=== PATIENT | female | born 1955 | race Caucasian/White ===

== ENCOUNTER 2019-06-08 15:25 | Emergency (ER) | payer BC, OTHER ==
[~2019-06-08] VITALS: Ht 182.9 cm; Wt 131.5 kg
--- NOTE | 2019-06-08 16:04 | Diagnostic Imaging Report ---
PATIENT HISTORY: Shortness of breath. TECHNIQUE: Single frontal view of the chest. COMPARISON: None. FINDINGS: The lung volumes are normal. No focal consolidation is seen. No large pleural effusion or pneumothorax is seen. The cardiomediastinal silhouette is normal in size and contour. No acute osseous abnormality is seen. IMPRESSION: No acute pulmonary abnormality seen. Dictated by: Dictated on workstation # [id number]
--- NOTE | 2019-06-08 16:17 | ED Cardiac General ---
History of Present Illness General Chief Complaint: Chest Pain Stated Complaint: NEEDS CHEST WORKUP Source: patient Exam Limitations: no limitations History of Present Illness Date Seen by Provider: Jun 08, 2019 Time Seen by Provider: 15:40 Initial Comments The patient is a pleasant 63-year-old female who presents for evaluation of left-sided chest pain. She states that she had a heart attack with a stent placed approximate 5 years ago. She says she's been experiencing this pain on and off for the last 2-3 weeks but that since yesterday the pain is been relatively constant. The pain she is expressing is in the upper left chest/shoulder region and radiating to the left neck. She took a nitroglycerin and some aspirin last night which did help with the pain. She also has a history of hypertension, hyperlipidemia, and diabetes. She went to see her PCP today and apparently her oxygen level was noted to be decreased so she was told to go to the emergency department. She is alert and oriented 4, calm, and appears to be in no distress at this time. Severity: moderate Location: shoulder (left) Activities at Onset: none Prior CP/Workup: cardiac cath, heart attack NTG SL MAILING SECTION CLERK: Yes (last night) ASA po MAILING SECTION CLERK: Yes (last night) Associated Systoms: Chest Pain Allergies and Home Medications Allergies Coded Allergies: No Known Drug Allergies (Unverified , 06/08/19) Patient Home Medication List Home Medication List Reviewed: Yes Review of Systems Review of Systems Constitutional: no symptoms reported EENTM: No Symptoms Reported Respiratory: No Symptoms Reported Cardiovascular: Chest Pain Gastrointestinal: No Symptoms Reported Genitourinary: No Symptoms Reported Musculoskeletal: no symptoms reported Skin: no symptoms reported Psychiatric/Neurological: No Symptoms Reported Endocrine: No Symptoms Reported Hematologic/Lymphatic: No Symptoms Reported All Other Systems Reviewed Negative Unless Noted: Yes Past Wbxdgcg-Tijjho-Trdgny Hx Past Med/Social Hx: Reviewed Nursing Past Med/Soc Hx Patient Social History Recent Foreign Travel: No Contact w/Someone Who Travel: No Physical Exam Vital Signs Vital Signs - First Documented 06/08/19 15:40 FiO2 93 Capillary Refill : Height, Weight, BMI Height: '" Weight: lbs. oz. kg; BMI Method: General Appearance: No Apparent Distress, WD/WN HEENT: PERRL/EOMI, TMs Normal, Normal ENT Inspection, Pharynx Normal Neck: Full Range of Motion, Normal Inspection, Non Tender, Supple Respiratory: Chest Non Tender, Lungs Clear, Normal Breath Sounds, No Accessory Muscle Use, No Respiratory Distress Cardiovascular: Regular Rate, Rhythm, No Edema, No Murmur Gastrointestinal: Normal Bowel Sounds, No Organomegaly, Non Tender, Soft Extremity: Normal Capillary Refill, Normal Inspection, Non Tender, No Calf Tenderness Neurologic/Psychiatric: Alert, Oriented x3, No Motor/Sensory Deficits, Normal Mood/Affect Skin: Normal Color, Warm/Dry Progress/Results/Core Measures Results/Orders Lab Results Laboratory Tests Test 06/08/19 15:50 Range/Units White Blood Count 8.0 4.3-11.0 10^3/uL Red Blood Count 4.60 4.35-5.85 10^6/uL Hemoglobin 13.6 11.5-16.0 G/DL Hematocrit 43 35-52 % Mean Corpuscular Volume 94 80-99 FL Mean Corpuscular Hemoglobin 30 25-34 PG Mean Corpuscular Hemoglobin Concent 31 L 32-36 G/DL Red Cell Distribution Width 13.2 10.0-14.5 % Platelet Count 239 130-400 10^3/uL Mean Platelet Volume 10.4 7.4-10.4 FL Neutrophils (%) (Auto) 66 42-75 % Lymphocytes (%) (Auto) 20 12-44 % Monocytes (%) (Auto) 10 0-12 % Eosinophils (%) (Auto) 3 0-10 % Basophils (%) (Auto) 1 0-10 % Neutrophils # (Auto) 5.3 1.8-7.8 X 10^3 Lymphocytes # (Auto) 1.7 1.0-4.0 X 10^3 Monocytes # (Auto) 0.8 0.0-1.0 X 10^3 Eosinophils # (Auto) 0.2 0.0-0.3 10^3/uL Basophils # (Auto) 0.1 0.0-0.1 10^3/uL Prothrombin Time 14.2 12.2-14.7 SEC INR Comment 1.1 0.8-1.4 Activated Partial Thromboplast Time 27 24-35 SEC D-Dimer 0.37 0.00-0.49 UG/ML Sodium Level 140 135-145 MMOL/L Potassium Level 4.4 3.6-5.0 MMOL/L Chloride Level 99 98-107 MMOL/L Carbon Dioxide Level 31 21-32 MMOL/L Anion Gap 10 5-14 MMOL/L Blood Urea Nitrogen 16 7-18 MG/DL Creatinine 0.77 0.60-1.30 MG/DL Estimat Glomerular Filtration Rate > 60 BUN/Creatinine Ratio 21 Glucose Level 202 H 70-105 MG/DL Calcium Level 9.1 8.5-10.1 MG/DL Corrected Calcium 9.2 8.5-10.1 MG/DL Total Bilirubin < 0.2 0.1-1.0 MG/DL Aspartate Amino Transf (AST/SGOT) 27 5-34 U/L Alanine Aminotransferase (ALT/SGPT) 27 0-55 U/L Alkaline Phosphatase 84 40-136 U/L Troponin I < 0.30 <0.30 NG/ML Pro-B-Type Natriuretic Peptide 102.3 H <75.0 PG/ML Total Protein 6.4 6.4-8.2 GM/DL Albumin 3.9 3.2-4.5 GM/DL My Orders Orders - MARCEL CALDERA DO Cbc With Automated Diff (06/08/19 15:47) Chest 1 View Ap/Pa Only (06/08/19 15:47) Ekg Tracing (06/08/19 15:47) Comprehensive Metabolic Panel (06/08/19 15:47) Protime With Inr (06/08/19 15:47) Partial Thromboplastin Time (06/08/19 15:47) O2 (06/08/19 15:47) Monitor-Rhythm Ecg Trace Only (06/08/19 15:47) Ed Iv/Invasive Line Start (06/08/19 15:47) Troponin I Fs (06/08/19 15:47) Probnp Fs (06/08/19 15:47) Aspirin Chewable Tablet (Baby Aspirin Ch (06/08/19 16:30) Nitroglycerin 0.4 Mg Btl 25's (Nitrostat (06/08/19 16:30) Fibrin Degradation Products (06/08/19 17:01) Medications Given in ED Current Medications Medications Dose Ordered Sig/Deep Route Start Time Stop Time Status Last Admin Dose Admin Aspirin 324 mg ONCE ONCE PO 06/08/19 16:30 06/08/19 16:31 DC 06/08/19 16:35 324 MG Nitroglycerin 0.4 mg NEEDED PRN SL 06/08/19 16:30 06/08/19 17:54 0.4 MG Vital Signs/I&O 06/08/19 06/08/19 06/08/19 15:35 15:35 15:40 Temp 36.8 Pulse 62 Resp 20 B/P (MAP) 150/67 (94) Pulse Ox 93 93 O2 Delivery Room Air Nasal Cannula Nasal Cannula O2 Flow Rate 2.00 2.0 2.00 FiO2 93 Progress Progress Note : Progress Note @1700 - patient updated on lab and imaging results and is still having some chest discomfort. She is agreeable to admission. I discussed the case with Dr. Pedraza who accepts the admission however he would like the patient to first received a d-dimer and if positive to have a CTA of her chest. The patient prefe rs to be transferred by private vehicle which is agreeable. @1800 - D-dimer is negative and the patient prefers to go by private vehicle. She is stable for transfer at this time. Comment EKG@1534 - normal sinus rhythm, rate of 63, normal axis, no acute ischemic findings noted, no STEMI, reviewed and interpreted by myself Departure Communication (Admissions) Time/Spoke to Admitting Phy: 17:[address] Pedraza who accepts admission but would like a d-dimer to be performed prior to admission. Impression Primary Impression: Chest pain Disposition: ADMITTED INPATIENT Condition: Stable Admissions Decision to Admit Reason: Admit from ER (General) Decision to Admit/Date: Jun 08, 2019 Time/Decision to Admit Time: 17:00 MARCEL CALDERA DO Jun 08, 2019 16:17
[2019-06-08] MEDS ORDERED: ASPIRIN 81 MG CHEW (CHILDREN'S ASA) PO ONE (16:30)
[2019-06-08 16:33] LABS: HEMATOCRIT 43 % (35-52); HEMOGLOBIN 13.6 G/DL (11.5-16.0); INR 1.1 (0.8-1.4); MEAN CORPUSCULAR HEMOGLOBIN 30 PG (25-34); MEAN CORPUSCULAR VOLUME 94 FL (80-99); PROTHROMBIN TIME PATIENT 14.2 SEC (12.2-14.7)
[2019-06-08 16:34] LABS: BASOPHILS # (AUTO) 0.1 10^3/uL (0.0-0.1); BASOPHILS % (AUTO) 1 % (0-10); EOSINOPHILS # (AUTO) 0.2 10^3/uL (0.0-0.3); EOSINOPHILS % (AUTO) 3 % (0-10); LYMPHOCYTES # (AUTO) 1.7 X 10^3 (1.0-4.0); LYMPHOCYTES % (AUTO) 20 % (12-44); MEAN CORPUSCULAR HGB CONC 31 G/DL (32-36); MEAN PLATELET VOLUME 10.4 FL (7.4-10.4); MONOCYTES # (AUTO) 0.8 X 10^3 (0.0-1.0); MONOCYTES % (AUTO) 10 % (0-12); NEUTROPHILS # (AUTO) 5.3 X 10^3 (1.8-7.8); NEUTROPHILS % (AUTO) 66 % (42-75); PLATELET COUNT 239 10^3/uL (130-400); RED CELL DISTRIBUTION WIDTH 13.2 % (10.0-14.5)
[2019-06-08] MEDS: NITROGLYCERIN 0.4 MG SL TABS BTL 25'S SL PRN ×2 (16:35→17:54)
[2019-06-08 16:36] LABS: ALANINE AMINOTRANSFERASE 27 U/L (0-55); ALBUMIN 3.9 GM/DL (3.2-4.5); ALKALINE PHOSPHATASE 84 U/L (40-136); BILIRUBIN,TOTAL < 0.2 MG/DL (0.1-1.0); BUN/CREATININE RATIO 21; CALCIUM 9.1 MG/DL (8.5-10.1); CARBON DIOXIDE 31 MMOL/L (21-32); CHLORIDE 99 MMOL/L (98-107); CREATININE SERUM 0.77 MG/DL (0.60-1.30); GFR ESTIMATED > 60; GLUCOSE 202 MG/DL (70-105); POTASSIUM 4.4 MMOL/L (3.6-5.0); SODIUM 140 MMOL/L (135-145); TOTAL PROTEIN 6.4 GM/DL (6.4-8.2)
--- NOTE | 2019-06-08 18:26 | NUR ---
REPORT RECEIVED FROM LAZARUS HERNANDEZ FROM [facility]. PT COMING VIA PRIVATE VEHICLE.
[2019-06-08 19:41] VITALS: BP 171/85
--- NOTE | 2019-06-08 19:42 | NUR ---
185- CONTACTED BY THE MEDICAL FLOOR CHARGE NURSE. INFORMED ME THAT THE PATIENT CALLED AND STATED SHE WAS NOT COMING TO BE ADMITTED. 1899- CONTACTED [facility] [place] [facility] IN THE ED. INQUIRED IF THE IV WAS STILL IN PLACE ON THE PATIENT. PRIMARY CARE NURSE CONFIRMED IV WAS STILL IN PLACE BEFORE THE PATIENT LEFT. 1905- CONTACTED [facility] [place] [facility] FOR A WELL-FARE CHECK ON PATIENT DUE TO IV STILL IN PLACE AND NOT COMING TO BE ADMITTED. 1922- OFFICER ASTER SANTOS #[address] WITH [facility] [place] [facility] CONTACTED ME TO CONFIRM ADDRESS AND PROVIDE PHONE NUMBER FOR PATIENT. 1936- OFFICER ASTER CONTACTED ME WITH THE PATIENT AT SIDE IN THE [facility]. SPOKE TO PATIENT DIRECTLY WITH OFFICER ASTER ON SPEAKER PHONE ABOUT HOW WE HAVE TO HAVE THE IV REMOVED SINCE SHE IS NOT COMING TO BE ADMITTED. PATIENT AGREED TO TAKE IV ON IN FRONT OF THE BARBER AND COVER WITH GAUZE. 1939- NAI RODARTE CONTACTED ME TO CONFIRM THAT THE IV WAS TAKEN OUT WITH HIM WITNESS AND HE PROVIDED GAUZE AND TAPE FOR THE PATIENT TO COVER SITE.
== END 2019-06-08 18:30 | disposition other institution (70) ==
LOC: ER FS 15:27 → UNDOADMIN 18:25 → 4TH 18:25
DX: R07.89 Other chest pain (principal); I25.2 Old myocardial infarction; Z95.5 Presence of coronary angioplasty implant and graft
CPT/HCPCS: 36415; 71045; 80053; 83880; 84484; 85025; 85379; 85610; 85730; 93005; 93041

== ENCOUNTER → 2019-11-08 | Outpatient (CLI) | payer BC ==
[~2019-11-08] MED LIST: ALPR0.5T7 PO; AMIO200T4 PO; AMLO10TA7 PO; APIX5TAB PO; ASPI-983 PO; ATEN50TA PO; ATOR20TA49 PO; BUPR150T14 PO; DIGO250T15 PO; DILT180C85 PO; ESCI20TA45 PO; FLUT12AE4 IH; IBUP-2473 PO; ISM60TCR PO; LISI-552 PO; LOVA20TA2 PO; METF-397 PO; METO50TA15 PO; NAPR220T66 PO; POTA2TAB5 PO; PRED10TA22 PO; RT-ALBUINH PO; TRAM50TA3 PO
== END ==
LOC: LABNPT 06:42
PROVIDERS: ATTEND Internal Medicine Interventional Cardiology
DX: Z01.818 Encounter for other preprocedural examination (principal); Z20.828 Contact with and (suspected) exposure to other viral communicable diseases
CPT/HCPCS: 87635

== ENCOUNTER 2019-11-12 06:59 | Inpatient (IN) | payer BC ==
[~2019-11-12] VITALS: Ht 183 cm; Wt 132.0 kg
[2019-11-12] VITALS (19 sets, daily range): BP systolic 89–152; BP diastolic 52–80
[2019-11-12] MEDS ORDERED: NS IV 1000 ML 1,000 ML IV SCH ×2 (07:03→13:26)
[2019-11-12] MEDS ORDERED: LIDOCAINE 1% INJ 20 ML 20 ML VIAL ONE (07:06)
[2019-11-12] MEDS ORDERED: NS IV 1000 ML 1,000 ML ONE ×2 (07:06→09:12)
[2019-11-12] MEDS ORDERED: HEParin (CATH LAB) 3,000 ML IV ONE (07:06)
--- OUTSIDE RECORDS SUMMARY | 2019-11-12 07:09 | XMS REPORT | Continuity of Care Document ---
Author Organization Unknown Address Unknown Phone Unavailable Allergies Active Description Code Type Severity Reaction Onset Reported/Identified Relationship to Patient Clinical Status Yes No Known Drug Allergies [id number] Drug Allergy Unknown N/A 06/08/2019 Medications There is no data. Problems Date Dx Coded Attending Type Code Diagnosis Diagnosed By 06/08/2019 VERENICE ROD DO Ot I25. 2 OLD MYOCARDIAL INFARCTION 06/08/2019 VERENICE ROD DO B Ot R07. 89 OTHER CHEST PAIN 06/08/2019 VERENICE ROD DO B Ot R07. 9 CHEST PAIN, UNSPECIFIED 06/08/2019 VERENICE ROD DO B Ot Z95. 5 PRESENCE OF CORONARY ANGIOPLASTY IMPLANT 06/12/2019 VERENICE ROD DO B Ot I25. 2 OLD MYOCARDIAL INFARCTION 06/12/2019 MARCEL DOVERENICE B Ot R07. 89 OTHER CHEST PAIN 06/12/2019 VERENICE ROD DO B Ot R07. 9 CHEST PAIN, UNSPECIFIED 06/12/2019 VERENICE ROD DO B Ot Z95. 5 PRESENCE OF CORONARY ANGIOPLASTY IMPLANT 09/09/2019 KRISTINA POWELL MD Ot E11. 9 TYPE 2 DIABETES MELLITUS WITHOUT COMPLIC 09/09/2019 KRISTINA POWELL MD Ot E66. 2 MORBID (SEVERE) OBESITY WITH ALVEOLAR HY 09/09/2019 KRISTINA POWELL MD Ot E78. 00 PURE HYPERCHOLESTEROLEMIA, UNSPECIFIED 09/09/2019 KRISTINA POWELL MD Ot F17.210 NICOTINE DEPENDENCE, CIGARETTES, UNCOMPL 09/09/2019 KRISTINA POWELL MD Ot F32. 9 MAJOR DEPRESSIVE DISORDER, SINGLE EPISOD 09/09/2019 KRISTINA POWELL MD Ot F41. 9 ANXIETY DISORDER, UNSPECIFIED 09/09/2019 KRISTINA POWELL MD Ot I11. 0 HYPERTENSIVE HEART DISEASE WITH HEART FA 09/09/2019 KRISTINA POWELL MD Ot I25. 10 ATHSCL HEART DISEASE OF [place] CORONARY 09/09/2019 KRISTINA POWELL MD Ot I48. 91 UNSPECIFIED ATRIAL FIBRILLATION 09/09/2019 KRISTINA POWELL MD Ot I50. 31 ACUTE DIASTOLIC (CONGESTIVE) HEART FAILU 09/09/2019 KRISTINA POWELL MD Ot J43. 9 EMPHYSEMA, UNSPECIFIED 09/09/2019 KRISTINA POWELL MD Ot J96. 21 ACUTE AND CHRONIC RESPIRATORY FAILURE [place] 09/09/2019 KRISTINA POWELL MD Ot R07. 89 OTHER CHEST PAIN 09/09/2019 KRISTINA POWELL MD Ot Z20.828 CONTACT W AND EXPOSURE TO OTH VIRAL COMM 09/09/2019 KRISTINA POWELL MD Ot Z68. 41 BODY MASS INDEX (BMI) 40.0-44.9, ADULT 09/09/2019 KRISTINA POWELL MD Ot Z95. 5 PRESENCE OF CORONARY ANGIOPLASTY IMPLANT 09/11/2019 KRISTINA POWELL MD Ot E11. 9 TYPE 2 DIABETES MELLITUS WITHOUT COMPLIC 09/11/2019 KRISTINA POWELL MD Ot E66. 2 MORBID (SEVERE) OBESITY WITH ALVEOLAR HY 09/11/2019 KRISTINA POWELL MD Ot E78. 00 PURE HYPERCHOLESTEROLEMIA, UNSPECIFIED 09/11/2019 KRISTINA POWELL MD Ot F17.210 NICOTINE DEPENDENCE, CIGARETTES, UNCOMPL 09/11/2019 KRISTINA POWELL MD Ot I11. 0 HYPERTENSIVE HEART DISEASE WITH HEART FA 09/11/2019 KRISTINA POWELL MD Ot I48. 91 UNSPECIFIED ATRIAL FIBRILLATION 09/11/2019 KRISTINA POWELL MD Ot I50. 9 HEART FAILURE, UNSPECIFIED 09/11/2019 KRISTINA POWELL MD Ot J43. 9 EMPHYSEMA, UNSPECIFIED 09/11/2019 KRISTINA POWELL MD Ot J96. 01 ACUTE RESPIRATORY FAILURE WITH HYPOXIA 09/11/2019 KRISTINA POWELL MD Ot R07. 89 OTHER CHEST PAIN 09/11/2019 KRISTINA POWELL MD Ot Z68. 41 BODY MASS INDEX (BMI) 40.0-44.9, ADULT 09/11/2019 KRISTINA POWELL MD Ot Z95. 5 PRESENCE OF CORONARY ANGIOPLASTY IMPLANT 09/12/2019 KRISTINA POWELL MD Ot E11. 9 TYPE 2 DIABETES MELLITUS WITHOUT COMPLIC 09/12/2019 KRISTINA POWELL MD Ot E66. 2 MORBID (SEVERE) OBESITY WITH ALVEOLAR HY 09/12/2019 KRISTINA POWELL MD Ot E78. 00 PURE HYPERCHOLESTEROLEMIA, UNSPECIFIED 09/12/2019 KRISTINA POWELL MD Ot F17.210 NICOTINE DEPENDENCE, CIGARETTES, UNCOMPL 09/12/2019 KRISTINA POWELL MD Ot F32. 9 MAJOR DEPRESSIVE DISORDER, SINGLE EPISOD 09/12/2019 KRISTINA POWELL MD Ot F41. 9 ANXIETY DISORDER, UNSPECIFIED 09/12/2019 KRISTINA POWELL MD Ot I11. 0 HYPERTENSIVE HEART DISEASE WITH HEART FA 09/12/2019 KRISTINA POWELL MD Ot I48. 91 UNSPECIFIED ATRIAL FIBRILLATION 09/12/2019 KRISTINA POWELL MD Ot I50. 9 HEART FAILURE, UNSPECIFIED 09/12/2019 KRISTINA POWELL MD Ot J43. 9 EMPHYSEMA, UNSPECIFIED 09/12/2019 KRISTINA POWELL MD Ot J96. 01 ACUTE RESPIRATORY FAILURE WITH HYPOXIA 09/12/2019 KRISTINA POWELL MD Ot R07. 89 OTHER CHEST PAIN 09/12/2019 KRISTINA POWELL MD Ot Z68. 41 BODY MASS INDEX (BMI) 40.0-44.9, ADULT 09/12/2019 KRISTINA POWELL MD Ot Z95. 5 PRESENCE OF CORONARY ANGIOPLASTY IMPLANT 09/12/2019 KRISTINA POWELL MD Ot E11. 9 TYPE 2 DIABETES MELLITUS WITHOUT COMPLIC 09/12/2019 KRISTINA POWELL MD Ot E66. 2 MORBID (SEVERE) OBESITY WITH ALVEOLAR HY 09/12/2019 KRISTINA POWELL MD Ot E78. 00 PURE HYPERCHOLESTEROLEMIA, UNSPECIFIED 09/12/2019 KRISTINA POWELL MD Ot F17.210 NICOTINE DEPENDENCE, CIGARETTES, UNCOMPL 09/12/2019 KRISTINA POWELL MD Ot F32. 9 MAJOR DEPRESSIVE DISORDER, SINGLE EPISOD 09/12/2019 KRISTINA POWELL MD Ot F41. 9 ANXIETY DISORDER, UNSPECIFIED 09/12/2019 KRISTINA POWELL MD Ot I11. 0 HYPERTENSIVE HEART DISEASE WITH HEART FA 09/12/2019 KRISTINA POWELL MD Ot I48. 91 UNSPECIFIED ATRIAL FIBRILLATION 09/12/2019 KRISTINA POWELL MD Ot I50. 9 HEART FAILURE, UNSPECIFIED 09/12/2019 KRISTINA POWELL MD Ot J43. 9 EMPHYSEMA, UNSPECIFIED 09/12/2019 KRISTINA POWELL MD Ot J96. 01 ACUTE RESPIRATORY FAILURE WITH HYPOXIA 09/12/2019 KRISTINA POWELL MD Ot R07. 89 OTHER CHEST PAIN 09/12/2019 KRISTINA POWELL MD Ot Z68. 41 BODY MASS INDEX (BMI) 40.0-44.9, ADULT 09/12/2019 KRISTINA POWELL MD Ot Z95. 5 PRESENCE OF CORONARY ANGIOPLASTY IMPLANT 09/13/2019 KRISTINA POWELL MD Ot E11. 9 TYPE 2 DIABETES MELLITUS WITHOUT COMPLIC 09/13/2019 KRISTINA POWELL MD Ot E66. 2 MORBID (SEVERE) OBESITY WITH ALVEOLAR HY 09/13/2019 KRISTINA POWELL MD Ot E78. 00 PURE HYPERCHOLESTEROLEMIA, UNSPECIFIED 09/13/2019 KRISTINA POWELL MD Ot F17.210 NICOTINE DEPENDENCE, CIGARETTES, UNCOMPL 09/13/2019 KRISTINA POWELL MD Ot F32. 9 MAJOR DEPRESSIVE DISORDER, SINGLE EPISOD 09/13/2019 KRISTINA POWELL MD Ot F41. 9 ANXIETY DISORDER, UNSPECIFIED 09/13/2019 KRISTINA POWELL MD Ot I11. 0 HYPERTENSIVE HEART DISEASE WITH HEART FA 09/13/2019 KRISTINA POWELL MD Ot I48. 91 UNSPECIFIED ATRIAL FIBRILLATION 09/13/2019 KRISTINA POWELL MD Ot I50. 9 HEART FAILURE, UNSPECIFIED 09/13/2019 KRISTINA POWELL MD Ot J43. 9 EMPHYSEMA, UNSPECIFIED 09/13/2019 KRISTINA POWELL MD Ot J96. 01 ACUTE RESPIRATORY FAILURE WITH HYPOXIA 09/13/2019 KRISTINA POWELL MD Ot R07. 89 OTHER CHEST PAIN 09/13/2019 KRISTINA POWELL MD Ot Z68. 41 BODY MASS INDEX (BMI) 40.0-44.9, ADULT 09/13/2019 KRISTINA POWELL MD Ot Z95. 5 PRESENCE OF CORONARY ANGIOPLASTY IMPLANT 09/13/2019 KRISTINA POWELL MD Ot E11. 9 TYPE 2 DIABETES MELLITUS WITHOUT COMPLIC 09/13/2019 KRISTINA POWELL MD Ot E66. 2 MORBID (SEVERE) OBESITY WITH ALVEOLAR HY 09/13/2019 KRISTINA POWELL MD Ot E78. 00 PURE HYPERCHOLESTEROLEMIA, UNSPECIFIED 09/13/2019 KRISTINA POWELL MD Ot F17.210 NICOTINE DEPENDENCE, CIGARETTES, UNCOMPL 09/13/2019 KRISTINA POWELL MD Ot F32. 9 MAJOR DEPRESSIVE DISORDER, SINGLE EPISOD 09/13/2019 KRISTINA POWELL MD Ot F41. 9 ANXIETY DISORDER, UNSPECIFIED 09/13/2019 KRISTINA POWELL MD Ot I11. 0 HYPERTENSIVE HEART DISEASE WITH HEART FA 09/13/2019 KRISTINA POWELL MD Ot I48. 91 UNSPECIFIED ATRIAL FIBRILLATION 09/13/2019 KRISTINA POWELL MD Ot I50. 9 HEART FAILURE, UNSPECIFIED 09/13/2019 KRISTINA POWELL MD Ot J43. 9 EMPHYSEMA, UNSPECIFIED 09/13/2019 KRISTINA POWELL MD Ot J96. 01 ACUTE RESPIRATORY FAILURE WITH HYPOXIA 09/13/2019 KRISTINA POWELL MD Ot R07. 89 OTHER CHEST PAIN 09/13/2019 KRISTINA POWELL MD Ot Z68. 41 BODY MASS INDEX (BMI) 40.0-44.9, ADULT 09/13/2019 KRISTINA POWELL MD Ot Z95. 5 PRESENCE OF CORONARY ANGIOPLASTY IMPLANT 09/14/2019 KRISTINA POWELL MD Ot E11. 9 TYPE 2 DIABETES MELLITUS WITHOUT COMPLIC 09/14/2019 KRISTINA POWELL MD Ot E66. 2 MORBID (SEVERE) OBESITY WITH ALVEOLAR HY 09/14/2019 KRISTINA POWELL MD Ot E78. 00 PURE HYPERCHOLESTEROLEMIA, UNSPECIFIED 09/14/2019 KRISTINA POWELL MD Ot F17.210 NICOTINE DEPENDENCE, CIGARETTES, UNCOMPL 09/14/2019 KRISTINA POWELL MD Ot F32. 9 MAJOR DEPRESSIVE DISORDER, SINGLE EPISOD 09/14/2019 KRISTINA POWELL MD Ot F41. 9 ANXIETY DISORDER, UNSPECIFIED 09/14/2019 KRISTINA POWELL MD Ot I11. 0 HYPERTENSIVE HEART DISEASE WITH HEART FA 09/14/2019 KRISTINA POWELL MD Ot I48. 91 UNSPECIFIED ATRIAL FIBRILLATION 09/14/2019 KRISTINA POWELL MD Ot I50. 9 HEART FAILURE, UNSPECIFIED 09/14/2019 KRISTINA POWELL MD Ot J43. 9 EMPHYSEMA, UNSPECIFIED 09/14/2019 KRISTINA POWELL MD Ot J96. 01 ACUTE RESPIRATORY FAILURE WITH HYPOXIA 09/14/2019 KRISTINA POWELL MD Ot R07. 89 OTHER CHEST PAIN 09/14/2019 KRISTINA POWELL MD Ot Z68. 41 BODY MASS INDEX (BMI) 40.0-44.9, ADULT 09/14/2019 KRISTINA POWELL MD Ot Z95. 5 PRESENCE OF CORONARY ANGIOPLASTY IMPLANT 09/14/2019 KRISTINA POWELL MD Ot E11. 9 TYPE 2 DIABETES MELLITUS WITHOUT COMPLIC 09/14/2019 KRISTINA POWELL MD Ot E66. 2 MORBID (SEVERE) OBESITY WITH ALVEOLAR HY 09/14/2019 KRISTINA POWELL MD Ot E78. 00 PURE HYPERCHOLESTEROLEMIA, UNSPECIFIED 09/14/2019 KRISTINA POWELL MD Ot F17.210 NICOTINE DEPENDENCE, CIGARETTES, UNCOMPL 09/14/2019 KRISTINA POWELL MD Ot F32. 9 MAJOR DEPRESSIVE DISORDER, SINGLE EPISOD 09/14/2019 KRISTINA POWELL MD Ot F41. 9 ANXIETY DISORDER, UNSPECIFIED 09/14/2019 KRISTINA POWELL MD Ot I11. 0 HYPERTENSIVE HEART DISEASE WITH HEART FA 09/14/2019 KRISTINA POWELL MD Ot I48. 91 UNSPECIFIED ATRIAL FIBRILLATION 09/14/2019 KRISTINA POWELL MD Ot I50. 9 HEART FAILURE, UNSPECIFIED 09/14/2019 KRISTINA POWELL MD Ot J43. 9 EMPHYSEMA, UNSPECIFIED 09/14/2019 KRISTINA POWELL MD Ot J96. 01 ACUTE RESPIRATORY FAILURE WITH HYPOXIA 09/14/2019 KRISTINA POWELL MD Ot R07. 89 OTHER CHEST PAIN 09/14/2019 KRISTINA POWELL MD Ot Z68. 41 BODY MASS INDEX (BMI) 40.0-44.9, ADULT 09/14/2019 KRISTINA POWELL MD Ot Z95. 5 PRESENCE OF CORONARY ANGIOPLASTY IMPLANT 09/15/2019 KRISTINA POWELL MD Ot E11. 9 TYPE 2 DIABETES MELLITUS WITHOUT COMPLIC 09/15/2019 KRISTINA POWELL MD Ot E66. 2 MORBID (SEVERE) OBESITY WITH ALVEOLAR HY 09/15/2019 KRISTINA POWELL MD Ot E78. 00 PURE HYPERCHOLESTEROLEMIA, UNSPECIFIED 09/15/2019 KRISTINA POWELL MD Ot F17.210 NICOTINE DEPENDENCE, CIGARETTES, UNCOMPL 09/15/2019 KRISTINA POWELL MD Ot F32. 9 MAJOR DEPRESSIVE DISORDER, SINGLE EPISOD 09/15/2019 KRISTINA POWELL MD Ot F41. 9 ANXIETY DISORDER, UNSPECIFIED 09/15/2019 KRISTINA POWELL MD Ot I11. 0 HYPERTENSIVE HEART DISEASE WITH HEART FA 09/15/2019 KRISTINA POWELL MD Ot I48. 91 UNSPECIFIED ATRIAL FIBRILLATION 09/15/2019 KRISTINA POWELL MD Ot I50. 31 ACUTE DIASTOLIC (CONGESTIVE) HEART FAILU 09/15/2019 KRISTINA POWELL MD Ot J43. 9 EMPHYSEMA, UNSPECIFIED 09/15/2019 KRISTINA POWELL MD Ot J96. 01 ACUTE RESPIRATORY FAILURE WITH HYPOXIA 09/15/2019 KRISTINA POWELL MD Ot R07. 89 OTHER CHEST PAIN 09/15/2019 KRISTINA POWELL MD Ot Z68. 41 BODY MASS INDEX (BMI) 40.0-44.9, ADULT 09/15/2019 KRISTINA POWELL MD Ot Z95. 5 PRESENCE OF CORONARY ANGIOPLASTY IMPLANT 09/16/2019 KRISTINA POWELL MD Ot E11. 9 TYPE 2 DIABETES MELLITUS WITHOUT COMPLIC 09/16/2019 KRISTINA POWELL MD Ot E66. 2 MORBID (SEVERE) OBESITY WITH ALVEOLAR HY 09/16/2019 KRISTINA POWELL MD Ot E78. 00 PURE HYPERCHOLESTEROLEMIA, UNSPECIFIED 09/16/2019 KRISTINA POWELL MD Ot F17.210 NICOTINE DEPENDENCE, CIGARETTES, UNCOMPL 09/16/2019 KRISTINA POWELL MD Ot F32. 9 MAJOR DEPRESSIVE DISORDER, SINGLE EPISOD 09/16/2019 KRISTINA POWELL MD Ot F41. 9 ANXIETY DISORDER, UNSPECIFIED 09/16/2019 KRISTINA POWELL MD Ot I11. 0 HYPERTENSIVE HEART DISEASE WITH HEART FA 09/16/2019 KRISTINA POWELL MD Ot I48. 91 UNSPECIFIED ATRIAL FIBRILLATION 09/16/2019 KRISTINA POWELL MD Ot I50. 31 ACUTE DIASTOLIC (CONGESTIVE) HEART FAILU 09/16/2019 KRISTINA POWELL MD, Ot J43. 9 EMPHYSEMA, UNSPECIFIED 09/16/2019 KRISTINA POWELL MD Ot J96. 01 ACUTE RESPIRATORY FAILURE WITH HYPOXIA 09/16/2019 KRISTINA POWELL MD Ot R07. 89 OTHER CHEST PAIN 09/16/2019 KRISTINA POWELL MD Ot Z68. 41 BODY MASS INDEX (BMI) 40.0-44.9, ADULT 09/16/2019 KRISTINA POWELL MD Ot Z95. 5 PRESENCE OF CORONARY ANGIOPLASTY IMPLANT 09/17/2019 KRISTINA POWELL MD Ot E11. 9 TYPE 2 DIABETES MELLITUS WITHOUT COMPLIC 09/17/2019 KRISTINA POWELL MD Ot E66. 2 MORBID (SEVERE) OBESITY WITH ALVEOLAR HY 09/17/2019 KRISTINA POWELL MD Ot E78. 00 PURE HYPERCHOLESTEROLEMIA, UNSPECIFIED 09/17/2019 KRISTINA POWELL MD Ot F17.210 NICOTINE DEPENDENCE, CIGARETTES, UNCOMPL 09/17/2019 KRISTINA POWELL MD Ot F32. 9 MAJOR DEPRESSIVE DISORDER, SINGLE EPISOD 09/17/2019 KRISTINA POWELL MD, Ot F41. 9 ANXIETY DISORDER, UNSPECIFIED 09/17/2019 KRISTINA POWELL MD Ot I11. 0 HYPERTENSIVE HEART DISEASE WITH HEART FA 09/17/2019 KRISTINA POWELL MD Ot I48. 91 UNSPECIFIED ATRIAL FIBRILLATION 09/17/2019 KRISTINA POWELL MD Ot I50. 31 ACUTE DIASTOLIC (CONGESTIVE) HEART FAILU 09/17/2019 KRISTINA POWELL MD Ot J43. 9 EMPHYSEMA, UNSPECIFIED 09/17/2019 KRISTINA POWELL MD Ot J96. 01 ACUTE RESPIRATORY FAILURE WITH HYPOXIA 09/17/2019 KRISTINA POWELL MD Ot R07. 89 OTHER CHEST PAIN 09/17/2019 KRISTINA POWELL MD Ot Z68. 41 BODY MASS INDEX (BMI) 40.0-44.9, ADULT 09/17/2019 KRISTINA POWELL MD Ot Z95. 5 PRESENCE OF CORONARY ANGIOPLASTY IMPLANT 09/18/2019 KRISTINA POWELL MD Ot E11. 9 TYPE 2 DIABETES MELLITUS WITHOUT COMPLIC 09/18/2019 KRISTINA POWELL MD Ot E66. 2 MORBID (SEVERE) OBESITY WITH ALVEOLAR HY 09/18/2019 KRISTINA POWELL MD Ot E78. 00 PURE HYPERCHOLESTEROLEMIA, UNSPECIFIED 09/18/2019 KRISTINA POWELL MD Ot F17.210 NICOTINE DEPENDENCE, CIGARETTES, UNCOMPL 09/18/2019 KRISTINA POWELL MD Ot F32. 9 MAJOR DEPRESSIVE DISORDER, SINGLE EPISOD 09/18/2019 KRISTINA POWELL MD Ot F41. 9 ANXIETY DISORDER, UNSPECIFIED 09/18/2019 KRISTINA POWELL MD Ot I11. 0 HYPERTENSIVE HEART DISEASE WITH HEART FA 09/18/2019 KRISTINA POWELL MD Ot I48. 91 UNSPECIFIED ATRIAL FIBRILLATION 09/18/2019 KRISTINA POWELL MD Ot I50. 31 ACUTE DIASTOLIC (CONGESTIVE) HEART FAILU 09/18/2019 KRISTINA POWELL MD Ot J43. 9 EMPHYSEMA, UNSPECIFIED 09/18/2019 KRISTINA POWELL MD Ot J96. 01 ACUTE RESPIRATORY FAILURE WITH HYPOXIA 09/18/2019 KRISTINA POWELL MD Ot R07. 89 OTHER CHEST PAIN 09/18/2019 KRISTINA POWELL MD Ot Z68. 41 BODY MASS INDEX (BMI) 40.0-44.9, ADULT 09/18/2019 KRISTINA POWELL MD Ot Z95. 5 PRESENCE OF CORONARY ANGIOPLASTY IMPLANT 09/18/2019 KRISTINA POWELL MD Ot E11. 9 TYPE 2 DIABETES MELLITUS WITHOUT COMPLIC 09/18/2019 KRISTINA POWELL MD Ot E66. 2 MORBID (SEVERE) OBESITY WITH ALVEOLAR HY 09/18/2019 KRISTINA POWELL MD Ot E78. 00 PURE HYPERCHOLESTEROLEMIA, UNSPECIFIED 09/18/2019 KRISTINA POWELL MD Ot F17.210 NICOTINE DEPENDENCE, CIGARETTES, UNCOMPL 09/18/2019 KRISTINA POWELL MD Ot F32. 9 MAJOR DEPRESSIVE DISORDER, SINGLE EPISOD 09/18/2019 KRISTINA POWELL MD Ot F41. 9 ANXIETY DISORDER, UNSPECIFIED 09/18/2019 KRISTINA POWELL MD Ot I11. 0 HYPERTENSIVE HEART DISEASE WITH HEART FA 09/18/2019 KRISTINA POWELL MD Ot I25. 10 ATHSCL HEART DISEASE OF [place] CORONARY 09/18/2019 KRISTINA POEWLL MD Ot I48. 91 UNSPECIFIED ATRIAL FIBRILLATION 09/18/2019 KRISTINA POWELL MD Ot I50. 31 ACUTE DIASTOLIC (CONGESTIVE) HEART FAILU 09/18/2019 KRISTINA POWELL MD Ot J43. 9 EMPHYSEMA, UNSPECIFIED 09/18/2019 KRISTINA POWELL MD Ot J96. 21 ACUTE AND CHRONIC RESPIRATORY FAILURE [place] 09/18/2019 KRISTINA POWELL MD Ot R07. 89 OTHER CHEST PAIN 09/18/2019 KRISTINA POWELL MD Ot Z20.828 CONTACT W AND EXPOSURE TO OTH VIRAL COMM 09/18/2019 KRISTINA POWELL MD Ot Z68. 41 BODY MASS INDEX (BMI) 40.0-44.9, ADULT 09/18/2019 KRISTINA POWELL MD Ot Z95. 5 PRESENCE OF CORONARY ANGIOPLASTY IMPLANT 09/19/2019 KRISTINA POWELL MD Ot E11. 9 TYPE 2 DIABETES MELLITUS WITHOUT COMPLIC 09/19/2019 KRISTINA POWELL MD Ot E66. 2 MORBID (SEVERE) OBESITY WITH ALVEOLAR HY 09/19/2019 KRISTINA POWELL MD Ot E78. 00 PURE HYPERCHOLESTEROLEMIA, UNSPECIFIED 09/19/2019 KRISTINA POWELL MD Ot F17.210 NICOTINE DEPENDENCE, CIGARETTES, UNCOMPL 09/19/2019 KRISTINA POWELL MD Ot F32. 9 MAJOR DEPRESSIVE DISORDER, SINGLE EPISOD 09/19/2019 KRISTINA POWELL MD Ot F41. 9 ANXIETY DISORDER, UNSPECIFIED 09/19/2019 KRISTINA POWELL MD Ot I11. 0 HYPERTENSIVE HEART DISEASE WITH HEART FA 09/19/2019 KRISTINA POWELL MD Ot I25. 10 ATHSCL HEART DISEASE OF [place] CORONARY 09/19/2019 KRISTINA POWELL MD Ot I48. 91 UNSPECIFIED ATRIAL FIBRILLATION 09/19/2019 KRISTINA POWELL MD Ot I50. 31 ACUTE DIASTOLIC (CONGESTIVE) HEART FAILU 09/19/2019 KRISTINA POWELL MD Ot J43. 9 EMPHYSEMA, UNSPECIFIED 09/19/2019 KRISTINA POWELL MD Ot J96. 21 ACUTE AND CHRONIC RESPIRATORY FAILURE [place] 09/19/2019 KRISTINA POWELL MD Ot R07. 89 OTHER CHEST PAIN 09/19/2019 KRISTINA POWELL MD, Ot Z20.828 CONTACT W AND EXPOSURE TO OTH VIRAL COMM 09/19/2019 KRISTINA POWELL MD, Ot Z68. 41 BODY MASS INDEX (BMI) 40.0-44.9, ADULT 09/19/2019 KRISTINA POWELL MD, Ot Z95. 5 PRESENCE OF CORONARY ANGIOPLASTY IMPLANT Procedures Code Description Performed By Per formed On [id number] RE STORATION OF CARDIAC RHYTHM, SINGLE 09/11/2019 [id number] ME ASURE OF CARDIAC SAMPL PRESSURE, L H 09/17/2019 [id number] FL UOROSCOPY OF MULT COR ART USING L OSM 09/17/2019 [id number] FL UOROSCOPY OF LEFT HEART USING LOW OSMO 09/17/2019 Results Test Result Range LIPID PANEL - 07/27/18 12:45 CHOLESTEROL, TOTAL 133 mg/dL <200 HDL CHOLESTEROL 46 mg/dL >50 TRIGLYCERIDES 130 mg/dL <150 LDL-CHOLESTEROL 66 mg/dL (calc) NRG CHOL/HDLC RATIO 2.9 (calc) <5.0 NON HDL CHOLESTEROL 87 mg/dL (calc) <130 CMP - 07/27/18 12:45 GLUCOSE 97 mg/dL 65-99 UREA NITROGEN (BUN) 12 mg/dL 7-25 CREATININE 0.65 mg/dL 0.50-0.99 eGFR NON-AFR. [place] 96 mL/min/1.73m2 > OR = 60 eGFR 111 mL/min/1.73m2 > OR = 60 BUN/CREATININE RATIO NOT APPLICABLE (calc) 6-22 SODIUM 143 mmol/L 135-146 POTASSIUM 4.5 mmol/L 3.5-5.3 CHLORIDE 103 mmol/L 98-110 CARBON DIOXIDE 30 mmol/L 20-32 CALCIUM 10.0 mg/dL 8.6-10.4 PROTEIN, TOTAL 7.2 g/dL 6.1-8.1 ALBUMIN 4.8 g/dL 3.6-5.1 GLOBULIN 2.4 g/dL (calc) 1.9-3.7 ALBUMIN/GLOBULIN RATIO 2.0 (calc) 1.0-2. 5 BILIRUBIN, TOTAL 0.3 mg/dL 0.2-1.2 ALKALINE PHOSPHATASE 76 U/L 33-130 AST 16 U/L 10-35 ALT 16 U/L 6-29 TSH - 07/27/18 12:45 TSH 1.94 mIU/L 0.40-4.50 A1C - 07/27/18 12:45 HEMOGLOBIN A1c 6.5 % of total Hgb <5.7 CMP - 02/09/19 16:34 GLUCOSE 124 mg/dL 65-99 UREA NITROGEN (BUN) 18 mg/dL 7-25 CREATININE 0.71 mg/dL 0.50-0.99 eGFR NON-AFR. [place] 91 mL/min/1.73m2 > OR = 60 eGFR 106 mL/min/1.73m2 > OR = 60 BUN/CREATININE RATIO NOT APPLICABLE (calc) 6-22 SODIUM 139 mmol/L 135-146 POTASSIUM 4.6 mmol/L 3.5-5.3 CHLORIDE 101 mmol/L 98-110 CARBON DIOXIDE 31 mmol/L 20-32 CALCIUM 9.5 mg/dL 8.6-10.4 PROTEIN, TOTAL 6.5 g/dL 6.1-8.1 ALBUMIN 4.3 g/dL 3.6-5.1 GLOBULIN 2.2 g/dL (calc) 1.9-3.7 ALBUMIN/GLOBULIN RATIO 2.0 (calc) 1.0-2. 5 BILIRUBIN, TOTAL 0.2 mg/dL 0.2-1.2 ALKALINE PHOSPHATASE 77 U/L 33-130 AST 19 U/L 10-35 ALT 16 U/L 6- A1C - 02/09/19 16:34 HEMOGLOBIN A1c 6.5 % of total Hgb <5.7 LIPID PANEL - 05/10/19 08:54 CHOLESTEROL, TOTAL 147 mg/dL <200 HDL CHOLESTEROL 47 mg/dL >50 TRIGLYCERIDES 95 mg/dL <150 LDL-CHOLESTEROL 81 mg/dL (calc) NRG CHOL/HDLC RATIO 3.1 (calc) <5.0 NON HDL CHOLESTEROL 100 mg/dL (calc) <13 0 MICROALBUMIN/CREATININE RATIO, URINE - 0 05/10/19 08:54 CREATININE, RANDOM URINE 136 mg/dL 20-27 5 MICROALBUMIN 1.2 mg/dL See Note: MICROALBUMIN/CREATININE RATIO, RANDOM URINE 9 mcg/ mg creat <30 CMP - 05/10/19 08:54 GLUCOSE 121 mg/dL 65-99 UREA NITROGEN (BUN) 11 mg/dL 7-25 CREATININE 0.72 mg/dL 0.50-0.99 eGFR NON-AFR. LATVIAN 90 mL/min/1.73m2 > OR = 60 eGFR 104 mL/min/1.73m2 > OR = 60 BUN/CREATININE RATIO NOT APPLICABLE (calc) 6-22 SODIUM 140 mmol/L 135-146 POTASSIUM 4.7 mmol/L 3.5-5.3 CHLORIDE 100 mmol/L 98-110 CARBON DIOXIDE 33 mmol/L 20-32 CALCIUM 9.4 mg/dL 8.6-10.4 PROTEIN, TOTAL 6.4 g/dL 6.1-8.1 ALBUMIN 4.2 g/dL 3.6-5.1 GLOBULIN 2.2 g/dL (calc) 1.9-3.7 ALBUMIN/GLOBULIN RATIO 1.9 (calc) 1.0-2. 5 BILIRUBIN, TOTAL 0.4 mg/dL 0.2-1.2 ALKALINE PHOSPHATASE 72 U/L 33-130 AST 13 U/L 10-35 ALT 14 U/L 6-29 A1C - 05/10/19 08:54 HEMOGLOBIN A1c 6.6 % of total Hgb <5.7 PT panel in platelet poor plasma by coag ulation assay - 06/08/19 15:50 Prothrombin time (PT) in platelet poor plasma by coagu lation assay 14.2 s 12.2-14.7 INR in platelet poor plasma or blood by coagulation as say 1.1 0.8-1.4 Activated partial thromboplastin time (a PTT) in platelet poor plasma bycoagulation assay - 06/08/19 15:50 Activated partial thromboplastin time (a PTT) in platelet poor plasma bycoagulation assay 27 s 24-35 Complete blood count (CBC) with automate d white blood cell (WBC) differential - 06/08/19 15:50 Blood leukocytes automated count (number/volume) 8.0 10*3/uL 4.3-11.0 Blood erythrocytes automated count (number/volume) 4.60 10*6/uL 4.35-5.85 Venous blood hemoglobin measurement (mass/volume) 13.6 g/dL 11.5-16.0 Blood hematocrit (volume fraction) 43 % 35-52 Automated erythrocyte mean corpuscular volume 94 [ foz_us] 80-99 Automated erythrocyte mean corpuscular h emoglobin (mass per erythrocyte) 30 pg 25-34 Automated erythrocyte mean corpuscular h emoglobin concentration measurement (mass/volume) 31 g/dL 32-36 Automated erythrocyte distribution width ratio 13. 2 % 10.0- 14.5 Automated blood platelet count (count/volume) 239 10*3/uL 130-400 Automated blood platelet mean volume measurement 10.4 [foz_us] 7.4-10.4 Automated blood neutrophils/100 leukocytes 66 % 42-75 Automated blood lymphocytes/100 leukocytes 20 % 12-44 Blood monocytes/100 leukocytes 10 % 0-12 Automated blood eosinophils/100 leukocytes 3 % 0-10 Automated blood basophils/100 leukocytes 1 % 0-10 Blood neutrophils automated count (number/volume) 5.3 10*3 1.8-7.8 Blood lymphocytes automated count (number/volume) 1.7 10*3 1.0-4.0 Blood monocytes automated count (number/volume) 0. 8 10*3 0.0-1.0 Automated eosinophil count 0.2 10*3/uL 0 .0-0.3 Automated blood basophil count (count/volume) 0.1 10*3/uL 0.0-0.1 Comprehensive metabolic panel - 06/08/19 15:50 Serum or plasma sodium measurement (moles/volume) 140 mmol/L 135-145 Serum or plasma potassium measurement (moles/volume) 4.4 mmol/L 3.6-5.0 Serum or plasma chloride measurement (moles/volume) 99 mmol/L 98-107 Carbon dioxide 31 mmol/L 21-32 Serum or plasma anion gap determination (moles/volume) 10 mmol/L 5-14 Serum or plasma urea nitrogen measurement (mass/volume ) 16 mg/dL 7-18 Serum or plasma creatinine measurement (mass/volume) 0.77 mg/dL 0.60-1.30 Serum or plasma urea nitrogen/creatinine mass ratio 21 NRG Serum or plasma creatinine measurement w ith calculation of estimated glomerular filtration rate > NRG Serum or plasma glucose measurement (mass/volume) 202 mg/dL 70-105 Serum or plasma calcium measurement (mass/volume) 9.1 mg/dL 8.5-10.1 Serum or plasma total bilirubin measurement (mass/volu me) < mg/dL 0.1-1.0 Serum or plasma alkaline phosphatase hina surement (enzymatic activity/volume) 84 U/L 40-136 Serum or plasma aspartate aminotransfera se measurement (enzymatic activity/volume) 27 U/L 5-34 Serum or plasma alanine aminotransferase measurement (enzymatic activity/volume) 27 U/L 0-55 Serum or plasma protein measurement (mass/volume) 6.4 g/dL 6.4-8.2 Serum or plasma albumin measurement (mass/volume) 3.9 g/dL 3.2-4.5 CALCIUM CORRECTED 9.2 mg/dL 8.5-10.1 TROPONIN I FS - 06/08/19 15:50 TROPONIN I FS < 0.30 <0.30 PROBNP FS - 06/08/19 15:50 PROBNP FS 102.3 pg/mL <75.0 Fibrin D-dimer FEU measurement in platel et poor plasma (mass/volume) - 06/08/19 15:50 Fibrin D-dimer FEU measurement in platelet poor plasma (mass/volume) 0.37 ug/mL 0.00-0.49 Complete blood count (CBC) with automate d white blood cell (WBC) differential - 09/09/19 15:12 Blood leukocytes automated count (number/volume) 9.6 10*3/uL 4.3-11.0 Blood erythrocytes automated count (number/volume) 4.79 10*6/uL 4.35-5.85 Venous blood hemoglobin measurement (mass/volume) 13.8 g/dL 11.5-16.0 Blood hematocrit (volume fraction) 45 % 35-52 Automated erythrocyte mean corpuscular volume 93 [ foz_us] 80-99 Automated erythrocyte mean corpuscular h emoglobin (mass per erythrocyte) 29 pg 25-34 Automated erythrocyte mean corpuscular h emoglobin concentration measurement (mass/volume) 31 g/dL 32-36 Automated erythrocyte distribution width ratio 16. 2 % 10.0- 14.5 Automated blood platelet count (count/volume) 282 10*3/uL 130-400 Automated blood platelet mean volume measurement 10.6 [foz_us] 7.4-10.4 Automated blood neutrophils/100 leukocytes 72 % 42-75 Automated blood lymphocytes/100 leukocytes 17 % 12-44 Blood monocytes/100 leukocytes 10 % 0-12 Automated blood eosinophils/100 leukocytes 1 % 0-10 Automated blood basophils/100 leukocytes 0 % 0-10 Blood neutrophils automated count (number/volume) 6.9 10*3 1.8-7.8 Blood lymphocytes automated count (number/volume) 1.6 10*3 1.0-4.0 Blood monocytes automated count (number/volume) 1. 0 10*3 0.0-1.0 Automated eosinophil count 0.1 10*3/uL 0 .0-0.3 Automated blood basophil count (count/volume) 0.0 10*3/uL 0.0-0.1 Comprehensive metabolic panel - 09/09/19 15:12 Serum or plasma sodium measurement (moles/volume) 143 mmol/L 135-145 Serum or plasma potassium measurement (moles/volume) 3.5 mmol/L 3.6-5.0 Serum or plasma chloride measurement (moles/volume) 101 mmol/L 98-107 Carbon dioxide 29 mmol/L 21-32 Serum or plasma anion gap determination (moles/volume) 13 mmol/L 5-14 Serum or plasma urea nitrogen measurement (mass/volume ) 9 mg/dL 7-18 Serum or plasma creatinine measurement (mass/volume) 0.76 mg/dL 0.60-1.30 Serum or plasma urea nitrogen/creatinine mass ratio 12 NRG Serum or plasma creatinine measurement w ith calculation of estimated glomerular filtration rate > NRG Serum or plasma glucose measurement (mass/volume) 192 mg/dL 70-105 Serum or plasma calcium measurement (mass/volume) 8.8 mg/dL 8.5-10.1 Serum or plasma total bilirubin measurement (mass/volu me) 0.7 mg/dL 0.1-1.0 Serum or plasma alkaline phosphatase hina surement (enzymatic activity/volume) 79 U/L 40-136 Serum or plasma aspartate aminotransfera se measurement (enzymatic activity/volume) 16 U/L 5-34 Serum or plasma alanine aminotransferase measurement (enzymatic activity/volume) 17 U/L 0-55 Serum or plasma protein measurement (mass/volume) 6.5 g/dL 6.4-8.2 Serum or plasma albumin measurement (mass/volume) 4.0 g/dL 3.2-4.5 CALCIUM CORRECTED 8.8 mg/dL 8.5-10.1 PT panel in platelet poor plasma by coag ulation assay - 09/09/19 15:12 Prothrombin time (PT) in platelet poor plasma by coagu lation assay 15.5 s 12.2-14.7 INR in platelet poor plasma or blood by coagulation as say 1.2 0.8-1.4 Activated partial thromboplastin time (a PTT) in platelet poor plasma bycoagulation assay - 09/09/19 15:12 Activated partial thromboplastin time (a PTT) in platelet poor plasma bycoagulation assay 27 s 24-35 Magnesium - 09/09/19 15:12 Magnesium 1.7 mg/dL 1.6-2.4 Blood lactic acid measurement (moles/vol ume) - 09/09/19 15:12 Blood lactic acid measurement (moles/volume) 1.57 mmol/L 0.50-2.00 Serum ragweed IgE antibody assay - 09/08 15:12 Serum ragweed IgE antibody assay 183 U/L 125-220 Myoglobin, serum - 09/09/19 15:12 Myoglobin, serum 53.2 ng/mL 10.0-92.0 PROCALCITONIN (PCT) - 09/09/19 15:12 PROCALCITONIN (PCT) 0.01 ng/mL <0.10 Serum or plasma amylase measurement (enz ymatic activity/volume) - 09/09/19 15:12 Serum or plasma amylase measurement (enzymatic activit y/volume) 28 U/L 25-125 Lipase - 09/09/19 15:12 Lipase 29 U/L 8-78 Serum or plasma troponin i.cardiac measu rement (mass/volume) - 09/09/19 15:12 Serum or plasma troponin i.cardiac measurement (mass/v olume) < ng/mL <0.028 Serum or plasma lithium measurement (mol es/volume) - 09/09/19 15:12 BNP PT 377.4 pg/mL <100.0 Influenza virus A and B antigen detectio n - 09/09/19 15:12 FLU RESULT NEGATIVE FOR INFLUENZA A AND B ANTIGENS BY IA NRG Serum or plasma C reactive protein measu rement (mass/volume) - 09/09/19 15:12 Serum or plasma C reactive protein measurement (mass/v olume) 0.82 mg/dL 0.00-0.50 Bacterial blood culture - 09/09/19 15:12 Bacterial blood culture NG NRG Bacterial blood culture - 09/09/19 15:50 Bacterial blood culture NG NRG Sputum Gram stain - 09/09/19 15:50 Sputum Gram stain Mixed Bacterial Sary NRG Bacterial sputum culture - 09/09/19 15:5 0 QUANTITY OF GROWTH . NRG Bacterial sputum culture USUAL RESP NRG Coronavirus SARS-CoV-2 SO 2018 - 0 15:55 Coronavirus Ab [Units/volume] in Serum Negative Negative Methicillin resistant Staphylococcus aur eus (MRSA) screening culture - 09/09/19 17:24 Methicillin resistant Staphylococcus aureus (MRSA) scr eening culture NEG NRG Serum or plasma troponin i.cardiac measu rement (mass/volume) - 09/09/19 18:02 Serum or plasma troponin i.cardiac measurement (mass/v olume) < ng/mL <0.028 Capillary blood glucose measurement by g lucometer (mass/volume) - 09/09/19 21:13 Capillary blood glucose measurement by glucometer (mas s/volume) 154 mg/dL 70-110 Complete urinalysis with reflex to cultu re - 09/09/19 22:35 Urine color determination DARK YELLOW N RG Urine clarity determination CLEAR NR G Urine pH measurement by test strip 6.0 5-9 Specific gravity of urine by test strip >= 1.016-1.022 Urine protein assay by test strip, semi-quantitative 2+ NEGATIVE Urine glucose detection by automated test strip NE GATIVE NEGATIVE Erythrocytes detection in urine sediment by light micr oscopy NEGATIVE NEGATIVE Urine ketones detection by automated test strip TR JENNY NEGATIVE Urine nitrite detection by test strip NEGATIVE NEGATIVE Urine total bilirubin detection by test strip 1+ NEGATIVE Urine urobilinogen measurement by automated test strip (mass/volume) 1.0 mg/dL < = 1.0 Urine leukocyte esterase detection by dipstick NEG ATIVE NEGATIVE Automated urine sediment erythrocyte cou nt by microscopy (number/high power field) NONE NRG Automated urine sediment leukocyte count by microscopy (number/high power field) [HPF] NRG Bacteria detection in urine sediment by light microsco py TRACE NRG Squamous epithelial cells detection in u rine sediment by light microscopy 0-2 NRG Crystals detection in urine sediment by light microsco py NONE NRG Casts detection in urine sediment by light microscopy PRESENT NRG Mucus detection in urine sediment by light microscopy SMALL NRG Complete urinalysis with reflex to culture NO NRG Hyaline casts detection in urine sediment by light kunal roscopy 10-25 NRG Complete blood count (CBC) with automate d white blood cell (WBC) differential - 09/10/19 03:15 Blood leukocytes automated count (number/volume) 9.7 10*3/uL 4.3-11.0 Blood erythrocytes automated count (number/volume) 4.57 10*6/uL 4.35-5.85 Venous blood hemoglobin measurement (mass/volume) 13.1 g/dL 11.5-16.0 Blood hematocrit (volume fraction) 43 % 35-52 Automated erythrocyte mean corpuscular volume 95 [ foz_us] 80-99 Automated erythrocyte mean corpuscular h emoglobin (mass per erythrocyte) 29 pg 25-34 Automated erythrocyte mean corpuscular h emoglobin concentration measurement (mass/volume) 30 g/dL 32-36 Automated erythrocyte distribution width ratio 16. 3 % 10.0- 14.5 Automated blood platelet count (count/volume) 258 10*3/uL 130-400 Automated blood platelet mean volume measurement 10.2 [foz_us] 7.4-10.4 Automated blood neutrophils/100 leukocytes 73 % 42-75 Automated blood lymphocytes/100 leukocytes 15 % 12-44 Blood monocytes/100 leukocytes 11 % 0-12 Automated blood eosinophils/100 leukocytes 1 % 0-10 Automated blood basophils/100 leukocytes 0 % 0-10 Blood neutrophils automated count (number/volume) 7.1 10*3 1.8-7.8 Blood lymphocytes automated count (number/volume) 1.4 10*3 1.0-4.0 Blood monocytes automated count (number/volume) 1. 1 10*3 0.0-1.0 Automated eosinophil count 0.1 10*3/uL 0 .0-0.3 Automated blood basophil count (count/volume) 0.0 10*3/uL 0.0-0.1 Comprehensive metabolic panel - 09/10/19 03:15 Serum or plasma sodium measurement (moles/volume) 140 mmol/L 135-145 Serum or plasma potassium measurement (moles/volume) 3.9 mmol/L 3.6-5.0 Serum or plasma chloride measurement (moles/volume) 102 mmol/L 98-107 Carbon dioxide 27 mmol/L 21-32 Serum or plasma anion gap determination (moles/volume) 11 mmol/L 5-14 Serum or plasma urea nitrogen measurement (mass/volume ) 12 mg/dL 7-18 Serum or plasma creatinine measurement (mass/volume) 0.74 mg/dL 0.60-1.30 Serum or plasma urea nitrogen/creatinine mass ratio 16 NRG Serum or plasma creatinine measurement w ith calculation of estimated glomerular filtration rate > NRG Serum or plasma glucose measurement (mass/volume) 142 mg/dL 70-105 Serum or plasma calcium measurement (mass/volume) 8.3 mg/dL 8.5-10.1 Serum or plasma total bilirubin measurement (mass/volu me) 0.7 mg/dL 0.1-1.0 Serum or plasma alkaline phosphatase hina surement (enzymatic activity/volume) 67 U/L 40-136 Serum or plasma aspartate aminotransfera se measurement (enzymatic activity/volume) 20 U/L 5-34 Serum or plasma alanine aminotransferase measurement (enzymatic activity/volume) 18 U/L 0-55 Serum or plasma protein measurement (mass/volume) 6.3 g/dL 6.4-8.2 Serum or plasma albumin measurement (mass/volume) 3.9 g/dL 3.2-4.5 CALCIUM CORRECTED 8.4 mg/dL 8.5-10.1 Serum or plasma phosphate measurement (m ass/volume) - 09/10/19 03:15 Serum or plasma phosphate measurement (mass/volume) 4.1 mg/dL 2.3-4.7 Magnesium - 09/10/19 03:15 Magnesium 1.7 mg/dL 1.6-2.4 Lipid 1996 panel - 09/10/19 03:15 Serum or plasma triglyceride measurement (mass/volume) 55 mg/dL <150 Serum or plasma cholesterol measurement (mass/volume) 93 mg/dL < 200 Serum or plasma cholesterol in HDL measurement (mass/v olume) 34 mg/dL 40-60 Cholesterol in LDL [mass/volume] in serum or plasma by direct assay 51 mg/dL 1-129 Serum or plasma cholesterol in VLDL measurement (mass/ volume) 11 mg/dL 5-40 THYROID STIMULATING HORMONE - 09/10/19 0 3:15 THYROID STIMULATING HORMONE 0.98 u[iU]/mL 0.35-4.94 Arterial blood gas measurement - 0 05:25 Blood pCO2 55 mm[Hg] 35-45 Blood pO2 140 mm[Hg] 79-93 Arterial blood bicarbonate measurement (moles/volume) 31 mmol/L 23-27 Arterial blood base excess by calculation 5.7 mmol /L -2.5-2.5 Arterial blood oxygen saturation measurement 99 % 94-100 * Inhaled oxygen flow rate 28% NRG Arterial blood pH measurement with patient temperature correction 7.37 7.37-7.43 Arterial blood carbon dioxide, total measurement (mole s/volume) 32.8 mmol/L 21.0-31.0 Body site LT RADIAL NRG Assessment of wrist artery patency prior to arterial p uncture YES-POS NRG Setting of ventilation mode YES NR G Measurement of body temperature 36.1 NRG Capillary blood glucose measurement by g lucometer (mass/volume) - 09/10/19 10:59 Capillary blood glucose measurement by glucometer (mas s/volume) 286 mg/dL 70-110 Capillary blood glucose measurement by g lucometer (mass/volume) - 09/10/19 17:26 Capillary blood glucose measurement by glucometer (mas s/volume) 400 mg/dL 70-110 Capillary blood glucose measurement by g lucometer (mass/volume) - 09/10/19 20:47 Capillary blood glucose measurement by glucometer (mas s/volume) 331 mg/dL 70-110 Complete blood count (CBC) with automate d white blood cell (WBC) differential - 09/11/19 03:05 Blood leukocytes automated count (number/volume) 12.0 10*3/uL 4.3-11.0 Blood erythrocytes automated count (number/volume) 4.45 10*6/uL 4.35-5.85 Venous blood hemoglobin measurement (mass/volume) 12.8 g/dL 11.5-16.0 Blood hematocrit (volume fraction) 42 % 35-52 Automated erythrocyte mean corpuscular volume 95 [ foz_us] 80-99 Automated erythrocyte mean corpuscular h emoglobin (mass per erythrocyte) 29 pg 25-34 Automated erythrocyte mean corpuscular h emoglobin concentration measurement (mass/volume) 30 g/dL 32-36 Automated erythrocyte distribution width ratio 15. 6 % 10.0- 14.5 Automated blood platelet count (count/volume) 259 10*3/uL 130-400 Automated blood platelet mean volume measurement 10.5 [foz_us] 7.4-10.4 Automated blood neutrophils/100 leukocytes 93 % 42-75 Automated blood lymphocytes/100 leukocytes 2 % 12-44 Blood monocytes/100 leukocytes 5 % 0-12 Automated blood eosinophils/100 leukocytes 0 % 0-10 Automated blood basophils/100 leukocytes 0 % 0-10 Blood neutrophils automated count (number/volume) 11.2 10*3 1.8-7.8 Blood lymphocytes automated count (number/volume) 0.3 10*3 1.0-4.0 Blood monocytes automated count (number/volume) 0. 6 10*3 0.0-1.0 Automated eosinophil count 0.0 10*3/uL 0 .0-0.3 Automated blood basophil count (count/volume) 0.0 10*3/uL 0.0-0.1 Whole blood basic metabolic panel - 09/25 03:05 Serum or plasma sodium measurement (moles/volume) 138 mmol/L 135-145 Serum or plasma potassium measurement (moles/volume) 4.1 mmol/L 3.6-5.0 Serum or plasma chloride measurement (moles/volume) 100 mmol/L 98-107 Carbon dioxide 28 mmol/L 21-32 Serum or plasma anion gap determination (moles/volume) 10 mmol/L 5-14 Serum or plasma urea nitrogen measurement (mass/volume ) 9 mg/dL 7-18 Serum or plasma creatinine measurement (mass/volume) 0.72 mg/dL 0.60-1.30 Serum or plasma urea nitrogen/creatinine mass ratio 13 NRG Serum or plasma creatinine measurement w ith calculation of estimated glomerular filtration rate > NRG Serum or plasma glucose measurement (mass/volume) 269 mg/dL 70-105 Serum or plasma calcium measurement (mass/volume) 8.5 mg/dL 8.5-10.1 Serum or plasma phosphate measurement (m ass/volume) - 09/11/19 03:05 Serum or plasma phosphate measurement (mass/volume) 2.4 mg/dL 2.3-4.7 Magnesium - 09/11/19 03:05 Magnesium 1.9 mg/dL 1.6-2.4 Manual absolute plasma cell count - 09/25 03:05 Blood monocytes/100 leukocytes 4 % NRG Manual blood segmented neutrophils/100 leukocytes 87 % NRG Blood band neutrophils/100 leukocytes 6 % NRG Manual blood lymphocytes/100 leukocytes 3 % NRG Blood hypochromia detection by light microscopy SL IGHT NRG Serum or plasma lithium measurement (mol es/volume) - 09/11/19 03:05 BNP PT 181.7 pg/mL <100.0 Serum or plasma troponin i.cardiac measu rement (mass/volume) - 09/11/19 03:05 Serum or plasma troponin i.cardiac measurement (mass/v olume) < ng/mL <0.028 Capillary blood glucose measurement by g lucometer (mass/volume) - 09/11/19 05:07 Capillary blood glucose measurement by glucometer (mas s/volume) 283 mg/dL 70-110 Capillary blood glucose measurement by g lucometer (mass/volume) - 09/11/19 10:57 Capillary blood glucose measurement by glucometer (mas s/volume) 189 mg/dL 70-110 Capillary blood glucose measurement by g lucometer (mass/volume) - 09/11/19 16:22 Capillary blood glucose measurement by glucometer (mas s/volume) 369 mg/dL 70-110 Capillary blood glucose measurement by g lucometer (mass/volume) - 09/11/19 20:25 Capillary blood glucose measurement by glucometer (mas s/volume) 357 mg/dL 70-110 Complete blood count (CBC) with automate d white blood cell (WBC) differential - 09/12/19 03:00 Blood leukocytes automated count (number/volume) 19.7 10*3/uL 4.3-11.0 Blood erythrocytes automated count (number/volume) 4.35 10*6/uL 4.35-5.85 Venous blood hemoglobin measurement (mass/volume) 12.6 g/dL 11.5-16.0 Blood hematocrit (volume fraction) 42 % 35-52 Automated erythrocyte mean corpuscular volume 95 [ foz_us] 80-99 Automated erythrocyte mean corpuscular h emoglobin (mass per erythrocyte) 29 pg 25-34 Automated erythrocyte mean corpuscular h emoglobin concentration measurement (mass/volume) 30 g/dL 32-36 Automated erythrocyte distribution width ratio 16. 1 % 10.0- 14.5 Automated blood platelet count (count/volume) 273 10*3/uL 130-400 Automated blood platelet mean volume measurement 10.7 [foz_us] 7.4-10.4 Automated blood neutrophils/100 leukocytes 95 % 42-75 Automated blood lymphocytes/100 leukocytes 1 % 12-44 Blood monocytes/100 leukocytes 4 % 0-12 Automated blood eosinophils/100 leukocytes 0 % 0-10 Automated blood basophils/100 leukocytes 0 % 0-10 Blood neutrophils automated count (number/volume) 18.6 10*3 1.8-7.8 Blood lymphocytes automated count (number/volume) 0.2 10*3 1.0-4.0 Blood monocytes automated count (number/volume) 0. 8 10*3 0.0-1.0 Automated eosinophil count 0.0 10*3/uL 0 .0-0.3 Automated blood basophil count (count/volume) 0.0 10*3/uL 0.0-0.1 Whole blood basic metabolic panel - 10/26 03:00 Serum or plasma sodium measurement (moles/volume) 139 mmol/L 135-145 Serum or plasma potassium measurement (moles/volume) 5.1 mmol/L 3.6-5.0 Serum or plasma chloride measurement (moles/volume) 100 mmol/L 98-107 Carbon dioxide 28 mmol/L 21-32 Serum or plasma anion gap determination (moles/volume) 11 mmol/L 5-14 Serum or plasma urea nitrogen measurement (mass/volume ) 15 mg/dL 7-18 Serum or plasma creatinine measurement (mass/volume) 0.77 mg/dL 0.60-1.30 Serum or plasma urea nitrogen/creatinine mass ratio 19 NRG Serum or plasma creatinine measurement w ith calculation of estimated glomerular filtration rate > NRG Serum or plasma glucose measurement (mass/volume) 237 mg/dL 70-105 Serum or plasma calcium measurement (mass/volume) 8.4 mg/dL 8.5-10.1 Serum or plasma phosphate measurement (m ass/volume) - 09/12/19 03:00 Serum or plasma phosphate measurement (mass/volume) 2.7 mg/dL 2.3-4.7 Magnesium - 09/12/19 03:00 Magnesium 2.1 mg/dL 1.6-2.4 Manual absolute plasma cell count - 10/26 03:00 Blood monocytes/100 leukocytes 3 % NRG Manual blood segmented neutrophils/100 leukocytes 90 % NRG Blood band neutrophils/100 leukocytes 4 % NRG Manual blood lymphocytes/100 leukocytes 3 % NRG Blood anisocytosis detection by light microscopy S LIGHT NRG Capillary blood glucose measurement by g lucometer (mass/volume) - 09/12/19 05:47 Capillary blood glucose measurement by glucometer (mas s/volume) 209 mg/dL 70-110 Capillary blood glucose measurement by g lucometer (mass/volume) - 09/12/19 10:54 Capillary blood glucose measurement by glucometer (mas s/volume) 265 mg/dL 70-110 Capillary blood glucose measurement by g lucometer (mass/volume) - 09/12/19 15:51 Capillary blood glucose measurement by glucometer (mas s/volume) 337 mg/dL 70-110 Capillary blood glucose measurement by g lucometer (mass/volume) - 09/12/19 20:12 Capillary blood glucose measurement by glucometer (mas s/volume) 297 mg/dL 70-110 Complete blood count (CBC) with automate d white blood cell (WBC) differential - 09/13/19 05:20 Blood leukocytes automated count (number/volume) 19.1 10*3/uL 4.3-11.0 Blood erythrocytes automated count (number/volume) 4.46 10*6/uL 4.35-5.85 Venous blood hemoglobin measurement (mass/volume) 12.8 g/dL 11.5-16.0 Blood hematocrit (volume fraction) 43 % 35-52 Automated erythrocyte mean corpuscular volume 95 [ foz_us] 80-99 Automated erythrocyte mean corpuscular h emoglobin (mass per erythrocyte) 29 pg 25-34 Automated erythrocyte mean corpuscular h emoglobin concentration measurement (mass/volume) 30 g/dL 32-36 Automated erythrocyte distribution width ratio 15. 9 % 10.0- 14.5 Automated blood platelet count (count/volume) 266 10*3/uL 130-400 Automated blood platelet mean volume measurement 10.5 [foz_us] 7.4-10.4 Automated blood neutrophils/100 leukocytes 90 % 42-75 Automated blood lymphocytes/100 leukocytes 3 % 12-44 Blood monocytes/100 leukocytes 7 % 0-12 Automated blood eosinophils/100 leukocytes 0 % 0-10 Automated blood basophils/100 leukocytes 0 % 0-10 Blood neutrophils automated count (number/volume) 17.2 10*3 1.8-7.8 Blood lymphocytes automated count (number/volume) 0.5 10*3 1.0-4.0 Blood monocytes automated count (number/volume) 1. 4 10*3 0.0-1.0 Automated eosinophil count 0.0 10*3/uL 0 .0-0.3 Automated blood basophil count (count/volume) 0.0 10*3/uL 0.0-0.1 Whole blood basic metabolic panel - 11/25 05:22 Serum or plasma sodium measurement (moles/volume) 139 mmol/L 135-145 Serum or plasma potassium measurement (moles/volume) 4.8 mmol/L 3.6-5.0 Serum or plasma chloride measurement (moles/volume) 98 mmol/L 98-107 Carbon dioxide 31 mmol/L 21-32 Serum or plasma anion gap determination (moles/volume) 10 mmol/L 5-14 Serum or plasma urea nitrogen measurement (mass/volume ) 15 mg/dL 7-18 Serum or plasma creatinine measurement (mass/volume) 0.71 mg/dL 0.60-1.30 Serum or plasma urea nitrogen/creatinine mass ratio 21 NRG Serum or plasma creatinine measurement w ith calculation of estimated glomerular filtration rate > NRG Serum or plasma glucose measurement (mass/volume) 177 mg/dL 70-105 Serum or plasma calcium measurement (mass/volume) 8.6 mg/dL 8.5-10.1 Serum or plasma lithium measurement (mol es/volume) - 09/13/19 05:22 BNP PT 258.5 pg/mL <100.0 PROCALCITONIN (PCT) - 09/13/19 05:22 PROCALCITONIN (PCT) 0.01 ng/mL <0.10 Capillary blood glucose measurement by g lucometer (mass/volume) - 09/13/19 11:31 Capillary blood glucose measurement by glucometer (mas s/volume) 149 mg/dL 70-110 Capillary blood glucose measurement by g lucometer (mass/volume) - 09/13/19 15:40 Capillary blood glucose measurement by glucometer (mas s/volume) 292 mg/dL 70-110 Capillary blood glucose measurement by g lucometer (mass/volume) - 09/13/19 20:03 Capillary blood glucose measurement by glucometer (mas s/volume) 307 mg/dL 70-110 Complete blood count (CBC) with automate d white blood cell (WBC) differential - 09/14/19 03:19 Blood leukocytes automated count (number/volume) 14.9 10*3/uL 4.3-11.0 Blood erythrocytes automated count (number/volume) 4.46 10*6/uL 4.35-5.85 Venous blood hemoglobin measurement (mass/volume) 12.8 g/dL 11.5-16.0 Blood hematocrit (volume fraction) 42 % 35-52 Automated erythrocyte mean corpuscular volume 95 [ foz_us] 80-99 Automated erythrocyte mean corpuscular h emoglobin (mass per erythrocyte) 29 pg 25-34 Automated erythrocyte mean corpuscular h emoglobin concentration measurement (mass/volume) 30 g/dL 32-36 Automated erythrocyte distribution width ratio 16. 1 % 10.0- 14.5 Automated blood platelet count (count/volume) 266 10*3/uL 130-400 Automated blood platelet mean volume measurement 10.3 [foz_us] 7.4-10.4 Automated blood neutrophils/100 leukocytes 82 % 42-75 Automated blood lymphocytes/100 leukocytes 7 % 12-44 Blood monocytes/100 leukocytes 11 % 0-12 Automated blood eosinophils/100 leukocytes 0 % 0-10 Automated blood basophils/100 leukocytes 0 % 0-10 Blood neutrophils automated count (number/volume) 12.2 10*3 1.8-7.8 Blood lymphocytes automated count (number/volume) 1.0 10*3 1.0-4.0 Blood monocytes automated count (number/volume) 1. 6 10*3 0.0-1.0 Automated eosinophil count 0.0 10*3/uL 0 .0-0.3 Automated blood basophil count (count/volume) 0.0 10*3/uL 0.0-0.1 Whole blood basic metabolic panel - 12/26 03:19 Serum or plasma sodium measurement (moles/volume) 140 mmol/L 135-145 Serum or plasma potassium measurement (moles/volume) 4.3 mmol/L 3.6-5.0 Serum or plasma chloride measurement (moles/volume) 99 mmol/L 98-107 Carbon dioxide 33 mmol/L 21-32 Serum or plasma anion gap determination (moles/volume) 8 mmol/L 5-14 Serum or plasma urea nitrogen measurement (mass/volume ) 16 mg/dL 7-18 Serum or plasma creatinine measurement (mass/volume) 0.74 mg/dL 0.60-1.30 Serum or plasma urea nitrogen/creatinine mass ratio 22 NRG Serum or plasma creatinine measurement w ith calculation of estimated glomerular filtration rate > NRG Serum or plasma glucose measurement (mass/volume) 192 mg/dL 70-105 Serum or plasma calcium measurement (mass/volume) 8.4 mg/dL 8.5-10.1 Serum or plasma phosphate measurement (m ass/volume) - 09/14/19 03:19 Serum or plasma phosphate measurement (mass/volume) 3.1 mg/dL 2.3-4.7 Magnesium - 09/14/19 03:19 Magnesium 2.3 mg/dL 1.6-2.4 Capillary blood glucose measurement by g lucometer (mass/volume) - 09/14/19 11:23 Capillary blood glucose measurement by glucometer (mas s/volume) 265 mg/dL 70-110 Capillary blood glucose measurement by g lucometer (mass/volume) - 09/14/19 21:39 Capillary blood glucose measurement by glucometer (mas s/volume) 367 mg/dL 70-110 Complete blood count (CBC) with automate d white blood cell (WBC) differential - 09/15/19 03:42 Blood leukocytes automated count (number/volume) 12.6 10*3/uL 4.3-11.0 Blood erythrocytes automated count (number/volume) 4.71 10*6/uL 4.35-5.85 Venous blood hemoglobin measurement (mass/volume) 13.3 g/dL 11.5-16.0 Blood hematocrit (volume fraction) 45 % 35-52 Automated erythrocyte mean corpuscular volume 95 [ foz_us] 80-99 Automated erythrocyte mean corpuscular h emoglobin (mass per erythrocyte) 28 pg 25-34 Automated erythrocyte mean corpuscular h emoglobin concentration measurement (mass/volume) 30 g/dL 32-36 Automated erythrocyte distribution width ratio 15. 9 % 10.0- 14.5 Automated blood platelet count (count/volume) 273 10*3/uL 130-400 Automated blood platelet mean volume measurement 10.2 [foz_us] 7.4-10.4 Automated blood neutrophils/100 leukocytes 77 % 42-75 Automated blood lymphocytes/100 leukocytes 10 % 12-44 Blood monocytes/100 leukocytes 13 % 0-12 Automated blood eosinophils/100 leukocytes 1 % 0-10 Automated blood basophils/100 leukocytes 0 % 0-10 Blood neutrophils automated count (number/volume) 9.7 10*3 1.8-7.8 Blood lymphocytes automated count (number/volume) 1.2 10*3 1.0-4.0 Blood monocytes automated count (number/volume) 1. 7 10*3 0.0-1.0 Automated eosinophil count 0.1 10*3/uL 0 .0-0.3 Automated blood basophil count (count/volume) 0.0 10*3/uL 0.0-0.1 Whole blood basic metabolic panel - 01/26 03:42 Serum or plasma sodium measurement (moles/volume) 143 mmol/L 135-145 Serum or plasma potassium measurement (moles/volume) 4.4 mmol/L 3.6-5.0 Serum or plasma chloride measurement (moles/volume) 102 mmol/L 98-107 Carbon dioxide 29 mmol/L 21-32 Serum or plasma anion gap determination (moles/volume) 12 mmol/L 5-14 Serum or plasma urea nitrogen measurement (mass/volume ) 13 mg/dL 7-18 Serum or plasma creatinine measurement (mass/volume) 0.69 mg/dL 0.60-1.30 Serum or plasma urea nitrogen/creatinine mass ratio 19 NRG Serum or plasma creatinine measurement w ith calculation of estimated glomerular filtration rate > NRG Serum or plasma glucose measurement (mass/volume) 126 mg/dL 70-105 Serum or plasma calcium measurement (mass/volume) 8.5 mg/dL 8.5-10.1 Serum or plasma phosphate measurement (m ass/volume) - 09/15/19 03:42 Serum or plasma phosphate measurement (mass/volume) 3.2 mg/dL 2.3-4.7 Magnesium - 09/15/19 03:42 Magnesium 2.3 mg/dL 1.6-2.4 Capillary blood glucose measurement by g lucometer (mass/volume) - 09/15/19 11:18 Capillary blood glucose measurement by glucometer (mas s/volume) 255 mg/dL 70-110 Capillary blood glucose measurement by g lucometer (mass/volume) - 09/15/19 16:01 Capillary blood glucose measurement by glucometer (mas s/volume) 227 mg/dL 70-110 Capillary blood glucose measurement by g lucometer (mass/volume) - 09/15/19 20:20 Capillary blood glucose measurement by glucometer (mas s/volume) 246 mg/dL 70-110 Complete blood count (CBC) with automate d white blood cell (WBC) differential - 09/16/19 02:46 Blood leukocytes automated count (number/volume) 11.8 10*3/uL 4.3-11.0 Blood erythrocytes automated count (number/volume) 4.72 10*6/uL 4.35-5.85 Venous blood hemoglobin measurement (mass/volume) 13.5 g/dL 11.5-16.0 Blood hematocrit (volume fraction) 45 % 35-52 Automated erythrocyte mean corpuscular volume 96 [ foz_us] 80-99 Automated erythrocyte mean corpuscular h emoglobin (mass per erythrocyte) 29 pg 25-34 Automated erythrocyte mean corpuscular h emoglobin concentration measurement (mass/volume) 30 g/dL 32-36 Automated erythrocyte distribution width ratio 15. 7 % 10.0- 14.5 Automated blood platelet count (count/volume) 256 10*3/uL 130-400 Automated blood platelet mean volume measurement 10.7 [foz_us] 7.4-10.4 Automated blood neutrophils/100 leukocytes 73 % 42-75 Automated blood lymphocytes/100 leukocytes 15 % 12-44 Blood monocytes/100 leukocytes 11 % 0-12 Automated blood eosinophils/100 leukocytes 2 % 0-10 Automated blood basophils/100 leukocytes 0 % 0-10 Blood neutrophils automated count (number/volume) 8.6 10*3 1.8-7.8 Blood lymphocytes automated count (number/volume) 1.8 10*3 1.0-4.0 Blood monocytes automated count (number/volume) 1. 3 10*3 0.0-1.0 Automated eosinophil count 0.2 10*3/uL 0 .0-0.3 Automated blood basophil count (count/volume) 0.0 10*3/uL 0.0-0.1 Whole blood basic metabolic panel - 09/06 02:46 Serum or plasma sodium measurement (moles/volume) 140 mmol/L 135-145 Serum or plasma potassium measurement (moles/volume) 4.7 mmol/L 3.6-5.0 Serum or plasma chloride measurement (moles/volume) 100 mmol/L 98-107 Carbon dioxide 29 mmol/L 21-32 Serum or plasma anion gap determination (moles/volume) 11 mmol/L 5-14 Serum or plasma urea nitrogen measurement (mass/volume ) 11 mg/dL 7-18 Serum or plasma creatinine measurement (mass/volume) 0.70 mg/dL 0.60-1.30 Serum or plasma urea nitrogen/creatinine mass ratio 16 NRG Serum or plasma creatinine measurement w ith calculation of estimated glomerular filtration rate > NRG Serum or plasma glucose measurement (mass/volume) 229 mg/dL 70-105 Serum or plasma calcium measurement (mass/volume) 8.4 mg/dL 8.5-10.1 Serum or plasma phosphate measurement (m ass/volume) - 09/16/19 02:46 Serum or plasma phosphate measurement (mass/volume) 3.4 mg/dL 2.3-4.7 Magnesium - 09/16/19 02:46 Magnesium 2.1 mg/dL 1.6-2.4 [id number] - 09/16/19 02:46 [id number] 0.45 ng/mL 0.80-2.00 Capillary blood glucose measurement by g lucometer (mass/volume) - 09/16/19 06:10 Capillary blood glucose measurement by glucometer (mas s/volume) 152 mg/dL 70-110 Capillary blood glucose measurement by g lucometer (mass/volume) - 09/16/19 11:12 Capillary blood glucose measurement by glucometer (mas s/volume) 275 mg/dL 70-110 Capillary blood glucose measurement by g lucometer (mass/volume) - 09/16/19 15:26 Capillary blood glucose measurement by glucometer (mas s/volume) 233 mg/dL 70-110 Capillary blood glucose measurement by g lucometer (mass/volume) - 09/16/19 20:15 Capillary blood glucose measurement by glucometer (mas s/volume) 275 mg/dL 70-110 Complete blood count (CBC) with automate d white blood cell (WBC) differential - 09/17/19 03:13 Blood leukocytes automated count (number/volume) 13.2 10*3/uL 4.3-11.0 Blood erythrocytes automated count (number/volume) 4.74 10*6/uL 4.35-5.85 Venous blood hemoglobin measurement (mass/volume) 13.5 g/dL 11.5-16.0 Blood hematocrit (volume fraction) 45 % 35-52 Automated erythrocyte mean corpuscular volume 95 [ foz_us] 80-99 Automated erythrocyte mean corpuscular h emoglobin (mass per erythrocyte) 29 pg 25-34 Automated erythrocyte mean corpuscular h emoglobin concentration measurement (mass/volume) 30 g/dL 32-36 Automated erythrocyte distribution width ratio 15. 0 % 10.0- 14.5 Automated blood platelet count (count/volume) 267 10*3/uL 130-400 Automated blood platelet mean volume measurement 10.9 [foz_us] 7.4-10.4 Automated blood neutrophils/100 leukocytes 75 % 42-75 Automated blood lymphocytes/100 leukocytes 13 % 12-44 Blood monocytes/100 leukocytes 11 % 0-12 Automated blood eosinophils/100 leukocytes 1 % 0-10 Automated blood basophils/100 leukocytes 0 % 0-10 Blood neutrophils automated count (number/volume) 9.9 10*3 1.8-7.8 Blood lymphocytes automated count (number/volume) 1.7 10*3 1.0-4.0 Blood monocytes automated count (number/volume) 1. 4 10*3 0.0-1.0 Automated eosinophil count 0.2 10*3/uL 0 .0-0.3 Automated blood basophil count (count/volume) 0.0 10*3/uL 0.0-0.1 Whole blood basic metabolic panel - 09/06 05/28 03:13 Serum or plasma sodium measurement (moles/volume) 139 mmol/L 135-145 Serum or plasma potassium measurement (moles/volume) 4.5 mmol/L 3.6-5.0 Serum or plasma chloride measurement (moles/volume) 98 mmol/L 98-107 Carbon dioxide 33 mmol/L 21-32 Serum or plasma anion gap determination (moles/volume) 8 mmol/L 5-14 Serum or plasma urea nitrogen measurement (mass/volume ) 12 mg/dL 7-18 Serum or plasma creatinine measurement (mass/volume) 0.69 mg/dL 0.60-1.30 Serum or plasma urea nitrogen/creatinine mass ratio 17 NRG Serum or plasma creatinine measurement w ith calculation of estimated glomerular filtration rate > NRG Serum or plasma glucose measurement (mass/volume) 141 mg/dL 70-105 Serum or plasma calcium measurement (mass/volume) 8.6 mg/dL 8.5-10.1 Serum or plasma phosphate measurement (m ass/volume) - 09/17/19 03:13 Serum or plasma phosphate measurement (mass/volume) 3.8 mg/dL 2.3-4.7 Magnesium - 09/17/19 03:13 Magnesium 2.1 mg/dL 1.6-2.4 Capillary blood glucose measurement by g lucometer (mass/volume) - 09/17/19 11:05 Capillary blood glucose measurement by glucometer (mas s/volume) 271 mg/dL 70-110 Capillary blood glucose measurement by g lucometer (mass/volume) - 09/17/19 15:27 Capillary blood glucose measurement by glucometer (mas s/volume) 192 mg/dL 70-110 Capillary blood glucose measurement by g lucometer (mass/volume) - 09/17/19 21:00 Capillary blood glucose measurement by glucometer (mas s/volume) 229 mg/dL 70-110 Complete blood count (CBC) with automate d white blood cell (WBC) differential - 09/18/19 02:43 Blood leukocytes automated count (number/volume) 13.8 10*3/uL 4.3-11.0 Blood erythrocytes automated count (number/volume) 5.02 10*6/uL 4.35-5.85 Venous blood hemoglobin measurement (mass/volume) 14.4 g/dL 11.5-16.0 Blood hematocrit (volume fraction) 47 % 35-52 Automated erythrocyte mean corpuscular volume 93 [ foz_us] 80-99 Automated erythrocyte mean corpuscular h emoglobin (mass per erythrocyte) 29 pg 25-34 Automated erythrocyte mean corpuscular h emoglobin concentration measurement (mass/volume) 31 g/dL 32-36 Automated erythrocyte distribution width ratio 15. 2 % 10.0- 14.5 Automated blood platelet count (count/volume) 277 10*3/uL 130-400 Automated blood platelet mean volume measurement 10.4 [foz_us] 7.4-10.4 Automated blood neutrophils/100 leukocytes 76 % 42-75 Automated blood lymphocytes/100 leukocytes 11 % 12-44 Blood monocytes/100 leukocytes 12 % 0-12 Automated blood eosinophils/100 leukocytes 1 % 0-10 Automated blood basophils/100 leukocytes 0 % 0-10 Blood neutrophils automated count (number/volume) 10.4 10*3 1.8-7.8 Blood lymphocytes automated count (number/volume) 1.5 10*3 1.0-4.0 Blood monocytes automated count (number/volume) 1. 6 10*3 0.0-1.0 Automated eosinophil count 0.1 10*3/uL 0 .0-0.3 Automated blood basophil count (count/volume) 0.0 10*3/uL 0.0-0.1 Whole blood basic metabolic panel - 09/06 06/28 02:49 Serum or plasma sodium measurement (moles/volume) 140 mmol/L 135-145 Serum or plasma potassium measurement (moles/volume) 4.4 mmol/L 3.6-5.0 Serum or plasma chloride measurement (moles/volume) 98 mmol/L 98-107 Carbon dioxide 30 mmol/L 21-32 Serum or plasma anion gap determination (moles/volume) 12 mmol/L 5-14 Serum or plasma urea nitrogen measurement (mass/volume ) 15 mg/dL 7-18 Serum or plasma creatinine measurement (mass/volume) 0.81 mg/dL 0.60-1.30 Serum or plasma urea nitrogen/creatinine mass ratio 19 NRG Serum or plasma creatinine measurement w ith calculation of estimated glomerular filtration rate > NRG Serum or plasma glucose measurement (mass/volume) 174 mg/dL 70-105 Serum or plasma calcium measurement (mass/volume) 9.2 mg/dL 8.5-10.1 Serum or plasma phosphate measurement (m ass/volume) - 09/18/19 02:49 Serum or plasma phosphate measurement (mass/volume) 4.4 mg/dL 2.3-4.7 Magnesium - 09/18/19 02:49 Magnesium 2.0 mg/dL 1.6-2.4 Capillary blood glucose measurement by g lucometer (mass/volume) - 09/18/19 11:13 Capillary blood glucose measurement by glucometer (mas s/volume) 208 mg/dL 70-110 Coronavirus SARS-CoV-2 SO 2018 - 0 11:00 Coronavirus Ab [Units/volume] in Serum Negative Negative Encounters ACCT No. Visit Date/Time Discharge Status Pt. Type Provider Facility Loc./Unit Complaint [id number] 09/24/2019 10:30:00 09/24/2019 23:59: 59 CLS Outpatient SELF, MER [facility] [id number] 05/10/2019 08:45:00 Document Registration [id number] 02/09/2019 15:15:00 Document Registration [id number] 07/27/2018 12:45:00 Document Registration [id number] 11/08/2019 06:42:00 23:59:59 CLS Outpatient Alfonso LEYVA MD [facility] LABNPT [id number] 09/09/2019 16:00:00 15:27:00 DIS Outpatient SHERRY DEWITT, KRISTINA Hamilton [facility] ICU A FIB RVR, DM, PUI COVI D 19, CHEST PAIN [id number] 06/08/2019 15:27:00 15:27:00 CAN Emergency VERENICE ROD DO [facility] ER FS CHEST PAIN [id number] 11/12/2019 08:00:00 P EN Preadmit Alfonso LEYVA MD [facility] CATH PERSISTENT AF
[2019-11-12] MEDS ORDERED: HEParin 1000 UNIT/ML (10ML VIAL) FOR BOLUS ONE ×3 (07:10→11:13)
[2019-11-12] MEDS ORDERED: HEParin DRIP 25000 UNIT/500ML 500 ML IV ONE (07:10)
[2019-11-12] MEDS ORDERED: ISOPROTERENOL 0.2 MG/D5W 50 ML IV ONE (07:15)
[2019-11-12 07:31] LABS: HEMOGLOBIN 12.9 G/DL (11.5-16.0); MEAN PLATELET VOLUME 10.8 FL (7.4-10.4)
[2019-11-12] MEDS ORDERED: proPOfol 200 MG/20 ML (DIPRIVAN) VIAL IV ONE (07:41)
[2019-11-12 07:42] LABS: INR 1.6 (0.8-1.4); PROTHROMBIN TIME PATIENT 19.4 SEC (12.2-14.7)
[2019-11-12] MEDS ORDERED: fentaNYL INJECTION 100 MCG/2 ML AMP ONE ×2 (07:42→11:14)
[2019-11-12] MEDS ORDERED: ONDANSETRON 4 MG/2 ML (SDV) Z0FRAN ONE (07:42)
[2019-11-12] MEDS ORDERED: MIDAZOLAM 2 MG/2 ML (VERSED) VIAL ONE ×2 (07:42→13:50)
[2019-11-12] MEDS ORDERED: LIDOCAINE PF 1% 2 ML AMP ONE (07:43)
[2019-11-12] MEDS ORDERED: RT-ALBUTEROL SULF 2.5 MG/3 ML PRE-MIX VIAL ONE (07:49)
[2019-11-12 07:53] LABS: ALANINE AMINOTRANSFERASE 16 U/L (0-55); ALBUMIN 4.2 GM/DL (3.2-4.5); ALKALINE PHOSPHATASE 79 U/L (40-136); BILIRUBIN,TOTAL 0.5 MG/DL (0.1-1.0); BUN/CREATININE RATIO 10; CARBON DIOXIDE 29 MMOL/L (21-32); CHLORIDE 98 MMOL/L (98-107); CREATININE SERUM 0.83 MG/DL (0.60-1.30); GFR ESTIMATED > 60; GLUCOSE 150 MG/DL (70-105); SODIUM 138 MMOL/L (135-145); TOTAL PROTEIN 8.3 GM/DL (6.4-8.2)
[2019-11-12 07:57] LABS: POTASSIUM 6.4 MMOL/L (3.6-5.0)
[2019-11-12] MEDS ORDERED: RT-ALBUTEROL SULF 2.5 MG/3 ML PRE-MIX VIAL INH ONE (08:00)
[2019-11-12] MEDS ORDERED: ROCURONIUM 10 MG/ML 5 ML SYRINGE IV ONE ×2 (08:30→08:58)
--- NOTE | 2019-11-12 09:46 | History & Physicial-Cardiolgy ---
HPI-Cardiology Cardiology Consultation: Date of Consultation 11/12/19 Date of Admission Attending Physician Alfonso Rabago MD Admitting Physician Cody Thomas MD Consulting Physician Alfonso RABAGO MD HPI: Time Seen by a Provider: 08:20 Chief Complaint: Persistent atrial fibrillation This is a 63-year-old lady with history of chronic respiratory failure with mild diastolic congestive heart failure persistent atrial fibrillation, COPD. She had previous transesophageal echocardiogram assisted cardioversion however the patient went back into atrial fibrillation. She is on antiarrhythmic therapy with amiodarone, Eliquis and Cardizem. Review of Systems-Cardiology Review of Systems Constitutional: As described under HPI; No As described under HPI, No no symptoms reported, No chills, No fever, No lightheadedness Eyes: No As described under HPI, No no symptoms reported, No blindness, No blurred vision, No contact lenses, No drainage, No decreased acuity, No foreign body sensation, No pain, No vision change Ears/Nose/Throat: No As described under HPI, No no symptoms reported, No chronic hearing loss, No ear discharge, No ear pain, No nasal drainage, No ulcerations Respiratory: No no symptoms reported; As described under HPI; No As described under HPI, No cough, No orthopnea; shortness of breath; No SOB with excertion Cardiovascular: No no symptoms reported; As described under HPI; No As described under HPI, No chest pain, No edema, No irregular heart rate, No li ghtheadedness, No palpitations Gastrointestinal: No no symptoms reported, No As described under HPI, No ab domen distended, No abdominal pain, No blood streaked bowels, No constipation, No diarrhea, No nausea, No vomiting, No stool coloration changes Genitourinary: No As described under HPI, No burning, No dysuria, No discharge, No frequency, No flank pain, No hematuria, No urgency : Yes : No Skin: No rash, No skin related problems, No ulcerations Psychiatric/Neurological: No anxiety, No depression, No seizure, No focal weakness, No syncope Hematologic: No bleeding abnormalities [id number] Hx Patient Social History Alcohol Use: Denies Use Recreational Drug Use: No Smoking Status: Current Everyday Smoker Type Used: Cigarettes 2nd Hand Smoke Exposure: No Recent Foreign Travel: No Immunizations Up To Date Tetanus Booster (TDap): More than 5yrs Date of Pneumonia Vaccine: Feb 07, 2017 Date of Influenza Vaccine: Jan 31, 2019 Past Medical History PMH As described under Assessment. Allergies and Home Medications Allergies Coded Allergies: No Known Drug Allergies (Unverified , 06/08/19) Home Medications Albuterol Sulfate 1 Puff Puff, 2 PUFF PO Q6H PRN for SHORTNESS OF BREATH, (Reported) Alprazolam 0.5 Mg Tablet, 0.5 MG PO TID PRN for ANXIETY, (Reported) Amiodarone HCl 200 Mg Tablet, 200 MG PO BID Prescribed by: CARMEN PURDY on 09/18/19 114 Apixaban 5 Mg Tablet, 5 MG PO BID Prescribed by: CARMEN PURDY on 09/18/19 114 Aspirin 81 Mg Tablet.dr, 81 MG PO DAILY, (Reported) Atorvastatin Calcium 20 Mg Tablet, 20 MG PO DAILY Prescribed by: RIVKA GRAFF on 09/18/19 1320 Bupropion HCl 150 Mg Tablet.er, 150 MG PO BID, (Reported) Digoxin 250 Mcg Tablet, 0.25 MG PO DAILY Prescribed by: CARMEN PURDY on 09/18/19 114 Diltiazem HCl 180 Mg Cap.er.24h, 360 MG PO DAILY Prescribed by: CARMEN PURDY on 09/18/19 114 Escitalopram Oxalate 20 Mg Tablet, 20 MG PO DAILY, (Reported) Fluticasone/Salmeterol 12 Gm Hfa.aer.ad, 1 PUFF IH BID Prescribed by: CARMEN PURDY on 09/18/19 114 Isosorbide Mononitrate 60 Mg Tab, 60 MG PO DAILY, (Reported) Metformin HCl 500 Mg Tablet, 500 MG PO BID, (Reported) Metoprolol Tartrate 50 Mg Tablet, 75 MG PO BID Prescribed by: CARMEN PURDY on 09/18/19 114 Tramadol HCl 50 Mg Tablet, 50 MG PO Q6H PRN for PAIN-MODERATE (5-7), (Reported) Patient Home Medication List Home Medication List Reviewed: Yes Physical Exam-Cardiology Physical Exam Vital Signs/I&O 11/12/19 11/12/19 07:25 07:53 Temp 36.4 Pulse 50 Resp 18 B/P (MAP) 152/80 (104) Pulse Ox 93 94 O2 Delivery Nasal Cannula Nasal Cannula O2 Flow Rate 2.00 2.00 Capillary Refill : Constitutional: appears stated age; No apparent distress; well-developed, well- nourished HEENT: PERRL; No discharge; hearing is well preserved, oral hygience is good; No ulceration, No xanthelasmas are seen Neck: No carotid bruit; carotid pulses are 2 + bilaterally Respiratory: chest is bilaterally symmetric, lungs clear to auscultation Cardiovascular: regular rate-rhythm, bradycardia, S1 and S2 Gastrointestinal: soft, audible bowel sounds; No spleenomegaly Rectal: deferred Extremities: normal range of motion, non-tender, normal inspection; No clubbing, No cyanosis; no lower extremity edema bilateral; No significant edema Neurologic/Psychiatric: no motor/sensory deficits, alert, normal mood/affect, oriented x 3, power is 5/5 both on sides Skin: normal color, warm/dry; No rash, No ulcerations Data Review Labs Laboratory Tests 11/12/19 07:25: White Blood Count 11.0, Red Blood Count 4.49, Hemoglobin 12.9, Hematocrit 42, Mean Corpuscular Volume 94, Mean Corpuscular Hemoglobin 29, Mean Corpuscular Hemoglobin Concent 31L, Red Cell Distribution Width 15.0H, Platelet Count 280, Mean Platelet Volume 10.8H, Prothrombin Time 19.4H, INR Comment 1.6H, Activated Partial Thromboplast Time 35 11/12/19 07:29: Sodium Level 138, Potassium Level 6.4H, Chloride Level 98, Carbon Dioxide Level 29, Anion Gap 11, Blood Urea Nitrogen 8, Creatinine 0.83, Estimat Glomerular Filtration Rate > 60, BUN/Creatinine Ratio 10, Glucose Level 150H, Calcium Level 9.0, Corrected Calcium 8.8, Total Bilirubin 0.5, Aspartate Amino Transf (AST/SGOT) 48H, Alanine Aminotransferase (ALT/SGPT) 16, Alkaline Phosphatase 79, Total Protein 8.3H, Albumin 4.2 ECG Impression ECG Initial ECG Rhythm: Normal Sinus A/P-Cardiology Assessment/Admission Diagnosis Persistent atrial fibrillation Admission Status: Observation Plan Persistent atrial fibrillation refractory to medical therapy. Patient failed transesophageal echocardiogram assisted cardioversion on 09/14/2019. I saw her in the office at 09/26/2019 and she was still in atrial fibrillation. Today she is in sinus rhythm however we are unsure when she converted into sinus rhythm, therefore we will stick with the original plan of doing a transesophageal echocardiogram before the atrial fibrillation ablation. Informed consent was taken at length during the office visit where all risks and complication were discussed at length. We also discussed the success rate which could be affected by morbid obesity and COPD. Patient has been on uninterrupted Eliquis. Alfonso RABAGO MD Nov 12, 2019 09:46
[2019-11-12] MEDS ORDERED: LACTATED RINGERS 1,000 ML IV ONE ×3 (10:42→18:45)
[2019-11-12] MEDS ORDERED: NEOSTIGMINE 3 MG/3 ML VIAL ONE (13:05)
[2019-11-12] MEDS ORDERED: GLYCOPYRROLATE 0.2 MG/ML (ROBINUL) 2 ML VIAL ONE (13:05)
[2019-11-12] MEDS ORDERED: DEXAMETHASONE 10 MG/ML (DECADRON) 1 ML VIAL ONE (13:19)
[2019-11-12] MEDS ORDERED: PROTAMINE 50 MG/5 ML VIAL ONE (13:19)
--- NOTE | 2019-11-12 13:26 | Electrophysiology Procedure ---
EP Procedure Persistent atrial fibrillation ablation operative report. DATE OF SERVICE:11/12/19 CARDIAC BUSINESS COORDINATOR: Jordan Rabago MD, [facility]. INDICATION: Persistent atrial fibrillation refractory to medical therapy. PREOPERATIVE DIAGNOSIS: Persistent atrial fibrillation refractory to medical therapy. POSTOPERATIVE DIAGNOSES: Persistent atrial fibrillation ablation. HISTORY: This is a 63-year-old lady with persistent atrial fibrillation with symptoms and refractory to amiodarone and cardioversion 3. Class I indication for atrial fibrillation ablation. The patient is planned for comprehensive EP study and ablation. PROCEDURE PERFORMED: 1. Comprehensive EP study with induction. 2. Fluoroscopy. 3. Left atrial pacing and recording. 4. Drug infusion. 5. Left ventricular pacing and recording. 6. Comprehensive 3D mapping with the carto system. 7. Transesophageal echocardiogram. 8. Intracardiac echocardiogram. 9. Pulmonary vein isolation. 10. Additional atrial fibrillation ablation. COMPLICATION: None. ESTIMATED BLOOD LOSS: 10 mL. CONTRAST USED: None. FLUOROSCOPY TIME: 6.2 minutes. FLUOROSCOPY DOSE: 266 mgy. SPECIMENS: None. ANESTHESIA: Done by our anesthesia colleagues. ANTICOAGULATION: Uninterrupted Eliquis therapy. PROCEDURE IN DETAIL: After informed consent was taken, the patient was brought to the EP lab. Anesthesia was provided by our anesthesia colleagues. The patient was draped and prepped in the usual sterile fashion. The patient presented to the EP lab in sinus rhythm. Since the patient was recently in atrial fibrillation on 09/26/2019; We decided to perform transesophageal echocardiogram. YOUNG did not show Any left atrial or left atrial appendage thrombus. Access was gained in the right femoral vein with a 8 Australian and a 6 Australian sheath. Left access in the left femoral vein with a 12 Australian and 6 Australian sheath respe ctively. His Catheter and ICE catheter were advanced from the left access sites. CS multipolar catheter was advanced placed in the CS from the right access site. A guidewire was advanced into the SVC. Long sheath was advanced on top of the guidewire into the SVC. The wire was taken out. We then went in with the transseptal needle. Under fluoroscopic and intracardiac echocardiogram guidance, the sheath and transseptal needle were pulled into the fossa ovalis. Transseptal access Was performed under ice and fluoroscopic guidance. This was confirmed with left atrial pressure measurements. The transseptal needle was taken out and we decided to proceed with the procedure. IV heparin was given and ACT was kept over 350 seconds. We then advanced a guidewire which was placed in the left superior pulmonary vein and the sheath and introducer were taken out. The guidewire was taken out and a [employer] [place] Pentaray catheter was advanced for left atrial mapping. We also used the intracardiac echocardiogram to create an ultrasound shell of the left atrium and identified all vital landmarks including the left atrial appendage, left pulmonary veins, right pulmonary veins, mitral valve, fossa ovalis, aortic cusps. With this multipolar mapping catheter left atrial voltage and electro anatomical map was created. The multipolar mapping catheter was then taken out and and irrigated ablation catheter was advanced into the left atrium. Pulmonary vein isolation was performed. Bidirectional block in both left and right sided pulmonary veins was confirmed. This was done with high output pacing in each pulmonary vein. Fractionated Signals were noted just anterior to the right superior and right inferior pulmonary veins And also in the anterior wall. Therefore ablation was done of these fractionated signals. High-dose Isuprel was started at 16mg/minute. Rapid atrial pacing did not i nduce atrial fibrillation. After 30 minutes of ablation we rechecked the veins and reconfirmed bidirectional block. Comprehensive EP study was done. Left atrial pacing did not demonstrate any evidence of left-sided bypass tract. Left ventricular pacing and recording was also done, which did not demonstrate any VA conduction at pacing at cycle length 800 ms. A 3D electroanatomic mapping was donewith the carto system. Throughout the procedure, intracardiac echocardiogram did not demonstrate any pericardial effusion.At the end of the procedure 20 mg of protamine and 10 mg of Decadron was given IV. Figure of 8 sutures were done. The patienttolerated the procedurewell and did not have any complication. The patientleft the lab in sinus rhythm. Total ablation time was 38 minutes and 45 seconds. MEASUREMENTS/EP STUDY: AA interval 1525 ms, AH interval 78 ms, HV interval 69 ms, neck and KY interval 194 ms, QRS duration 73 ms, QT interval 513 ms, R-R interval 1586 ms, AV Wenckebach when pacing at 500 ms, AV adis ERP was 600/450 ms, No retrograde conduction at 800 ms cycle length when pacing in the LV. Left atrial pacing and recording did not demonstrate left lateral bypass tract. PLAN: The patient will be observed overnight and will be discharged home tomorrow with precise followup instructions. Jordan Rabago MD, [facility] Cardiac Electrophysiology Alfonso RABAGO MD Nov 12, 2019 13:26
[2019-11-12] MEDS ORDERED: PATIENT MAY USE OWN MEDS, ALL PO SCH (13:30)
[2019-11-12 14:15] LABS: BILIRUBIN,URINE NEGATIVE (NEGATIVE); CLARITY,URINE CLEAR; COLOR,URINE YELLOW; GLUCOSE, URINE (UA) NEGATIVE (NEGATIVE); KETONES,URINE NEGATIVE (NEGATIVE); LEUKOCYTE ESTERASE ,URINE NEGATIVE (NEGATIVE); NITRITE,URINE NEGATIVE (NEGATIVE); PH,URINE 6.5 (5-9); PROTEIN,URINE 2+ (NEGATIVE)
[2019-11-12] MEDS ORDERED: fentaNYL INJECTION 1,250 MCG in NORMAL SALINE 250 ML INJ SCH (14:15)
[2019-11-12] MEDS ORDERED: PROPOFOL DRIP (ICU) 100 ML IV ONE (14:19)
[2019-11-12 14:24] LABS: BACTERIA,URINE TRACE /HPF
[2019-11-12] MEDS: PROPOFOL DRIP (ICU) 100 ML IV SCH ×3 (14:30→22:02)
[2019-11-12] MEDS: LACTATED RINGERS 1,000 ML IV SCH ×3 (14:31→20:33)
--- NOTE | 2019-11-12 14:45 | Physical Therapy Progress Note ---
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 Patient currently sedated. Will recheck in nabor. RAINA ALEX PT Nov 12, 2019 14:45
--- NOTE | 2019-11-12 14:51 | Diagnostic Imaging Report ---
INDICATION: OG tube placement. Time of exam 2:36 PM Correlation is made with prior chest from 09/18/2019. ET tube is fairly high in position near the thoracic inlet. OG tube is coiled in the stomach. Lungs appear to be clear. There is no effusion or pneumothorax. IMPRESSION: ET tube and OG tube placement, as described. Dictated by: Dictated on workstation # [id number]
--- NOTE | 2019-11-12 14:54 | Occ Therapy Progress Note ---
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 OT will check in CAT Mao OT Nov 12, 2019 14:54
[2019-11-12 15:35] LABS: BASOPHILS % (AUTO) 0 % (0-10); EOSINOPHILS % (AUTO) 0 % (0-10); HEMATOCRIT 35 % (35-52); HEMOGLOBIN 10.3 G/DL (11.5-16.0); LYMPHOCYTES # (AUTO) 0.6 X 10^3 (1.0-4.0); LYMPHOCYTES % (AUTO) 5 % (12-44); MEAN CORPUSCULAR HEMOGLOBIN 28 PG (25-34); MEAN CORPUSCULAR HGB CONC 29 G/DL (32-36); MEAN CORPUSCULAR VOLUME 97 FL (80-99); MEAN PLATELET VOLUME 10.6 FL (7.4-10.4); MONOCYTES # (AUTO) 0.4 X 10^3 (0.0-1.0); MONOCYTES % (AUTO) 4 % (0-12); NEUTROPHILS # (AUTO) 9.2 X 10^3 (1.8-7.8); NEUTROPHILS % (AUTO) 90 % (42-75); PLATELET COUNT 253 10^3/uL (130-400); WHITE BLOOD COUNT 10.3 10^3/uL (4.3-11.0)
[2019-11-12 15:36] LABS: ABG BASE EXCESS 4.9 MMOL/L (-2.5-2.5); ABG OXYGEN SATURATION 59 % (94-100); ABG PO2 40 MMHG (79-93)
[2019-11-12 15:42] LABS: ALLENS TEST YES-POS; INSPIRED O2 70%; PATIENT TEMP 36.2; VENTILATOR YES
[2019-11-12 15:45] LABS: ABG PCO2 82 MMHG (35-45); ABG PH 7.22 (7.37-7.43)
[2019-11-12 15:47] LABS: ALBUMIN 3.3 GM/DL (3.2-4.5)
[2019-11-12 15:48] LABS: INR 1.6 (0.8-1.4); PROTHROMBIN TIME PATIENT 19.8 SEC (12.2-14.7)
[2019-11-12 15:48] LABS: CALCIUM 8.1 MG/DL (8.5-10.1)
[2019-11-12 15:49] LABS: TOTAL PROTEIN 5.2 GM/DL (6.4-8.2)
[2019-11-12 15:51] LABS: BILIRUBIN,TOTAL 0.7 MG/DL (0.1-1.0)
--- NOTE | 2019-11-12 15:52 | NUR ---
DR WALKER NOTIFIED OF ABG RESULTS ORDERS RECEIVED TO INCREASE TIDAL VOLUME TO 450 AND REPEAT ABG IN 1 HOUR.
[2019-11-12 15:53] LABS: CREATININE SERUM 1.04 MG/DL (0.60-1.30); PHOSPHORUS 5.6 MG/DL (2.3-4.7)
[2019-11-12 15:56] LABS: MAGNESIUM 1.8 MG/DL (1.6-2.4)
[2019-11-12 15:59] LABS: BAND NEUTROPHILS 3 %; EOSINOPHILS % (MANUAL) 1 %; LYMPHOCYTES % (MANUAL) 6 %; MONOCYTES % (MANUAL) 5 %; NEUTROPHILS % (MANUAL) 85 %
--- NOTE | 2019-11-12 16:29 | NUR ---
THIS RN RECEIVED CRITICAL LAB RESULT OF PTT >200. THIS RN NOTIFIED DR. LEYVA. DR. LEYVA RESPONSE "LOW THRESHOLD FOR FEMSTOP." NO NEW ORDERS AT THIS TIME. WILL CONTINUE TO MONITOR.
[2019-11-12 17:32] LABS: ABG BASE EXCESS 4.7 MMOL/L (-2.5-2.5); ABG OXYGEN SATURATION 100 % (94-100); ABG PCO2 58 MMHG (35-45); ABG PO2 164 MMHG (79-93); ABG TCO2 32.1 MMOL/L (21.0-31.0)
[2019-11-12 17:35] LABS: ALLENS TEST YES-POS; INSPIRED O2 70%; VENTILATOR YES
[2019-11-12 17:36] LABS: PATIENT TEMP 36.8
[2019-11-12 17:37] LABS: ABG PH 7.33 (7.37-7.43)
--- NOTE | 2019-11-12 17:44 | NUR ---
THIS RN RECEIVED CRITICAL LAB RESULT OF PH 7.33. THIS RN NOTIFIED DR. WALKER. RECEIVED ORDER TO TITRATE FIO2 DOWN TO 50% AND CONTINUE TO TITRATE FOR SATS 90-92%
--- NOTE | 2019-11-12 19:36 | NUR ---
THIS RN NOTIFIED DR. WALKER OF DECREASED URINE OUTPUT. DR. WALKER GAVE ORDER FOR 1L LR BOLUS OVER 2 HRS.
[2019-11-12] MEDS: APIXABAN 5 MG (ELIQUIS) TABLET PO SCH (20:33)
[2019-11-12] MEDS ORDERED: fentaNYL INJECTION 1,250 MCG in NS (IVPB) 250 ML IV SCH (21:15)
[2019-11-13] VITALS (26 sets, daily range): BP systolic 90–149; BP diastolic 51–85
[2019-11-13] MEDS: inSUlin ASPART (NovoLOG) 1 UNIT/0.01 ML (CHARGE PER UNIT) SC SCH ×5 (00:14→20:59)
[2019-11-13] MEDS ORDERED: inSUlin ASPART (NovoLOG) 1 UNIT/0.01 ML (CHARGE PER UNIT) ONE (00:15)
[2019-11-13] MEDS: PROPOFOL DRIP (ICU) 100 ML IV SCH ×2 (01:19→05:40)
[2019-11-13 03:14] LABS: BASOPHILS % (AUTO) 0 % (0-10); EOSINOPHILS % (AUTO) 0 % (0-10); HEMATOCRIT 30 % (35-52); HEMOGLOBIN 9.1 G/DL (11.5-16.0); LYMPHOCYTES # (AUTO) 0.9 X 10^3 (1.0-4.0); LYMPHOCYTES % (AUTO) 7 % (12-44); MEAN CORPUSCULAR HEMOGLOBIN 29 PG (25-34); MEAN CORPUSCULAR HGB CONC 31 G/DL (32-36); MEAN CORPUSCULAR VOLUME 94 FL (80-99); MEAN PLATELET VOLUME 10.5 FL (7.4-10.4); MONOCYTES # (AUTO) 0.9 X 10^3 (0.0-1.0); MONOCYTES % (AUTO) 7 % (0-12); NEUTROPHILS # (AUTO) 11.9 X 10^3 (1.8-7.8); NEUTROPHILS % (AUTO) 87 % (42-75); PLATELET COUNT 235 10^3/uL (130-400); RED CELL DISTRIBUTION WIDTH 14.7 % (10.0-14.5); WHITE BLOOD COUNT 13.7 10^3/uL (4.3-11.0)
[2019-11-13 03:31] LABS: POTASSIUM 4.3 MMOL/L (3.6-5.0)
[2019-11-13 03:37] LABS: CREATININE SERUM 1.05 MG/DL (0.60-1.30)
[2019-11-13 04:19] LABS: ABG BASE EXCESS 5.6 MMOL/L (-2.5-2.5); ABG OXYGEN SATURATION 95 % (94-100); ABG PCO2 43 MMHG (35-45); ABG PH 7.45 (7.37-7.43); ABG PO2 72 MMHG (79-93)
[2019-11-13 04:20] LABS: ALLENS TEST POSITIVE; INSPIRED O2 30; PATIENT TEMP 36.6; VENTILATOR YES
[2019-11-13 04:35] LABS: PHOSPHORUS 3.5 MG/DL (2.3-4.7)
[2019-11-13 04:37] LABS: MAGNESIUM 1.6 MG/DL (1.6-2.4)
[2019-11-13] MEDS: KCL 20 MEQ TAB (K-DUR) PO SCH (04:41)
[2019-11-13] MEDS: MAGNESIUM 1 GM/100 ML IVPB 100 ML IV SCH ×3 (05:01→05:57)
[2019-11-13] MEDS: POTASSIUM CL 10MEQ/50ML IVPB 50 ML IV SCH (05:01)
[2019-11-13] MEDS: LACTATED RINGERS 1,000 ML IV SCH (05:45)
--- NOTE | 2019-11-13 06:14 | Pulmonary Consultation ---
History of Present Illness History of Present Illness Date Seen by Provider: Nov 12, 2019 (Late note for 11/11 ) Time Seen by Provider: 15:00 Date of Admission Allergies and Home Medications Allergies Coded Allergies: No Known Drug Allergies (Unverified , 06/08/19) Home Medications Albuterol Sulfate 1 Puff Puff, 2 PUFF PO Q6H PRN for SHORTNESS OF BREATH, (Reported) Alprazolam 0.5 Mg Tablet, 0.5 MG PO TID PRN for ANXIETY, (Reported) Amiodarone HCl 200 Mg Tablet, 200 MG PO BID Prescribed by: CARMEN PURDY on 09/18/19 114 Apixaban 5 Mg Tablet, 5 MG PO BID Prescribed by: CARMEN PURDY on 09/18/19 1142 Aspirin 81 Mg Tablet.dr, 81 MG PO DAILY, (Reported) Atorvastatin Calcium 20 Mg Tablet, 20 MG PO DAILY Prescribed by: RIVKA GRAFF on 09/18/19 1320 Bupropion HCl 150 Mg Tablet.er, 150 MG PO BID, (Reported) Digoxin 250 Mcg Tablet, 0.25 MG PO DAILY Prescribed by: CARMEN PURDY on 09/18/19 114 Diltiazem HCl 180 Mg Cap.er.24h, 360 MG PO DAILY Prescribed by: CARMEN PURDY on 09/18/19 114 Escitalopram Oxalate 20 Mg Tablet, 20 MG PO DAILY, (Reported) Fluticasone/Salmeterol 12 Gm Hfa.aer.ad, 1 PUFF IH BID Prescribed by: CARMEN PURDY on 09/18/19 114 Isosorbide Mononitrate 60 Mg Tab, 60 MG PO DAILY, (Reported) Metformin HCl 500 Mg Tablet, 500 MG PO BID, (Reported) Metoprolol Tartrate 50 Mg Tablet, 75 MG PO BID Prescribed by: CARMEN PURDY on 09/18/19 1142 Tramadol HCl 50 Mg Tablet, 50 MG PO Q6H PRN for PAIN-MODERATE (5-7), (Reported) Past Fvzwoul-Cnvglm-Jaicls Hx Patient Social History Alcohol Use: Denies Use Recreational Drug Use: No Smoking Status: Current Everyday Smoker Type Used: Cigarettes 2nd Hand Smoke Exposure: No Recent Foreign Travel: No Contact w/Someone Who Travel: No Recent Hopitalizations: No Immunizations Up To Date Tetanus Booster (TDap): More than 5yrs Date of Pneumonia Vaccine: Feb 07, 2017 Date of Influenza Vaccine: Jan 31, 2019 Seasonal Allergies Seasonal Allergies: No Past Medical History Surgeries: Yes Coronary Stent, Gallbladder, Hysterectomy Respiratory: Yes COPD Currently Using CPAP: No Currently Using BIPAP: No Cardiac: Yes Atrial Fibrillation, Coronary Artery Disease, High Cholesterol, Hypertension Neurological: No Genitourinary: No Gastrointestinal: No Gall Bladder Disease Musculoskeletal: No Endocrine: Yes Diabetes, Non-Insulin dep HEENT: No Cancer: No Psychosocial: Yes Anxiety, Depression Integumentary: No Family Medical History No Pertinent Family Hx Review of Systems Time Seen by Provider: 06:19 Sepsis Event Evaluation Height, Weight, BMI Height: '" Weight: lbs. oz. kg; 37.92 BMI Method: Exam Exam Vital Signs Date Time Temp Pulse Resp B/P (MAP) Pulse Ox O2 Delivery O2 Flow Rate FiO2 11/13/19 05:40 61 102/57 11/13/19 05:00 62 12 104/56 (72) 94 Mechanical Ventilator 30.00 11/13/19 04:00 36.6 30.00 11/13/19 04:00 61 108/59 (75) 93 Mechanical Ventilator 30.00 11/13/19 04:00 100 Mechanical Ventilator 30 11/13/19 03:00 60 112/61 (78) 92 Mechanical Ventilator 40.00 11/13/19 02:07 58 24 96 40 11/13/19 02:00 59 119/68 (85) 96 Mechanical Ventilator 40.00 11/13/19 01:19 57 116/61 11/13/19 01:00 60 11/13/19 01:00 58 111/65 (80) 97 Mechanical Ventilator 40.00 11/13/19 00:22 36.7 11/13/19 00:00 58 116/65 (82) 97 Mechanical Ventilator 40.00 11/13/19 00:00 100 Mechanical Ventilator 40 11/12/19 23:00 58 124/74 (91) 97 Mechanical Ventilator 40.00 11/12/19 22:02 56 135/72 11/12/19 22:00 56 135/72 (93) 100 Mechanical Ventilator 40.00 11/12/19 21:56 Mechanical Ventilator 40.00 11/12/19 21:52 56 24 100 50 11/12/19 21:00 53 145/79 (101) 100 Mechanical Ventilator 50.00 11/12/19 20:00 36.8 11/12/19 20:00 100 Mechanical Ventilator 50 11/12/19 20:00 48 19 142/73 (96) 100 Mechanical Ventilator 50.00 11/12/19 19:00 43 11/12/19 19:00 41 23 127/67 (87) 99 Mechanical Ventilator 50.00 11/12/19 18:33 40 24 94 50 11/12/19 18:11 39 116/60 11/12/19 18:00 39 17 116/60 (78) 94 Mechanical Ventilator 50.00 11/12/19 17:57 Mechanical Ventilator 50.00 11/12/19 17:00 37 24 108/63 (78) 100 Mechanical Ventilator 70.00 11/12/19 16:00 94 Mechanical Ventilator 70 11/12/19 16:00 37 32 105/54 (71) 100 Mechanical Ventilator 70.00 11/12/19 15:00 36 29 89/72 (78) 99 Mechanical Ventilator 70.00 11/12/19 15:00 Mechanical Ventilator 11/12/19 15:00 36.5 24 89/72 (78) 97 Mechanical Ventilator 11/12/19 14:50 24 97/54 (68) 97 Mechanical Ventilator 11/12/19 14:45 Mechanical Ventilator 11/12/19 14:40 24 97/54 (68) 99 Mechanical Ventilator 11/12/19 14:30 Mechanical Ventilator 11/12/19 14:30 38 111/57 11/12/19 14:30 24 95/52 (66) 97 Mechanical Ventilator 11/12/19 14:20 24 111/57 (75) 98 Mechanical Ventilator 11/12/19 14:15 Mechanical Ventilator 11/12/19 14:15 41 24 96 70 11/12/19 14:10 24 116/61 (79) 95 Mechanical Ventilator 11/12/19 14:07 44 11/12/19 14:00 44 8 125/56 (79) 96 Mechanical Ventilator 70.00 11/12/19 14:00 Mechanical Ventilator 11/12/19 14:00 36.3 12 125/56 (79) 96 Mechanical Ventilator 11/12/19 07:53 94 Nasal Cannula 2.00 11/12/19 07:25 36.4 50 18 152/80 (104) 93 Nasal Cannula 2.00 I & O 11/13/19 07:00 Intake Total 2100 ml Output Total 425 ml Balance 1675 ml Height & Weight Height: '" Weight: lbs. oz. kg; 37.92 BMI Method: Capillary Refill: Less Than 3 Seconds Results Lab Laboratory Tests 11/12/19 07:25 11/12/19 07:29 11/12/19 15:24 11/13/19 03:05 Assessment/Plan Assessment/Plan Acute on chronic respiratory failure during EP study -Continue vent therapy and reevaluate in the AM Persistent atrial fibrillation s/p EP study DM II Tobacco use -Education morbid obesity probable LARISSA vs OHS -Out pt testing GINA WALKER DO Nov 13, 2019 06:14
--- NOTE | 2019-11-13 06:20 | Pulmonary Progress Note ---
Subjective Time Seen by a Provider: 06:19 Sepsis Event Evaluation Height, Weight, BMI Height: '" Weight: lbs. oz. kg; 37.92 BMI Method: Exam Exam Vital Signs Date Time Temp Pulse Resp B/P (MAP) Pulse Ox O2 Delivery O2 Flow Rate FiO2 11/13/19 05:40 61 102/57 11/13/19 05:00 62 12 104/56 (72) 94 Mechanical Ventilator 30.00 11/13/19 04:00 36.6 30.00 11/13/19 04:00 61 108/59 (75) 93 Mechanical Ventilator 30.00 11/13/19 04:00 100 Mechanical Ventilator 30 11/13/19 03:00 60 112/61 (78) 92 Mechanical Ventilator 40.00 11/13/19 02:07 58 24 96 40 11/13/19 02:00 59 119/68 (85) 96 Mechanical Ventilator 40.00 11/13/19 01:19 57 116/61 11/13/19 01:00 60 11/13/19 01:00 58 111/65 (80) 97 Mechanical Ventilator 40.00 11/13/19 00:22 36.7 11/13/19 00:00 58 116/65 (82) 97 Mechanical Ventilator 40.00 11/13/19 00:00 100 Mechanical Ventilator 40 11/12/19 23:00 58 124/74 (91) 97 Mechanical Ventilator 40.00 11/12/19 22:02 56 135/72 11/12/19 22:00 56 135/72 (93) 100 Mechanical Ventilator 40.00 11/12/19 21:56 Mechanical Ventilator 40.00 11/12/19 21:52 56 24 100 50 11/12/19 21:00 53 145/79 (101) 100 Mechanical Ventilator 50.00 11/12/19 20:00 36.8 11/12/19 20:00 100 Mechanical Ventilator 50 11/12/19 20:00 48 19 142/73 (96) 100 Mechanical Ventilator 50.00 11/12/19 19:00 43 11/12/19 19:00 41 23 127/67 (87) 99 Mechanical Ventilator 50.00 11/12/19 18:33 40 24 94 50 11/12/19 18:11 39 116/60 11/12/19 18:00 39 17 116/60 (78) 94 Mechanical Ventilator 50.00 11/12/19 17:57 Mechanical Ventilator 50.00 11/12/19 17:00 37 24 108/63 (78) 100 Mechanical Ventilator 70.00 11/12/19 16:00 94 Mechanical Ventilator 70 11/12/19 16:00 37 32 105/54 (71) 100 Mechanical Ventilator 70.00 11/12/19 15:00 36 29 89/72 (78) 99 Mechanical Ventilator 70.00 11/12/19 15:00 Mechanical Ventilator 11/12/19 15:00 36.5 24 89/72 (78) 97 Mechanical Ventilator 11/12/19 14:50 24 97/54 (68) 97 Mechanical Ventilator 11/12/19 14:45 Mechanical Ventilator 11/12/19 14:40 24 97/54 (68) 99 Mechanical Ventilator 11/12/19 14:30 Mechanical Ventilator 11/12/19 14:30 38 111/57 11/12/19 14:30 24 95/52 (66) 97 Mechanical Ventilator 11/12/19 14:20 24 111/57 (75) 98 Mechanical Ventilator 11/12/19 14:15 Mechanical Ventilator 11/12/19 14:15 41 24 96 70 11/12/19 14:10 24 116/61 (79) 95 Mechanical Ventilator 11/12/19 14:07 44 11/12/19 14:00 44 8 125/56 (79) 96 Mechanical Ventilator 70.00 11/12/19 14:00 Mechanical Ventilator 11/12/19 14:00 36.3 12 125/56 (79) 96 Mechanical Ventilator 11/12/19 07:53 94 Nasal Cannula 2.00 11/12/19 07:25 36.4 50 18 152/80 (104) 93 Nasal Cannula 2.00 I & O 11/13/19 07:00 Intake Total 2100 ml Output Total 425 ml Balance 1675 ml Height & Weight Height: '" Weight: lbs. oz. kg; 37.92 BMI Method: Capillary Refill: Less Than 3 Seconds Results Lab Laboratory Tests 11/12/19 07:25 11/12/19 07:29 11/12/19 15:24 11/13/19 03:05 Assessment/Plan Assessment/Plan Acute on chronic respiratory failure during EP study -Continue vent therapy and reevaluate in the AM -Will plan on extubating this AM -D/C sedation and extubate once pt is awake and alert. Persistent atrial fibrillation s/p EP study DM II Tobacco use -Education morbid obesity probable LARISSA vs OHS -Out pt testing GINA WALKER DO Nov 13, 2019 06:20
--- NOTE | 2019-11-13 07:00 | NUR ---
fentanyl drip dc'd and 200 mls wasted with nena castillo
--- NOTE | 2019-11-13 07:18 | Anesthesia-General Post-Op ---
General Patient Condition Mental Status/LOC: Same as Preop Cardiovascular: Satisfactory Nausea/Vomiting: Absent Respiratory: Unsatisfactory Pain: Controlled Complications: Absent Post Op Complications Complications None Follow Up Care/Instructions Patient Instructions None needed. Anesthesia/Patient Condition Patient Condition Pt remains sedated on vent. D/C home per [facility] Criteria: ALEXANDRA Austin CRNA Nov 13, 2019 07:18
--- NOTE | 2019-11-13 07:33 | NUR ---
PT EXTUBATED AT 0715 TO 6L NC. TITRATED NC DOWN TO 2L. PT TOLERATING. WILL CONTINUE TO MONITOR.
--- NOTE | 2019-11-13 09:45 | NUR ---
Received dietary consult regarding pt's vent status. Note pt was extubated at 0715 11/12, per chart review. Will continue to follow and reassess as pt needs, intake, and status change. Roberta Solomon MS, RD, LD
[2019-11-13] MEDS: PANTOPRAZOLE 40 MG (PROTONIX) VIAL IV SCH (10:11)
[2019-11-13] MEDS: APIXABAN 5 MG (ELIQUIS) TABLET PO SCH ×2 (10:11→19:59)
--- NOTE | 2019-11-13 10:20 | Physical Therapy Evaluation ---
PT Evaluation-General Medical Diagnosis Admission Date November 12, 2019 Medical Diagnosis: respiratory failure with hypoxia Onset Date: Nov 12, 2019 Therapy Diagnosis Therapy Diagnosis: generalized weakness/debility Precautions Precautions/Isolations: Aspiration, Fall Prevention, Standard Precautions Weight Bear Status Right Lower Extremity: Right Weight Bearing/Tolerated Left Lower Extremity: Left Weight Bearing/Tolerated Referral Physician: Laura Reason for Referral: Evaluation/Treatment Medical History Pertinent Medical History: Atrial Fib, COPD, Heart Failure Current History s/p ablation due to A-fib Reviewed History: Yes Social History Home: Single Level Current Living Status: Children Entry Into Home: Level Entry Prior Prior Level of Function SCALE: Activities may be completed with or without assistive devices. 9-Jcvyzqyldm-njkayns completes the activity by him/herself with no assistance from a helper. 5-Set-up or Clean-up Assistance-helper sets up or cleans up; patient completes activity. [place] assists only prior to or following the activity. 4-Supervision or Touching Assistance-helper provides verbal cues and/or touching/steadying and/or contact guard assistance as patient completes activity. Assistance may be provided throughout the activity or intermittently. 3-Partial/Moderate Assistance-helper does LESS THAN HALF the effort. [place] lifts, holds or supports trunk or limbs, but provides less than half the effort. 2-Substantial/Maximal Assistance-helper does MORE THAN HALF the effort. [place] lifts or holds trunk or limbs and provides more than half the effort. 1-Bxtbqgixq-bafvzu does ALL the effort. Patient does none of the effort to complete the activity. Or, the assistance of 2 or more helpers is required for the patient to complete the activity. If activity was not attempted, code reason: 7-Patient Refused. 9-Not Applicable-not attempted and the patient did not perform the activity before the current illness, exacerbation or injury. 10-Not Attempted due to Environmental Limitations-(lack of equipment, weather restraints, etc.). 88-Not Attempted due to Medical Conditions or Safety Concerns. Bed Mobility: 6 Transfers (B,C,W/C): 6 Gait: 6 Indoor Mobility (Ambulation): Independent Stairs: Not Applicalbe Prior Devices Use: Walker PT Evaluation-Current Subjective Patient agrees to PT. Pain Numeric Pain Scale: 0-No Pain Location: No Pain Reported Objective Patient Orientation: Normal For Age Attachments: Oxygen, Cruz Catheter, IV ROM/Strength ROM Lower Extremities bilateral LE WFL Strength Lower Extremities 4/5 grossly bilateral LE Integumentary/Posture Integumentary refer to nursing notes Bowel Incontinence: No Bladder Incontinence: Cruz Cath Posture trunk flexed posture Neuromuscular (Tone, Coordination, Reflexes) grossly intact Sensory Vision: Functional Hearing: Functional Sensation Right Lower Extremit: Intact Sensation Left Lower Extremity: Intact Transfers Roll Left to Right (QC): 4 Lying to Sitting/Side of Bed(Q: 4 Sit to Stand (QC): 4 Chair/Vmy-cx-Faoux Xfer(QC): 4 Gait Does the Patient Walk?: Yes Mode of Locomotion: Walk Anticipated Mode of Locomotion: Walk Walk 10 feet (QC): 4 Gait Assistive Device: FWW Comments/Gait Description steady, slow functional gait sequence Wheelchair Training Does the Pt Use a Wheelchair?: No Balance Sitting Static: Normal Sitting Dynamic: Normal Standing Static: Normal Standing Dynamic: Normal Assessment/Needs 63 y.o. female, will benefit from skilled PT to address functional strength and mobility to improve current LOF to safely return to home at maximum LOF. 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 Goals Correction Goals PT Correction Goals Time Frame: Nov 24, 2019 Roll Left & Right (QC): 6 Sit to Lying (QC): 6 Lying-Sitting on Side/Bed(QC): 6 Sit to Stand (QC): 6 Chair/Jch-pa-Qyplc Xfer(QC): 6 Toilet Transfer (QC): 6 Does the Patient Walk: Yes Walk 10 feet (QC): 6 Walk 50ft with 2 Turns (QC): 6 Walk 150 ft (QC): 6 PT Plan Problem List Problem List: Activity Tolerance, Functional Strength, Bed Mobility Treatment/Plan Treatment Plan: Continue Plan of Care Treatment Plan: Bed Mobility, Education, Functional Activity Ruiz, Functional Strength, Gait, Safety, Therapeutic Exercise, Transfers Treatment Duration: Nov 24, 2019 Frequency: 6 times per week Estimated Hrs Per Day: .25 hour per day Patient and/or Family Agrees t: Yes Time/GCodes Time In: 845 Time Out: 902 Total Billed Treatment Time: 17 Total Billed Treatment 1 visit EVModC 17 min RAINA ALEX PT Nov 13, 2019 10:19
[2019-11-13] MEDS ORDERED: FUROSEMIDE 40 MG/4 ML INJ (LASIX) IVP NR (10:45)
--- NOTE | 2019-11-13 10:45 | Cardiology Progress Note ---
Cardiology SOAP Progress Note Subjective: extubated this morning Objective: I&O/Vital Signs 11/12/19 11/13/19 11/13/19 11/13/19 23:00 00:00 00:00 00:22 Temp 36.7 Pulse 58 58 B/P (MAP) 124/74 (91) 116/65 (82) Pulse Ox 97 100 97 O2 Delivery Mechanical Ventilator Mechanical Ventilator Mechanical Ventilator O2 Flow Rate 40.00 40.00 FiO2 40 11/13/19 11/13/19 11/13/19 11/13/19 01:00 01:00 01:19 02:00 Pulse 58 60 57 59 B/P (MAP) 111/65 (80) 116/61 119/68 (85) Pulse Ox 97 96 O2 Delivery Mechanical Ventilator Mechanical Ventilator O2 Flow Rate 40.00 40.00 11/13/19 11/13/19 11/13/19 11/13/19 02:07 03:00 04:00 04:00 Pulse 58 60 61 Resp 24 B/P (MAP) 112/61 (78) 108/59 (75) Pulse Ox 96 92 100 93 O2 Delivery Mechanical Ventilator Mechanical Ventilator Mechanical Ventilator O2 Flow Rate 40.00 30.00 FiO2 40 30 11/13/19 11/13/19 11/13/19 11/13/19 04:00 05:00 05:40 06:00 Temp 36.6 Pulse 62 61 61 Resp 12 B/P (MAP) 104/56 (72) 102/57 101/54 (70) Pulse Ox 94 98 O2 Delivery Mechanical Ventilator Mechanical Ventilator O2 Flow Rate 30.00 30.00 30.00 11/13/19 11/13/19 11/13/19 11/13/19 06:28 07:00 07:15 07:16 Pulse 61 71 Resp 24 11 B/P (MAP) 116/61 (79) Pulse Ox 98 87 O2 Delivery Mechanical Ventilator Nasal Cannula Nasal Cannula O2 Flow Rate 30.00 6.00 4.00 FiO2 40 11/13/19 11/13/19 11/13/19 11/13/19 07:20 07:21 08:00 08:00 Temp 37.0 Pulse 76 Resp 20 B/P (MAP) 143/65 (91) Pulse Ox 95 O2 Delivery Nasal Cannula Nasal Cannula Nasal Cannula O2 Flow Rate 4.00 2.00 2.00 11/13/19 00:00 Intake Total 2100 ml Output Total 250 ml Balance 1850 ml Constitutional: appears stated age; No apparent distress; well-developed, well- nourished Respiratory: chest is bilaterally symmetric, lungs clear to auscultation Cardiovascular: regular rate-rhythm, bradycardia, S1 and S2 Gastrointestional: soft, audible bowel sounds; No spleenomegaly Extremities: normal range of motion, non-tender, normal inspection; No clubbing, No cyanosis; no lower extremity edema bilateral; No significant edema Neurologic/Psychiatric: no motor/sensory deficits, alert, normal mood/affect, oriented x 3, power is 5/5 both on sides Skin: normal color, warm/dry; No rash, No ulcerations Results/Procedures: Labs Laboratory Tests 11/12/19 13:24: Prothrombin Time 19.8H, INR Comment 1.6H, Activated Partial Thromboplast Time > 200*H 11/12/19 15:15: Blood Gas Puncture Site RR, Blood Gas Patient Temperature 36.2, Arterial Blood pH 7.22*L, Arterial Blood Partial Pressure CO2 82*H, Arterial Blood Partial Pressure O2 40L, Arterial Blood HCO3 32H, Arterial Blood Total CO2 35.0H, Arterial Blood Oxygen Saturation 59L, Arterial Blood Base Excess 4.9H, Jaswant Test YES-POS, Blood Gas Ventilator Setting YES, Blood Gas Inspired Oxygen 70% 11/12/19 15:24: White Blood Count 10.3, Red Blood Count 3.65L, Hemoglobin 10.3#L, Hematocrit 35, Mean Corpuscular Volume 97, Mean Corpuscular Hemoglobin 28, Mean Corpuscular Hemoglobin Concent 29L, Red Cell Distribution Width 15.0H, Platelet Count 253, Mean Platelet Volume 10.6H, Neutrophils (%) (Auto) 90H, Lymphocytes (%) (Auto) 5L, Monocytes (%) (Auto) 4, Eosinophils (%) (Auto) 0, Basophils (%) (Auto) 0, Neutrophils # (Auto) 9.2H, Lymphocytes # (Auto) 0.6L, Monocytes # (Auto) 0.4, Eosinophils # (Auto) 0.0, Basophils # (Auto) 0.0, Neutrophils % (Manual) 85, Lymphocytes % (Manual) 6, Monocytes % (Manual) 5, Eosinophils % (Manual) 1, Band Neutrophils 3, Sodium Level 142, Potassium Level 5.0, Chloride Level 103, Carbon Dioxide Level 31, Anion Gap 8, Blood Urea Nitrogen 9, Creatinine 1.04, Estimat Glomerular Filtration Rate 54, BUN/Creatinine Ratio 9, Glucose Level 187H, Calcium Level 8.1L, Corrected Calcium 8.7, Phosphorus Level 5.6H, Magnesium Level 1.8, Total Bilirubin 0.7, Aspartate Amino Transf (AST/SGOT) 87H, Alanine Aminotransferase (ALT/SGPT) 39, Alkaline Phosphatase 79, Total Protein 5.2L, Albumin 3.3, Triglycerides Level 54 11/12/19 17:18: Blood Gas Puncture Site RR, Blood Gas Patient Temperature 36.8, Arterial Blood pH 7.33*L, Arterial Blood Partial Pressure CO2 58H, Arterial Blood Partial Pressure O2 164H, Arterial Blood HCO3 30H, Arterial Blood Total CO2 32.1H, Arterial Blood Oxygen Saturation 100, Arterial Blood Base Excess 4.7H, Jaswant Test YES-POS, Blood Gas Ventilator Setting YES, Blood Gas Inspired Oxygen 70% 11/12/19 18:04: Glucometer 184H 11/12/19 19:45: Activated Partial Thromboplast Time 32 11/13/19 00:10: Glucometer 222H 11/13/19 03:05: White Blood Count 13.7H, Red Blood Count 3.16L, Hemoglobin 9.1L, Hematocrit 30L, Mean Corpuscular Volume 94, Mean Corpuscular Hemoglobin 29, Mean Corpuscular Hemoglobin Concent 31L, Red Cell Distribution Width 14.7H, Platelet Count 235, Mean Platelet Volume 10.5H, Neutrophils (%) (Auto) 87H, Lymphocytes (%) (Auto) 7L, Monocytes (%) (Auto) 7, Eosinophils (%) (Auto) 0, Basophils (%) (Auto) 0, Neutrophils # (Auto) 11.9H, Lymphocytes # (Auto) 0.9L, Monocytes # (Auto) 0.9, Eosinophils # (Auto) 0.0, Basophils # (Auto) 0.0, Sodium Level 138, Potassium Level 4.3, Chloride Level 102, Carbon Dioxide Level 24, Anion Gap 12, Blood Urea Nitrogen 13, Creatinine 1.05, Estimat Glomerular Filtration Rate 53, BUN/Creatinine Ratio 12, Glucose Level 182H, Calcium Level 8.0L 11/13/19 04:10: Blood Gas Puncture Site LEFT RADIAL, Blood Gas Patient Temperature 36.6, Arterial Blood pH 7.45H, Arterial Blood Partial Pressure CO2 43, Arterial Blood Partial Pressure O2 72L, Arterial Blood HCO3 30H, Arterial Blood Total CO2 31.0, Arterial Blood Oxygen Saturation 95, Arterial Blood Base Excess 5.6H, Jaswant Test POSITIVE, Blood Gas Ventilator Setting YES, Blood Gas Inspired Oxygen 30 11/13/19 04:15: Phosphorus Level 3.5, Magnesium Level 1.6 Microbiology 11/12/19 Gram Stain, Resulted Pending 11/12/19 Sputum Culture - Preliminary, Resulted See Comments A/P: Assessment/Dx: Persistent atrial fibrillation, severe copd, Stable CAD, Active smoking, Chronic diastolic congestive heart failure, Likely obstructive sleep apnea, Diabetes, Plan: Persistent atrial fibrillation, symptomatic with shortness of breath. She had transesophageal echocardiogram assisted cardioversion done on 09/11/2019 however she went back into atrial fibrillation with RVR on 09/13/2019. Cardioversion 3 was done again on 09/14/2019 however the patient stayed in atrial fibrillation. She was put on amiodarone, Cardizem and continued Eliquis. After detailed discussion with decided to go ahead with atrial fibrillation ablation. I saw her in the office on 09/26/2019 and she was still in atrial fibrillation. However on 11/12/2019 on the day of her ablation, EKG showed sinus rhythm. Transesophageal echocardiogram did not show any left atrial or left atrial appendage thrombus. Pulmonary vein isolation was done. Fractionated signals were ablated anterior to the right superior and right inferior pulmonary veins. Atrial fibrillation could not be induced with rapid atrial pacing at cycle length 250 ms and Isuprel 16 mg/min. severe copd, patient had to be On the ventilator overnight. Extubated this morning by Dr. Sanchez. Stable CAD, coronary angiography 09/17/2019 showed mild CAD with patent stent in the distal RCA. Active smoking, smoking cessation was strongly recommended. Chronic diastolic congestive heart failure, IV fluids were given during atrial fibrillation ablation. I will give a dose of Lasix. Likely obstructive sleep apnea, Diabetes, Thank you for your consultation. Please call me if you have any questions. Jordan Rabago MD, FACP, FACC, FSCAI, FHRS, CCDS Interventional Cardiology Cardiac Electrophysiology Vascular Medicine and Endovascular Interventions Alfonso RABAGO MD Nov 13, 2019 10:45
[2019-11-13] MEDS: RT-ALBUTEROL/IPRATROPIUM 3 ML (DUONEB) VIAL INH SCH ×4 (11:06→21:21)
[2019-11-13] MEDS: RT-BUDESONIDE NEBS 0.5 MG/2ML (PULMICORT) AMP INH SCH ×2 (11:09→18:32)
--- NOTE | 2019-11-13 12:22 | Occupational Therapy Eval ---
OT Evaluation-General/PLF Medical Diagnosis Admission Date Medical Diagnosis: respiratory failure with hypoxia Onset Date: Nov 12, 2019 Therapy Diagnosis Therapy Diagnosis: Decreased ADL status. Precautions Precautions/Isolations: Aspiration, Fall Prevention, Standard Precautions Referral Physician: Laura Referral Reason: Activity Tolerance, Self Care, Evaluation/Treatment, Strengthening/ROM Medical History Pertinent Medical History: Atrial Fib, COPD, Heart Failure Additional Medical History see nursing. Current History Pt requires ablation due to a fib. acute on chronic respiratory failure during EP study, ventilation support one night. Extubated this am. Social History Home: Single Level Current Living Status: Children Entry Into Home: Level Entry ADL-Prior Level of Function SCALE: Activities may be completed with or without assistive devices. 3-Mihmzomass-fhvgabb completes the activity by him/herself with no assistance from a helper. 5-Set-up or Clean-up Assistance-helper sets up or cleans up; patient completes activity. [place] assists only prior to or following the activity. 4-Supervision or Touching Assistance-helper provides verbal cues and/or touching/steadying and/or contact guard assistance as patient completes activity. Assistance may be provided throughout the activity or intermittently. 3-Partial/Moderate Assistance-helper does LESS THAN HALF the effort. [place] lifts, holds or supports trunk or limbs, but provides less than half the effort. 2-Substantial/Maximal Assistance-helper does MORE THAN HALF the effort. [place] lifts or holds trunk or limbs and provides more than half the effort. 9-Zmqkpuxcy-nktjyg does ALL the effort. Patient does none of the effort to complete the activity. Or, the assistance of 2 or more helpers is required for the patient to complete the activity. If activity was not attempted, code reason: 7-Patient Refused. 9-Not Applicable-not attempted and the patient did not perform the activity before the current illness, exacerbation or injury. 10-Not Attempted due to Environmental Limitations-(lack of equipment, weather restraints, etc.). 88-Not Attempted due to Medical Conditions or Safety Concerns. ADL PLOF Comments Mod I with 2WW and SBA for tub/ shower transfers. Children assist with IADLs. Self Care: Needed Some Help Functional Cognition: Independent DME/Equipment: Bath Chair, Grab Bars, Tub/Shower Occupation: retired Drive Self: Yes OT Current Status Subjective Pt seen in recliner. Pt denies pain, though states "tired/ dizzy." Pt states she has been dizzy since extubation. Pt Mental Status/Objective Patient Orientation: Person, Place Attachments: Cruz Catheter Current Hand Dominance: Right Upper Extremity ROM WFL BUE Upper Extremity Coordination Decreased BUE; slightly delayed/ weak Upper Extremity Sensation WFL BUE Pt states tingling of BLE (feet) Upper Extremity Strength Decreased (3/5) bialterally ADL-Treatment Eating (QC): 6 (able to bring drink to mouth) On/Off Footwear (QC): 3 (mod A per clinical judgment, doffed with max A this date.) Other Treatments Pt states increased weakness this date. Pt educated on situation. Pt states she is un-oriented; states correct year/ situation, though confused at times, stating "You brought in my c-pap?" Pt oriented to time as 12, pt states, "Midnight?" Pt oriented to correct time. Pt denies out of chair activities, completes MMT/ ROM and hx. Pt states only requires assist with IADLs and tub/ shower transfer from children. Pt to continue working on increasing strength/ activity level for increased fx IND for d/c home. Pt educated on use of theraband- completes 5 reps of shoulder external rotations with 2/5 very limited AROM. Pt educated to complete AROM multiple times a day and resistance to tolerance. Pt agrees. Pt educated on fact and agrees, all needs met, call light on lap. Education OT Patient Education: Correct positioning, Exercise program, Home exercise program, Purpose of tx/functional activities Teaching Recipient: Patient Teaching Methods: Demonstration, Discussion Response to Teaching: Verbalize Understanding, Return Demonstration OT Fpc Goals Environmental Engineering Assistant Goals Time Frame: Nov 20, 2019 Eating (QC): 6 Oral Hygiene (QC): 6 Toileting Hygiene (QC): 4 Shower/Bathe Self (QC): 4 Upper Body Dressing (QC): 6 Lower Body Dressing (QC): 4 On/Off Footwear (QC): 6 Additional Goals: 1-Demonstrate ADL Tasks, 2-Verbalize Understanding, 3- ImproveStrength/Ruzi 1=Demonstrate adherence to instructed precautions during ADL tasks. 2=Patient will verbalize/demonstrate understanding of assistive devices/modifications for ADL. 3=Patient will improve strength/tolerance for activity to enable patient to perform ADL's. OT Education/Plan Problem List/Assessment Assessment: Decreased Activ Tolerance, Decreased UE Strength, Edema, Impaired Coordination, Impaired Funct Balance, Impaired I ADL's, Impaired Self-Care Skills Discharge Recommendations Plan/Recommendations: Continue POC Therapy Discharge Recommendati: Home & Family, Post Acute OT Treatment Plan/Plan of Care Treatment,Training & Education: Yes Patient would benefit from OT for education, treatment and training to promote independence in ADL's, mobility, safety and/or upper extremity function for ADL's. Plan of Care: ADL Retraining, Caregiver Training, Functional Mobility, UE Funct Exercise/Act Treatment Duration: Nov 20, 2019 Frequency: 5 times per week Estimated Hrs Per Day: .25 hour per day Agreement: Yes Rehab Potential: Fair Time/GCodes Start Time: 11:51 Stop Time: 12:06 Total Time Billed (hr/min): 15 Billed Treatment Time 1, EVM (15) GINGER WATKINS OTR Nov 13, 2019 12:22
--- NOTE | 2019-11-13 14:02 | Diagnostic Imaging Report ---
INDICATION: Shortness of air. Time of exam 1:39 PM Correlation is made with prior chest one day earlier. NG tube has been removed. ET tube has been removed. Lungs appear to be clear. No infiltrates are seen. There is no effusion or pneumothorax. IMPRESSION: No acute cardiopulmonary process is detected. Dictated by: Dictated on workstation # [id number]
--- OUTSIDE RECORDS SUMMARY | 2019-11-13 22:10 | XMS REPORT | Continuity of Care Document ---
Author Organization Unknown Address Unknown Phone Unavailable Allergies Active Description Code Type Severity Reaction Onset Reported/Identified Relationship to Patient Clinical Status Yes No Known Drug Allergies [id number] Drug Allergy Unknown N/A 06/08/2019 Medications There [...] Ot I25. 10 ATHSCL HEART DISEASE OF [place] CORONARY 09/09/2019 KRISTINA POWELL MD Ot I48. [...] Ot I25. 10 ATHSCL HEART DISEASE OF [place] CORONARY 09/18/2019 KRISTINA POWELL MD Ot I48. 91 UNSPECIFIED ATRIAL FIBRILLATION 09/18/2019 KRISTINA POWELL MD Ot I50. 31 ACUTE DIASTOLIC (CONGESTIVE) HEART FAILU 09/18/2019 KRISTINA POWELL MD Ot J43. 9 EMPHYSEMA, UNSPECIFIED 09/18/2019 KRISTINA POWELL MD Ot J96. 21 ACUTE AND CHRONIC RESPIRATORY FAILURE [place] 09/18/2019 KRISITNA POWELL MD Ot R07. 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 [...] Code Description Performed By Per formed On [id number] RE STORATION OF CARDIAC RHYTHM, SINGLE 09/11/2019 [id number] ME ASURE OF CARDIAC SAMPL PRESSURE, L H 09/17/2019 [id number] FL UOROSCOPY OF MULT COR ART USING L OSM 09/17/2019 [id number] FL UOROSCOPY OF LEFT HEART USING LOW [...] 7-25 CREATININE 0.65 mg/dL 0.50-0.99 eGFR NON-AFR. OMANI 96 mL/min/1.73m2 > OR = 60 eGFR [...] 7-25 CREATININE 0.71 mg/dL 0.50-0.99 eGFR NON-AFR. OMANI 91 mL/min/1.73m2 > OR = 60 eGFR [...] 7-25 CREATININE 0.72 mg/dL 0.50-0.99 eGFR NON-AFR. OMANI 90 mL/min/1.73m2 > OR = 60 eGFR [...] - 09/16/19 02:46 Magnesium 2.1 mg/dL 1.6-2.4 [id number] - 09/16/19 02:46 [id number] 0.45 ng/mL 0.80-2.00 Capillary blood glucose measurement [...] Coronavirus Ab [Units/volume] in Serum Negative Negative Automated blood complete blood count (he mogram) panel - 11/12/19 07:25 Blood leukocytes automated count (number/volume) 11.0 10*3/uL 4.3-11.0 Blood erythrocytes automated count (number/volume) 4.49 10*6/uL 4.35-5.85 Venous blood hemoglobin measurement (mass/volume) 12.9 g/dL 11.5-16.0 Blood hematocrit (volume fraction) 42 % 35-52 Automated erythrocyte mean corpuscular volume 94 [ foz_us] 80-99 Automated erythrocyte mean corpuscular h emoglobin (mass per erythrocyte) 29 pg 25-34 Automated erythrocyte mean corpuscular h emoglobin concentration measurement (mass/volume) 31 g/dL 32-36 Automated erythrocyte distribution width ratio 15. 0 % 10.0- 14.5 Automated blood platelet count (count/volume) 280 10*3/uL 130-400 Automated blood platelet mean volume measurement 10.8 [foz_us] 7.4-10.4 PT panel in platelet poor plasma by coag ulation assay - 11/12/19 07:25 Prothrombin time (PT) in platelet poor plasma by coagu lation assay 19.4 s 12.2-14.7 INR in platelet poor plasma or blood by coagulation as say 1.6 0.8-1.4 Activated partial thromboplastin time (a PTT) in platelet poor plasma bycoagulation assay - 11/12/19 07:25 Activated partial thromboplastin time (a PTT) in platelet poor plasma bycoagulation assay 35 s 24-35 Methicillin resistant Staphylococcus aur eus (MRSA) screening culture - 11/12/19 07:25 Methicillin resistant Staphylococcus aureus (MRSA) scr eening culture NEG NRG Comprehensive metabolic panel - 11/12/19 07:29 Serum or plasma sodium measurement (moles/volume) 138 mmol/L 135-145 Serum or plasma potassium measurement (moles/volume) 6.4 mmol/L 3.6-5.0 Serum or plasma chloride measurement (moles/volume) 98 mmol/L 98-107 Carbon dioxide 29 mmol/L 21-32 Serum or plasma anion gap determination (moles/volume) 11 mmol/L 5-14 Serum or plasma urea nitrogen measurement (mass/volume ) 8 mg/dL 7-18 Serum or plasma creatinine measurement (mass/volume) 0.83 mg/dL 0.60-1.30 Serum or plasma urea nitrogen/creatinine mass ratio 10 NRG Serum or plasma creatinine measurement w ith calculation of estimated glomerular filtration rate > NRG Serum or plasma glucose measurement (mass/volume) 150 mg/dL 70-105 Serum or plasma calcium measurement (mass/volume) 9.0 mg/dL 8.5-10.1 Serum or plasma total bilirubin measurement (mass/volu me) 0.5 mg/dL 0.1-1.0 Serum or plasma alkaline phosphatase hina surement (enzymatic activity/volume) 79 U/L 40-136 Serum or plasma aspartate aminotransfera se measurement (enzymatic activity/volume) 48 U/L 5-34 Serum or plasma alanine aminotransferase measurement (enzymatic activity/volume) 16 U/L 0-55 Serum or plasma protein measurement (mass/volume) 8.3 g/dL 6.4-8.2 Serum or plasma albumin measurement (mass/volume) 4.2 g/dL 3.2-4.5 CALCIUM CORRECTED 8.8 mg/dL 8.5-10.1 Complete urinalysis with reflex to cultu re - 11/12/19 09:34 Urine color determination YELLOW NRG Urine clarity determination CLEAR NR G Urine pH measurement by test strip 6.5 5-9 Specific gravity of urine by test strip 1.020 1.016-1.022 Urine protein assay by test strip, semi-quantitative 2+ NEGATIVE Urine glucose detection by automated test strip NE GATIVE NEGATIVE Erythrocytes detection in urine sediment by light micr oscopy NEGATIVE NEGATIVE Urine ketones detection by automated test strip NE GATIVE NEGATIVE Urine nitrite detection by test strip NEGATIVE NEGATIVE Urine total bilirubin detection by test strip NEGA TIVE NEGATIVE Urine urobilinogen measurement by automated test strip (mass/volume) 2.0 mg/dL < = 1.0 Urine leukocyte esterase detection by dipstick NEG ATIVE NEGATIVE Automated urine sediment erythrocyte cou nt by microscopy (number/high power field) NONE NRG Automated urine sediment leukocyte count by microscopy (number/high power field) NONE NRG Bacteria detection in urine sediment by light microsco py TRACE NRG Squamous epithelial cells detection in u rine sediment by light microscopy 5-10 NRG Crystals detection in urine sediment by light microsco py NONE NRG Casts detection in urine sediment by light microscopy NONE NRG Mucus detection in urine sediment by light microscopy MODERATE NRG Complete urinalysis with reflex to culture NO NRG PT panel in platelet poor plasma by coag ulation assay - 11/12/19 13:24 Prothrombin time (PT) in platelet poor plasma by coagu lation assay 19.8 s 12.2-14.7 INR in platelet poor plasma or blood by coagulation as say 1.6 0.8-1.4 Activated partial thromboplastin time (a PTT) in platelet poor plasma bycoagulation assay - 11/12/19 13:24 Activated partial thromboplastin time (a PTT) in platelet poor plasma bycoagulation assay > s 24-35 Arterial blood gas measurement - 0 15:15 Blood pCO2 82 mm[Hg] 35-45 Blood pO2 40 mm[Hg] 79-93 Arterial blood bicarbonate measurement (moles/volume) 32 mmol/L 23-27 Arterial blood base excess by calculation 4.9 mmol /L -2.5-2.5 Arterial blood oxygen saturation measurement 59 % 94-100 * Inhaled oxygen flow rate 70% NRG Arterial blood pH measurement with patient temperature correction 7.22 7.37-7.43 Arterial blood carbon dioxide, total measurement (mole s/volume) 35.0 mmol/L 21.0-31.0 Body site RR NRG Assessment of wrist artery patency prior to arterial p uncture YES-POS NRG Setting of ventilation mode YES NR G Measurement of body temperature 36.2 NRG Complete blood count (CBC) with automate d white blood cell (WBC) differential - 11/12/19 15:24 Blood leukocytes automated count (number/volume) 10.3 10*3/uL 4.3-11.0 Blood erythrocytes automated count (number/volume) 3.65 10*6/uL 4.35-5.85 Venous blood hemoglobin measurement (mass/volume) 10.3 g/dL 11.5-16.0 Blood hematocrit (volume fraction) 35 % 35-52 Automated erythrocyte mean corpuscular volume 97 [ foz_us] 80-99 Automated erythrocyte mean corpuscular h emoglobin (mass per erythrocyte) 28 pg 25-34 Automated erythrocyte mean corpuscular h emoglobin concentration measurement (mass/volume) 29 g/dL 32-36 Automated erythrocyte distribution width ratio 15. 0 % 10.0- 14.5 Automated blood platelet count (count/volume) 253 10*3/uL 130-400 Automated blood platelet mean volume measurement 10.6 [foz_us] 7.4-10.4 Automated blood neutrophils/100 leukocytes 90 % 42-75 Automated blood lymphocytes/100 leukocytes 5 % 12-44 Blood monocytes/100 leukocytes 4 % 0-12 Automated blood eosinophils/100 leukocytes 0 % 0-10 Automated blood basophils/100 leukocytes 0 % 0-10 Blood neutrophils automated count (number/volume) 9.2 10*3 1.8-7.8 Blood lymphocytes automated count (number/volume) 0.6 10*3 1.0-4.0 Blood monocytes automated count (number/volume) 0. 4 10*3 0.0-1.0 Automated eosinophil count 0.0 10*3/uL 0 .0-0.3 Automated blood basophil count (count/volume) 0.0 10*3/uL 0.0-0.1 Comprehensive metabolic panel - 11/12/19 15:24 Serum or plasma sodium measurement (moles/volume) 142 mmol/L 135-145 Serum or plasma potassium measurement (moles/volume) 5.0 mmol/L 3.6-5.0 Serum or plasma chloride measurement (moles/volume) 103 mmol/L 98-107 Carbon dioxide 31 mmol/L 21-32 Serum or plasma anion gap determination (moles/volume) 8 mmol/L 5-14 Serum or plasma urea nitrogen measurement (mass/volume ) 9 mg/dL 7-18 Serum or plasma creatinine measurement (mass/volume) 1.04 mg/dL 0.60-1.30 Serum or plasma urea nitrogen/creatinine mass ratio 9 NRG Serum or plasma creatinine measurement w ith calculation of estimated glomerular filtration rate 54 NRG Serum or plasma glucose measurement (mass/volume) 187 mg/dL 70-105 Serum or plasma calcium measurement (mass/volume) 8.1 mg/dL 8.5-10.1 Serum or plasma total bilirubin measurement (mass/volu me) 0.7 mg/dL 0.1-1.0 Serum or plasma alkaline phosphatase hina surement (enzymatic activity/volume) 79 U/L 40-136 Serum or plasma aspartate aminotransfera se measurement (enzymatic activity/volume) 87 U/L 5-34 Serum or plasma alanine aminotransferase measurement (enzymatic activity/volume) 39 U/L 0-55 Serum or plasma protein measurement (mass/volume) 5.2 g/dL 6.4-8.2 Serum or plasma albumin measurement (mass/volume) 3.3 g/dL 3.2-4.5 CALCIUM CORRECTED 8.7 mg/dL 8.5-10.1 Serum or plasma phosphate measurement (m ass/volume) - 11/12/19 15:24 Serum or plasma phosphate measurement (mass/volume) 5.6 mg/dL 2.3-4.7 Magnesium - 11/12/19 15:24 Magnesium 1.8 mg/dL 1.6-2.4 Serum or plasma triglyceride measurement (mass/volume) - 11/12/19 15:24 Serum or plasma triglyceride measurement (mass/volume) 54 mg/dL <150 Manual absolute plasma cell count - 10/26 15:24 Blood monocytes/100 leukocytes 5 % NRG Manual blood segmented neutrophils/100 leukocytes 85 % NRG Blood band neutrophils/100 leukocytes 3 % NRG Manual blood lymphocytes/100 leukocytes 6 % NRG Manual eosinophils/100 leukocytes in nose 1 % NRG Arterial blood gas measurement - 0 17:18 Blood pCO2 58 mm[Hg] 35-45 Blood pO2 164 mm[Hg] 79-93 Arterial blood bicarbonate measurement (moles/volume) 30 mmol/L 23-27 Arterial blood base excess by calculation 4.7 mmol /L -2.5-2.5 Arterial blood oxygen saturation measurement 100 % 94-100 * Inhaled oxygen flow rate 70% NRG Arterial blood pH measurement with patient temperature correction 7.33 7.37-7.43 Arterial blood carbon dioxide, total measurement (mole s/volume) 32.1 mmol/L 21.0-31.0 Body site RR NRG Assessment of wrist artery patency prior to arterial p uncture YES-POS NRG Setting of ventilation mode YES NR G Measurement of body temperature 36.8 NRG Capillary blood glucose measurement by g lucometer (mass/volume) - 11/12/19 18:04 Capillary blood glucose measurement by glucometer (mas s/volume) 184 mg/dL 70-110 Sputum Gram stain - 11/12/19 19:00 Sputum Gram stain Mixed Bacterial Sary NRG Bacterial sputum culture - 11/12/19 19:0 0 QUANTITY OF GROWTH Moderate Growth NRG Bacterial sputum culture [id number] NRG SUSCEPTIBILITY BETA LACTAMASE NEGATIVE NRG MRSA SCREEN SEE COMMENT NRG Activated partial thromboplastin time (a PTT) in platelet poor plasma bycoagulation assay - 11/12/19 19:45 Activated partial thromboplastin time (a PTT) in platelet poor plasma bycoagulation assay 32 s 24-35 Capillary blood glucose measurement by g lucometer (mass/volume) - 11/13/19 00:10 Capillary blood glucose measurement by glucometer (mas s/volume) 222 mg/dL 70-110 Complete blood count (CBC) with automate d white blood cell (WBC) differential - 11/13/19 03:05 Blood leukocytes automated count (number/volume) 13.7 10*3/uL 4.3-11.0 Blood erythrocytes automated count (number/volume) 3.16 10*6/uL 4.35-5.85 Venous blood hemoglobin measurement (mass/volume) 9.1 g/dL 11.5-16.0 Blood hematocrit (volume fraction) 30 % 35-52 Automated erythrocyte mean corpuscular volume 94 [ foz_us] 80-99 Automated erythrocyte mean corpuscular h emoglobin (mass per erythrocyte) 29 pg 25-34 Automated erythrocyte mean corpuscular h emoglobin concentration measurement (mass/volume) 31 g/dL 32-36 Automated erythrocyte distribution width ratio 14. 7 % 10.0- 14.5 Automated blood platelet count (count/volume) 235 10*3/uL 130-400 Automated blood platelet mean volume measurement 10.5 [foz_us] 7.4-10.4 Automated blood neutrophils/100 leukocytes 87 % 42-75 Automated blood lymphocytes/100 leukocytes 7 % 12-44 Blood monocytes/100 leukocytes 7 % 0-12 Automated blood eosinophils/100 leukocytes 0 % 0-10 Automated blood basophils/100 leukocytes 0 % 0-10 Blood neutrophils automated count (number/volume) 11.9 10*3 1.8-7.8 Blood lymphocytes automated count (number/volume) 0.9 10*3 1.0-4.0 Blood monocytes automated count (number/volume) 0. 9 10*3 0.0-1.0 Automated eosinophil count 0.0 10*3/uL 0 .0-0.3 Automated blood basophil count (count/volume) 0.0 10*3/uL 0.0-0.1 Whole blood basic metabolic panel - 11/25 03:05 Serum or plasma sodium measurement (moles/volume) 138 mmol/L 135-145 Serum or plasma potassium measurement (moles/volume) 4.3 mmol/L 3.6-5.0 Serum or plasma chloride measurement (moles/volume) 102 mmol/L 98-107 Carbon dioxide 24 mmol/L 21-32 Serum or plasma anion gap determination (moles/volume) 12 mmol/L 5-14 Serum or plasma urea nitrogen measurement (mass/volume ) 13 mg/dL 7-18 Serum or plasma creatinine measurement (mass/volume) 1.05 mg/dL 0.60-1.30 Serum or plasma urea nitrogen/creatinine mass ratio 12 NRG Serum or plasma creatinine measurement w ith calculation of estimated glomerular filtration rate 53 NRG Serum or plasma glucose measurement (mass/volume) 182 mg/dL 70-105 Serum or plasma calcium measurement (mass/volume) 8.0 mg/dL 8.5-10.1 Arterial blood gas measurement - 0 04:10 Blood pCO2 43 mm[Hg] 35-45 Blood pO2 72 mm[Hg] 79-93 Arterial blood bicarbonate measurement (moles/volume) 30 mmol/L 23-27 Arterial blood base excess by calculation 5.6 mmol /L -2.5-2.5 Arterial blood oxygen saturation measurement 95 % 94-100 * Inhaled oxygen flow rate 30 NRG Arterial blood pH measurement with patient temperature correction 7.45 7.37-7.43 Arterial blood carbon dioxide, total measurement (mole s/volume) 31.0 mmol/L 21.0-31.0 Body site LEFT RADIAL NRG Assessment of wrist artery patency prior to arterial p uncture POSITIVE NRG Setting of ventilation mode YES NR G Measurement of body temperature 36.6 NRG Serum or plasma phosphate measurement (m ass/volume) - 11/13/19 04:15 Serum or plasma phosphate measurement (mass/volume) 3.5 mg/dL 2.3-4.7 Magnesium - 11/13/19 04:15 Magnesium 1.6 mg/dL 1.6-2.4 Capillary blood glucose measurement by g lucometer (mass/volume) - 11/13/19 11:40 Capillary blood glucose measurement by glucometer (mas s/volume) 153 mg/dL 70-110 Capillary blood glucose measurement by g lucometer (mass/volume) - 11/13/19 16:07 Capillary blood glucose measurement by glucometer (mas s/volume) 187 mg/dL 70-110 Capillary blood glucose measurement by g lucometer (mass/volume) - 11/13/19 20:13 Capillary blood glucose measurement by glucometer (mas s/volume) 226 mg/dL 70-110 Encounters ACCT No. Visit Date/Time Discharge Status Pt. Type Provider Facility Loc./Unit Complaint [id number] 09/24/2019 10:30:00 09/24/2019 23:59: 59 CLS [id number] 05/10/2019 08:45:00 Document Registration [id number] 02/09/2019 15:15:00 Document Registration [id number] 07/27/2018 12:45:00 Document Registration [id number] 11/08/2019 06:42:00 23:59:59 CLS Outpatient Alfonso LEYVA MD [facility] LABNPT [id number] 09/09/2019 16:00:00 15:27:00 DIS Inpatient SHERRY DEWITT, KRISTINA Hamilton [facility] ICU A FIB RVR, DM, PUI COVI D 19, CHEST PAIN [id number] 06/08/2019 15:27:00 15:27:00 CAN Emergency VERENICE ROD DO [facility] ER FS CHEST PAIN [id number] 11/12/2019 06:59:[address] Outpatient AUTUMN DEWITT, Alfonso MARIA [facility] ICU PERSISTENT AF
[2019-11-14] VITALS (21 sets, daily range): BP systolic 99–189; BP diastolic 46–105
[2019-11-14 03:47] LABS: BASOPHILS % (AUTO) 0 % (0-10); EOSINOPHILS % (AUTO) 0 % (0-10); HEMATOCRIT 22 % (35-52); LYMPHOCYTES % (AUTO) 14 % (12-44); MEAN CORPUSCULAR HGB CONC 31 G/DL (32-36); MEAN CORPUSCULAR VOLUME 93 FL (80-99); MEAN PLATELET VOLUME 11.1 FL (7.4-10.4); MONOCYTES # (AUTO) 1.7 X 10^3 (0.0-1.0); MONOCYTES % (AUTO) 12 % (0-12); NEUTROPHILS # (AUTO) 10.2 X 10^3 (1.8-7.8); NEUTROPHILS % (AUTO) 73 % (42-75); PLATELET COUNT 198 10^3/uL (130-400); RED CELL DISTRIBUTION WIDTH 14.8 % (10.0-14.5); WHITE BLOOD COUNT 13.9 10^3/uL (4.3-11.0)
[2019-11-14 03:50] LABS: HEMOGLOBIN 6.8 G/DL (11.5-16.0); MEAN CORPUSCULAR HEMOGLOBIN 28 PG (25-34)
[2019-11-14 03:57] LABS: ALBUMIN 3.1 GM/DL (3.2-4.5)
[2019-11-14 03:58] LABS: CALCIUM 8.1 MG/DL (8.5-10.1)
[2019-11-14 04:02] LABS: BILIRUBIN,TOTAL 0.3 MG/DL (0.1-1.0)
[2019-11-14 04:03] LABS: CREATININE SERUM 1.2 MG/DL (0.60-1.30); PHOSPHORUS 4.4 MG/DL (2.3-4.7)
[2019-11-14] MEDS: KCL 20 MEQ TAB (K-DUR) PO SCH (04:09)
[2019-11-14] MEDS: inSUlin ASPART (NovoLOG) 1 UNIT/0.01 ML (CHARGE PER UNIT) SC SCH ×3 (04:09→17:44)
[2019-11-14] MEDS: POTASSIUM CL 10MEQ/50ML IVPB 50 ML IV SCH (04:09)
[2019-11-14] MEDS: MAGNESIUM 1 GM/100 ML IVPB 100 ML IV SCH (04:09)
--- NOTE | 2019-11-14 06:00 | Pulmonary Progress Note ---
Subjective Time Seen by a Provider: 05:55 Subjective/Events-last exam Pt was extubated yesterday. Sepsis Event Evaluation Height, Weight, BMI Height: '" Weight: lbs. oz. kg; 37.92 BMI Method: Exam Exam Vital Signs Date Time Temp Pulse Resp B/P (MAP) Pulse Ox O2 Delivery O2 Flow Rate FiO2 11/14/19 04:00 100 Nasal Cannula 2.00 11/14/19 04:00 84 20 160/72 (101) Nasal Cannula 2.00 11/14/19 03:00 86 11 119/51 (73) Nasal Cannula 2.00 11/14/19 02:00 82 19 141/61 (87) Nasal Cannula 2.00 11/14/19 01:00 82 11/14/19 01:00 84 21 144/64 (90) Nasal Cannula 2.00 11/14/19 00:44 37.0 11/14/19 00:00 85 14 144/66 (92) Nasal Cannula 2.00 11/14/19 00:00 100 Nasal Cannula 2.00 11/13/19 23:00 87 22 140/66 (90) 100 Nasal Cannula 2.00 11/13/19 22:00 90 17 140/63 (88) 98 Nasal Cannula 2.00 11/13/19 21:21 98 Nasal Cannula 2.00 11/13/19 21:00 86 10 149/69 (95) 99 Nasal Cannula 2.00 11/13/19 20:34 37.3 11/13/19 20:00 87 18 133/66 (88) 100 Nasal Cannula 2.00 11/13/19 20:00 100 Nasal Cannula 2.00 11/13/19 19:00 86 11/13/19 19:00 86 11 140/60 (86) 96 Nasal Cannula 2.00 11/13/19 18:32 98 Nasal Cannula 2.00 11/13/19 18:00 87 10 143/56 (85) 98 Nasal Cannula 2.00 11/13/19 17:00 62 11 102/55 (71) 89 Nasal Cannula 2.00 11/13/19 16:00 36.3 11/13/19 16:00 61 108/59 (75) 93 Nasal Cannula 2.00 11/13/19 15:00 60 109/62 (78) 92 Nasal Cannula 2.00 11/13/19 14:49 99 Nasal Cannula 2.00 11/13/19 14:00 82 9 97/85 (89) 97 Nasal Cannula 2.00 11/13/19 13:10 87 11/13/19 13:00 82 12 90/70 (77) 100 Nasal Cannula 2.00 11/13/19 12:00 82 12 125/56 (79) 100 Nasal Cannula 2.00 11/13/19 12:00 100 Nasal Cannula 2.00 11/13/19 12:00 36.7 11/13/19 11:13 100 Nasal Cannula 2.00 11/13/19 11:06 99 Nasal Cannula 2.00 11/13/19 11:00 72 19 121/52 (75) 100 Nasal Cannula 2.00 11/13/19 10:00 73 19 121/51 (74) 100 Nasal Cannula 2.00 11/13/19 09:00 82 19 127/60 (82) 98 Nasal Cannula 2.00 11/13/19 08:00 100 Nasal Cannula 2.00 11/13/19 08:00 76 20 143/65 (91) 95 Nasal Cannula 2.00 11/13/19 08:00 37.0 11/13/19 07:21 Nasal Cannula 2.00 11/13/19 07:20 Nasal Cannula 4.00 11/13/19 07:16 Nasal Cannula 4.00 11/13/19 07:15 Nasal Cannula 6.00 11/13/19 07:00 71 11 116/61 (79) 87 Mechanical Ventilator 30.00 11/13/19 07:00 73 11/13/19 06:28 61 24 98 40 11/13/19 06:00 61 101/54 (70) 98 Mechanical Ventilator 30.00 I & O 11/14/19 07:00 Intake Total 925 ml Output Total 1875 ml Balance -950 ml Height & Weight Height: '" Weight: lbs. oz. kg; 37.92 BMI Method: General Appearance: No Apparent Distress, WD/WN HEENT: PERRL/EOMI, Pharynx Normal Neck: Full Range of Motion, Non Tender, Supple Respiratory: Chest Non Tender, Crackles, Decreased Breath Sounds Cardiovascular: Regular Rate, Rhythm Capillary Refill: Less Than 3 Seconds Gastrointestinal: normal bowel sounds, non tender, soft Extremity: Normal Capillary Refill Neurologic/Psychiatric: Alert, Oriented x3 Skin: Normal Color, Warm/Dry Lymphatic: No Adenopathy Results Lab Laboratory Tests 11/12/19 07:25 11/12/19 07:29 11/12/19 15:24 11/13/19 03:05 11/14/19 03:14 Assessment/Plan Assessment/Plan Acute on chronic respiratory failure during EP study -PT extubated yesterday Anemia -Transfuse 1 unit PRBC PNA with H Influenza -Will start Omnicef PO Persistent atrial fibrillation s/p EP study DM II Tobacco use -Education morbid obesity probable LARISSA vs [facility] -Out pt testing GINA WALKER DO Nov 14, 2019 06:00
[2019-11-14] MEDS: LACTATED RINGERS 1,000 ML IV SCH ×2 (06:19→17:45)
[2019-11-14 06:33] LABS: HEMOGLOBIN 6.3 G/DL (11.5-16.0)
[2019-11-14] MEDS: RT-ALBUTEROL/IPRATROPIUM 3 ML (DUONEB) VIAL INH SCH ×3 (06:44→14:42)
[2019-11-14] MEDS ORDERED: NS IV 500 ML 500 ML IV SCH (06:45)
[2019-11-14] MEDS: RT-BUDESONIDE NEBS 0.5 MG/2ML (PULMICORT) AMP INH SCH (06:45)
[2019-11-14] MEDS ORDERED: CEFDINIR 300 MG (OMNICEF) CAP PO SCH (09:00)
[2019-11-14] MEDS ORDERED: NS IV 500 ML 500 ML ONE (09:20)
[2019-11-14] MEDS: PANTOPRAZOLE 40 MG (PROTONIX) VIAL IV SCH (09:47)
[2019-11-14] MEDS: APIXABAN 5 MG (ELIQUIS) TABLET PO SCH (09:48)
--- NOTE | 2019-11-14 10:30 | Occupational Ther Daily Note ---
OT Current Status-Daily Note Subjective Pt seen in bed upon entry. Alert/ oriented. Nursing clears OT/ PT tx, encourages walking as pt possibly d/c on this date. Pt states pain in RLE, states increased pain when moving. Pt denies dizziness in supine. Mental Status/Objective Patient Orientation: Normal For Age Attachments: Cruz Catheter, IV, Oxygen, Telemetry ADL-Treatment Therapy Code Descriptions/Definitions Functional [place] Measure: 0=Not Assessed/NA 4=Minimal Assistance 1=Total Assistance 5=Supervision or Setup 2=Maximal Assistance 6=Modified [place] 3=Moderate Assistance 7=Complete IndependenceSCALE: Activities may be completed with or without assistive devices. 6-Jdrhcfsawq-hqsnkcb completes the activity by him/herself with no assistance from a helper. 5-Set-up or Clean-up Assistance-helper sets up or cleans up; patient completes activity. [place] assists only prior to or following the activity. 4-Supervision or Touching Assistance-helper provides verbal cues and/or touching/steadying and/or contact guard assistance as patient completes act ivity. Assistance may be provided throughout the activity or intermittently. 3-Partial/Moderate Assistance-helper does LESS THAN HALF the effort. [place] lifts, holds or supports trunk or limbs, but provides less than half the effort. 2-Substantial/Maximal Assistance-helper does MORE THAN HALF the effort. [place] lifts or holds trunk or limbs and provides more than half the effort. 4-Bvfkyjbht-hwezck does ALL the effort. Patient does none of the effort to complete the activity. Or, the assistance of 2 or more helpers is required for the patient to complete the activity. If activity was not attempted, code reason: 7-Patient Refused. 9-Not Applicable-not attempted and the patient did not perform the activity before the current illness, exacerbation or injury. 10-Not Attempted due to Environmental Limitations-(lack of equipment, weather restraints, etc.). 88-Not Attempted due to Medical Conditions or Safety Concerns. Other Treatment Pt seen in bed. Pt agrees to therapy. Pt reaches EOB with SBA. Unhooked from lines. Pt agrees to fx ambulation this date. Pt stands with CGA from raised bed, use of walker with slow/ steady gait. Assist for multiple lines in stance/ ambulation. Pt walks to door and back without LOB, minimal c/o pain in R leg. Pt returns to bed, requires assist (min A) with RLE back to bed. Pt states she believes she can d/c safely home if d/c on this date. Pt states son will be home with her for 3 days. All needs met, call light in reach Education OT Patient Education: Correct positioning, Progress toward Goal/Update tx plan, Purpose of tx/functional activities, Safety issues, Transfer techniques Teaching Recipient: Patient Teaching Methods: Demonstration, Discussion Response to Teaching: Verbalize Understanding, Return Demonstration OT Restaurant Cashier Goals Restaurant Cashier Goals Time Frame: Nov 20, 2019 Eating (QC): 6 Oral Hygiene (QC): 6 Toileting Hygiene (QC): 4 Shower/Bathe Self (QC): 4 Upper Body Dressing (QC): 6 Lower Body Dressing (QC): 4 On/Off Footwear (QC): 6 Additional Goals: 1-Demonstrate ADL Tasks, 2-Verbalize Understanding, 3-Impr oveStrength/Ruiz 1=Demonstrate adherence to instructed precautions during ADL tasks. 2=Patient will verbalize/demonstrate understanding of assistive devices/modifications for ADL. 3=Patient will improve strength/tolerance for activity to enable patient to perform ADL's. OT Education/Plan Problem List/Assessment Assessment: Decreased Activ Tolerance, Impaired Bed Mobility, Impaired I ADL's, Impaired Self-Care Skills Discharge Recommendations Plan/Recommendations: Continue POC Therapy Discharge Recommendati: Home & Family Treatment Plan/Plan of Care Treatment,Training & Education: Yes Patient would benefit from OT for education, treatment and training to promote independence in ADL's, mobility, safety and/or upper extremity function for ADL's. Plan of Care: ADL Retraining, Caregiver Training, Functional Mobility, UE Funct Exercise/Act Treatment Duration: Nov 20, 2019 Frequency: 5 times per week Estimated Hrs Per Day: .25 hour per day Agreement: Yes Rehab Potential: Fair Time/GCodes Start Time: 09:58 Stop Time: 10:12 Total Time Billed (hr/min): 14 Billed Treatment Time 1, JIMMY (14) GINGER WATKINS OTR Nov 14, 2019 10:30
--- NOTE | 2019-11-14 10:32 | Physical Therapy Daily Note ---
PT Daily Note-Current Subjective Patient in bed pre tx, agrees to PT, has 9/10 pain in right leg, ultrasound will assess patient after PT. Appearance Patient in bed post tx, has nurse call, phone, tray, all needs met, ready for US to come into room. Mental Status Patient Orientation: Person, Place, Situation Attachments: Oxygen, Cruz Catheter, IV Transfers SCALE: Activities may be completed with or without assistive devices. 1-Wtkygcrmmm-smncbic completes the activity by him/herself with no assistance from a helper. 5-Set-up or Clean-up Assistance-helper sets up or cleans up; patient completes activity. [place] assists only prior to or following the activity. 4-Supervision or Touching Assistance-helper provides verbal cues and/or touch ing/steadying and/or contact guard assistance as patient completes activity. Assistance may be provided throughout the activity or intermittently. 3-Partial/Moderate Assistance-helper does LESS THAN HALF the effort. [place] lifts, holds or supports trunk or limbs, but provides less than half the effort. 2-Substantial/Maximal Assistance-helper does MORE THAN HALF the effort. [place] lifts or holds trunk or limbs and provides more than half the effort. 8-Qcogijiic-kiacev does ALL the effort. Patient does none of the effort to complete the activity. Or, the assistance of 2 or more helpers is required for the patient to complete the activity. If activity was not attempted, code reason: 7-Patient Refused. 9-Not Applicable-not attempted and the patient did not perform the activity before the current illness, exacerbation or injury. 10-Not Attempted due to Environmental Limitations-(lack of equipment, weather restraints, etc.). 88-Not Attempted due to Medical Conditions or Safety Concerns. Roll Left & Right (QC): 6 Sit to Lying (QC): 3 Lying to Sitting/Side of Bed(Q: 3 Sit to Stand (QC): 4 Chair/Vmf-kn-Tanul Xfer(QC): 4 Bed mobility independent, supine <-> sit min assist, sit <-> stand SBA, transfers SBA. Patient has some difficulty with sit to stand but can do it without assist. Needs cues for hand placement and positioning. Weight Bearing Right Lower Extremity: Right Weight Bearing/Tolerated Left Lower Extremity: Left Weight Bearing/Tolerated Gait Training Distance: 20' Walk 10 feet (QC): 4 Gait Persons Needed: 1 Gait Assistive Device: FWW CGA, slow but steady ambulation, pain in right LE. Patient leans fairly heavily on the walker. No unsteadiness or LOB. Asked patient if she would be able to get around at home if she left and she believed so. Patient would definitely need a rolling walker and probably a bedside commode. She would also need home therapy for continued strengthening and ambulation. Treatments bed mobility and transfers, ambulation Assessment Current Status: Fair Progress slowly improving ambulation and general mobility, needs slight assist getting into and out of bed PT Feed Mill Operator Goals Feed Mill Operator Goals PT Feed Mill Operator Goals Time Frame: Nov 24, 2019 Roll Left & Right (QC): 6 Sit to Lying (QC): 6 Lying-Sitting on Side/Bed(QC): 6 Sit to Stand (QC): 6 Chair/Ohz-sm-Yrwep Xfer(QC): 6 Toilet Transfer (QC): 6 Does the Patient Walk: Yes Walk 10 feet (QC): 6 Walk 50ft with 2 Turns (QC): 6 Walk 150 ft (QC): 6 PT Plan Problem List Problem List: Activity Tolerance, Functional Strength, Safety, Balance, Gait, Transfer, Bed Mobility, ROM Treatment/Plan Treatment Plan: Continue Plan of Care Treatment Plan: Bed Mobility, Education, Functional Activity Ruiz, Functional Strength, Gait, Safety, Therapeutic Exercise, Transfers Treatment Duration: Nov 24, 2019 Frequency: 6 times per week Estimated Hrs Per Day: .25 hour per day Patient and/or Family Agrees t: Yes Safety Risks/Education Patient Education: Gait Training, Transfer Techniques, Correct Positioning, Safety Issues Teaching Recipient: Patient Teaching Methods: Demonstration, Discussion Response to Teaching: Reinforcement Needed Time/GCodes Time In: 0956 Time Out: 1012 Total Billed Treatment Time: 16 Total Billed Treatment 1 visit FA 16' KELLY CAR PT Nov 14, 2019 10:32
--- NOTE | 2019-11-14 11:09 | Diagnostic Imaging Report ---
INDICATION: Right groin pain, status post heart catheterization 2 days ago. Grayscale, color flow duplex Doppler evaluation of the right groin was performed. Common femoral vein appears to be patent. Common femoral artery appears to be patent although somewhat difficult to visualize due to patient body habitus. There is a small vascular structure immediately adjacent to the common femoral vein that shows arterialized flow, may be an arterial branch. No definite arterialized flow is identified within the common femoral vein to suggest AV fistula. No definite pseudoaneurysm or right groin hematoma is detected. IMPRESSION: Compromised study due to patient body habitus. No definite pseudoaneurysm, hematoma or AV fistula is detected. Dictated by: Dictated on workstation # [id number]
--- NOTE | 2019-11-14 11:24 | Cardiology Progress Note ---
Cardiology SOAP Progress Note Subjective: Mild weakness and right groin soreness Objective: I&O/Vital Signs 11/14/19 11/14/19 11/14/19 11/14/19 00:00 00:00 00:44 01:00 Temp 37.0 Pulse 85 84 Resp 14 21 B/P (MAP) 144/66 (92) 144/64 (90) Pulse Ox 100 O2 Delivery Nasal Cannula Nasal Cannula Nasal Cannula O2 Flow Rate 2.00 2.00 2.00 11/14/19 11/14/19 11/14/19 11/14/19 01:00 02:00 03:00 04:00 Pulse 82 82 86 84 Resp 19 11 20 B/P (MAP) 141/61 (87) 119/51 (73) 160/72 (101) O2 Delivery Nasal Cannula Nasal Cannula Nasal Cannula O2 Flow Rate 2.00 2.00 2.00 11/14/19 11/14/19 11/14/19 11/14/19 04:00 05:00 06:00 06:44 Pulse 81 80 83 Resp 12 18 B/P (MAP) 124/46 (72) 128/56 (80) Pulse Ox 100 O2 Delivery Nasal Cannula Nasal Cannula Nasal Cannula O2 Flow Rate 2.00 2.00 2.00 11/14/19 11/14/19 11/14/19 11/14/19 06:45 06:49 07:28 09:35 Temp 36.2 36.7 Pulse 80 Resp 16 B/P (MAP) 148/55 Pulse Ox 98 95 93 O2 Delivery Nasal Cannula Room Air O2 Flow Rate 2.00 11/14/19 11/14/19 09:50 10:46 Temp 36.8 Pulse 80 Resp 18 B/P (MAP) 142/58 Pulse Ox 99 O2 Delivery Nasal Cannula O2 Flow Rate 2.00 11/14/19 00:00 Intake Total 925 ml Output Total 1125 ml Balance -200 ml Side: right Swelling: mild amount of swelling Bruising: mild bruising Constitutional: appears stated age; No apparent distress; well-developed, well- nourished Respiratory: chest is bilaterally symmetric, lungs clear to auscultation Cardiovascular: regular rate-rhythm, bradycardia, S1 and S2 Gastrointestional: soft, audible bowel sounds; No spleenomegaly Extremities: normal range of motion, non-tender, normal inspection; No clubbing, No cyanosis; no lower extremity edema bilateral; No significant edema Neurologic/Psychiatric: no motor/sensory deficits, alert, normal mood/affect, oriented x 3, power is 5/5 both on sides Skin: normal color, warm/dry; No rash, No ulcerations Results/Procedures: Labs Laboratory Tests 11/13/19 11:40: Glucometer 153H 11/13/19 16:07: Glucometer 187H 11/13/19 20:13: Glucometer 226H 11/14/19 03:14: White Blood Count 13.9H, Red Blood Count 2.39L, Hemoglobin 6.8#*L, Hematocrit 22L, Mean Corpuscular Volume 93, Mean Corpuscular Hemoglobin 28, Mean Corpuscular Hemoglobin Concent 31L, Red Cell Distribution Width 14.8H, Platelet Count 198, Mean Platelet Volume 11.1H, Neutrophils (%) (Auto) 73, Lymphocytes (%) (Auto) 14, Monocytes (%) (Auto) 12, Eosinophils (%) (Auto) 0, Basophils (%) (Auto) 0, Neutrophils # (Auto) 10.2H, Lymphocytes # (Auto) 2.0, Monocytes # (Auto) 1.7H, Eosinophils # (Auto) 0.0, Basophils # (Auto) 0.0, Sodium Level 137, Potassium Level 4.0, Chloride Level 100, Carbon Dioxide Level 26, Anion Gap 11, Blood Urea Nitrogen 16, Creatinine 1.20, Estimat Glomerular Filtration Rate 45, BUN/Creatinine Ratio 13, Glucose Level 161H, Calcium Level 8.1L, Corrected Calcium 8.8, Phosphorus Level 4.4, Magnesium Level 2.0, Total Bilirubin 0.3, Aspartate Amino Transf (AST/SGOT) 29, Alanine Aminotransferase (ALT/SGPT) 28, Alkaline Phosphatase 66, Total Protein 5.0L, Albumin 3.1L, Triglycerides Level 133 11/14/19 06:20: Hemoglobin 6.3*L, Hematocrit 21L 11/14/19 10:44: Glucometer 183H Microbiology 11/12/19 Gram Stain - Final, Resulted 11/12/19 Sputum Culture - Preliminary, Resulted Usual upper respiratory [place] Haemophilus influenza A/P: Assessment/Dx: Persistent atrial fibrillation, Anemia, Pneumonia, severe copd, Stable CAD, Active smoking, Chronic diastolic congestive heart failure, Likely obstructive sleep apnea, Diabetes, Plan: Persistent atrial fibrillation, symptomatic with shortness of breath. She had transesophageal echocardiogram assisted cardioversion done on 09/11/2019 however she went back into atrial fibrillation with RVR on 09/13/2019. Cardioversion 3 was done again on 09/14/2019 however the patient stayed in atrial fibrillation. She was put on amiodarone, Cardizem and continued Eliquis. After detailed discussion with decided to go ahead with atrial fibrillation ablation. I saw her in the office on 09/26/2019 and she was still in atrial fibrillation. However on 11/12/2019 on the day of her ablation, EKG showed sinus rhythm. Transesophageal echocardiogram did not show any left atrial or left atrial appendage thrombus. Pulmonary vein isolation was done. Fractionated signals were ablated anterior to the right superior and right inferior pulmonary veins. Atrial fibrillation could not be induced with rapid atrial pacing at cycle length 250 ms and Isuprel 16 mg/min. PT/OT today. Anemia - likely multifactorial, from dilutional and right groin hematoma. right groin ultrasound. Ok to give 1 unit of PRBCs. severe copd, with pneumonia with H Influenza - on PO antibiotics per Dr Sanchez. Stable CAD, coronary angiography 09/17/2019 showed mild CAD with patent stent in the distal RCA. Active smoking, smoking cessation was strongly recommended. Chronic diastolic congestive heart failure, IV fluids were given during atrial fibrillation ablation. I will give a dose of Lasix. Likely obstructive sleep apnea, Diabetes, Thank you for your consultation. Please call me if you have any questions. Jordan Rabago MD, FACP, FACC, FSCAI, FHRS, CCDS Interventional Cardiology Cardiac Electrophysiology Vascular Medicine and Endovascular Interventions Alfonso RABAGO MD Nov 14, 2019 11:24
--- NOTE | 2019-11-14 14:15 | NUR ---
RD ASSESSMENT PMHx: CHF; COPD; CAD; hypercholesterolemia; HTN; DM; afib; PT INTERACTION: Pt was awake and pleasant during nutrition assessment. Pt states current appetite is pretty good. Note avg PO intake of 100% x2meal, per chart review. Pt states trying to follow a low-CHO diet at home, and has no issues with chewing/swallowing food. Pt states no recent issues with nausea, vomiting, constipation, or diarrhea, and that her last BM was 7/5. Note pt not currently on bowel regimen per chart review. Pt states that her weight fluctuates with fluid shifts. Note recent 6# wt loss x1mon, per chart review. Pt states current DM management is "pretty good, though it has been a little higher than normal because I was on steroid treatment." Note unable to determine recent HbA1c, per chart review. ABNORMAL NUTRITION-RELATED LAB VALUES LOW: Ca 8.1; Pro 5.0; alb 3.1 HIGH: Est. kcal needs: 1975 kcal | 15 kcal/kg Est. Pro needs: 106 g Pro | 0.8 g Pro/kg PES STATEMENT: Given current appetite and PO intake, no nutrition diagnosis at this time (NO-1.1) INTERVENTION: Continue with current diet order of CHO 60g/m 0snack diet. Discussed current diet management of DM. Pt states currently using portion control to manage CHO levels. 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 Pt verbalized understanding. Will continue to follow and reassess as pt needs, intake, and status change. MONITOR/EVALUATE: PO Intake; Plan of Care; Hydration Status; Weight Status; Lab Values Roberta Solomon, MS, RD, LD
--- NOTE | 2019-11-14 19:25 | NUR ---
DISCHARGED TO HOME PER PRIVATE VEHICLE
--- NOTE | 2019-11-15 17:25 | Physician Query-Final Dx ---
JOSE M BUITRAGO 11/15/19 1725: Final Diagnosis Give Final Diagnosis Please give Final Diagnosis Alfonso LEYVA MD 11/16/19 1006: Final Diagnosis Give Final Diagnosis Persistent atrial fibrillation, status post atrial fibrillation ablation. Acute on chronic respiratory failure, Severe COPD, Morbid obesity, Anemia. JOSE M BUITRAGO Nov 15, 2019 17:25 Alfonso LEYVA MD Nov 16, 2019 10:06
== END 2019-11-14 19:25 | disposition home or self-care (01) | DRG 273 ==
LOC: CATH 06:59 → ICU 14:46 → CATH 15:10
PROVIDERS: ADMIT Internal Medicine Interventional Cardiology; ATTEND Internal Medicine Interventional Cardiology
PROC: 02583ZZ Destruction of Conduction Mechanism, Percutaneous Approach (ICD-10-PCS; principal; 2019-11-12)
PROC: 5A1935Z Respiratory Ventilation, Less than 24 Consecutive Hours (ICD-10-PCS; 2019-11-12)
DX: I48.19 Other persistent atrial fibrillation (principal); J14 Pneumonia due to Hemophilus influenzae; J96.20 Acute and chronic respiratory failure, unspecified whether with hypoxia or hypercapnia; I50.32 Chronic diastolic (congestive) heart failure; E66.2 Morbid (severe) obesity with alveolar hypoventilation; J44.0 Chronic obstructive pulmonary disease with (acute) lower respiratory infection; I25.10 Atherosclerotic heart disease of native coronary artery without angina pectoris; I11.0 Hypertensive heart disease with heart failure; D64.9 Anemia, unspecified; E78.00 Pure hypercholesterolemia, unspecified; F41.9 Anxiety disorder, unspecified; F32.9 Major depressive disorder, single episode, unspecified; F17.210 Nicotine dependence, cigarettes, uncomplicated; E11.9 Type 2 diabetes mellitus without complications; Z99.81 Dependence on supplemental oxygen; Z79.84 Long term (current) use of oral hypoglycemic drugs; Z95.5 Presence of coronary angioplasty implant and graft; Z79.01 Long term (current) use of anticoagulants; Z68.39 Body mass index [BMI] 39.0-39.9, adult
CPT/HCPCS: 36415; 36600; 71045; 80048; 80053; 81000; 82805; 82962; 83735; 84100; 84478; 85007; 85014; 85018; 85025; 85027; 85610; 85730; 86850; 86900; 86901; 86920; 87070; 87077; 87081; 87185; 87205; 93005; 93312; 93320; 93325; 93613; 93622; 93623; 93656; 93657; 93662; 93926; 94002; 94003; 94640; 94799

== ENCOUNTER 2019-11-16 14:29 | Observation (INO) | payer BC ==
[~2019-11-16] VITALS: Ht 183 cm; Wt 138.0 kg
[2019-11-16] VITALS (7 sets, daily range): BP systolic 107–128; BP diastolic 60–67
[~2019-11-16 14:29] MED LIST changes: +ASPI-1238 PO; -ASPI-983 PO; -ATOR20TA66 PO; -DIGO250T3 PO; -DILT180C54 PO; -RIVA20TA PO
[2019-11-16] MEDS ORDERED: NS IV 500 ML 500 ML IV SCH ×2 (15:30→16:15)
[2019-11-16] MEDS ORDERED: METO50TA15 PO (15:35)
[2019-11-16] MEDS ORDERED: AMIO200T4 PO (15:35)
[2019-11-16] MEDS ORDERED: DILT180C54 PO (15:35)
[2019-11-16] MEDS ORDERED: DIGO250T3 PO (15:35)
[2019-11-16] MEDS ORDERED: ATOR20TA66 PO (15:35)
[2019-11-16] MEDS ORDERED: RIVA20TA PO (15:35)
[2019-11-16] MEDS ORDERED: HOLD METFORMIN - RECEIVED CONTRAST 20 ML VIAL IV SCH (15:45)
[2019-11-16] MEDS ORDERED: NS 100 ML (IVPB) BAG IV ONE (15:45)
[2019-11-16] MEDS ORDERED: IOHEXOL 350 MG/ML 100 ML (OMNIPAQUE 350) VIAL IV ONE (15:45)
--- NOTE | 2019-11-16 15:48 | NUR ---
SPOKE WITH THE PT AND WENT THRU THE EXT MED HISTORY TO COMPLETE THE MED REC BUPROPION [id number]: LAST FILLED 06-26-2019 #60- DIRECTIONS SHOW 1 TAB BID HOWEVER THE PT TAKES 1 TAB DAILY. SHE FILLED 06-26-2019 #60, 05-29-2019 #60 AND 04-28-2020 #60 AND ALWAYS TAKING JUST 1 TAB DAILY. SINCE ALL THE CUMULATIVE FILLS ARE # 180 TABS I DID NOT NOTE THE PAST DUE FILL ON THE MED REC ISOSORBIDE ER 60MG LAST FILLED 07-31-2019 # 90/90DS- I DID DOCUMENT THE PAST DUE FILL ON THE MED REC PT WAS TAKING ELIQUIS 5MG (FILLED SEPTEMBER 2019) HOWEVER DUE TO THE COST SHE WAS SWITCHED TO XARELTO 20MG THRU [facility] OTC MEDS: ASPIRIN 81
--- NOTE | 2019-11-16 17:16 | Diagnostic Imaging Report ---
PROCEDURE: CT abdomen and pelvis with and without contrast. TECHNIQUE: Precontrast acquisitions were acquired through the abdomen and pelvis. Multiple contiguous axial images were obtained through the abdomen and pelvis after the administration of intravenous contrast. Auto Exposure Controls were utilized during the CT exam to meet ALARA standards for radiation dose reduction. INDICATION: Recent EP study. Now with anemia. Possible retroperitoneal hemorrhage. COMPARISON: None. FINDINGS: Included portions of the lung bases show mild bibasilar atelectasis. Note is made of hypodense appearance to the intraluminal contents on the noncontrast exam suggestive of anemia. There is also calcified aortic and coronary atherosclerosis. CT ABDOMEN: There is colonic diverticulosis, but no CT evidence of acute diverticulitis. Normal appendix is identified. Small bowel loops are nondistended. Nonobstructive left renal calculus is identified within the inferior pole. No solid renal masses are seen. There is no hydroureteronephrosis or other evidence of obstruction. The adrenal glands, spleen, pancreas, and liver have a normal CT appearance. There is no loculated fluid collection, free fluid, or free air within the abdomen. No abnormal mesenteric or retroperitoneal adenopathy is seen. There is no evidence of retroperitoneal hemorrhage. Moderate diffuse calcified aortic and arterial atherosclerosis is present. Osseous structures show no acute abnormalities. CT PELVIS: Urinary bladder is unopacified. No calculi are seen within the urinary bladder. There is no loculated fluid collection, free fluid, or free air within the pelvis. No abnormal lymph nodes are seen. Osseous structures show no acute abnormalities. IMPRESSION: 1. No intra or retroperitoneal hemorrhage. 2. Nonobstructive left renal calculus. 3. Colonic diverticulosis, but no CT evidence of acute diverticulitis. 4. Hypodense appearance to the intraluminal vascular contents suggestive of anemia. Dictated by: Dictated on workstation # [id number]
--- OUTSIDE RECORDS SUMMARY | 2019-11-16 18:47 | XMS REPORT | Continuity of Care Document ---
Author Organization Unknown Address Unknown Phone Unavailable Allergies Active Description Code Type Severity Reaction Onset Reported/Identified Relationship to Patient Clinical Status Yes No Known Drug Allergies [id number] Drug Allergy Unknown N/A 06/08/2019 Medications There [...] Ot I25. 10 ATHSCL HEART DISEASE OF [place] CORONARY 09/09/2019 KRISTINA POWELL MD Ot I48. [...] 01 ACUTE RESPIRATORY FAILURE WITH HYPOXIA 09/13/2019 KIRSTINA POWELL MD Ot R07. 89 OTHER CHEST [...] MORBID (SEVERE) OBESITY WITH ALVEOLAR HY 09/14/2019 KIRSTINA POWELL MD Ot E78. 00 PURE HYPERCHOLESTEROLEMIA, [...] MORBID (SEVERE) OBESITY WITH ALVEOLAR HY 09/16/2019 KRSITINA POWELL MD Ot E78. 00 PURE HYPERCHOLESTEROLEMIA, [...] Ot I25. 10 ATHSCL HEART DISEASE OF [place] CORONARY 09/18/2019 KRISTINA POWELL MD Ot I48. [...] Ot I25. 10 ATHSCL HEART DISEASE OF [place] CORONARY 09/19/2019 KRISTINA POWELL MD Ot I48. 91 UNSPECIFIED ATRIAL FIBRILLATION 09/19/2019 KRISTINA POWELL MD Ot I50. 31 ACUTE DIASTOLIC (CONGESTIVE) HEART FAILU 09/19/2019 KRISTINA POWELL MD Ot J43. 9 EMPHYSEMA, UNSPECIFIED 09/19/2019 KRISTINA POWELL MD Ot J96. 21 ACUTE AND CHRONIC RESPIRATORY FAILURE [place] 09/19/2019 KRISTINA POWELL MD Ot R07. 89 OTHER CHEST PAIN 09/19/2019 KRISTINA POWELL MD Ot Z20.828 CONTACT W AND EXPOSURE TO OTH VIRAL COMM 09/19/2019 KRISTINA POWELL MD Ot Z68. 41 BODY MASS INDEX (BMI) 40.0-44.9, ADULT 09/19/2019 KRISTINA POWELL MD Ot Z95. 5 PRESENCE OF CORONARY ANGIOPLASTY IMPLANT 2019 Alfonso LEYVA MD Ot Z01.818 ENCOUNTER FOR OTHER PREPROCEDURAL EXAMIN 2019 Alfonso LEYVA MD Ot Z20.828 CONTACT W AND EXPOSURE TO OTH VIRAL COMM 2019 Alfonso LEYVA MD Ot Z01.818 ENCOUNTER FOR OTHER PREPROCEDURAL EXAMIN 2019 Alfonso LEYVA MD Ot Z20.828 CONTACT W AND EXPOSURE TO OTH VIRAL COMM 11/14/2019 Alfonso LEYVA MD Ot D64 .9 ANEMIA, UNSPECIFIED 11/14/2019 Alfonso LEYVA MD Ot E11 .9 TYPE 2 DIABETES MELLITUS WITHOUT COMPLIC 11/14/2019 Alfonso LEYVA MD Ot E66 .2 MORBID (SEVERE) OBESITY WITH ALVEOLAR HY 11/14/2019 Alfonso LEYVA MD Ot E78.00 PURE HYPERCHOLESTEROLEMIA, UNSPECIFIED 11/14/2019 Alfonso LEYVA MD Ot F17.210 NICOTINE DEPENDENCE, CIGARETTES, UNCOMPL 11/14/2019 Alfonso LEYVA MD Ot F32 .9 MAJOR DEPRESSIVE DISORDER, SINGLE EPISOD 11/14/2019 Alfonso LEYVA MD Ot F41 .9 ANXIETY DISORDER, UNSPECIFIED 11/14/2019 Alfonso LEYVA MD Ot I11 .0 HYPERTENSIVE HEART DISEASE WITH HEART FA 11/14/2019 KHALID MD, M CROW Ot I25.10 ATHSCL HEART DISEASE OF [place] CORONARY 11/14/2019 AUTUMN DEWITT, Alfonso MARIA Ot I48.19 OTHER PERSISTENT ATRIAL FIBRILLATION 11/14/2019 Alfonso LEYVA MD, Ot I50.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 11/14/2019 Alfonso LEYVA MD, Ot J14 PNEUMONIA DUE TO HEMOPHILUS INFLUENZAE 11/14/2019 Alfonso LEYVA MD, Ot J44 .0 CHR OBSTRUCTIVE PULMON DISEASE WITH (ACU 11/14/2019 AUTUMN DEWITT, Alfonso MARIA Ot J44 .9 CHRONIC OBSTRUCTIVE PULMONARY DISEASE, U 11/14/2019 AUTUMN DEWITT, Alfonso MARIA Ot J95.822 ACUTE AND CHRONIC POSTPROCEDURAL RESPIRA 11/14/2019 Alfonso LEYVA MD, Ot J96.20 ACUTE AND CHR RESP FAILURE, UNSP W HYPOX 11/14/2019 Alfonso LEYVA MD, Ot Z68.39 BODY MASS INDEX (BMI) 39.0-39.9, ADULT 11/14/2019 Alfonso LEYVA MD, Ot Z79.01 CUSTOMER ORDER CLERK (CURRENT) USE OF ANTICOAGULANT 11/14/2019 Alfonso LEYVA MD, Ot Z79.84 CUSTOMER ORDER CLERK (CURRENT) USE OF ORAL HYPOGLYC 11/14/2019 Alfonso LEYVA MD, Ot Z95 .5 PRESENCE OF CORONARY ANGIOPLASTY IMPLANT 11/14/2019 Alfonso LEYVA MD, Ot Z99.81 DEPENDENCE ON SUPPLEMENTAL OXYGEN Procedures Code Description Performed By Per formed On [id number] RE STORATION OF CARDIAC RHYTHM, SINGLE 09/11/2019 [id number] RI ASURE OF CARDIAC SAMPL PRESSURE, L H 09/17/2019 [id number] FL UOROSCOPY OF MULT COR ART USING L OSM 09/17/2019 [id number] FL UOROSCOPY OF LEFT HEART USING LOW OSMO 09/17/2019 [id number] DE STRUCTION OF CONDUCTION MECHANISM, PER 11/12/2019 [id number] RE SPIRATORY VENTILATION, LESS THAN 24 CO 11/12/2019 Results Test Result Range LIPID PANEL - 07/27/18 12:45 CHOLESTEROL, TOTAL 133 mg/dL <200 HDL CHOLESTEROL 46 mg/dL >50 TRIGLYCERIDES 130 mg/dL <150 LDL-CHOLESTEROL 66 mg/dL (calc) NRG CHOL/HDLC RATIO 2.9 (calc) <5.0 NON HDL CHOLESTEROL 87 mg/dL (calc) <130 [facility] - 07/27/18 12:45 GLUCOSE 97 mg/dL 65-99 UREA NITROGEN (BUN) 12 mg/dL 7-25 CREATININE 0.65 mg/dL 0.50-0.99 eGFR NON-AFR. FILIPINO 96 mL/min/1.73m2 > OR = 60 eGFR [...] A1c 6.5 % of total Hgb <5.7 [facility] - 02/09/19 16:34 GLUCOSE 124 mg/dL 65-99 UREA NITROGEN (BUN) 18 mg/dL 7-25 CREATININE 0.71 mg/dL 0.50-0.99 eGFR NON-AFR. FILIPINO 91 mL/min/1.73m2 > OR = 60 eGFR [...] AST 19 U/L 10-35 ALT 16 U/L - A1C - 02/09/19 16:34 HEMOGLOBIN A1c 6.5 [...] 7-25 CREATININE 0.72 mg/dL 0.50-0.99 eGFR NON-AFR. FILIPINO 90 mL/min/1.73m2 > OR = 60 eGFR [...] AST 13 U/L 10-35 ALT 14 U/L - A1C - 05/10/19 08:54 HEMOGLOBIN A1c 6.6 [...] culture USUAL RESP NRG Coronavirus SARS-CoV-2 SO 2019 - 0 15:55 Coronavirus Ab [Units/volume] in [...] 0.0-0.1 Whole blood basic metabolic panel - 0 11/25 05:22 Serum or plasma sodium measurement [...] 0.0-0.1 Whole blood basic metabolic panel - 05/0 01/26 03:42 Serum or plasma sodium measurement [...] - 09/16/19 02:46 Magnesium 2.1 mg/dL 1.6-2.4 [id number] - 09/16/19 02:46 [id number] 0.45 ng/mL 0.80-2.00 Capillary blood glucose measurement [...] s/volume) 208 mg/dL 70-110 Coronavirus SARS-CoV-2 SO 2019 - 0 11:00 Coronavirus Ab [Units/volume] in [...] GROWTH Moderate Growth NRG Bacterial sputum culture [id number] NRG SUSCEPTIBILITY BETA LACTAMASE NEGATIVE NRG MRSA [...] by glucometer (mas s/volume) 226 mg/dL 70-110 Complete blood count (CBC) with automate d white blood cell (WBC) differential - 11/14/19 03:14 Blood leukocytes automated count (number/volume) 13.9 10*3/uL 4.3-11.0 Blood erythrocytes automated count (number/volume) 2.39 10*6/uL 4.35-5.85 Venous blood hemoglobin measurement (mass/volume) 6.8 g/dL 11.5-16.0 Blood hematocrit (volume fraction) 22 % 35-52 Automated erythrocyte mean corpuscular volume 93 [ foz_us] 80-99 Automated erythrocyte mean corpuscular h emoglobin (mass per erythrocyte) 28 pg 25-34 Automated erythrocyte mean corpuscular h emoglobin concentration measurement (mass/volume) 31 g/dL 32-36 Automated erythrocyte distribution width ratio 14. 8 % 10.0- 14.5 Automated blood platelet count (count/volume) 198 10*3/uL 130-400 Automated blood platelet mean volume measurement 11.1 [foz_us] 7.4-10.4 Automated blood neutrophils/100 leukocytes 73 % 42-75 Automated blood lymphocytes/100 leukocytes 14 % 12-44 Blood monocytes/100 leukocytes 12 % 0-12 Automated blood eosinophils/100 leukocytes 0 % 0-10 Automated blood basophils/100 leukocytes 0 % 0-10 Blood neutrophils automated count (number/volume) 10.2 10*3 1.8-7.8 Blood lymphocytes automated count (number/volume) 2.0 10*3 1.0-4.0 Blood monocytes automated count (number/volume) 1. 7 10*3 0.0-1.0 Automated eosinophil count 0.0 10*3/uL 0 .0-0.3 Automated blood basophil count (count/volume) 0.0 10*3/uL 0.0-0.1 Comprehensive metabolic panel - 11/14/19 03:14 Serum or plasma sodium measurement (moles/volume) 137 mmol/L 135-145 Serum or plasma potassium measurement (moles/volume) 4.0 mmol/L 3.6-5.0 Serum or plasma chloride measurement (moles/volume) 100 mmol/L 98-107 Carbon dioxide 26 mmol/L 21-32 Serum or plasma anion gap determination (moles/volume) 11 mmol/L 5-14 Serum or plasma urea nitrogen measurement (mass/volume ) 16 mg/dL 7-18 Serum or plasma creatinine measurement (mass/volume) 1.20 mg/dL 0.60-1.30 Serum or plasma urea nitrogen/creatinine mass ratio 13 NRG Serum or plasma creatinine measurement w ith calculation of estimated glomerular filtration rate 45 NRG Serum or plasma glucose measurement (mass/volume) 161 mg/dL 70-105 Serum or plasma calcium measurement (mass/volume) 8.1 mg/dL 8.5-10.1 Serum or plasma total bilirubin measurement (mass/volu me) 0.3 mg/dL 0.1-1.0 Serum or plasma alkaline phosphatase hina surement (enzymatic activity/volume) 66 U/L 40-136 Serum or plasma aspartate aminotransfera se measurement (enzymatic activity/volume) 29 U/L 5-34 Serum or plasma alanine aminotransferase measurement (enzymatic activity/volume) 28 U/L 0-55 Serum or plasma protein measurement (mass/volume) 5.0 g/dL 6.4-8.2 Serum or plasma albumin measurement (mass/volume) 3.1 g/dL 3.2-4.5 CALCIUM CORRECTED 8.8 mg/dL 8.5-10.1 Serum or plasma phosphate measurement (m ass/volume) - 11/14/19 03:14 Serum or plasma phosphate measurement (mass/volume) 4.4 mg/dL 2.3-4.7 Magnesium - 11/14/19 03:14 Magnesium 2.0 mg/dL 1.6-2.4 Serum or plasma triglyceride measurement (mass/volume) - 11/14/19 03:14 Serum or plasma triglyceride measurement (mass/volume) 133 mg/dL <150 Whole blood hemoglobin and hematocrit [facility] - 11/14/19 06:20 Venous blood hemoglobin measurement (mass/volume) 6.3 g/dL 11.5-16.0 Blood hematocrit (volume fraction) 21 % 35-52 RED CELLS LEUKO REDUCED AS1 - 11/14/19 0 7:04 RED CELLS LEUKO REDUCED AS1 T RANSFUSED 11/14/19 0832 NRG Blood type T Indirect antibody screen [facility] - 11/14/19 07:04 WRISTBAND NUMBER [id number] NRG ABO+Rh group OP NRG Blood group antibody screen NEGATIVE NR G Capillary blood glucose measurement by g lucometer (mass/volume) - 11/14/19 10:44 Capillary blood glucose measurement by glucometer (mas s/volume) 183 mg/dL 70-110 Venous blood hemoglobin measurement (mas s/volume) - 11/14/19 13:35 Venous blood hemoglobin measurement (mass/volume) 6.9 g/dL 11.5-16.0 Capillary blood glucose measurement by g lucometer (mass/volume) - 11/14/19 17:22 Capillary blood glucose measurement by glucometer (mas s/volume) 144 mg/dL 70-110 Complete blood count (CBC) with automate d white blood cell (WBC) differential - 11/16/19 12:06 Blood leukocytes automated count (number/volume) 12.0 10*3/uL 4.3-11.0 Blood erythrocytes automated count (number/volume) 2.22 10*6/uL 4.35-5.85 Venous blood hemoglobin measurement (mass/volume) 6.4 g/dL 11.5-16.0 Blood hematocrit (volume fraction) 21 % 35-52 Automated erythrocyte mean corpuscular volume 96 [ foz_us] 80-99 Automated erythrocyte mean corpuscular h emoglobin (mass per erythrocyte) 29 pg 25-34 Automated erythrocyte mean corpuscular h emoglobin concentration measurement (mass/volume) 30 g/dL 32-36 Automated erythrocyte distribution width ratio 15. 1 % 10.0- 14.5 Automated blood platelet count (count/volume) 234 10*3/uL 130-400 Automated blood platelet mean volume measurement 10.0 [foz_us] 7.4-10.4 Automated blood neutrophils/100 leukocytes 68 % 42-75 Automated blood lymphocytes/100 leukocytes 17 % 12-44 Blood monocytes/100 leukocytes 12 % 0-12 Automated blood eosinophils/100 leukocytes 2 % 0-10 Automated blood basophils/100 leukocytes 0 % 0-10 Blood neutrophils automated count (number/volume) 8.2 10*3 1.8-7.8 Blood lymphocytes automated count (number/volume) 2.0 10*3 1.0-4.0 Blood monocytes automated count (number/volume) 1. 4 10*3 0.0-1.0 Automated eosinophil count 0.2 10*3/uL 0 .0-0.3 Automated blood basophil count (count/volume) 0.0 10*3/uL 0.0-0.1 Complete blood count (CBC) with automate d white blood cell (WBC) differential - 11/16/19 14:32 Blood leukocytes automated count (number/volume) 11.9 10*3/uL 4.3-11.0 Blood erythrocytes automated count (number/volume) 2.27 10*6/uL 4.35-5.85 Venous blood hemoglobin measurement (mass/volume) 6.5 g/dL 11.5-16.0 Blood hematocrit (volume fraction) 22 % 35-52 Automated erythrocyte mean corpuscular volume 95 [ foz_us] 80-99 Automated erythrocyte mean corpuscular h emoglobin (mass per erythrocyte) 29 pg 25-34 Automated erythrocyte mean corpuscular h emoglobin concentration measurement (mass/volume) 30 g/dL 32-36 Automated erythrocyte distribution width ratio 14. 9 % 10.0- 14.5 Automated blood platelet count (count/volume) 238 10*3/uL 130-400 Automated blood platelet mean volume measurement 11.0 [foz_us] 7.4-10.4 Automated blood neutrophils/100 leukocytes 73 % 42-75 Automated blood lymphocytes/100 leukocytes 14 % 12-44 Blood monocytes/100 leukocytes 11 % 0-12 Automated blood eosinophils/100 leukocytes 1 % 0-10 Automated blood basophils/100 leukocytes 0 % 0-10 Blood neutrophils automated count (number/volume) 8.7 10*3 1.8-7.8 Blood lymphocytes automated count (number/volume) 1.7 10*3 1.0-4.0 Blood monocytes automated count (number/volume) 1. 3 10*3 0.0-1.0 Automated eosinophil count 0.1 10*3/uL 0 .0-0.3 Automated blood basophil count (count/volume) 0.0 10*3/uL 0.0-0.1 RED CELLS LEUKO REDUCED AS1 - 11/16/19 1 4:32 RED CELLS LEUKO REDUCED AS1 T RANSFUSED 11/16/19 1700 NRG Blood type T Indirect antibody screen [facility] - 11/16/19 14:32 WRISTBAND NUMBER [id number] NRG ABO+Rh group OP NRG Blood group antibody screen NEGATIVE NR G Encounters ACCT No. Visit Date/Time Discharge Status Pt. Type Provider Facility Loc./Unit Complaint [id number] 09/24/2019 10:30:00 09/24/2019 23:59: 59 CLS Outpatient [facility], [facility] Evangelista [facility] [id number] 05/10/2019 08:45:00 Document Registration [id number] 02/09/2019 15:15:00 Document Registration [id number] 07/27/2018 12:45:00 Document Registration [id number] 11/12/2019 15:10:00 19:25:00 DIS Inpatient Alfonso LEYVA MD [facility] ICU PERSISTANT ATRIAL FIBRI LLATION [id number] 11/08/2019 06:42:00 23:59:59 CLS Outpatient Alfonso LEYVA MD [facility] LABNPT [id number] 09/09/2019 16:00:00 15:27:00 DIS Inpatient KRISTINA POWELL MD [facility] ICU A FIB RVR, DM, PUI COVI D 19, CHEST PAIN [id number] 06/08/2019 15:27:00 15:27:00 CAN Emergency VERENICE ROD DO [facility] ER FS CHEST PAIN [id number] 11/16/2019 14:52:[address] Inpatient Alfonso LEYVA MD [facility] 4TH POSSIBLE BLEED FROM EP [id number] 11/16/2019 13:52:[address] Outpatient Alfonso LEYVA MD [facility] LAB ANEMIA [id number] 11/16/2019 11:57:[address] Outpatient Alfonso LEYVA MD [facility] LAB FS CBC
--- NOTE | 2019-11-16 20:05 | NUR ---
DR LEYVA CALLED TO ASK ABOUT PT CT RESULTS. RESULTS READ TO DR LEYVA. THIS NURSE NOTIFIED OF PT PULSE IN THE 40S. AND ASKED ABOUT RESTARTING PT HOME MEDS, ORDERED TO RESTART AMIODARONE. DR LEYVA ASKED THIS NURSE TO NOTIFY HIM OF PT HGB AFTER THE SECOND UNIT IS TRANSFUSED.
[2019-11-16] MEDS: AMIODARONE 200 MG (CORDARONE) TAB PO SCH (21:35)
[2019-11-17 00:08] VITALS: BP 126/72
--- NOTE | 2019-11-17 02:35 | NUR ---
message left regarding pt post transfusion hgb for dr. lima per his request
[2019-11-17 04:00] VITALS: BP 130/65
[2019-11-17 08:00] VITALS: BP 158/69
[2019-11-17] MEDS: AMIODARONE 200 MG (CORDARONE) TAB PO SCH (08:37)
--- NOTE | 2019-11-17 10:48 | Consultation - Hospitalist ---
HPI History of Present Illness: HPI/Chief Complaint CC: Severe anemia following EP procedure Tuesday per DR Rabago s/p 1 unit of blood Tuesday and 2 units yesterday HPI: This is a chronically ill 64[address]WM [address] Thomas who presents to [facility] with anemia of 6.5 following severe and symptomatic anemia following EP procedure Tuesday per Dr Rabago. Patient has a hematoma of the right flank representing the source of the acute blood loss. Dr Peña was consulted. Patient denies increased pain of the right leg and it is easier to move her leg today than yesterday. Labs checked and hgb stable and no active expansion of the hematomas assessed. Source: patient, RN/MD, old records Exam Limitations: no limitations Date Seen 11/17/19 Attending Physician Alfonso Rabago MD PCP Cody Thomas MD Referring Physician Date of Admission Nov 16, 2019 at 14:52 Home Medications & Allergies Home Medications Reviewed patient Home Medication Reconciliation performed by pharmacy medication reconciliations small engine technician and/or nursing. Patients Allergies have been reviewed. Allergies Allergies Coded Allergies No Known Drug Allergies (Unverified06/08/19) Past Wbdzvqy-Yzxkel-Bnvatz Hx Past Med/Social Hx: Reviewed Nursing Past Med/Soc Hx, Reviewed and Corrections made Patient Social History Marrital Status: Employed/Student: unemployed Alcohol Use: Denies Use Recreational Drug Use: No Smoking Status: Never a Smoker Type Used: Cigarettes 2nd Hand Smoke Exposure: No Physical Abuse Screen: No Sexual Abuse: No Recent Foreign Travel: No Contact w/other who traveled: No Recent Hopitalizations: Yes Recent Infectious Disease Expo: No Immunizations Up To Date Tetanus Booster (TDap): More than 5yrs Pediatric: No Date of Pneumonia Vaccine: Nov 15, 2017 Date of Influenza Vaccine: Jan 31, 2019 Seasonal Allergies Seasonal Allergies: Yes Past Medical History Surgeries: Coronary Stent, Gallbladder, Hysterectomy Respiratory: Sleep Apnea Currently Using CPAP: No Currently Using BIPAP: No Cardiac: Atrial Fibrillation, Coronary Artery Disease, High Cholesterol, Hypertension Sexually Transmitted Disease: No HIV/AIDS: No Gastrointestinal: Gall Bladder Disease Musculoskeletal: Chronic Back Pain Endocrine: Diabetes, Non-Insulin dep Are Your Blood Sugars Over 250: No Psychosocial: Anxiety, Depression History of Blood Disorders: No Adverse Reaction to Blood [place]: No Family History No Pertinent Family Hx Review of Systems Constitutional: see HPI Musculoskeletal: joint pain Physical Exam Physical Exam Vital Signs Vital Signs - First Documented 11/16/19 15:02 Temp 37.1 Pulse 38 Resp 18 B/P (MAP) 107/66 (80) Pulse Ox 95 O2 Delivery Nasal Cannula O2 Flow Rate 2.00 Capillary Refill : Less Than 3 SecondsLess Than 3 Seconds Height, Weight, BMI Height: '" Weight: lbs. oz. kg; 37.92 BMI Method: General Appearance: No Apparent Distress, WD/WN, Chronically ill, Obese Respiratory: Chest Non Tender, Lungs Clear, Normal Breath Sounds, No Accessory Muscle Use, No Respiratory Distress Cardiovascular: Regular Rate, Rhythm, No Edema, No Gallop, No JVD, No Murmur, Normal Peripheral Pulses Neurologic/Psychiatric: Alert, Oriented x3, No Motor/Sensory Deficits, Normal Mood/Affect Results Results/Procedures Labs Laboratory Tests 11/17/19 02:06 11/17/19 11:18 Patient resulted labs reviewed. Assessment/Plan Assessment and Plan Assess & Plan/Chief Complaint Assessment: Acute blood loss anemia with symptoms s/p blood transfusions AF s/p EP Tuesday Recent blood thinning Tuesday Obesity HTN Plan: Labs reviewed Dr Peña [facility] home Diagnosis/Problems Diagnosis/Problems (1) Anemia (2) Persistent atrial fibrillation (3) COPD (chronic obstructive pulmonary disease) Status: Acute (4) Obesity (BMI 30-39.9) Status: Acute (5) Type 2 diabetes mellitus Status: Acute (6) Tobacco abuse Status: Acute Clinical Quality Measures DVT/VTE Risk/Contraindication: Risk Factor Score Per Nursin RFS Level Per Nursing on Admit: 3=High PRAKASH RIOS DO Nov 17, 2019 10:48
[2019-11-17 11:25] LABS: BASOPHILS % (AUTO) 0 % (0-10); EOSINOPHILS # (AUTO) 0.1 10^3/uL (0.0-0.3); EOSINOPHILS % (AUTO) 1 % (0-10); HEMATOCRIT 25 % (35-52); HEMOGLOBIN 7.8 G/DL (11.5-16.0); LYMPHOCYTES # (AUTO) 1.5 X 10^3 (1.0-4.0); LYMPHOCYTES % (AUTO) 15 % (12-44); MEAN CORPUSCULAR HEMOGLOBIN 29 PG (25-34); MEAN CORPUSCULAR HGB CONC 31 G/DL (32-36); MEAN CORPUSCULAR VOLUME 94 FL (80-99); MEAN PLATELET VOLUME 10.6 FL (7.4-10.4); MONOCYTES # (AUTO) 1.1 X 10^3 (0.0-1.0); MONOCYTES % (AUTO) 11 % (0-12); NEUTROPHILS # (AUTO) 6.9 X 10^3 (1.8-7.8); NEUTROPHILS % (AUTO) 73 % (42-75); PLATELET COUNT 237 10^3/uL (130-400); WHITE BLOOD COUNT 9.5 10^3/uL (4.3-11.0)
[2019-11-17 11:35] LABS: ALBUMIN 3.4 GM/DL (3.2-4.5); CHLORIDE 101 MMOL/L (98-107); POTASSIUM 4.6 MMOL/L (3.6-5.0); SODIUM 140 MMOL/L (135-145)
[2019-11-17 11:36] LABS: CALCIUM 8.5 MG/DL (8.5-10.1)
[2019-11-17 11:38] LABS: GLUCOSE 155 MG/DL (70-105); TOTAL PROTEIN 5.7 GM/DL (6.4-8.2)
[2019-11-17 11:39] LABS: CARBON DIOXIDE 30 MMOL/L (21-32)
[2019-11-17 11:40] LABS: BILIRUBIN,TOTAL 0.8 MG/DL (0.1-1.0)
[2019-11-17 11:41] LABS: ALKALINE PHOSPHATASE 73 U/L (40-136); CREATININE SERUM 0.76 MG/DL (0.60-1.30); GFR ESTIMATED > 60
[2019-11-17 11:42] LABS: BUN/CREATININE RATIO 17
[2019-11-17 11:44] LABS: ALANINE AMINOTRANSFERASE 19 U/L (0-55)
[2019-11-17 12:00] VITALS: BP 150/71
[2019-11-17] MEDS ORDERED: IRON SUCROSE 200 MG/10 ML (VENOFER) VIAL IV SCH (12:00)
--- NOTE | 2019-11-17 14:52 | History & Physicial-Cardiolgy ---
HPI-Cardiology Cardiology Consultation: Date of Consultation 11/17/19 Date of Admission Attending Physician Alfonso Rabago MD Admitting Physician Cody Thomas MD Consulting Physician Alfonso RABAGO MD HPI: Time Seen by a Provider: 13:00 Chief Complaint: Anemia, weakness This is a 64-year-old lady with history of persistent atrial fibrillation refractory to medical therapy. She underwent persistent atrial fibrillation ablation on 11/12/2019. She has history of COPD, therefore required to be on a ventilator overnight. She was extubated the next day on 11/13/2019. Right groin bleeding was noted overnight. Hemoglobin went from 12-6.5, therefore one unit of transfusion was given. Ultrasound of the right groin did not show any vascular complication and no large hematoma. Therefore she was discharged on 11/14/2019. Repeat hemoglobin was done on 11/16/2019 which was still 6.5. The patient was complaining of weakness therefore was direct admitted for 2 units of packed RBCs. Review of Systems-Cardiology Review of Systems Constitutional: As described under HPI; No As described under HPI, No no symptoms reported, No chills, No fever, No lightheadedness; tiredness Eyes: No As described under HPI, No no symptoms reported, No blindness, No blurred vision, No contact lenses, No drainage, No decreased acuity, No foreign body sensation, No pain, No vision change Ears/Nose/Throat: No As described under HPI, No no symptoms reported, No chronic hearing loss, No ear discharge, No ear pain, No nasal drainage, No ulcer ations Respiratory: No no symptoms reported; As described under HPI; No As described under HPI, No cough, No orthopnea, No shortness of breath, No SOB with excertion Cardiovascular: No no symptoms reported; As described under HPI; No As described under HPI, No chest pain, No edema, No irregular heart rate, No lightheadedness, No palpitations Gastrointestinal: No no symptoms reported, No As described under HPI, No abdomen distended, No abdominal pain, No blood streaked bowels, No constipation, No diarrhea, No nausea, No vomiting, No stool coloration changes Genitourinary: No As described under HPI, No burning, No dysuria, No discharge, No frequency, No flank pain, No hematuria, No urgency : Yes : No Skin: No rash, No skin related problems, No ulcerations Psychiatric/Neurological: No anxiety, No depression, No seizure, No focal weakness, No syncope Hematologic: No bleeding abnormalities XBH-Qfzubj-Cyvleo Hx Patient Social History Alcohol Use: Denies Use Recreational Drug Use: No Type Used: Cigarettes 2nd Hand Smoke Exposure: No Recent Foreign Travel: No Recent Infectious Disease Expo: No Physical Abuse Screen: No Sexual Abuse: No Immunizations Up To Date Tetanus Booster (TDap): More than 5yrs Date of Pneumonia Vaccine: Nov 15, 2017 Date of Influenza Vaccine: Jan 31, 2019 Past Medical History PMH As described under Assessment. Allergies and Home Medications Allergies Coded Allergies: No Known Drug Allergies (Unverified , 06/08/19) Home Medications Albuterol Sulfate 1 Puff Puff, 2 PUFF PO Q6H PRN for SHORTNESS OF BREATH, (Reported) Alprazolam 0.5 Mg Tablet, 0.5 MG PO TID PRN for ANXIETY, (Reported) Amiodarone HCl 200 Mg Tablet, 200 MG PO BID, (Reported) Aspirin 81 Mg Tablet.dr, 81 MG PO DAILY, (Reported) Atorvastatin Calcium 20 Mg Tablet, 20 MG PO HS, (Reported) Bupropion HCl 150 Mg Tablet.er, 150 MG PO DAILY, (Reported) Escitalopram Oxalate 20 Mg Tablet, 20 MG PO DAILY, (Reported) Fluticasone/Salmeterol 12 Gm Hfa.aer.ad, 1 PUFF IH BID Prescribed by: CARMEN PURDY on 09/18/19 1142 Isosorbide Mononitrate 60 Mg Tab, 60 MG PO DAILY, (Reported) LAST FILLED 07-31-2019 #90 Metformin HCl 500 Mg Tablet, 500 MG PO BID, (Reported) Rivaroxaban 20 Mg Tablet, 20 MG PO DAILY, (Reported) Tramadol HCl 50 Mg Tablet, 50 MG PO Q6H PRN for PAIN-MODERATE (5-7), (Reported) Patient Home Medication List Home Medication List Reviewed: Yes Physical Exam-Cardiology Physical Exam Vital Signs/I&O 11/17/19 11/17/19 11/17/19 11/17/19 04:00 08:00 08:00 12:00 Temp 36.3 36.5 36.7 Pulse 57 57 66 Resp 19 18 18 B/P (MAP) 130/65 (86) 158/69 (98) 150/71 (97) Pulse Ox 98 98 100 93 O2 Delivery Nasal Cannula Nasal Cannula Nasal Cannula Nasal Cannula O2 Flow Rate 3.00 3.00 3.00 11/17/19 00:00 Intake Total 680 ml Balance 680 ml Capillary Refill : Less Than 3 SecondsLess Than 3 Seconds Constitutional: appears stated age, AAO x 3; No apparent distress; well- developed, well-nourished HEENT: PERRL; No discharge; hearing is well preserved, oral hygience is good; No ulceration, No xanthelasmas are seen Neck: No carotid bruit; carotid pulses are 2 + bilaterally Respiratory: chest is bilaterally symmetric, lungs clear to auscultation Cardiovascular: regular rate-rhythm, S1 and S2; No diastolic murmur, No systolic murmur Gastrointestinal: soft, distended, audible bowel sounds; No spleenomegaly Rectal: deferred Extremities: other (mild bruising noted in the right groin area.); No clubbing, No cyanosis, No significant edema Neurologic/Psychiatric: no motor/sensory deficits, alert, normal mood/affect, oriented x 3, power is 5/5 both on sides Skin: normal color, warm/dry; No rash, No ulcerations Data Review Labs Laboratory Tests 11/17/19 02:06: Hemoglobin 7.6L 11/17/19 11:18: Hemoglobin 7.8L, White Blood Count 9.5, Red Blood Count 2.68L, Hematocrit 25L, Mean Corpuscular Volume 94, Mean Corpuscular Hemoglobin 29, Mean Corpuscular Hemoglobin Concent 31L, Red Cell Distribution Width 15.1H, Platelet Count 237, Mean Platelet Volume 10.6H, Neutrophils (%) (Auto) 73, Lymphocytes (%) (Auto) 15, Monocytes (%) (Auto) 11, Eosinophils (%) (Auto) 1, Basophils (%) (Auto) 0, Neutrophils # (Auto) 6.9, Lymphocytes # (Auto) 1.5, Monocytes # (Auto) 1.1H, Eosinophils # (Auto) 0.1, Basophils # (Auto) 0.0, Sodium Level 140, Potassium Level 4.6, Chloride Level 101, Carbon Dioxide Level 30, Anion Gap 9, Blood Urea Nitrogen 13, Creatinine 0.76, Estimat Glomerular Filtration Rate > 60, BUN/Creatinine Ratio 17, Glucose Level 155H, Calcium Level 8.5, Corrected Calcium 9.0, Total Bilirubin 0.8, Aspartate Amino Transf (AST/SGOT) 18, Alanine Aminotransferase (ALT/SGPT) 19, Alkaline Phosphatase 73, Total Protein 5.7L, Albumin 3.4 A/P-Cardiology Assessment/Admission Diagnosis Persistent atrial fibrillation, status post ablation on 11/12/2019. Sinus bradycardia, Significant COPD, Anemia Admission Status: Observation Plan Persistent atrial fibrillation, status post ablation on 11/12/2019. In sinus rhythm. Continue amiodarone. Bradycardia, discontinue beta taqueria, calcium channel taqueria and digoxin. Significant COPD, no acute issues. Anemia, CT abdomen/pelvis was done last evening which did not show any evidence of retroperitoneal bleeding. Anemia is likely due to hemodilution as well as bleeding around the right groin and access area. 2 units of blood given overnight. Repeat hemoglobin 7.8. Patient is feeling much better with no weakness. We will discharge later today. I appreciate Dr. Hargrove's consultation for anemia. Appreciate recommendations which included IV iron infusion. Patient can be discharged, I will follow coming Tuesday in the office. Clinical Quality Measures DVT/VTE Risk/Contraindication: Risk Factor Score Per Nursin RFS Level Per Nursing on Admit: 3=High Alfonso RABAGO MD Nov 17, 2019 14:52
--- NOTE | 2019-11-17 15:28 | Cardiology Discharge Summary ---
Diagnosis/Chief Complaint Date of Admission Nov 16, 2019 at 14:52 Date of Discharge 11/17/2019 Admission Diagnosis Persistent atrial fibrillation, Anemia, Weakness Final/Discharge Diagnosis Persistent atrial fibrillation, Anemia Chief Complaint/HPI Chief Complaint/HPI This is a 64-year-old lady with history of persistent atrial fibrillation refractory to medical therapy. She underwent persistent atrial fibrillation ablation on 11/12/2019. She has history of COPD, therefore required to be on a ventilator overnight. She was extubated the next day on 11/13/2019. Right groin bleeding was noted overnight. Hemoglobin went from 12-6.5, therefore one unit of transfusion was given. Ultrasound of the right groin did not show any vascular complication and no large hematoma. Therefore she was discharged on 11/14/2019. Repeat hemoglobin was done on 11/16/2019 which was still 6.5. The patient was complaining of weakness therefore was direct admitted for 2 units of packed RBCs. Weakness could also be due to sinus bradycardia. Discharge Summary Procedures None. Discharge Physical Examination Normal cardiovascular examination. Hospital Course Was the Problem List Reviewed?: Yes Required to back RBCs. CT abdomen negative for retroperitoneal bleeding. IV iron infusion given. Hemoglobin on discharge was 7.8. Pending Labs Laboratory Tests 11/17/19 11:18: White Blood Count 9.5, Red Blood Count 2.68, Hemoglobin 7.8, Hematocrit 25, Mean Corpuscular Volume 94, Mean Corpuscular Hemoglobin 29, Mean Corpuscular Hemoglobin Concent 31, Red Cell Distribution Width 15.1, Platelet Count 237, Mean Platelet Volume 10.6, Neutrophils (%) (Auto) 73, Lymphocytes (%) (Auto) 15, Monocytes (%) (Auto) 11, Eosinophils (%) (Auto) 1, Basophils (%) (Auto) 0, Neutrophils # (Auto) 6.9, Lymphocytes # (Auto) 1.5, Monocytes # (Auto) 1.1, Eosinophils # (Auto) 0.1, Basophils # (Auto) 0.0, Sodium Level 140, Potassium Level 4.6, Chloride Level 101, Carbon Dioxide Level 30, Anion Gap 9, Blood Urea Nitrogen 13, Creatinine 0.76, Estimat Glomerular Filtration Rate > 60, BUN/Creatinine Ratio 17, Glucose Level 155, Calcium Level 8.5, Corrected Calcium 9.0, Iron Level [Pending], Total Bilirubin 0.8, Aspartate Amino Transf (AST/SGOT) 18, Alanine Aminotransferase (ALT/SGPT) 19, Alkaline Phosphatase 73, Total Protein 5.7, Albumin 3.4 Discussion & Recommendations Discussion Discussed with the patient. Follow up appt.: Dr. Rabago in 2-3 days. Dicharge Diet: Cardiac Diet Activity as Tolerated: Yes Home Medications Reviewed patient Home Medication Reconciliation performed by pharmacy medication reconciliations industrial engineering technician and/or nursing. Patients Allergies have been reviewed. Discharge Home Medications: Reviewed and agree with Discharge Medication list on patient's Discharge Instruction sheet Condition at discharge Stable. Instructions to patient/family Discussed with the patient. DC Cardizem, metoprolol, digoxin. Clinical Quality Measures DVT/VTE Risk/Contraindication: Risk Factor Score Per Nursin RFS Level Per Nursing on Admit: 3=High Alfonso RABAGO MD Nov 17, 2019 15:28
--- NOTE | 2019-11-17 15:53 | NUR ---
DR. ROBBINS AND ATTENDING DR. RIOS OK WITH PT'S DISCHARGE PER DR. LEYVA. NO ORDERS FROM EITHER. PER DR. AUTUMN DE LA PAZ FOR PT TO TAKE BLOOD THINNER AT HOME PRESCRIBED.
[2019-11-17 15:58] VITALS: BP 150/71
--- NOTE | 2019-11-17 16:10 | Consultation - Surgery ---
History of Present Illness History of Present Illness Patient Consulted On(tong/time) 11/17/19 16:05 Date Seen by Provider: Nov 17, 2019 Time Seen by Provider: 16:05 History of Present Illness Consult requested by Dr. Hargrove for hematoma/anemia right lower extremity Patient is a 64 year old female who [facility] underwent EP. Feeling weak and underwent prbc transfusion and was found to be anemic. Patient states her right leg significantly swollen and bruised. She states it has gone down today. She states it was difficult to move her right lower extremity but now able to move it. Not feeling as weak as she was. Minimal discomfort without radiation of pain in right lower extremity. Denies n/v fever sweats chills shortness of breath or chest pain. Ct abd/pelvis did not show any bleed yesterday. Allergies and Home Medications Allergies Coded Allergies: No Known Drug Allergies (Unverified , 06/08/19) Home Medications Albuterol Sulfate 1 Puff Puff, 2 PUFF PO Q6H PRN for SHORTNESS OF BREATH, (Reported) Alprazolam 0.5 Mg Tablet, 0.5 MG PO TID PRN for ANXIETY, (Reported) Amiodarone HCl 200 Mg Tablet, 200 MG PO BID, (Reported) Aspirin 81 Mg Tablet.dr, 81 MG PO DAILY, (Reported) Atorvastatin Calcium 20 Mg Tablet, 20 MG PO HS, (Reported) Bupropion HCl 150 Mg Tablet.er, 150 MG PO DAILY, (Reported) Escitalopram Oxalate 20 Mg Tablet, 20 MG PO DAILY, (Reported) Fluticasone/Salmeterol 12 Gm Hfa.aer.ad, 1 PUFF IH BID Prescribed by: CARMEN PURDY on 09/18/19 1142 Isosorbide Mononitrate 60 Mg Tab, 60 MG PO DAILY, (Reported) LAST FILLED 07-31-2019 #90 Metformin HCl 500 Mg Tablet, 500 MG PO BID, (Reported) Rivaroxaban 20 Mg Tablet, 20 MG PO DAILY, (Reported) Tramadol HCl 50 Mg Tablet, 50 MG PO Q6H PRN for PAIN-MODERATE (5-7), (Reported) Patient Home Medication List Home Medication List Reviewed: Yes Past Qidhdwv-Psttik-Chvwwa Hx Patient Social History Alcohol Use: Denies Use Recreational Drug Use: No Type Used: Cigarettes 2nd Hand Smoke Exposure: No Recent Foreign Travel: No Contact w/Someone Who Travel: No Recent Infectious Disease Expo: No Recent Hopitalizations: Yes Physical Abuse Screen: No Sexual Abuse: No Immunizations Up To Date Tetanus Booster (TDap): More than 5yrs PED Vaccines UTD: No Date of Pneumonia Vaccine: Nov 15, 2017 Date of Influenza Vaccine: Jan 31, 2019 Seasonal Allergies Seasonal Allergies: Yes Surgeries History of Surgeries: Yes Surgeries: Coronary Stent, Gallbladder, Hysterectomy Respiratory History of Respiratory Disorde: Yes Respiratory Disorders: COPD, Emphysema Cardiovascular History of Cardiac Disorders: Yes Cardiac Disorders: Atrial Fibrillation, Coronary Artery Disease, High Cholesterol, Hypertension Neurological History of Neurological Disord: No Reproductive System Sexually Transmitted Disease: No HIV/AIDS: No Genitourinary History of Genitourinary Disor: No Gastrointestinal History of Gastrointestinal Di: No Gastrointestinal Disorders: Gall Bladder Disease Musculoskeletal History of Musculoskeletal Dis: No Musculoskeletal Disorders: Chronic Back Pain Endocrine History of Endocrine Disorders: Yes Endocrine Disorders: Diabetes, Non-Insulin dep HEENT History of HEENT Disorders: No Cancer History of Cancer: No Psychosocial History of Psychiatric Problem: Yes Behavioral Health Disorders: Anxiety, Depression Integumentary History of Skin or Integumenta: No Blood Transfusions History of Blood Disorders: No Adverse Reaction to a Blood Tr: No Reviewed Nursing Assessment Reviewed/Agree w Nursing PMH: Yes Family Medical History Significant Family History: No Pertinent Family Hx Review of Systems-General Constitutional: No chills, No fever; weakness EENTM: No hearing loss, No throat pain Respiratory: No dyspnea on exertion, No short of breath Cardiovascular: No chest pain; edema Gastrointestinal: No abdominal pain, No nausea, No vomiting Genitourinary: No dysuria, No hematuria Musculoskeletal: No back pain; joint swelling, other (right leg pain) Skin: change in color; No lesions Psychiatric/Neurological: Denies Anxiety, Denies Depressed, Denies Emotional Problems All Other Systems Reviewed Negative Unless Noted: Yes (Negative excepted noted.) Physical Exam-General Problems Physical Exam Vital Signs Vital Signs - First Documented 11/16/19 15:02 Temp 37.1 Pulse 38 Resp 18 B/P (MAP) 107/66 (80) Pulse Ox 95 O2 Delivery Nasal Cannula O2 Flow Rate 2.00 Capillary Refill : Less Than 3 SecondsLess Than 3 Seconds General Appearance: no apparent distress, obese HEENT: PERRL/EOMI, normal ENT inspection Neck: non-tender, supple, normal inspection Respiratory: chest non-tender, no respiratory distress, no accessory muscle use Cardiovascular: regular rate, rhythm Gastrointestinal: non tender, soft, other (large pannus) Rectal: deferred Back: normal inspection, no CVA tenderness Extremities: swelling (right groin down to the toes. good pulses distal, significant brusing around majority of right thigh) Neurologic/Psychiatric: golf course keeper II-XII nml as tested, no motor/sensory deficits, alert, normal mood/affect, oriented x 3 Skin: warm/dry, ecchymosis (as noted above) Lymphatic: no adenopathy Data Review Labs Laboratory Tests 11/17/19 02:06: Hemoglobin 7.6L 11/17/19 11:18: Hemoglobin 7.8L, White Blood Count 9.5, Red Blood Count 2.68L, Hematocrit 25L, Mean Corpuscular Volume 94, Mean Corpuscular Hemoglobin 29, Mean Corpuscular Hemoglobin Concent 31L, Red Cell Distribution Width 15.1H, Platelet Count 237, Mean Platelet Volume 10.6H, Neutrophils (%) (Auto) 73, Lymphocytes (%) (Auto) 15, Monocytes (%) (Auto) 11, Eosinophils (%) (Auto) 1, Basophils (%) (Auto) 0, Neutrophils # (Auto) 6.9, Lymphocytes # (Auto) 1.5, Monocytes # (Auto) 1.1H, Eosinophils # (Auto) 0.1, Basophils # (Auto) 0.0, Sodium Level 140, Potassium Level 4.6, Chloride Level 101, Carbon Dioxide Level 30, Anion Gap 9, Blood Urea Nitrogen 13, Creatinine 0.76, Estimat Glomerular Filtration Rate > 60, BUN/Creatinine Ratio 17, Glucose Level 155H, Calcium Level 8.5, Corrected Calcium 9.0, Iron Level 51, Total Bilirubin 0.8, Aspartate Amino Transf (AST/SGOT) 18, Alanine Aminotransferase (ALT/SGPT) 19, Alkaline Phosphatase 73, Total Protein 5.7L, Albumin 3.4 Assessment/Plan Assessment/Plan Assessment/Plan right groin hematoma anemia 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 She states the swelling is going down and getting better movement of the right lower extremity. No sugical intervention needed at this time, should resolve on its own. Patient understands if on anticoagulation possiblity of rebleeding and if any change should be re-evaluated at that time. Clinical Quality Measures DVT/VTE Risk/Contraindication: Risk Factor Score Per Nursin RFS Level Per Nursing on Admit: 3=High KUMAR ROBBINS DO Nov 17, 2019 16:10
== END 2019-11-17 15:55 | disposition home or self-care (01) ==
LOC: 4TH 14:52 → UNDOADMOB 14:52 → 4TH 14:58 → UNDODISOB 11-17 16:54
PROVIDERS: ADMIT Internal Medicine Interventional Cardiology; ATTEND Internal Medicine Interventional Cardiology
DX: I48.19 Other persistent atrial fibrillation (principal); D62 Acute posthemorrhagic anemia; J43.9 Emphysema, unspecified; I10 Essential (primary) hypertension; I25.10 Atherosclerotic heart disease of native coronary artery without angina pectoris; E78.00 Pure hypercholesterolemia, unspecified; G89.29 Other chronic pain; M54.5 Low back pain; F41.9 Anxiety disorder, unspecified; F32.9 Major depressive disorder, single episode, unspecified; G47.30 Sleep apnea, unspecified; R00.1 Bradycardia, unspecified; F17.210 Nicotine dependence, cigarettes, uncomplicated; E66.9 Obesity, unspecified; Z68.41 Body mass index [BMI] 40.0-44.9, adult; Z79.82 Long term (current) use of aspirin; Z79.01 Long term (current) use of anticoagulants; Z79.899 Other long term (current) drug therapy; Z79.84 Long term (current) use of oral hypoglycemic drugs; Z79.51 Long term (current) use of inhaled steroids; Z90.710 Acquired absence of both cervix and uterus; Z95.5 Presence of coronary angioplasty implant and graft
CPT/HCPCS: 36430; 74178; 80053; 83540; 85018; 85025; 86850; 86900; 86901; 86920; G0378; G0379; P9016; 36415; 99211

== ENCOUNTER → 2019-11-16 | Outpatient (CLI) | payer BC ==
[~2019-11-16] MED LIST changes: +ATOR20TA66 PO; +DIGO250T3 PO; +DILT180C54 PO; +RIVA20TA PO
[2019-11-16 12:37] LABS: HEMATOCRIT 21 % (35-52); HEMOGLOBIN 6.4 G/DL (11.5-16.0); LYMPHOCYTES % (AUTO) 17 % (12-44); MEAN CORPUSCULAR HEMOGLOBIN 29 PG (25-34); MEAN CORPUSCULAR HGB CONC 30 G/DL (32-36); MEAN CORPUSCULAR VOLUME 96 FL (80-99); NEUTROPHILS % (AUTO) 68 % (42-75); PLATELET COUNT 234 10^3/uL (130-400); RED CELL DISTRIBUTION WIDTH 15.1 % (10.0-14.5)
[2019-11-16 12:38] LABS: BASOPHILS % (AUTO) 0 % (0-10); EOSINOPHILS # (AUTO) 0.2 10^3/uL (0.0-0.3); EOSINOPHILS % (AUTO) 2 % (0-10); MONOCYTES # (AUTO) 1.4 X 10^3 (0.0-1.0); MONOCYTES % (AUTO) 12 % (0-12); NEUTROPHILS # (AUTO) 8.2 X 10^3 (1.8-7.8)
== END ==
LOC: LAB FS 11:57
PROVIDERS: ATTEND Internal Medicine Interventional Cardiology
DX: D64.9 Anemia, unspecified (principal)
CPT/HCPCS: 36415; 85025

== ENCOUNTER → 2019-11-16 | Outpatient (CLI) | payer BC ==
[2019-11-16 14:43] LABS: BASOPHILS % (AUTO) 0 % (0-10); EOSINOPHILS # (AUTO) 0.1 10^3/uL (0.0-0.3); EOSINOPHILS % (AUTO) 1 % (0-10); HEMATOCRIT 22 % (35-52); LYMPHOCYTES # (AUTO) 1.7 X 10^3 (1.0-4.0); LYMPHOCYTES % (AUTO) 14 % (12-44); MEAN CORPUSCULAR HEMOGLOBIN 29 PG (25-34); MEAN CORPUSCULAR HGB CONC 30 G/DL (32-36); MEAN CORPUSCULAR VOLUME 95 FL (80-99); MONOCYTES # (AUTO) 1.3 X 10^3 (0.0-1.0); MONOCYTES % (AUTO) 11 % (0-12); NEUTROPHILS # (AUTO) 8.7 X 10^3 (1.8-7.8); NEUTROPHILS % (AUTO) 73 % (42-75); PLATELET COUNT 238 10^3/uL (130-400); RED CELL DISTRIBUTION WIDTH 14.9 % (10.0-14.5); WHITE BLOOD COUNT 11.9 10^3/uL (4.3-11.0)
[2019-11-16 15:41] LABS: HEMOGLOBIN 6.5 G/DL (11.5-16.0)
== END ==
LOC: LAB 13:52
PROVIDERS: ATTEND Internal Medicine Interventional Cardiology
DX: D64.9 Anemia, unspecified (principal)
CPT/HCPCS: 36415; 85025

== ENCOUNTER → 2020-02-01 | Outpatient (CLI) | payer BC ==
[~2020-02-01] MED LIST changes: +ATOR20TA66 PO; +DIGO250T3 PO; +DILT180C54 PO; +HOLD METFORMIN - RECEIVED CONTRAST 20 ML VIAL IV SCH; +IOHEXOL 350 MG/ML 100 ML (OMNIPAQUE 350) VIAL IV ONE; +NS 100 ML (IVPB) BAG IV ONE; +RIVA20TA PO; +RT-ALBUTEROL SULF 2.5 MG/3 ML PRE-MIX VIAL INH ONE
[2020-02-01 11:39] LABS: BUN/CREATININE RATIO 21; CREATININE SERUM 0.71 MG/DL (0.60-1.30); GFR ESTIMATED > 60
--- NOTE | 2020-02-01 13:51 | Diagnostic Imaging Report ---
EXAMINATION: CT Chest with intravenous contrast. TECHNIQUE: Multiple contiguous axial images were obtained through the chest after the uneventful administration of intravenous contrast. All CT scans use one or more of the following dose optimizing techniques: automated exposure control, MA and/or KvP adjustment based on a patient size and exam type, or iterative reconstruction. HISTORY: Shortness of breath. COMPARISON: None available. FINDINGS: There are fairly widespread groundglass opacities throughout the lungs. Lungs are moderately emphysematous. No consolidation. No pleural effusion. No pneumothorax. No suspicious nodules. There is no axillary or supraclavicular lymphadenopathy. There is no mediastinal lymphadenopathy. Heart size is normal. There are moderate coronary artery calcifications. No pericardial effusion. Aorta is normal in caliber. Limited views of the upper abdomen show the gallbladder to be absent. There are no suspicious osseous lesions. IMPRESSION: 1. Fairly widespread groundglass throughout both lungs which in the acute setting are most concerning for infection such as COVID-19. In the chronic setting, this could represent an NSIP or desquamative interstitial pneumonia. Dictated by: Dictated on workstation # [id number]
== END ==
LOC: RT 10:30
PROVIDERS: ATTEND Nurse Practitioner Family
DX: J44.9 Chronic obstructive pulmonary disease, unspecified (principal); G47.10 Hypersomnia, unspecified; J96.10 Chronic respiratory failure, unspecified whether with hypoxia or hypercapnia; I48.19 Other persistent atrial fibrillation; F17.210 Nicotine dependence, cigarettes, uncomplicated
CPT/HCPCS: 36415; 71260; 82565; 84520; 94060; 94726; 94729

== ENCOUNTER → 2020-02-04 | Outpatient (CLI) | payer BC ==
[~2020-02-04] MED LIST changes: -HOLD METFORMIN - RECEIVED CONTRAST 20 ML VIAL IV SCH; -IOHEXOL 350 MG/ML 100 ML (OMNIPAQUE 350) VIAL IV ONE; -NS 100 ML (IVPB) BAG IV ONE; -RT-ALBUTEROL SULF 2.5 MG/3 ML PRE-MIX VIAL INH ONE
== END ==
LOC: LABNPT 05:55
PROVIDERS: ATTEND Nurse Practitioner Family
DX: R05 Cough (principal); R68.83 Chills (without fever); Z20.828 Contact with and (suspected) exposure to other viral communicable diseases
CPT/HCPCS: 87635

== ENCOUNTER → 2020-02-11 | Outpatient (CLI) | payer BC ==
[2020-02-11 11:21] LABS: ABG OXYGEN SATURATION 92 % (94-100); ABG PCO2 63 MMHG (35-45); ABG PO2 64 MMHG (79-93)
[2020-02-11 11:25] LABS: ABG PH 7.32 (7.37-7.43); ALLENS TEST YES-POS; INSPIRED O2 1 L
[2020-02-11 11:26] LABS: VENTILATOR NO
== END ==
LOC: LAB 09:36
PROVIDERS: ATTEND Nurse Practitioner Family
DX: J44.9 Chronic obstructive pulmonary disease, unspecified (principal)
CPT/HCPCS: 36600; 82805

== ENCOUNTER 2020-03-10 05:26 | Outpatient (RCR) | payer BC ==
[~2020-03-10] VITALS: Ht 185 cm; Wt 121.0 kg
== END 2020-03-10 10:17 | disposition home or self-care (01) ==
LOC: PREOP 05:26
PROVIDERS: ATTEND Internal Medicine Critical Care Medicine
DX: Z01.818 Encounter for other preprocedural examination (principal)

== ENCOUNTER → 2020-03-10 | Outpatient (CLI) | payer BC ==
[~2020-03-10] MED LIST changes: -AMIO200T4 PO; +AMIO200T6 PO; +AMLO-251 PO; -AMLO10TA7 PO; +ARIP10TA17 PO; +FLUT1BLS3 IH; +HYDR12.56 PO
== END ==
LOC: LAB FS 15:09
PROVIDERS: ATTEND Nurse Practitioner Family
DX: Z01.812 Encounter for preprocedural laboratory examination (principal); Z20.828 Contact with and (suspected) exposure to other viral communicable diseases
CPT/HCPCS: 87635

== ENCOUNTER 2020-03-13 06:58 | Day surgery (SDC) | payer BC ==
[~2020-03-13] VITALS: Ht 185 cm; Wt 125.0 kg
[2020-03-13] MEDS ORDERED: LIDOCAINE PF 1% 2 ML AMP IJ ONE (06:59)
[2020-03-13] MEDS ORDERED: LIDOCAINE PF 2% 5 ML (XYLOCAINE) VIAL INJ ONE (06:59)
[2020-03-13] MEDS ORDERED: LIDOCAINE JELLY 2% 6 ML SYRINGE MM ONE (06:59)
[2020-03-13] MEDS ORDERED: LACTATED RINGERS 1,000 ML IV STA (07:10)
[2020-03-13] MEDS ORDERED: LACTATED RINGERS 1,000 ML IV ONE (07:26)
[2020-03-13 07:28] VITALS: BP 173/110
[2020-03-13] MEDS ORDERED: MIDAZOLAM 2 MG/2 ML (VERSED) VIAL ONE (07:28)
[2020-03-13] MEDS ORDERED: proPOfol 200 MG/20 ML (DIPRIVAN) VIAL IV ONE (07:28)
[2020-03-13] MEDS ORDERED: LABETALOL HCL 20 MG/4 ML VIAL ONE (07:28)
[2020-03-13] MEDS ORDERED: ROCURONIUM 10 MG/ML 5 ML SYRINGE IV ONE (07:41)
--- NOTE | 2020-03-13 08:17 | Progress Note-Pre Operative ---
Pre-Operative Progress Note H&P Reviewed The H&P was reviewed, patient examined and no changes noted. Time Seen by Provider: 08:00 Date H&P Reviewed: Mar 13, 2020 Time H&P Reviewed: 07:30 Pre-Operative Diagnosis: pulmonary infiltrates, chronic cough. GINA WALKER DO Mar 13, 2020 08:17
--- NOTE | 2020-03-13 08:19 | Pulmonary Procedures ---
Pulmonary Procedures Date of Procedure Date of Service: Mar 13, 2020 Bronch Bronchoscopy with bilateral bronchial washes and, brushes of chelsey . Preop DX ILD Postop DX: same Complications: Stopped procedure early secondary to hypoxia. After informed consent obtained and formal time out pt was sedated per nico titus. Bronchoscope was advanced through the nare and vocal cords. 1% lidocaine was used to anesthetize vocal cords, epiglottis, chelsey, and left/right main stem bronchus. An anatomical tour was undertaken down to the segmental bronchi bilaterally. No endobronchial lesions noted. Bronchoscopy with bilateral bronchial washes and, brushes of chelsey . were obtained. Stat CXR is pending. GINA WALKER DO Mar 13, 2020 08:19
[2020-03-13 08:20] VITALS: BP 175/116
[2020-03-13 08:50] VITALS: BP 172/105
--- NOTE | 2020-03-13 08:58 | Diagnostic Imaging Report ---
INDICATION: Status post bronchoscopy. TIME OF EXAM: 8:48 AM Correlation is made with prior chest from 11/13/2019. FINDINGS: The heart size is stable. There are mild generalized interstitial changes noted in both lungs. No parenchymal consolidation is identified. There is no effusion. No pneumothorax is detected status post bronchoscopy. IMPRESSION: No evidence of pneumothorax status post bronchoscopy. Dictated by: Dictated on workstation # [id number]
[2020-03-13 09:13] VITALS: BP 172/105
--- NOTE | 2020-03-13 14:43 | Anesthesia-General Post-Op ---
MAC Patient Condition Mental Status/LOC: Same as Preop Cardiovascular: Satisfactory Nausea/Vomiting: Absent Respiratory: Satisfactory Pain: Controlled Complications: Absent Post Op Complications Complications None Follow Up Care/Instructions Patient Instructions None needed. Anesthesiology Discharge Order Discharge Order Patient was seen this morning after the procedure and she was doing well, no complaints, stable vital signs, no apparent adverse anesthesia problems. DIYA ESTRADA DO Mar 13, 2020 14:42
== END 2020-03-13 09:15 | disposition home or self-care (01) ==
LOC: ENDO 06:58
PROVIDERS: ATTEND Internal Medicine Critical Care Medicine
DX: J84.9 Interstitial pulmonary disease, unspecified (principal); I25.10 Atherosclerotic heart disease of native coronary artery without angina pectoris; I11.0 Hypertensive heart disease with heart failure; I50.32 Chronic diastolic (congestive) heart failure; I48.19 Other persistent atrial fibrillation; J44.9 Chronic obstructive pulmonary disease, unspecified; E11.9 Type 2 diabetes mellitus without complications; D64.9 Anemia, unspecified; R05 Cough; J30.9 Allergic rhinitis, unspecified; J96.10 Chronic respiratory failure, unspecified whether with hypoxia or hypercapnia; G47.10 Hypersomnia, unspecified; E66.9 Obesity, unspecified; Z68.36 Body mass index [BMI] 36.0-36.9, adult; Z79.51 Long term (current) use of inhaled steroids; Z79.82 Long term (current) use of aspirin; Z79.84 Long term (current) use of oral hypoglycemic drugs; Z79.899 Other long term (current) drug therapy; Z95.5 Presence of coronary angioplasty implant and graft; Z87.891 Personal history of nicotine dependence; Z80.9 Family history of malignant neoplasm, unspecified; Z82.3 Family history of stroke
CPT/HCPCS: 71045; 82962; 87015; 87070; 87077; 87101; 87116; 87181; 87184; 87185; 87205; 87206; 88112; 88305; 88312

== ENCOUNTER → 2020-09-02 | Outpatient (CLI) | payer OTHER ==
[~2020-09-02] MED LIST changes: +ESCI20TA39 PO; -ESCI20TA45 PO; -ISM60TCR PO; +ISOS60TA63 PO; -LISI-552 PO; +LISI20TA26 PO
--- NOTE | 2020-09-02 18:10 | Diagnostic Imaging Report ---
EXAMINATION: Lumbar spine radiographs, 5 views. COMPARISON: None. HISTORY: 64-year-old female, low back pain extending down the right leg. FINDINGS: There are 5 lumbar-type vertebral bodies. There is no identified pars interarticularis defect. There is severe disc height loss at L4-L5 and L5-S1. There is mild to moderate disc height loss at the additional imaged thoracolumbar spine levels. There are multilevel osteophytes. There are facet degenerative changes on the right at L5-S1. There is no identified compression deformity. The sacroiliac joints are unremarkable in appearance. Right upper quadrant surgical clips likely relate to prior cholecystectomy. There are atherosclerotic calcifications. IMPRESSION: 1. Multilevel disc degenerative changes of the lumbar spine most notable at L4-L5 and L5-S1 with right facet degenerative changes at L5-S1. Dictated by: Dictated on workstation # [id number]
== END ==
LOC: RAD FS 16:27
PROVIDERS: ATTEND Family Medicine
DX: M51.37 Other intervertebral disc degeneration, lumbosacral region (principal); M47.817 Spondylosis without myelopathy or radiculopathy, lumbosacral region
CPT/HCPCS: 72110

== ENCOUNTER 2020-10-23 13:59 | Emergency (ER) | payer OTHER ==
[~2020-10-23 13:59] MED LIST changes: -ARIP10TA17 PO; +ARIP10TA55 PO
--- NOTE | 2020-10-23 14:14 | ED Dyspnea ---
General Stated Complaint: LOW O2 History of Present Illness Date Seen by Provider: Oct 23, 2020 Time Seen by Provider: 14:09 Initial Comments 64-year-old female presents with some shortness of breath. Patient reports she been short of breath for couple days. She normally wears 3 L home oxygen. She presented to her primary care provider and her oxygen was low with reports in the 70s. She states that about 3 weeks ago she had an episode in which they treated her for pneumonia. At that time she had 5 days of antibiotics and 5 days of steroids. She reports that she felt better. She ended that course about 10 days ago. She denies any fevers chills. She does have a mild increase in cough. No other systemic complaints. Allergies and Home Medications Allergies Coded Allergies: No Known Drug Allergies (Unverified , 03/06/20) Home Medications Albuterol Sulfate 1 Puff Puff, 2 PUFF PO Q6H PRN for SHORTNESS OF BREATH, (Reported) Alprazolam 0.5 Mg Tablet, 0.5 MG PO TID PRN for ANXIETY, (Reported) Amiodarone HCl 200 Mg Tablet, 200 MG PO BID, (Reported) Aripiprazole 10 Mg Tablet, 10 MG PO DAILY, (Reported) Aspirin 81 Mg Tablet.dr, 81 MG PO DAILY, (Reported) Atorvastatin Calcium 20 Mg Tablet, 20 MG PO HS, (Reported) Bupropion HCl 150 Mg Tablet.er, 150 MG PO BID, (Reported) Digoxin 250 Mcg Tablet, 250 MCG PO DAILY, (Reported) Escitalopram Oxalate 20 Mg Tablet, 20 MG PO DAILY, (Reported) Fluticasone/Umeclidin/Vilanter 1 Each Blst.w.dev, 1 EACH IH DAILY, (Reported) Hydrochlorothiazide 12.5 Mg Tablet, 12.5 MG PO DAILY, (Reported) Isosorbide Mononitrate 60 Mg Tab, 60 MG PO DAILY, (Reported) LAST FILLED 07-31-2019 #90 Metformin HCl 500 Mg Tablet, 500 MG PO BID, (Reported) Metoprolol Tartrate 50 Mg Tablet, 50 MG PO BID, (Reported) Rivaroxaban 20 Mg Tablet, 20 MG PO DAILY, (Reported) Tramadol HCl 50 Mg Tablet, 50 MG PO Q6H PRN for PAIN-MODERATE (5-7), (Reported) Patient Home Medication List Home Medication List Reviewed: Yes Review of Systems Review of Systems Constitutional: No chills, No fever Respiratory: cough, short of breath Cardiovascular: No chest pain, No palpitations Gastrointestinal: no symptoms reported Genitourinary: no symptoms reported Musculoskeletal: no symptoms reported Skin: no symptoms reported Endocrine: No Symptoms Reported Past Juijhim-Bemnae-Mhaazq Hx Past Med/Social Hx: Reviewed Nursing Past Med/Soc Hx Patient Social History Type Used: Cigarettes 2nd Hand Smoke Exposure: Yes Recent Hopitalizations: Yes (NOVEMBER-) Immunizations Up To Date Tetanus Booster (TDap): More than 5yrs PED Vaccines UTD: No Date of Pneumonia Vaccine: Nov 15, 2017 Date of Influenza Vaccine: Feb 11, 2020 Seasonal Allergies Seasonal Allergies: Yes Past Medical History Surgeries: Yes Coronary Stent, Gallbladder, Hysterectomy Respiratory: Yes COPD, Emphysema Currently Using CPAP: No Currently Using BIPAP: No Cardiac: Yes Atrial Fibrillation, Coronary Artery Disease, High Cholesterol, Hypertension Neurological: No Female Reproductive Disorders: Denies 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 Sexually Transmitted Disease: No HIV/AIDS: No Genitourinary: No Gastrointestinal: No Gall Bladder Disease Musculoskeletal: Yes Chronic Back Pain Endocrine: Yes Diabetes, Non-Insulin dep HEENT: Yes (GLASSES, UPPER DENTURES) Loss of Vision: Denies Hearing Impairment: Denies Cancer: No Psychosocial: Yes Anxiety, Depression Integumentary: No Blood Disorders: No Adverse Reaction/Blood Tranf: No (HAS HAD BLOOD WITH NO REACTION) Family Medical History No Pertinent Family Hx Physical Exam Vital Signs Vital Signs - First Documented 10/23/20 14:10 Temp 36.6 Pulse 125 Resp 25 B/P (MAP) 165/110 (128) Pulse Ox 95 O2 Delivery Nasal Cannula Capillary Refill : Height, Weight, BMI Height: '" Weight: lbs. oz. kg; 36.52 BMI Method: General Appearance: No Apparent Distress Neck: Non Tender, Supple Respiratory: No Accessory Muscle Use, Decreased Breath Sounds (Mild ), Wheezing (Mild diffuse) Cardiovascular: Regular Rate, Rhythm, No Edema Gastrointestinal: Non Tender Extremity: Normal Capillary Refill, Normal Inspection, Normal Range of Motion Neurologic/Psychiatric: Alert, Oriented x3, carport erector II-XII Norm as Tested Skin: Normal Color, Warm/Dry Procedures/Interventions Date of ETT Placement: Nov 12, 2019 Progress/Results/Core Measures Results/Orders Lab Results Laboratory Tests Test 10/23/20 14:36 Range/Units White Blood Count 13.3 H 4.3-11.0 10^3/uL Red Blood Count 4.52 4.35-5.85 10^6/uL Hemoglobin 12.4 11.5-16.0 G/DL Hematocrit 41 35-52 % Mean Corpuscular Volume 91 80-99 FL Mean Corpuscular Hemoglobin 27 25-34 PG Mean Corpuscular Hemoglobin Concent 30 L 32-36 G/DL Red Cell Distribution Width 17.3 H 10.0-14.5 % Platelet Count 310 130-400 10^3/uL Mean Platelet Volume 9.9 7.4-10.4 FL Immature Granulocyte % (Auto) 1 % Neutrophils (%) (Auto) 82 H 42-75 % Lymphocytes (%) (Auto) 9 L 12-44 % Monocytes (%) (Auto) 9 0-12 % Eosinophils (%) (Auto) 0 0-10 % Basophils (%) (Auto) 0 0-10 % Neutrophils # (Auto) 11.0 H 1.8-7.8 X 10^3 Lymphocytes # (Auto) 1.2 1.0-4.0 X 10^3 Monocytes # (Auto) 1.1 H 0.0-1.0 X 10^3 Eosinophils # (Auto) 0.0 0.0-0.3 10^3/uL Basophils # (Auto) 0.0 0.0-0.1 10^3/uL Immature Granulocyte # (Auto) 0.1 0.0-0.1 10^3/uL Sodium Level 131 L 135-145 MMOL/L Potassium Level 4.4 3.6-5.0 MMOL/L Chloride Level 86 L 98-107 MMOL/L Carbon Dioxide Level 39 H 21-32 MMOL/L Anion Gap 6 5-14 MMOL/L Blood Urea Nitrogen 10 7-18 MG/DL Creatinine 0.63 0.60-1.30 MG/DL Estimat Glomerular Filtration Rate > 60 BUN/Creatinine Ratio 16 Glucose Level 125 H 70-105 MG/DL Calcium Level 9.5 8.5-10.1 MG/DL My Orders Orders - ROBERTSON,ANA L DO Basic Metabolic Panel (10/23/20 14:14) Cbc With Automated Diff (10/23/20 14:14) Chest Pa/Lat (2 View) (10/23/20 14:14) Albuterol/Ipra Inhalation Soln (Duoneb I (10/23/20 14:15) Svn Small Volume Nebulizer (10/23/20 14:14) Dexamethasone Injection (Decadron Inje (10/23/20 15:15) Medications Given in ED Current Medications Medications Dose Ordered Sig/Deep Route Start Time Stop Time Status Last Admin Dose Admin Albuterol/ Ipratropium 3 ml ONCE ONCE INH 10/23/20 14:15 10/23/20 14:16 DC 10/23/20 14:36 3 ML Dexamethasone Sodium Phosphate 10 mg ONCE ONCE IV 10/23/20 15:15 10/23/20 15:16 DC 10/23/20 15:28 10 MG Vital Signs/I&O 10/23/20 14:10 Temp 36.6 Pulse 125 Resp 25 B/P (MAP) 165/110 (128) Pulse Ox 95 O2 Delivery Nasal Cannula Progress Progress Note : Progress Note Patient's O2 saturation on her home 3 L was in the mid 90s with no increased respiratory distress. Patient with a negative chest x-ray. Discussing patient's symptoms with her further she reports that when she uses her home concentrator her oxygen seems to be appropriate but when she uses her portable concentrator is when she has issues. She reports that she has been traveling using her portable concentrator for the last week and asked when the symptoms of seem to be the worst. Discussed with her that I feel she needs to have her portable concentrator evaluated and that it may be that it is not putting out the proper amount of oxygen. Patient is in agreement. I will give her 10 of Decadron. Patient stable and discharged home Departure Impression Primary Impression: Chronic bronchitis with COPD (chronic obstructive pulmonary disease) Additional Impression: Dependence on supplemental oxygen Disposition: HOME, SELF-CARE Condition: Stable Departure-Patient Inst. Referrals: SELF,MER EDWITT (PCP/Family) Primary Care Physician Patient Instructions: Oxygen Therapy, Adult (DC), Chronic Obstructive Pulmonary Disease (COPD), Including Emphysema Add. Discharge Instructions: Please follow up with the medical supply center to have your portable concentrator evaluated to ensure it is properly worked ANA ROBERTSON DO Oct 23, 2020 14:14
[2020-10-23] MEDS ORDERED: RT-ALBUTEROL/IPRATROPIUM 3 ML (DUONEB) VIAL INH ONE (14:15)
--- NOTE | 2020-10-23 14:36 | Diagnostic Imaging Report ---
INDICATION: sob COMPARISON: 03/13/2020 FINDINGS: Frontal and lateral views of the chest demonstrate normal heart size and pulmonary vascularity. The lungs are clear. There are no signs of infiltrate, pleural effusions or pneumothoraces. The visualized osseous structures show no acute abnormalities. IMPRESSION: 1. No acute process. No signs of infiltrates, effusions or pneumothoraces. Dictated by: Dictated on workstation # [id number]
[2020-10-23 15:06] LABS: WHITE BLOOD COUNT 13.3 10^3/uL (4.3-11.0)
[2020-10-23 15:08] LABS: BASOPHILS % (AUTO) 0 % (0-10); EOSINOPHILS % (AUTO) 0 % (0-10); HEMATOCRIT 41 % (35-52); HEMOGLOBIN 12.4 G/DL (11.5-16.0); LYMPHOCYTES # (AUTO) 1.2 X 10^3 (1.0-4.0); LYMPHOCYTES % (AUTO) 9 % (12-44); MEAN CORPUSCULAR HEMOGLOBIN 27 PG (25-34); MEAN CORPUSCULAR HGB CONC 30 G/DL (32-36); MEAN CORPUSCULAR VOLUME 91 FL (80-99); MEAN PLATELET VOLUME 9.9 FL (7.4-10.4); MONOCYTES # (AUTO) 1.1 X 10^3 (0.0-1.0); MONOCYTES % (AUTO) 9 % (0-12); NEUTROPHILS % (AUTO) 82 % (42-75); PLATELET COUNT 310 10^3/uL (130-400)
[2020-10-23 15:38] LABS: BUN/CREATININE RATIO 16; CALCIUM 9.5 MG/DL (8.5-10.1); CARBON DIOXIDE 39 MMOL/L (21-32); CHLORIDE 86 MMOL/L (98-107); CREATININE SERUM 0.63 MG/DL (0.60-1.30); GFR ESTIMATED > 60; GLUCOSE 125 MG/DL (70-105); POTASSIUM 4.4 MMOL/L (3.6-5.0); SODIUM 131 MMOL/L (135-145)
[2020-10-23 15:53] VITALS: BP 155/100
== END 2020-10-23 15:53 | disposition home or self-care (01) ==
LOC: EDUNIT# 13:59 → ER FS 14:01
DX: J44.9 Chronic obstructive pulmonary disease, unspecified (principal); I10 Essential (primary) hypertension; I48.91 Unspecified atrial fibrillation; E78.00 Pure hypercholesterolemia, unspecified; I25.10 Atherosclerotic heart disease of native coronary artery without angina pectoris; F31.9 Bipolar disorder, unspecified; F41.9 Anxiety disorder, unspecified; E11.9 Type 2 diabetes mellitus without complications; Z77.22 Contact with and (suspected) exposure to environmental tobacco smoke (acute) (chronic); Z99.81 Dependence on supplemental oxygen; Z79.01 Long term (current) use of anticoagulants; Z79.82 Long term (current) use of aspirin; Z79.899 Other long term (current) drug therapy; Z79.84 Long term (current) use of oral hypoglycemic drugs
CPT/HCPCS: 36415; 71046; 80048; 85025

== ENCOUNTER → 2021-08-03 | Outpatient (CLI) | payer OTHER ==
[~2021-08-03] MED LIST changes: -AMIO200T6 PO; +AMIO200T65 PO; +RT-ALBUTEROL SULF 2.5 MG/3 ML PRE-MIX VIAL INH ONE
== END ==
LOC: RT 10:45
PROVIDERS: ATTEND Nurse Practitioner Family
DX: J44.9 Chronic obstructive pulmonary disease, unspecified (principal); J84.9 Interstitial pulmonary disease, unspecified
CPT/HCPCS: 94060; 94726; 94729

== ENCOUNTER 2022-12-20 06:46 | Outpatient (CLI) | payer MEDICARE ==
[2022-12-20] VITALS (13 sets, daily range): BP systolic 154–209; BP diastolic 65–89
[~2022-12-20] VITALS: Ht 180.3 cm; Wt 97.7 kg
[~2022-12-20 06:46] MED LIST changes: +BUPR-105 PO; -BUPR150T14 PO; -RT-ALBUTEROL SULF 2.5 MG/3 ML PRE-MIX VIAL INH ONE
[2022-12-20 07:41] LABS: HEMATOCRIT 38 % (35-52); HEMOGLOBIN 11.7 g/dL (11.5-16.0); MEAN CORPUSCULAR HEMOGLOBIN 26 pg (25-34); MEAN CORPUSCULAR HGB CONC 31 g/dL (32-36); MEAN CORPUSCULAR VOLUME 83 fL (80-99); MEAN PLATELET VOLUME 9.5 fL (9.0-12.2); PLATELET COUNT 347 10^3/uL (130-400); WHITE BLOOD COUNT 9.9 10^3/uL (4.3-11.0)
[2022-12-20 07:53] LABS: INR 1.1 (0.8-1.4); PROTHROMBIN TIME PATIENT 14.1 SEC (12.2-14.7)
[2022-12-20] MEDS ORDERED: NS IV 1000 ML 1,000 ML IV STA (08:12)
[2022-12-20] MEDS ORDERED: MIDAZOLAM INJ 2 MG/2 ML VIAL IVP ONE (08:15)
[2022-12-20] MEDS ORDERED: LIDOCAINE 1% INJ 10 ML VIAL INJ ONE (08:15)
[2022-12-20] MEDS ORDERED: fentaNYL INJECTION 100 MCG/2 ML VIAL IVP ONE (08:15)
[2022-12-20] MEDS ORDERED: MONT-40 PO (09:36)
[2022-12-20] MEDS ORDERED: DILT240T10 PO (09:36)
[2022-12-20] MEDS ORDERED: GABA-486 PO (09:36)
[2022-12-20] MEDS ORDERED: LISI20TA26 PO (09:36)
[2022-12-20] MEDS ORDERED: LEVO100T7 PO (09:36)
[2022-12-20] MEDS ORDERED: CARB1TAB40 PO (09:36)
[2022-12-20] MEDS ORDERED: PANT40TA52 PO (09:36)
[2022-12-20] MEDS ORDERED: DAPA10TA PO (09:36)
[2022-12-20] MEDS ORDERED: [UNRECOGNIZED DRUG - CODE] PO (09:41)
[2022-12-20] MEDS ORDERED: PSEU-182 PO (09:41)
[2022-12-20] MEDS ORDERED: DICL100G13 TP (09:41)
[2022-12-20] MEDS ORDERED: HYDROcodone/ACETAMINOPHEN 5 MG/325 MG TABLET PO PRN (10:15)
--- NOTE | 2022-12-20 10:31 | Diagnostic Imaging Report ---
INDICATION: Right lung mass. Patient presents for CT-guided biopsy. TECHNIQUE: All CT scans use one or more of the following dose optimizing techniques: automated exposure control, MA and/or KvP adjustment based on patient size and exam type or iterative reconstruction. Patient was brought to the CT suite placed on the table in the supine position. Axial imaging through the chest was performed to evaluate appropriate entry site. Procedure was performed utilizing conscious sedation with radiology nursing and constant patient monitoring. Patient was given total 1 mg of Versed intravenously and 50 mg of fentanyl intravenously. Procedure time is approximately 16 minutes. Right lateral chest was prepped and draped in the usual sterile fashion. Small amount of 1% lidocaine was utilized for local anesthesia. 18-gauge coaxial Temno needle was advanced and placed with its tip along the margin of the mass in the lateral portion of the right upper lobe mass. 4 core biopsies were obtained. A blood patch was injected during needle removal. Hemostasis was obtained using manual compression. Patient tolerated procedure well and left the department in stable condition. IMPRESSION: Successful CT-guided right upper lobe lung mass biopsy utilizing conscious sedation. Pathology results are currently pending. Dictated by: Dictated on workstation # [id number]
--- NOTE | 2022-12-20 10:31 | Pre-Op Note & Conscious Sedat ---
Pre-Operative Progress Note Date of Available H&P: Dec 20, 2022 Date H&P Reviewed: Dec 20, 2022 Time H&P Reviewed: 08:00 Pre-Op Diagnosis: lung mass Moderate Sedation PreProcedure Time 08:00 ASA Score 2 Airway Lungs Heart ASA score ASA 1: a normal healthy patient ASA 2: a patient with a mild systemic disease (mid diabetes, controlled hypertension, obesity ASA 3: a patient with a severe systemic disease that limits activity (angina, COPD, prior Myocardial infarction) ASA 4: a patient with an incapacitating disease that is a constant threat to life (CHF, renal failure) ASA 5: a moribund patient not expected to survive 24 hrs. (ruptured aneurysm) ASA 6: a declared brain- patient whose organs are being harvested. For emergent operations, add the letter E after the classification Mallampati Classification Grade 2 Sedation Plan Analgesia, Amnesia, Plan communicated to team members, Discussed options with patient/fam, Discussed risks with patient/fam The patient is an appropriate candidate to undergo the planned procedure, sedation, and anesthesia. The patient immediately re-assessed prior to indication. JUANIS BUITRAGO MD Dec 20, 2022 10:31
--- NOTE | 2022-12-20 12:16 | Diagnostic Imaging Report ---
Indication: Right lung mass, status post right lung biopsy. Time of Exam: 11:50 AM Portable view of the chest was obtained after the patient underwent right lung mass biopsy. There is no pneumothorax identified. Lung mass overlies the right base. Lungs appear to be clear. There is no effusion. IMPRESSION: No evidence of pneumothorax, status post right lung mass biopsy. Dictated by: Dictated on workstation # [id number]
== END 2022-12-20 12:50 | disposition home or self-care (01) ==
LOC: SDC 06:46
PROVIDERS: ATTEND Family Medicine
DX: C34.91 Malignant neoplasm of unspecified part of right bronchus or lung (principal); F17.200 Nicotine dependence, unspecified, uncomplicated
CPT/HCPCS: 36415; 71045; 77012; 82947; 85027; 85610; 85730; 99156

== ENCOUNTER 2022-12-24 05:33 | Outpatient (CLI) | payer MEDICARE ==
[~2022-12-24] VITALS: Ht 177 cm; Wt 96.2 kg
[~2022-12-24 05:33] MED LIST changes: +CARB1TAB40 PO; +DAPA10TA PO; +DICL100G13 TP; +DILT240T10 PO; +GABA-486 PO; +LEVO100T7 PO; +MONT-40 PO; +PANT40TA52 PO; +PSEU-182 PO; +[UNRECOGNIZED DRUG - CODE] PO
[2022-12-24] MEDS ORDERED: FLUT1BLS3 IH (11:39)
[2022-12-24] MEDS ORDERED: NITR0.4T42 SL (11:41)
== END 2022-12-24 10:00 | disposition home or self-care (01) ==
LOC: PREOP 05:33
PROVIDERS: ATTEND Surgery
DX: Z01.818 Encounter for other preprocedural examination (principal)

== ENCOUNTER 2022-12-27 10:22 | Day surgery (SDC) | payer MEDICARE ==
[~2022-12-27] VITALS: Ht 177 cm; Wt 96.2 kg
[2022-12-27] VITALS (7 sets, daily range): BP systolic 149–193; BP diastolic 71–95
[~2022-12-27 10:22] MED LIST changes: +NITR0.4T42 SL
[2022-12-27] MEDS ORDERED: LIDOCAINE 1% w/EPI 1:100,000 20 ML VIAL ONE (11:00)
[2022-12-27] MEDS ORDERED: HEParin (CENTRAL IV FLUSH) 500 UNIT/5 ML SYR ONE (11:00)
[2022-12-27] MEDS ORDERED: 0.9% SODIUM CHLORIDE PF INJ 20 ML VIAL ONE (11:00)
[2022-12-27] MEDS ORDERED: LIDOCAINE 1% w/EPI 1:100,000 20 ML VIAL INJ ONE (11:02)
[2022-12-27] MEDS ORDERED: 0.9% SODIUM CHLORIDE PF INJ 20 ML VIAL IV ONE (11:02)
[2022-12-27] MEDS ORDERED: HEParin (CENTRAL IV FLUSH) 500 UNIT/5 ML SYR IV ONE (11:03)
[2022-12-27] MEDS ORDERED: ceFAZolin INJECTION 2,000 MG in NS (IVPB) 50 ML 50 ML IV ONE (11:15)
[2022-12-27] MEDS ORDERED: LACTATED RINGERS 1,000 ML 1,000 ML IV ONE (11:15)
[2022-12-27] MEDS ORDERED: fentaNYL INJECTION 100 MCG/2 ML VIAL ONE (12:39)
[2022-12-27] MEDS ORDERED: MIDAZOLAM INJ 2 MG/2 ML VIAL ONE (12:39)
--- NOTE | 2022-12-27 12:41 | Progress Note-Pre Operative ---
Pre-Operative Progress Note Date of Available H&P: Dec 23, 2022 Date H&P Reviewed: Dec 27, 2022 Time H&P Reviewed: 12:39 History & Physical: H&P Reviewed, Patient Examed, No changes noted Pre-Operative Diagnosis: Lung CA, Venous insufficiency KAVITHA VIVAR DO Dec 27, 2022 12:41
--- NOTE | 2022-12-27 13:15 | Progress Note-Post Operative ---
Post-Operative Progess Note Surgeon (s)/Machine Gun Mechanic (s) Surgeon KAVITHA VIVAR DO Machine Gun Mechanic: Arvind Ostapdionne, MSIII Pre-Operative Diagnosis Lung CA, Venous insufficiency Post-Operative Diagnosis same Procedure & Operative Findings Date of Procedure 12/27/22 Procedure Performed/Findings Baltazar-Cath Placement PROCEDURE: The patient was taken to the operating suite, was prepped and draped in the sterile fashion. A surgical pause was performed. Local anesthetic was infiltrated at the clavicle and along the tract to the left anterior chest, where more local was placed so the pocket could be created. Using an 18 gauge finder needle with negative inspiration the left subclavian vein was accessed on the first attempt and dark nonpulsatile blood was withdrawn. The wire was inserted and fluoroscopy assured proper placement. The needle was removed and the wire was then secured. A #11 blade scalpel was used to make an incision over the left chest and along guidewire. Cautery was used to dissect down to the pectoral fascia. A pocket was created with blunt dissection and a 3-0 Prolene stitch was placed. The dilator sheath was then advanced over the wire under fluoroscopy and the dilator and wire were removed. The Groshong catheter was inserted through the sheath (using the Seldinger technique)and the sheath was then removed. The Groshong wire was removed. The catheter was then tunneled to the left chest pocket. Fluoroscopy was used to cut to length and this was then attached to the port which was then placed within the pocket. It was sutured in place with the 3-0 prolene already placed. The port was then accessed without difficulty. It was then flushed with saline and then heparin. The subcutaneous tissues were then reapproximated using 3-0 Vicryl. Finally the skin was closed with 4-0 undyed monocryl, 3 interrupted sutures. The area was then washed and dried. Skin Affix was placed over incision and at the insertion point of the initial needle at subclavian. The patient tolerated the procedure well without complication and was taken to recovery room in stable condition. Anesthesia Type IV sedation by INHALATION THERAPY TEACHER Estimated Blood Loss Estimated blood loss (mL): scant Specimens/Packing Specimens Removed none KAVITHA VIVAR DO Dec 27, 2022 13:15
--- NOTE | 2022-12-27 13:17 | Discharge Inst-Surgical ---
Discharge Inst-Surgical Depart Medication/Instructions New, Converted or Re-Newed RX: Other (use home meds) Patient Instructions Follow up Appt: Make appointment for 1 week. [phone] Instructions: No lifting greater than 20 pounds. No strenuous activity. May shower in 24 hours, no tub bath or soaking. Use incentive spirometer at home as directed. No Smoking Skin/Wound Care: May remove bandages in am. You need to leave the Dermabond on incision it will fall off on it's own. Symptoms to Report: Appetite Changes, Extremity Discoloration, Numbness/Tingling, Swelling Increased, Bleeding Excessive, Eyesight Changes, Pain Increased, Urine Color Change, Constipation(Persistent), Fever over 101 degree F, Pain/Pressure in chest, Urinating Difficulty, Cough Up/Vomit Blood, Heart Beat Irreg/Pounding, Pain/Pressure in jaw, Cramps in feet or legs, Lightheadedness, Pain/Pressure in shoulder, Diarrhea(Persistent), Memory Changes Suddenly, Questions/Concerns, Weight gain consecutive days, Dizziness/Fainting, Nausea/Vomiting, Shortness of Breath, Weight gain over 2 pounds If questions or concerns contact your physician Or seek help at emergency department. Activity Activity as Tolerated: Yes Activity Instructions: Avoid Stress to Incision Driving Instructions: No Driving/Refer to Dr. Kumari Discharge Diet: No Restrictions Diet After 24 Hours: Clear Liquid if Nauseous If Any Problems/Questions/Issu: Contact Your Physician, Go to Emergency Room Skin/Wound Care Infection Signs and Symptoms: Increased Redness, Foul Odor of Wound, Increased Drainage, Skin Itchy or Has a Rash, Increased Swelling, Temperature Above 101 F Bathing Instructions: Shower Stitches/John/Dermabond Dis: KAVITHA Lei DO Dec 27, 2022 13:17
--- NOTE | 2022-12-27 13:24 | Anesthesia-General Post-Op ---
MAC Patient Condition Mental Status/LOC: Same as Preop Cardiovascular: Satisfactory Nausea/Vomiting: Absent Respiratory: Satisfactory Pain: Controlled Complications: Absent Post Op Complications Complications None Follow Up Care/Instructions Patient Instructions None needed. Anesthesiology Discharge Order Discharge Order Patient is doing well, no complaints, stable vital signs, no apparent adverse anesthesia problems. No complications reported per nursing. FERNANDEZ GIRARD CRNA Dec 27, 2022 13:24
--- NOTE | 2022-12-27 20:18 | Diagnostic Imaging Report ---
INDICATION: Fluoroscopy for Port-A-Cath placement FINDINGS: 2.9 seconds of fluoroscopy time utilized during central venous catheter placement. IMPRESSION: Fluoroscopy was utilized by surgery during catheter placement. Dictated by: Dictated on workstation # [id number]
== END 2022-12-27 15:00 | disposition home or self-care (01) ==
LOC: SDC 10:22
PROVIDERS: ATTEND Surgery
DX: C34.90 Malignant neoplasm of unspecified part of unspecified bronchus or lung (principal); I87.2 Venous insufficiency (chronic) (peripheral); E66.9 Obesity, unspecified; Z68.30 Body mass index [BMI] 30.0-30.9, adult; Z87.891 Personal history of nicotine dependence; Z79.01 Long term (current) use of anticoagulants
CPT/HCPCS: 36561; 76000; 82947; 87081; C1788

== ENCOUNTER → 2022-12-28 | Outpatient (CLI) | payer MEDICARE | LOC: CARDFS 11:33 | PROVIDERS: ATTEND Internal Medicine Cardiovascular Disease | DX: I11.9 Hypertensive heart disease without heart failure (principal); I25.10 Atherosclerotic heart disease of native coronary artery without angina pectoris; Z79.899 Other long term (current) drug therapy | CPT/HCPCS: 93306 ==

== ENCOUNTER → 2023-01-03 | Outpatient (CLI) | payer MEDICARE ==
[~2023-01-03] MED LIST changes: +CATHETER FLUSH 10 ML SYR IVP PRN
--- NOTE | 2023-01-03 13:30 | Diagnostic Imaging Report ---
Indication: Initial staging malignant neoplasm of the right upper lobe of the lung. Serum blood glucose level at the time of injection is 111 mg/dL. Patient was administered 12.3 mCi F-18 FDG intravenously in the left antecubital location and PET imaging was performed from the top of skull to mid thighs. Noncontrast CT was also performed for attenuation, correction and anatomic correlation. No prior PET/CT studies are available for comparison. There is symmetric activity throughout the brain. Soft tissues of the neck are unremarkable. Hypermetabolic mass in the lateral aspect of the right upper lobe demonstrates an SUV max of 17.2 and correlates with patient's known recently diagnosed malignancy. Hypermetabolic right paratracheal lymph node demonstrates an SUV max of 7.0. Hypermetabolic AP window node has SUV max of 7.1. There is also a mildly hypermetabolic subcarinal node with an SUV max of 4.5. Right hilar mildly hypermetabolic node has an SUV max of 4.2. The left hilum is unremarkable. There is a slightly irregular density in the posterior right lower lobe which shows very mild hypermetabolism with an SUV max of 3.4. This is indeterminate. Imaging through the abdomen and pelvis demonstrates physiologic activity throughout the gastrointestinal and genitourinary tract. There appears to be some hypermetabolic lymphadenopathy in the dolores hepatis with an SUV max of 8.9. No other hypermetabolic abdominal or pelvic lymphadenopathy is seen. IMPRESSION: 1. Hypermetabolic right upper lobe lung mass consistent with known primary lung malignancy. There is hypermetabolic lymph nodes in the mediastinum and right hilum consistent with metastatic disease. There is also hypermetabolic lymph node in the dolores hepatis, likely metastatic. There is indeterminate area of slightly irregular density in the posterior right lower lobe and continued follow-up would be recommended. Dictated by: Dictated on workstation # [id number]
== END ==
LOC: RAD 06:37
PROVIDERS: ATTEND Internal Medicine Hematology & Oncology
DX: C34.11 Malignant neoplasm of upper lobe, right bronchus or lung (principal)
CPT/HCPCS: 78815; 82947; A9552

== ENCOUNTER 2023-01-04 12:38 | Outpatient (RCR) | payer MEDICARE, OTHER ==
[2022-12-14 15:27] LABS: BASOPHILS # (AUTO) 0.1 10^3/uL (0.0-0.1); BASOPHILS % (AUTO) 1 % (0-10); EOSINOPHILS # (AUTO) 0.4 10^3/uL (0.0-0.3); EOSINOPHILS % (AUTO) 4 % (0-10); HEMATOCRIT 36 % (35-52); HEMOGLOBIN 11.3 g/dL (11.5-16.0); LYMPHOCYTES # (AUTO) 1.1 X 10^3 (1.0-4.0); LYMPHOCYTES % (AUTO) 12 % (12-44); MEAN CORPUSCULAR HEMOGLOBIN 26 pg (25-34); MEAN CORPUSCULAR HGB CONC 32 g/dL (32-36); MEAN CORPUSCULAR VOLUME 82 fL (80-99); MEAN PLATELET VOLUME 9.6 fL (9.0-12.2); MONOCYTES # (AUTO) 0.9 X 10^3 (0.0-1.0); MONOCYTES % (AUTO) 10 % (0-12); NEUTROPHILS # (AUTO) 7.1 X 10^3 (1.8-7.8); NEUTROPHILS % (AUTO) 73 % (42-75); PLATELET COUNT 407 10^3/uL (130-400); WHITE BLOOD COUNT 9.6 10^3/uL (4.3-11.0)
[2022-12-14 15:42] LABS: POTASSIUM 3.6 MMOL/L (3.6-5.0)
[2022-12-14 15:44] LABS: TOTAL PROTEIN 7.8 GM/DL (6.4-8.2)
[2022-12-14 15:46] LABS: BILIRUBIN,TOTAL 0.3 MG/DL (0.1-1.0)
[2022-12-14 15:48] LABS: CREATININE SERUM 0.88 MG/DL (0.60-1.30)
[2022-12-29 08:58] VITALS: BP 166/73
[2022-12-29 09:00] LABS: BASOPHILS # (AUTO) 0.1 10^3/uL (0.0-0.1); BASOPHILS % (AUTO) 1 % (0-10); EOSINOPHILS # (AUTO) 0.8 10^3/uL (0.0-0.3); EOSINOPHILS % (AUTO) 8 % (0-10); HEMATOCRIT 38 % (35-52); HEMOGLOBIN 11.5 g/dL (11.5-16.0); LYMPHOCYTES # (AUTO) 1.4 10^3/uL (1.0-4.0); LYMPHOCYTES % (AUTO) 14 % (12-44); MEAN CORPUSCULAR HEMOGLOBIN 25 pg (25-34); MEAN CORPUSCULAR HGB CONC 30 g/dL (32-36); MEAN CORPUSCULAR VOLUME 84 fL (80-99); MEAN PLATELET VOLUME 9.6 fL (9.0-12.2); MONOCYTES # (AUTO) 1.1 10^3/uL (0.0-1.0); MONOCYTES % (AUTO) 11 % (0-12); NEUTROPHILS # (AUTO) 6.4 10^3/uL (1.8-7.8); NEUTROPHILS % (AUTO) 66 % (42-75); PLATELET COUNT 351 10^3/uL (130-400); WHITE BLOOD COUNT 9.8 10^3/uL (4.3-11.0)
[2022-12-29 09:11] LABS: ALBUMIN 3.9 GM/DL (3.2-4.5); BILIRUBIN,TOTAL 0.3 MG/DL (0.1-1.0); CALCIUM 8.9 MG/DL (8.5-10.1); CREATININE SERUM 0.75 MG/DL (0.60-1.30); POTASSIUM 4.3 MMOL/L (3.6-5.0); TOTAL PROTEIN 7.3 GM/DL (6.4-8.2)
[2022-12-29] MEDS: NS IV 1000 ML (CANCER CTR) IV SCH (09:12)
[2022-12-29] MEDS: ONDANSETRON IV SCH (09:39)
[2022-12-29] MEDS: [UNRECOGNIZED DRUG - OTHER] IV SCH (09:39)
[2022-12-29] MEDS: DEXAMETHASONE SODIUM PHOSPHATE IV SCH (09:39)
[2022-12-29] MEDS: ETOPOSIDE IV SCH (10:44)
[2022-12-29] MEDS: NORMAL SALINE IV SCH (10:44)
[2022-12-30] MEDS: ONDANSETRON IV SCH (09:01)
[2022-12-30] MEDS: NS IV 1000 ML (CANCER CTR) IV SCH (09:01)
[2022-12-30] MEDS: DEXAMETHASONE SODIUM PHOSPHATE IV SCH (09:01)
[2022-12-30] MEDS: [UNRECOGNIZED DRUG - OTHER] IV SCH (09:01)
[2022-12-30 09:02] VITALS: BP 156/73
[2022-12-30] MEDS: ETOPOSIDE IV SCH (09:31)
[2022-12-30] MEDS: NORMAL SALINE IV SCH (09:31)
[2022-12-31] MEDS: [UNRECOGNIZED DRUG - OTHER] IV SCH (08:16)
[2022-12-31] MEDS: ONDANSETRON IV SCH (08:16)
[2022-12-31] MEDS: DEXAMETHASONE SODIUM PHOSPHATE IV SCH (08:16)
[2022-12-31] MEDS: NS IV 1000 ML (CANCER CTR) IV SCH (08:16)
[2022-12-31 08:30] VITALS: BP 145/77
[2022-12-31] MEDS: ETOPOSIDE IV SCH (08:38)
[2022-12-31] MEDS: NORMAL SALINE IV SCH (08:38)
[~2023-01-04] VITALS: Ht 180.3 cm; Wt 95.0 kg
[~2023-01-04 12:38] MED LIST changes: +CARBOPLATIN IV SCH; +D5W IV SCH; -DICL100G13 TP; +DICL100G60 TP; +FOSAPREPITANT (CANCER CENTER) 150 MG in NS (IVPB) CANCER CENTER ONLY 150 ML IV SCH; -GADOTERATE 0.5 MMOL/ML (CLARISCAN) 20 ML VIAL IV ONE; +HEParin (CENTRAL IV FLUSH) 500 UNIT/5 ML SYR IV PRN
== END 2023-01-06 | disposition home or self-care (01) ==
LOC: ONC 12:38
PROVIDERS: ATTEND Internal Medicine Hematology & Oncology
DX: Z51.11 Encounter for antineoplastic chemotherapy (principal); C34.90 Malignant neoplasm of unspecified part of unspecified bronchus or lung; J44.9 Chronic obstructive pulmonary disease, unspecified; E11.9 Type 2 diabetes mellitus without complications; I50.32 Chronic diastolic (congestive) heart failure; Z72.0 Tobacco use
CPT/HCPCS: 80053; 85025; G0463; 36591; 96360; 96361; 96367; 96375; 96413; 96417; 99204; 99214

== ENCOUNTER → 2023-01-04 | Outpatient (CLI) | payer MEDICARE ==
[~2023-01-04] MED LIST changes: -CATHETER FLUSH 10 ML SYR IVP PRN; +GADOTERATE 0.5 MMOL/ML (CLARISCAN) 20 ML VIAL IV ONE
--- NOTE | 2023-01-04 14:18 | Diagnostic Imaging Report ---
EXAMINATION: MR imaging brain with and without contrast. TECHNIQUE: Multiplanar, multisequence MR imaging of the brain was performed with and without contrast. HISTORY: SMALL CELL CARCINOMA OF LUNG COMPARISON: None available. FINDINGS: Mild diffuse cerebral volume loss with proportional enlargement of the ventricles and sulci. Moderate diffuse T2/FLAIR hyperintensities throughout the supratentorial white matter of both cerebral hemispheres. There are no extra-axial fluid collections. There are no areas of restricted diffusion or evidence of acute stroke. There are multiple enhancing lesions with surrounding vasogenic edema seen throughout the hemisphere and bilateral cerebellum. These include: 1. A 1.0 x 0.4 cm enhancing lesion within the superior medial left frontal lobe (series 8 image 22). 2. A 0.3 x 0.3 cm enhancing lesion within the superior left frontal lobe (series 8 image 21). 3. A 0.7 x 0.6 cm enhancing lesion within the anterior peripheral left frontal lobe (series 8 image 18). 4. A 1.4 x 1.2 cm enhancing lesion within the left temporal lobe (series 8 image 13). 5. A 0.8 x 0.6 cm enhancing lesion within the left parietal lobe (series 8 image 15). 6. Multiple enhancing lesions within the cerebellum bilaterally measuring up to 1.5 x 1.1 cm (series 8 image 6). Flow voids are normal for major intracranial arteries and dural venous sinuses. The visualized paranasal sinuses are normal. The mastoid air cells are clear. The orbits are normal. IMPRESSION: 1. Multiple enhancing lesions throughout the left hemisphere and bilateral cerebellum concerning for intracranial metastatic disease. 2. Background chronic microangiopathy and volume loss. Dictated by: Dictated on workstation # [id number]
== END ==
LOC: RAD 12:30
PROVIDERS: ATTEND Internal Medicine Hematology & Oncology
DX: C34.90 Malignant neoplasm of unspecified part of unspecified bronchus or lung (principal); G93.9 Disorder of brain, unspecified; I73.9 Peripheral vascular disease, unspecified
CPT/HCPCS: 70553

== ENCOUNTER 2023-02-18 11:51 | Outpatient (RCR) | payer MEDICARE ==
[2023-02-08 09:10] LABS: BASOPHILS # (AUTO) 0.1 10^3/uL (0.0-0.1); BASOPHILS % (AUTO) 1 % (0-10); EOSINOPHILS % (AUTO) 0 % (0-10); HEMATOCRIT 36 % (35-52); HEMOGLOBIN 11.1 g/dL (11.5-16.0); LYMPHOCYTES # (AUTO) 1.1 10^3/uL (1.0-4.0); LYMPHOCYTES % (AUTO) 5 % (12-44); MEAN CORPUSCULAR HEMOGLOBIN 26 pg (25-34); MEAN CORPUSCULAR HGB CONC 31 g/dL (32-36); MEAN CORPUSCULAR VOLUME 83 fL (80-99); MEAN PLATELET VOLUME 10.4 fL (9.0-12.2); MONOCYTES # (AUTO) 1.2 10^3/uL (0.0-1.0); MONOCYTES % (AUTO) 6 % (0-12); NEUTROPHILS # (AUTO) 16.9 10^3/uL (1.8-7.8); NEUTROPHILS % (AUTO) 82 % (42-75); PLATELET COUNT 233 10^3/uL (130-400); WHITE BLOOD COUNT 20.7 10^3/uL (4.3-11.0)
[2023-02-08 09:30] LABS: ALBUMIN 3.7 GM/DL (3.2-4.5); BILIRUBIN,TOTAL 0.4 MG/DL (0.1-1.0); CALCIUM 8.5 MG/DL (8.5-10.1); CREATININE SERUM 0.69 MG/DL (0.60-1.30); POTASSIUM 4.3 MMOL/L (3.6-5.0); TOTAL PROTEIN 6.4 GM/DL (6.4-8.2)
[2023-02-15 10:25] LABS: BASOPHILS % (AUTO) 0 % (0-10); EOSINOPHILS % (AUTO) 0 % (0-10); HEMATOCRIT 34 % (35-52); HEMOGLOBIN 10.6 g/dL (11.5-16.0); LYMPHOCYTES # (AUTO) 1.2 10^3/uL (1.0-4.0); LYMPHOCYTES % (AUTO) 8 % (12-44); MEAN CORPUSCULAR HEMOGLOBIN 26 pg (25-34); MEAN CORPUSCULAR HGB CONC 31 g/dL (32-36); MEAN CORPUSCULAR VOLUME 85 fL (80-99); MEAN PLATELET VOLUME 9.9 fL (9.0-12.2); MONOCYTES # (AUTO) 1.2 10^3/uL (0.0-1.0); MONOCYTES % (AUTO) 8 % (0-12); NEUTROPHILS # (AUTO) 13.1 10^3/uL (1.8-7.8); NEUTROPHILS % (AUTO) 82 % (42-75); PLATELET COUNT 365 10^3/uL (130-400); WHITE BLOOD COUNT 15.9 10^3/uL (4.3-11.0)
[2023-02-15 10:45] VITALS: BP 169/72
[2023-02-15 10:49] LABS: ALBUMIN 3.7 GM/DL (3.2-4.5); BILIRUBIN,TOTAL 0.4 MG/DL (0.1-1.0); CALCIUM 9.1 MG/DL (8.5-10.1); CREATININE SERUM 0.68 MG/DL (0.60-1.30); POTASSIUM 4.8 MMOL/L (3.6-5.0); TOTAL PROTEIN 6.1 GM/DL (6.4-8.2)
[2023-02-15] MEDS: ONDANSETRON IV SCH (11:09)
[2023-02-15] MEDS: [UNRECOGNIZED DRUG - OTHER] IV SCH (11:09)
[2023-02-15] MEDS: DEXAMETHASONE SODIUM PHOSPHATE IV SCH (11:09)
[2023-02-15] MEDS: FOSAPREPITANT (CANCER CENTER) 150 MG in NS (IVPB) CANCER CENTER ONLY 150 ML IV SCH ×2 (11:09→11:28)
[2023-02-15] MEDS: NS IV 1000 ML (CANCER CTR) IV SCH (11:09)
[2023-02-15] MEDS: ETOPOSIDE IV SCH (12:28)
[2023-02-15] MEDS: NORMAL SALINE IV SCH (12:28)
[2023-02-16 08:45] VITALS: BP 127/51
[2023-02-16] MEDS: DEXAMETHASONE SODIUM PHOSPHATE IV SCH (09:00)
[2023-02-16] MEDS: ONDANSETRON IV SCH (09:00)
[2023-02-16] MEDS: NS IV 1000 ML (CANCER CTR) IV SCH (09:00)
[2023-02-16] MEDS: [UNRECOGNIZED DRUG - OTHER] IV SCH (09:00)
[2023-02-16] MEDS: ETOPOSIDE IV SCH (09:19)
[2023-02-16] MEDS: NORMAL SALINE IV SCH (09:19)
[2023-02-17 08:30] VITALS: BP 140/60
[2023-02-17] MEDS: DEXAMETHASONE SODIUM PHOSPHATE IV SCH (08:47)
[2023-02-17] MEDS: [UNRECOGNIZED DRUG - OTHER] IV SCH (08:47)
[2023-02-17] MEDS: NS IV 1000 ML (CANCER CTR) IV SCH (08:47)
[2023-02-17] MEDS: ONDANSETRON IV SCH (08:47)
[2023-02-17] MEDS: ETOPOSIDE IV SCH (09:05)
[2023-02-17] MEDS: NORMAL SALINE IV SCH (09:05)
[~2023-02-18] VITALS: Ht 180.3 cm; Wt 97.0 kg
[~2023-02-18 11:51] MED LIST changes: +ACHD5005 PO; +AMLO-250 PO; +ATEZOLIZUMAB IV SCH; +ATOR80TA76 PO; +CARB1TAB32 PO; +DEXA4TAB PO; +DILT240C91 PO; -FOSAPREPITANT (CANCER CENTER) 150 MG in NS (IVPB) CANCER CENTER ONLY 150 ML IV SCH; +MTP25TSR PO; +NS IV SCH; +NYST1000 PO; +OXC5T PO; +PEGFILGRASTIM CBQV 6 MG/0.6 ML SQ SCH
[2023-03-07] MEDS ORDERED: AMLO-250 PO (10:58)
[2023-03-07] MEDS ORDERED: OXYC5TAB PO (10:58)
[2023-03-07] MEDS ORDERED: DIGO250T3 PO (10:58)
[2023-03-07] MEDS ORDERED: DEXA4TAB PO (10:58)
[2023-03-07] MEDS ORDERED: LISI20TA26 PO (10:58)
[2023-03-07] MEDS ORDERED: ALPR0.5T7 PO (10:58)
[2023-03-10] MEDS ORDERED: ALPR0.5T7 PO ×4 (10:50→11:11)
[2023-03-10] MEDS ORDERED: OXYC5TAB PO (11:11)
[2023-03-10] MEDS ORDERED: ACHD5005 PO (11:11)
== END 2023-03-08 | disposition home or self-care (01) ==
LOC: ONC 11:51
PROVIDERS: ATTEND Internal Medicine Hematology & Oncology
DX: Z51.11 Encounter for antineoplastic chemotherapy (principal); C34.90 Malignant neoplasm of unspecified part of unspecified bronchus or lung; E11.9 Type 2 diabetes mellitus without complications; E66.9 Obesity, unspecified; Z72.0 Tobacco use
CPT/HCPCS: 80053; 85025; G0463; 36415; 36591; 96367; 96372; 96375; 96413; 96417; 99214

== ENCOUNTER → 2023-02-21 | Outpatient (CLI) | payer BC, OTHER ==
[~2023-02-21] MED LIST changes: -ATEZOLIZUMAB IV SCH; -CARBOPLATIN IV SCH; -D5W IV SCH; -HEParin (CENTRAL IV FLUSH) 500 UNIT/5 ML SYR IV PRN; -NS IV SCH; -PEGFILGRASTIM CBQV 6 MG/0.6 ML SQ SCH
--- NOTE | 2023-02-22 10:41 | Diagnostic Imaging Report ---
Indication: Subsequent staging neoplasm of the bronchus or lung. Serum blood glucose level at the time of injection is 107 mg/dL. Patient was administered 9.2 mCi F-18 FDG intravenously in the left antecubital location and PET imaging was performed from the top of skull to mid thighs. Noncontrast CT was also performed for attenuation correction and anatomic correlation. Correlation is made with prior PET/CT study from 01/03/2023. There is symmetric activity throughout the brain. Soft tissues of the neck are unremarkable. Previously noted right upper lobe mass has decreased in size, now measuring 2.8 x 1.9 cm compared with 3.2 x 3.5 cm on prior. SUV max is approximately 13.5 compared with 17.2 on prior. Hypermetabolic lymph node in the AP window has an SUV max of 5.1 compare with 7.1 on prior. Previously noted hypermetabolic lymph nodes in the right paratracheal region as well as subcarinal and right hilar region are no longer visualized. Hypermetabolic mass in the baltazar hepatis is again noted with SUV max of 8.5, similar to prior exam. No other suspicious hypermetabolic foci within the abdomen or pelvis are identified. IMPRESSION: Overall improved PET/CT study when compared with examination from 01/03/2023. The right upper lobe mass has decreased in size and shows less FDG avidity when compared with prior. AP window lymph node also shows less FDG avidity. The previously noted right paratracheal, subcarinal and right hilar hypermetabolic foci are no longer visualized. Baltazar hepatis appears stable. No new abnormalities are detected. Dictated by: Dictated on workstation # [id number]
== END ==
LOC: RAD 09:47
PROVIDERS: ATTEND Internal Medicine Hematology & Oncology
DX: C34.90 Malignant neoplasm of unspecified part of unspecified bronchus or lung (principal)
CPT/HCPCS: 78815; 82947; A9552

== ENCOUNTER 2023-03-05 11:50 | Inpatient (IN) | payer MEDICARE, OTHER ==
[~2023-03-05] VITALS: Ht 180 cm; Wt 104.1 kg
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
[2023-03-05 12:08] LABS: BASOPHILS # (AUTO) 0.2 10^3/uL (0.0-0.1); BASOPHILS % (AUTO) 0 % (0-10); EOSINOPHILS % (AUTO) 0 % (0-10); HEMATOCRIT 34 % (35-52); HEMOGLOBIN 10.6 g/dL (11.5-16.0); LYMPHOCYTES # (AUTO) 1.9 10^3/uL (1.0-4.0); LYMPHOCYTES % (AUTO) 4 % (12-44); MEAN CORPUSCULAR HEMOGLOBIN 28 pg (25-34); MEAN CORPUSCULAR HGB CONC 31 g/dL (32-36); MEAN CORPUSCULAR VOLUME 89 fL (80-99); MEAN PLATELET VOLUME 9.8 fL (9.0-12.2); MONOCYTES # (AUTO) 1.8 10^3/uL (0.0-1.0); MONOCYTES % (AUTO) 4 % (0-12); NEUTROPHILS # (AUTO) 38.4 10^3/uL (1.8-7.8); NEUTROPHILS % (AUTO) 86 % (42-75); PLATELET COUNT 146 10^3/uL (130-400)
[2023-03-05 12:11] LABS: WHITE BLOOD COUNT 44.5 10^3/uL (4.3-11.0)
[2023-03-05] MEDS ORDERED: NS IV 1000 ML 1,000 ML IV STA (12:13)
[2023-03-05] MEDS ORDERED: CEFEPIME INJECTION 2,000 MG in NS (IVPB) 50 ML 50 ML IV ONE (12:15)
[2023-03-05 12:22] LABS: BILIRUBIN,TOTAL 0.6 MG/DL (0.1-1.0); CALCIUM 8.4 MG/DL (8.5-10.1); MAGNESIUM 1.6 MG/DL (1.6-2.4); POTASSIUM 3.2 MMOL/L (3.6-5.0); TOTAL PROTEIN 5.3 GM/DL (6.4-8.2)
[2023-03-05 12:25] LABS: ALBUMIN 3.2 GM/DL (3.2-4.5); CREATININE SERUM 1.04 MG/DL (0.60-1.30)
[2023-03-05 12:33] LABS: LYMPHOCYTES % (MANUAL) 5 %; MONOCYTES % (MANUAL) 7 %; NEUTROPHILS % (MANUAL) 88 %
[2023-03-05 12:41] LABS: BILIRUBIN,URINE NEGATIVE (NEGATIVE); CLARITY,URINE CLEAR; COLOR,URINE YELLOW; GLUCOSE, URINE (UA) 3+ (NEGATIVE); KETONES,URINE NEGATIVE (NEGATIVE); LEUKOCYTE ESTERASE ,URINE NEGATIVE (NEGATIVE); NITRITE,URINE NEGATIVE (NEGATIVE); PROTEIN,URINE NEGATIVE (NEGATIVE)
[2023-03-05 12:45] LABS: BACTERIA,URINE TRACE /HPF; WBC,URINE 0-2 /HPF
--- NOTE | 2023-03-05 12:52 | Diagnostic Imaging Report ---
EXAM: CHEST 1 VIEW AP/PA ONLY INDICATION: Cough. COMPARISON: 01/27/2023. CT chest of 02/07/2023. FINDINGS: Normal heart size and central pulmonary vascularity. Left subclavian tunneled port CVC tip in mid SVC. Increasing airspace consolidation in the left lung base. Stable nodular opacity in the right lung base. No pleural effusion or pneumothorax. The left lung apex is not included on the exam. IMPRESSION: 1. Increasing airspace consolidation in the left lung base, suspicious for pneumonitis versus progression of malignancy. 2. Persistent nodular opacity in the right lung base. Dictated by: Dictated on workstation # [id number]
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
[2023-03-05] MEDS ORDERED: ANTACID SUSPENSION 30 ML UDC PO PRN (15:00)
[2023-03-05] MEDS ORDERED: MELATONIN 3 MG TABLET PO PRN (15:00)
[2023-03-05] MEDS ORDERED: ACETAMINOPHEN 325 MG TABLET PO PRN (15:00)
[2023-03-05] MEDS ORDERED: diphenhydrAMINE INJ 50 MG/ML VIAL IVP PRN (15:00)
[2023-03-05] MEDS ORDERED: NS IV 500 ML 500 ML IV PRN (15:00)
[2023-03-05] MEDS ORDERED: ENOXAPARIN 40 MG/0.4 ML SYRINGE SC SCH (15:00)
[2023-03-05] MEDS ORDERED: NALOXONE 0.4 MG/ML 1 ML VIAL IV PRN (15:00)
[2023-03-05] MEDS ORDERED: ONDANSETRON 4 MG ORAL DISSOLVE TABLET PO PRN (15:00)
[2023-03-05] MEDS ORDERED: ONDANSETRON INJECTION 4 MG/2 ML (SDV) IV PRN (15:00)
[2023-03-05] MEDS ORDERED: diphenhydrAMINE 25 MG TABLET PO PRN (15:00)
[2023-03-05] MEDS ORDERED: BISACODYL 10 MG SUPPOSITORY PR PRN (15:00)
[2023-03-05] MEDS ORDERED: LACTULOSE SYRUP 10GM/15ML 30ML UDC PO PRN (15:00)
[2023-03-05] MEDS ORDERED: POTASSIUM CHLORIDE 20 MEQ TABLET PO ONE (15:15)
[2023-03-05] MEDS ORDERED: VANCOMYCIN INJECTION 2,000 MG in NS IV 500 ML 500 ML IV NR (15:45)
[2023-03-05] MEDS: inSUlin ASPART 1 UNIT/0.01 ML (PER UNIT) SC SCH ×2 (16:25→20:59)
[2023-03-05] MEDS: oxyCODONE IMMEDIATE RELEASE 5 MG TABLET PO PRN ×2 (16:29→20:09)
[2023-03-05] MEDS: MAGNESIUM 1 GM/100 ML IVPB 100 ML IV SCH ×2 (16:31→16:32)
[2023-03-05] MEDS ORDERED: methylPREDNISolone INJ 40 MG/ML VIAL IV ONE (17:00)
--- NOTE | 2023-03-05 18:13 | Consultation-Cardiology ---
HPI-Cardiology Cardiology Consultation: Date of Consultation 03/05/23 Date of Admission Attending Physician Cody Thomas MD Admitting Physician Admitting Physician: Callie Hargrove DO Attending Physician: Callie Hargrove DO Consulting Physician Alfonso LEYVA MD HPI: Time Seen by a Provider: 16:00 Chief Complaint: Shortness of breath This is a 67-year-old lady who has history of stage IV lung cancer, previous history of persistent atrial fibrillation, atrial fibrillation ablation in November 2019, type 2 diabetes. She presented with significant weakness, cough and fever and was found to have significant leukocytosis and admitted for pneumonia and sepsis. She is oxygen dependent COPD. No significant obstructive coronary artery disease on coronary angiography in 2019. She has history of chronic oral anticoagulation. Review of Systems-Cardiology Review of Systems Constitutional: fever, malaise Respiratory: cough, orthopnea, SOB with excertion Cardiovascular: no symptoms reported Gastrointestinal: diarrhea Genitourinary: no symptoms reported Musculoskeletal: no symptoms reported GXZ-Gljrbr-Xtmsab Hx Patient Social History Smoking Status: Former Smoker 2nd Hand Smoke Exposure: Yes Alcohol Use?: No Pt feels they are or have been: No Immunizations Up To Date Tetanus Booster (TDap): More than 5yrs Date of Pneumonia Vaccine: Nov 15, 2017 Date of Influenza Vaccine: Feb 11, 2020 Past Medical History PMH As described under Assessment. Allergies and Home Medications Allergies Coded Allergies: No Known Drug Allergies (Unverified , 03/06/20) Patient Home Medication List Home Medication List Reviewed: Yes Albuterol Sulfate (Ventolin Hfa) 1 Puff Puff, 2 PUFF PO Q6H PRN for SHORTNESS OF BREATH, (Reported) Entered as Reported by: NADEEN CHE on 09/10/19 1103 Alprazolam (Alprazolam) 0.5 Mg Tablet, 0.5 MG PO TID PRN for ANXIETY, (Reported) Entered as Reported by: NADEEN CHE on 09/10/19 1103 Amiodarone HCl (Amiodarone HCl) 200 Mg Tablet, 200 MG PO BID, (Reported) Entered as Reported by: NADEEN CHE on 11/16/19 1535 Amlodipine Besylate (Amlodipine Besylate) 5 Mg Tablet, 5 MG PO DAILY Prescribed by: DESTINEY WOLF on 02/02/23 1327 Aripiprazole (Aripiprazole) 10 Mg Tablet, 10 MG PO DAILY, (Reported) Entered as Reported by: SPARKLE STOVALL on 03/06/20 1032 Aspirin (Aspirin EC) 81 Mg Tablet.dr, 81 MG PO DAILY, (Reported) Entered as Reported by: NADEEN CHE on 09/10/19 1511 Atorvastatin Calcium (Atorvastatin Calcium) 80 Mg Tablet, 80 MG PO HS, (Reported) Entered as Reported by: NADEEN CHE on 01/28/23 1310 Carbidopa/Levodopa (Carbidopa-Levodopa 25-100 Tab) 25 Mg-100 Mg Tablet, 2 EA PO DAILY, (Reported) Entered as Reported by: NADEEN CHE on 01/28/23 1310 Carbidopa/Levodopa (Carbidopa-Levodopa 25-100 Tab) 25 Mg-100 Mg Tablet, 1 EACH PO HS, (Reported) Entered as Reported by: NADEEN CHE on 01/28/23 1310 Dapagliflozin Propanediol (Farxiga) 10 Mg Tablet, 10 MG PO DAILY, (Reported) Entered as Reported by: OBINNA WATKINS on 12/20/22 0936 Dexamethasone (Dexamethasone) 4 Mg Tablet, 2 MG PO DAILY Prescribed by: DESTINEY WOLF on 02/02/23 1327 Diclofenac Sodium (Diclofenac Sodium) 1 % Gel..gram., 2-4 GM TP QID, (Reported) Entered as Reported by: OBINNA WATKINS on 12/20/22 0941 Diltiazem HCl (Diltiazem 24Hr ER) 240 Mg Cap.er.24h, 240 MG PO DAILY, (Reported) Entered as Reported by: NADEEN CHE on 01/28/23 1310 Escitalopram Oxalate (Escitalopram Oxalate) 20 Mg Tablet, 20 MG PO DAILY, (Reported) Entered as Reported by: NADEEN CHE on 09/10/19 1103 Fluticasone/Umeclidin/Vilanter (Trelegy Ellipta 100-62.5-25) 100-62.5 Blst.w.dev, 1 EACH IH DAILY, (Reported) Entered as Reported by: LANI COPE on 12/24/22 1139 Gabapentin (Gabapentin) 100 Mg Capsule, 100 MG PO BID, (Reported) Entered as Reported by: OBINNA WATKINS on 12/20/22 0936 Hydrochlorothiazide (Hydrochlorothiazide) 12.5 Mg Tablet, 25 MG PO DAILY, (Reported) Entered as Reported by: SPARKLE STOVALL on 03/06/20 1032 Hydrocodone/Acetaminophen (Hydrocodone-Acetamin 5-325 mg) 5 Mg-325 Mg Tablet, 1- 2 EA PO Q6H PRN for PAIN-MODERATE (5-7), (Reported) Entered as Reported by: NADEEN CHE on 01/28/23 1310 Isosorbide Mononitrate (Isosorbide Mononitrate ER) 60 Mg Tab, 60 MG PO DAILY, (Reported) Entered as Reported by: NADEEN CHE on 09/10/19 1103 Levothyroxine Sodium (Levothyroxine Sodium) 100 Mcg Tablet, 100 MCG PO DAILY, (Reported) Entered as Reported by: OBINNA WATKINS on 12/20/22 0936 Lisinopril (Lisinopril) 20 Mg Tablet, 40 MG PO DAILY Prescribed by: DESTINEY WOLF on 02/02/23 1327 Metformin HCl (Metformin HCl) 500 Mg Tablet, 500 MG PO BID, (Reported) Entered as Reported by: NADEEN CHE on 09/10/19 1103 Metoprolol Succinate (Metoprolol Succinate) 25 Mg Tab.er.24h, 25 MG PO DAILY, ( Reported) Entered as Reported by: NADEEN CHE on 01/28/23 1321 Montelukast Sodium (Montelukast Sodium) 10 Mg Tablet, 10 MG PO DAILY, (Reported) Entered as Reported by: OBINNA WATKINS on 12/20/22 0936 Nystatin (Nystatin) 100,000 Unit/Ml Oral.susp, 5 ML PO QID PRN for THRUSH, (Reported) Entered as Reported by: NADEEN CHE on 01/28/23 1310 Oxycodone Hcl (Oxyir Tablet) 5 Mg Tab, 10 MG PO Q6H PRN for PAIN-SEE DOSE INSTRU CTIONS Prescribed by: CHI GARNER on 02/02/23 1445 Pantoprazole Sodium (Pantoprazole Sodium) 40 Mg Tablet.dr, 40 MG PO DAILY, (Reported) Entered as Reported by: OBINNA WATKINS on 12/20/22 0936 Rivaroxaban (Xarelto) 20 Mg Tablet, 20 MG PO DAILY, (Reported) Entered as Reported by: NADEEN CHE on 01/28/23 1310 Tramadol HCl (Tramadol HCl) 50 Mg Tablet, 50 MG PO Q6H PRN for PAIN-MODERATE (5- 7), (Reported) Entered as Reported by: NADEEN CHE on 09/10/19 1103 Exam Vital Signs Vital Signs Date Time Temp Pulse Resp B/P (MAP) Pulse Ox O2 Delivery O2 Flow Rate FiO2 03/05/23 17:30 37.1 03/05/23 17:00 64 28 96 Nasal Cannula 3.00 Physical Exam Constitutional: No respiratory distress however patient is weak Chest examination: Decreased breath sounds bilaterally CVS: Regular rate and rhythm. No significant murmur rub or gallop. No significant lower extremity swelling. Labs Laboratory Tests Test 03/05/23 12:00 03/05/23 12:05 03/05/23 12:39 03/05/23 16:04 Range/Units White Blood Count 44.5 *H 4.3-11.0 10^3/uL Red Blood Count 3.83 3.80-5.11 10^6/uL Hemoglobin 10.6 L 11.5-16.0 g/dL Hematocrit 34 L 35-52 % Mean Corpuscular Volume 89 80-99 fL Mean Corpuscular Hemoglobin 28 25-34 pg Mean Corpuscular Hemoglobin Concent 31 L 32-36 g/dL Red Cell Distribution Width 25.3 H 10.0-14.5 % Platelet Count 146 130-400 10^3/uL Mean Platelet Volume 9.8 9.0-12.2 fL Immature Granulocyte % (Auto) 5 % Neutrophils (%) (Auto) 86 H 42-75 % Lymphocytes (%) (Auto) 4 L 12-44 % Monocytes (%) (Auto) 4 0-12 % Eosinophils (%) (Auto) 0 0-10 % Basophils (%) (Auto) 0 0-10 % Neutrophils # (Auto) 38.4 H 1.8-7.8 10^3/uL Lymphocytes # (Auto) 1.9 1.0-4.0 10^3/uL Monocytes # (Auto) 1.8 H 0.0-1.0 10^3/uL Eosinophils # (Auto) 0.0 0.0-0.3 10^3/uL Basophils # (Auto) 0.2 H 0.0-0.1 10^3/uL Immature Granulocyte # (Auto) 2.3 H 0.0-0.1 10^3/uL Neutrophils % (Manual) 88 % Lymphocytes % (Manual) 5 % Monocytes % (Manual) 7 % Sodium Level 134 L 135-145 MMOL/L Potassium Level 3.2 L 3.6-5.0 MMOL/L Chloride Level 100 98-107 MMOL/L Carbon Dioxide Level 23 21-32 MMOL/L Anion Gap 11 5-14 MMOL/L Blood Urea Nitrogen 18 7-18 MG/DL Creatinine 1.04 0.60-1.30 MG/DL Estimat Glomerular Filtration Rate 59 BUN/Creatinine Ratio 17 Glucose Level 134 H 70-105 MG/DL Lactic Acid Level 1.83 0.50-2.00 MMOL/L Calcium Level 8.4 L 8.5-10.1 MG/DL Corrected Calcium 9.0 8.5-10.1 MG/DL Magnesium Level 1.6 1.6-2.4 MG/DL Total Bilirubin 0.6 0.1-1.0 MG/DL Aspartate Amino Transf (AST/SGOT) 73 H 5-34 U/L Alanine Aminotransferase (ALT/SGPT) 122 H 0-55 U/L Alkaline Phosphatase 126 40-136 U/L Total Protein 5.3 L 6.4-8.2 GM/DL Albumin 3.2 3.2-4.5 GM/DL Influenza Type A (RT-PCR) Not Detected Not Detecte Influenza Type B (RT-PCR) Not Detected Not Detecte SARS-CoV-2 RNA (RT-PCR) Not Detected Not Detecte Urine Color YELLOW Urine Clarity CLEAR Urine pH 6.0 5-9 Urine Specific [place] 1.015 L 1.016-1.022 Urine Protein NEGATIVE NEGATIVE Urine Glucose (UA) 3+ H NEGATIVE Urine Ketones NEGATIVE NEGATIVE Urine Nitrite NEGATIVE NEGATIVE Urine Bilirubin NEGATIVE NEGATIVE Urine Urobilinogen 0.2 < = 1.0 MG/DL Urine Leukocyte Esterase NEGATIVE NEGATIVE Urine RBC (Auto) NEGATIVE NEGATIVE Urine RBC NONE /HPF Urine WBC 0-2 /HPF Urine Crystals NONE /LPF Urine Bacteria TRACE /HPF Urine Casts NONE /LPF Urine Mucus NEGATIVE /LPF Urine Culture Indicated NO Glucometer 113 H 70-110 MG/DL Test 03/05/23 17:10 Range/Units Thyroid Stimulating Hormone (TSH) 1.00 0.35-4.94 UIU/ML ECG Impression ECG Initial ECG Rhythm: Normal Sinus A/P-Cardiology Assessment/Admission Diagnosis Stage IV lung cancer Severe pneumonia Leukocytosis Persistent atrial fibrillation Chronic oral anticoagulation History of amiodarone use Oxygen dependent COPD Plan Stage IV lung cancer, Severe pneumonia, Leukocytosis -on broad-spectrum antibiotics. Persistent atrial fibrillation. Sinus rhythm on telemetry. Will request EKG. Patient was on amiodarone at home. Will discontinue. If okay with the primary team, patient should likely continue oral anticoagulation. Patient has previous history of successful atrial fibrillation ablation done by myself in November 2019, with patient still in sinus rhythm more than 3 years after the procedure. Chronic oral anticoagulation; if no medical contraindication, patient may be a candidate for continuing Xarelto. History of amiodarone use; discontinue amiodarone. Oxygen dependent COPD No significant coronary artery disease on coronary angiography done by myself in November 2019. Guarded prognosis Alfonso LEYVA MD Mar 05, 2023 18:13
[2023-03-05] MEDS: CEFEPIME INJECTION 2,000 MG in NS (IVPB) 50 ML 50 ML IV SCH (20:09)
[2023-03-05] MEDS: MICONAZOLE 2% POWDER 90 GM TOP SCH (20:58)
[2023-03-05] MEDS: DOCUSATE SODIUM 100 MG CAPSULE PO SCH (20:59)
[2023-03-05] MEDS: ACETAMINOPHEN 500 MG TABLET PO SCH (20:59)
[2023-03-06] MEDS: CEFEPIME INJECTION 2,000 MG in NS (IVPB) 50 ML 50 ML IV SCH ×3 (04:11→20:52)
[2023-03-06] MEDS: oxyCODONE IMMEDIATE RELEASE 5 MG TABLET PO PRN ×4 (04:17→21:03)
[2023-03-06 04:21] LABS: HEMATOCRIT 30 % (35-52); HEMOGLOBIN 9.4 g/dL (11.5-16.0); MEAN CORPUSCULAR HEMOGLOBIN 27 pg (25-34); MEAN CORPUSCULAR HGB CONC 32 g/dL (32-36); MEAN CORPUSCULAR VOLUME 86 fL (80-99); MEAN PLATELET VOLUME 9.7 fL (9.0-12.2); PLATELET COUNT 157 10^3/uL (130-400)
[2023-03-06 04:34] LABS: WHITE BLOOD COUNT 41.7 10^3/uL (4.3-11.0)
[2023-03-06 04:39] LABS: ALBUMIN 2.6 GM/DL (3.2-4.5); BILIRUBIN,TOTAL 0.7 MG/DL (0.1-1.0); CALCIUM 8.3 MG/DL (8.5-10.1); CREATININE SERUM 0.71 MG/DL (0.60-1.30); POTASSIUM 3.9 MMOL/L (3.6-5.0); TOTAL PROTEIN 5.1 GM/DL (6.4-8.2)
[2023-03-06] MEDS: MAGNESIUM 1 GM/100 ML IVPB 100 ML IV SCH (05:10)
[2023-03-06] MEDS: POTASSIUM CL 10MEQ/50ML IVPB 50 ML IV SCH (05:29)
[2023-03-06] MEDS: POTASSIUM CHLORIDE 20 MEQ TABLET PO SCH (05:29)
[2023-03-06] MEDS: inSUlin ASPART 1 UNIT/0.01 ML (PER UNIT) SC SCH ×4 (05:31→20:53)
[2023-03-06] MEDS: ACETAMINOPHEN 500 MG TABLET PO SCH ×3 (05:46→21:04)
[2023-03-06] MEDS: VANCOMYCIN 1250 MG/NS 250 ML PREMIX IV SCH ×2 (05:46→17:06)
[2023-03-06] MEDS ORDERED: POTASSIUM CHLORIDE 20 MEQ TABLET PO ONE (06:00)
[2023-03-06] MEDS: MICONAZOLE 2% POWDER 90 GM TOP SCH ×2 (08:05→20:56)
[2023-03-06] MEDS: DOCUSATE SODIUM 100 MG CAPSULE PO SCH ×2 (08:05→20:56)
--- NOTE | 2023-03-06 10:06 | Progress Note - Hospitalist ---
Subjective HPI/CC On Admission Date Seen by Provider: Mar 06, 2023 Time Seen by Provider: 11:00 CC: Weakness Patient is a 67 yo F with a PMHx of stage 4 lung cancer, atrial fibrillation, type 2 DM who presents with fever, cough and increased weakness that started yesterday morning. She also notes that she has been having diarrhea, 5-6 episodes since last Tuesday. Patient notes she is on oxyegn 3L NC at night but had been requiring use during the due to recent illness. Last round of chemotherapy was around 18-21 days ago. Patient also has been soaking her feet in bleach water resulting in bilateral lower extremity chemical howe. She states she did this once for 5 minutes in an attempt to treat toenail fungus. Patient notes that she takes a steroid daily. Has a port in place in the left side of her chest. Subjective/Events-last exam Doing better Monitor closely Move to 4th floor Feels better Maintain on O2 Review of Systems General: Fatigue, Malaise Focused Exam Lactate Level 03/05/23 12:00: Lactic Acid Level 1.83 Objective Exam Vital Signs Vital Signs Date Time Temp Pulse Resp B/P (MAP) Pulse Ox O2 Delivery O2 Flow Rate FiO2 03/06/23 15:59 36.7 71 20 153/73 (99) 97 Nasal Cannula 3.00 Capillary Refill : General Appearance: No Apparent Distress, WD/WN, Chronically ill Respiratory: Lungs Clear, Normal Breath Sounds Results/Procedures Lab Laboratory Tests 03/06/23 04:10 Patient resulted labs reviewed. Imaging: Reviewed Imaging Films Assessment/Plan Assessment and Plan Assess & Plan/Chief Complaint Assessment: Acute hypoxic resp failure PNA Sepsis Lung cancer Stage IV Plan: IV abx Move to [address] [place] [address] PRAKASH Mullins DO Mar 06, 2023 10:06
[2023-03-06] MEDS: RT-ALBUTEROL HFA 8.5 GM INHALER IH SCH ×4 (10:41→21:10)
[2023-03-06] MEDS: TIOTROPIUM INH 4 GM (SPIRIVA Respimat) IH SCH (10:41)
[2023-03-06] MEDS: FLUTICASONE/VILANTEROL 100/25 MCG (7 DOSES) IH SCH (10:42)
[2023-03-06 13:27] VITALS: BP 159/84
[2023-03-06 15:59] VITALS: BP 153/73
[2023-03-06] MEDS: RIVAROXABAN 20 MG TABLET PO SCH (17:06)
[2023-03-06 20:05] VITALS: BP 171/76
[2023-03-06] MEDS ORDERED: amLODIPine 5 MG TABLET PO ONE (21:00)
[2023-03-06 23:57] VITALS: BP 159/74
[2023-03-07] MEDS: RT-ALBUTEROL HFA 8.5 GM INHALER IH SCH ×6 (01:48→22:04)
[2023-03-07 04:04] VITALS: BP 170/78
[2023-03-07] MEDS: CEFEPIME INJECTION 2,000 MG in NS (IVPB) 50 ML 50 ML IV SCH ×3 (04:04→20:01)
[2023-03-07] MEDS: oxyCODONE IMMEDIATE RELEASE 5 MG TABLET PO PRN ×5 (04:16→22:32)
[2023-03-07] MEDS: hydrALAZINE 25 MG TABLET PO PRN ×2 (04:16→23:31)
[2023-03-07 04:26] LABS: HEMATOCRIT 26 % (35-52); HEMOGLOBIN 8.3 g/dL (11.5-16.0); MEAN CORPUSCULAR HEMOGLOBIN 27 pg (25-34); MEAN CORPUSCULAR HGB CONC 32 g/dL (32-36); MEAN CORPUSCULAR VOLUME 86 fL (80-99); MEAN PLATELET VOLUME 10.5 fL (9.0-12.2); PLATELET COUNT 164 10^3/uL (130-400)
[2023-03-07 04:42] LABS: ALBUMIN 2.8 GM/DL (3.2-4.5); BILIRUBIN,TOTAL 0.3 MG/DL (0.1-1.0); CALCIUM 8.3 MG/DL (8.5-10.1); CREATININE SERUM 0.63 MG/DL (0.60-1.30); POTASSIUM 4.1 MMOL/L (3.6-5.0); TOTAL PROTEIN 4.9 GM/DL (6.4-8.2)
[2023-03-07] MEDS: POTASSIUM CHLORIDE 20 MEQ TABLET PO SCH (04:49)
[2023-03-07] MEDS: inSUlin ASPART 1 UNIT/0.01 ML (PER UNIT) SC SCH ×4 (04:49→19:54)
[2023-03-07 05:07] LABS: WHITE BLOOD COUNT 31.4 10^3/uL (4.3-11.0)
[2023-03-07] MEDS: POTASSIUM CL 10MEQ/50ML IVPB 50 ML IV SCH (05:09)
[2023-03-07] MEDS: MAGNESIUM 1 GM/100 ML IVPB 100 ML IV SCH ×2 (05:17→06:30)
[2023-03-07] MEDS: ACETAMINOPHEN 500 MG TABLET PO SCH ×3 (05:24→22:31)
[2023-03-07] MEDS: VANCOMYCIN 1250 MG/NS 250 ML PREMIX IV SCH ×2 (05:24→17:17)
[2023-03-07] MEDS: FLUTICASONE/VILANTEROL 100/25 MCG (7 DOSES) IH SCH (06:30)
[2023-03-07] MEDS: TIOTROPIUM INH 4 GM (SPIRIVA Respimat) IH SCH (06:35)
[2023-03-07 07:13] VITALS: BP 174/83
[2023-03-07] MEDS: DOCUSATE SODIUM 100 MG CAPSULE PO SCH ×2 (08:27→20:01)
[2023-03-07] MEDS: MICONAZOLE 2% POWDER 90 GM TOP SCH ×2 (08:28→20:01)
[2023-03-07] MEDS ORDERED: amLODIPine 5 MG TABLET PO SCH (09:00)
[2023-03-07] MEDS ORDERED: AMIODARONE 200 MG TABLET PO SCH (09:00)
--- NOTE | 2023-03-07 09:49 | Cardiology Progress Note ---
Subjective Date Seen by Provider: Mar 07, 2023 Time Seen by Provider: 09:46 Subjective/Events-last exam Patient was seen at bedside, laying down comfortably, complaining of fatigue and weakness, loss of energy Review of Systems General: No Chills, No Night Sweats; Fatigue, Malaise; No Appetite, No Other HEENT: No Head Aches, No Visual Changes, No Eye Pain, No Ear Pain, No Dysphasia, No Sinus Congestion, No Post Nasal Drip, No Sore Throat, No Other Pulmonary: Dyspnea; No Cough, No Pleuritic Chest Pain, No Other Cardiovascular: Edema; No: Chest Pain, Palpitations, Orthopnea, Paroxysmal Noc. Dyspnea, Lt Headedness, Other Focused Exam Lactate Level 03/05/23 12:00: Lactic Acid Level 1.83 Objective-Cardiology Exam Last Set of Vital Signs Vital Signs 03/07/23 03/07/23 07:13 09:39 Temp 36.3 Pulse 70 Resp 16 B/P (MAP) 174/83 (113) Pulse Ox 96 O2 Delivery Nasal Cannula O2 Flow Rate 3.00 I&O Intake and Output 03/07/23 00:00 Intake Total 2172 ml Output Total 1650 ml Balance 522 ml Intake Oral 1822 ml IV Total 350 ml Output Urine Total 1650 ml # Bowel Movements 1 General: Alert, Oriented X3, Cooperative HEENT: Atraumatic, PERRLA Neck: Supple, No JVD, No Thyromegaly Lungs: Normal Air Movement, Other (Bilateral rhonchi) Heart: Regular Rate, Normal S1, Normal S2, No Murmurs Abdomen: Normal Bowel Sounds, Soft, No Tenderness, No Hepatosplenomegaly, No Masses Extremities: No Clubbing, No Cyanosis, No Edema, Normal Pulses, No Tenderness/Swelling Skin: No Rashes, No Breakdown, No Significant Lesion Neuro: Normal Speech, Normal Tone, Sensation Intact Psych/Mental Status: Mental Status NL, Mood NL Results Lab Laboratory Tests 03/07/23 04:08 A/P-Cardiology Admission Diagnosis Pneumonia Shortness of breath Lung cancer Paroxysmal atrial fibrillation Assessment/Plan Pneumonia, leukocytosis Managed by primary care physician Stage IV lung cancer, Managed by primary care physician Paroxysmal atrial fibrillation, currently in sinus rhythm Patient had ablation done with Dr. Rabago in November 2019. Amiodarone was discontinued, continue to monitor Chronic oral anticoagulation, maintained on Xarelto Oxygen dependent COPD Cardiac catheterization carried out in November 2019 showing nonobstructive disease BMI 32 SHAJI WAN MD Mar 07, 2023 09:49
[2023-03-07] MEDS ORDERED: DEXA4TAB PO (10:58)
[2023-03-07] MEDS ORDERED: AMLO-250 PO (10:58)
[2023-03-07] MEDS ORDERED: DIGO250T3 PO (10:58)
[2023-03-07] MEDS ORDERED: LISI20TA26 PO (10:58)
[2023-03-07] MEDS ORDERED: OXYC5TAB PO (10:58)
[2023-03-07] MEDS ORDERED: ALPR0.5T7 PO (10:58)
[2023-03-07 11:20] VITALS: BP 161/82
--- NOTE | 2023-03-07 11:36 | Progress Note ---
HANNAH CARTER 03/07/23 1136: Subjective Subjective/Events-last exam CC: Acute hypoxic Respiratory failure HPI: Ms. Hollins is doing alright today. She feels she is breathing slightly better this morning. She has been coughing up some blood. Her biggest complaint is the severe fatigue, and whole body aches she is experiencing. She also reports some nausea and a headache. She denies any dizziness. She would like to be DNR and talk to palliative care about hospice benefits. Focused Exam Lactate Level 03/05/23 12:00: Lactic Acid Level 1.83 Objective Exam Last Set of Vital Signs Vital Signs Date Time Temp Pulse Resp B/P (MAP) Pulse Ox O2 Delivery O2 Flow Rate FiO2 03/07/23 11:20 36.4 69 16 161/82 (108) 97 Nasal Cannula 4.00 Capillary Refill : I&O Intake and Output 03/07/23 00:00 Intake Total 2172 ml Output Total 1650 ml Balance 522 ml Intake Oral 1822 ml IV Total 350 ml Output Urine Total 1650 ml # Bowel Movements 1 General: Alert, Oriented X3, Cooperative, Mild Distress HEENT: Atraumatic Neck: Supple Lungs: Clear to Auscultation Heart: Regular Rate Abdomen: Normal Bowel Sounds Extremities: No Clubbing, No Edema (1+ pitting edema bilateral mid leg) Skin: No Rashes (rash on dorsum of bilateral feet) Neuro: Normal Speech Psych/Mental Status: Mental Status NL Results Lab Laboratory Tests 03/06/23 16:01: Glucometer 136H 03/06/23 20:07: Glucometer 156H 03/07/23 04:08: White Blood Count 31.4*H, Red Blood Count 3.04L, Hemoglobin 8.3L, Hematocrit 26L , Mean Corpuscular Volume 86, Mean Corpuscular Hemoglobin 27, Mean Corpuscular Hemoglobin Concent 32, Red Cell Distribution Width 25.6H, Platelet Count 164, Mean Platelet Volume 10.5, Sodium Level 137, Potassium Level 4.1, Chloride Level 106, Carbon Dioxide Level 23, Anion Gap 8, Blood Urea Nitrogen 17, Creatinine 0.63, Estimat Glomerular Filtration Rate 98, BUN/Creatinine Ratio 27, Glucose Level 103, Calcium Level 8.3L, Corrected Calcium 9.3, Magnesium Level 1.8, Total Bilirubin 0.3, Aspartate Amino Transf (AST/SGOT) 229H, Alanine Aminotransferase (ALT/SGPT) 588#H, Alkaline Phosphatase 101, Total Protein 4.9L, Albumin 2.8L 03/07/23 10:55: Glucometer 167H Microbiology 03/05/23 Gram Stain - Final, Resulted 03/05/23 Sputum Culture - Preliminary, Resulted Usual upper respiratory parish 03/05/23 Blood Culture - Preliminary, Resulted Assessment/Plan Assessment/Plan Assess & Plan/Chief Complaint Assessment: Ms. Hollins is a 67 y/o female with pneumonia, acute hypoxic respi ratory failure and PMH of stage 4 lung Cx Plan: Pneumonia -continue vancomycin and cefepime Acute Hypoxic Resp Failure -continue meds -Nasal canula prn Stage 4 Lung Cx -oncology consulted -palliative consulted HTN -continue hydralazine -add amlodipine CALLIE RIOS DO 03/08/23 0445: Subjective Date Seen by a Provider: Mar 07, 2023 Time Seen by a Provider: 10:00 Subjective/Events-last exam Patient doing a little better Labs reviewed DNR Wants palliative care consult Objective Exam General: Alert, Oriented X3, Cooperative, No Acute Distress Psych/Mental Status: Mental Status NL, Mood NL Assessment/Plan Assessment/Plan Assess & Plan/Chief Complaint Supportive care DNR Palliative care consult Supervisory-Addendum Brief Verification & Attestation Participated in pt care: history, MDM, physical Personally performed: exam, history, MDM, supervision of care Care discussed with: Medical Student Procedures: n/a Results interpretation: Verified all documentation Verification and Attestation of Medical Student E/M Service A medical student performed and documented this service in my presence. I reviewed and verified all information documented by the medical student and made modifications to such information, when appropriate. I personally performed the physical exam and medical decision making. Callie Rios Mar 08, 2023,04:44 HANNAH CARTER Mar 07, 2023 11:36 CALLIE RIOS DO Mar 08, 2023 04:45
--- NOTE | 2023-03-07 11:50 | Physical Therapy Evaluation ---
PT Evaluation-General Medical Diagnosis Admission Date Mar 05, 2023 at 14:40 Medical Diagnosis: pneumonia/sepsis Onset Date: Mar 05, 2023 Therapy Diagnosis Therapy Diagnosis: generalized weakness/debility Precautions Precautions/Isolations: Standard Precautions Referral Physician: Beena Medical History Pertinent Medical History: Atrial Fib, COPD, Heart Failure, Parkinson's Additional Medical History Stage IV lung cancer Reviewed History: Yes Social History Home: Single Level Current Living Status: Spouse Prior Prior Level of Function SCALE: Activities may be completed with or without assistive devices. 9-Ybrzjfsvpn-uavpzxu completes the activity by him/herself with no assistance from a helper. 5-Set-up or Clean-up Assistance-helper sets up or cleans up; patient completes activity. [place] assists only prior to or following the activity. 4-Supervision or Touching Assistance-helper provides verbal cues and/or touching/steadying and/or contact guard assistance as patient completes activity. Assistance may be provided throughout the activity or intermittently. 3-Partial/Moderate Assistance-helper does LESS THAN HALF the effort. [place] lifts, holds or supports trunk or limbs, but provides less than half the effort. 2-Substantial/Maximal Assistance-helper does MORE THAN HALF the effort. [place] lifts or holds trunk or limbs and provides more than half the effort. 9-Vbkjlmryu-hzobgx does ALL the effort. Patient does none of the effort to complete the activity. Or, the assistance of 2 or more helpers is required for the patient to complete the activity. If activity was not attempted, code reason: 7-Patient Refused. 9-Not Applicable-not attempted and the patient did not perform the activity before the current illness, exacerbation or injury. 10-Not Attempted due to Environmental Limitations-(lack of equipment, weather restraints, etc.). 88-Not Attempted due to Medical Conditions or Safety Concerns. Bed Mobility: 4 Transfers (B,C,W/C): 4 Gait: 4 Indoor Mobility (Ambulation): Needed Some Help Prior Devices Use: Walker spouse assist PT Evaluation-Current Subjective Patient agrees to therapy. Objective Patient Orientation: Normal For Age Attachments: Cruz Catheter ROM/Strength ROM Lower Extremities bilateral LE WFL Strength Lower Extremities 3/5 grossly bilateral LE all planes Integumentary/Posture Bladder Incontinence: Cruz Cath Posture WFL Neuromuscular (Tone, Coordination, Reflexes) Parkinson's Sensory Vision: Wears Glasses Hearing: Functional Transfers Lying to Sitting/Side of Bed(Q: 4 Sit to Stand (QC): 3 Chair/Wcp-dk-Wjcce Xfer(QC): 3 Gait Mode of Locomotion: Walk Anticipated Mode of Locomotion: Walk Walk 10 feet (QC): 3 Walk 50 ft with 2 Turns(QC): 3 Gait Assistive Device: FWW Comments/Gait Description slow, steady gait sequence Balance Sitting Static: Normal Sitting Dynamic: Normal Standing Static: Fair Standing Dynamic: Fair Assessment/Needs Patient will benefit from skilled PT to address functional strength and mobility to improve current LOF to safely return to home with spouse at maximum LOF. Rehab Potential: Poor PT Admission Discharge Rn Goals Admission Discharge Rn Goals PT Detention Goals Time Frame: Mar 19, 2023 Roll Left & Right (QC): 4 Sit to Lying (QC): 4 Lying-Sitting on Side/Bed(QC): 4 Sit to Stand (QC): 4 Chair/Ruq-uu-Oymej Xfer(QC): 4 Toilet Transfer (QC): 4 Walk 10 feet (QC): 4 Walk 50ft with 2 Turns (QC): 4 Walk 150 ft (QC): 4 PT Plan Problem List Problem List: Activity Tolerance, Functional Strength, Safety, Balance, Gait, Transfer, Bed Mobility Treatment/Plan Treatment Plan: Continue Plan of Care Treatment Plan: Bed Mobility, Education, Functional Activity Ruiz, Functional Strength, Gait, Safety, Therapeutic Exercise, Transfers Treatment Duration: Mar 19, 2023 Frequency: 5 times per week Estimated Hrs Per Day: .25 hour per day Patient and/or Family Agrees t: Yes Time Time In: 1030 Time Out: 1043 DATE: Mar 07, 2023 Total Billed Treatment Time: 13 Total Billed Treatment 1 visit [facility] 13 min RAINA ALEX PT Mar 07, 2023 11:50
--- NOTE | 2023-03-07 11:52 | Occupational Therapy Eval ---
OT Evaluation-General/PLF Medical Diagnosis Admission Date Mar 05, 2023 at 14:40 Medical Diagnosis: Acute hypoxic resp failure Onset Date: Mar 05, 2023 Therapy Diagnosis Therapy Diagnosis: weakness Precautions Precautions/Isolations: Standard Precautions Weight Bear Status Weight Bearing Restriction: Full Weight Bearing Referral Referral Reason: Self Care, Evaluation/Treatment Medical History Pertinent Medical History: Atrial Fib, COPD, Heart Failure, Parkinson's Additional Medical History 67 yo F with a PMHx of stage 4 lung cancer, atrial fibrillation, type 2 DM who presents with fever, cough and increased weakness that started yesterday morning. She also notes that she has been having diarrhea, 5-6 episodes since last Tuesday. Patient notes she is on oxyegn 3L NC at night but had been requiring use during the due to recent illness. Last round of chemotherapy was around 18-21 days ago. Patient also has been soaking her feet in bleach water resulting in bilateral lower extremity chemical howe. She states she did this once for 5 minutes in an attempt to treat toenail fungus. Patient notes that she takes a steroid daily. Has a port in place in the left side of her chest. Current History Acute hypoxic resp failure PNA Sepsis Lung cancer Stage IV Social History Home: Single Level Current Living Status: Spouse ADL-Prior Level of Function SCALE: Activities may be completed with or without assistive devices. 3-Fghdzkulss-xsyvljk completes the activity by him/herself with no assistance from a helper. 5-Set-up or Clean-up Assistance-helper sets up or cleans up; patient completes activity. [place] assists only prior to or following the activity. 4-Supervision or Touching Assistance-helper provides verbal cues and/or touching/steadying and/or contact guard assistance as patient completes activity. Assistance may be provided throughout the activity or intermittently. 3-Partial/Moderate Assistance-helper does LESS THAN HALF the effort. [place] lifts, holds or supports trunk or limbs, but provides less than half the effort. 2-Substantial/Maximal Assistance-helper does MORE THAN HALF the effort. [place] lifts or holds trunk or limbs and provides more than half the effort. 7-Gsribgwwa-dpimbr does ALL the effort. Patient does none of the effort to complete the activity. Or, the assistance of 2 or more helpers is required for the patient to complete the activity. If activity was not attempted, code reason: 7-Patient Refused. 9-Not Applicable-not attempted and the patient did not perform the activity before the current illness, exacerbation or injury. 10-Not Attempted due to Environmental Limitations-(lack of equipment, weather restraints, etc.). 88-Not Attempted due to Medical Conditions or Safety Concerns. Self Care: Needed Some Help Functional Cognition: Independent Drive Self: No OT Current Status Subjective Agreeable to participate in therapy Mental Status/Objective Patient Orientation: Person, Place, Time, Situation Attachments: Cruz Catheter Current Upper Extremity ROM BUE ROM WFLS Upper Extremity Coordination INTACT Upper Extremity Strength GENERALIZED WEAKNESS +3/5 grossly, tires easily ADL-Treatment Eating (QC): 5 Oral Hygiene (QC): 5 (tray table bedside) Shower/Bathe Self (QC): 7 Upper Body Dressing (QC): 4 Lower Body Dressing (QC): 4 On/Off Footwear (QC): 3 Toileting Hygiene (QC): 4 Education OT Patient Education: Energy conservation, Exercise program, Modified ADL techniques, Progress toward Goal/Update tx plan, Purpose of tx/functional activities, Reviewed precautions, Rehab process, Safety issues, Transfer techniques Teaching Recipient: Patient Teaching Methods: Demonstration, Discussion Response to Teaching: Reinforcement Needed OT Skilled Nursing Goals [place] Goals Eating (QC): 6 Oral Hygiene (QC): 6 Toileting Hygiene (QC): 6 Shower/Bathe Self (QC): 6 Upper Body Dressing (QC): 6 Lower Body Dressing (QC): 6 On/Off Footwear (QC): 6 1=Demonstrate adherence to instructed precautions during ADL tasks. 2=Patient will verbalize/demonstrate understanding of assistive remberto kevin/modifications for ADL. 3=Patient will improve strength/tolerance for activity to enable patient to perform ADL's. OT Education/Plan Problem List/Assessment Assessment: Decreased Activ Tolerance, Decreased UE Strength, Impaired Self- Care Skills Discharge Recommendations Plan/Recommendations: Continue POC Therapy Discharge Recommendati: Post Acute OT Treatment Plan/Plan of Care Treatment,Training & Education: Yes Patient would benefit from OT for education, treatment and training to promote independence in ADL's, mobility, safety and/or upper extremity function for ADL's. Plan of Care: ADL Retraining, Functional Mobility, Group Exercise/Act as Ind, UE Funct Exercise/Act Treatment Duration: Mar 11, 2023 Frequency: 3 times per week (3-5 times per week) Estimated Hrs Per Day: .25 hour per day Agreement: Yes Rehab Potential: Guarded Time Start Time: 10:26 Stop Time: 10:41 DATE: Mar 07, 2023 Total Time Billed (hr/min): 15 Billed Treatment Time EVM 15 min KRYSTEN MORALES OT Mar 07, 2023 11:52
[2023-03-07 15:46] VITALS: BP 164/68
[2023-03-07] MEDS: RIVAROXABAN 20 MG TABLET PO SCH (17:16)
[2023-03-07 19:47] VITALS: BP 165/80
[2023-03-07] MEDS ORDERED: ALPRAZolam 0.5 MG TABLET PO PRN (20:30)
[2023-03-07] MEDS ORDERED: oxyCODONE IMMEDIATE RELEASE 5 MG TABLET PO PRN (20:30)
[2023-03-07] MEDS ORDERED: NYSTATIN ORAL SUSP 5 ML UDC PO PRN (20:30)
[2023-03-07] MEDS ORDERED: metFORMIN 500 MG TABLET PO SCH (21:00)
[2023-03-07] MEDS: AMIODARONE 200 MG TABLET PO SCH (22:31)
[2023-03-07] MEDS: CARBIDOPA/LEVODOPA 25/100 TABLET PO SCH (22:31)
[2023-03-07] MEDS: ALPRAZolam 0.5 MG TABLET PO SCH (22:31)
[2023-03-07 23:19] VITALS: BP 175/79
[2023-03-08] MEDS: RT-ALBUTEROL HFA 8.5 GM INHALER IH SCH ×6 (02:43→22:09)
[2023-03-08] MEDS: oxyCODONE IMMEDIATE RELEASE 5 MG TABLET PO PRN ×4 (02:54→20:19)
[2023-03-08 03:31] VITALS: BP 157/89
[2023-03-08] MEDS: CEFEPIME INJECTION 2,000 MG in NS (IVPB) 50 ML 50 ML IV SCH ×3 (03:35→20:20)
[2023-03-08 04:17] LABS: HEMATOCRIT 26 % (35-52); HEMOGLOBIN 8.4 g/dL (11.5-16.0); MEAN CORPUSCULAR HEMOGLOBIN 27 pg (25-34); MEAN CORPUSCULAR HGB CONC 32 g/dL (32-36); MEAN CORPUSCULAR VOLUME 85 fL (80-99); MEAN PLATELET VOLUME 9.9 fL (9.0-12.2); PLATELET COUNT 170 10^3/uL (130-400); WHITE BLOOD COUNT 21.4 10^3/uL (4.3-11.0)
[2023-03-08 04:37] LABS: ALBUMIN 2.9 GM/DL (3.2-4.5); BILIRUBIN,TOTAL 0.5 MG/DL (0.1-1.0); CALCIUM 8.6 MG/DL (8.5-10.1); CREATININE SERUM 0.57 MG/DL (0.60-1.30); TOTAL PROTEIN 5.2 GM/DL (6.4-8.2)
[2023-03-08] MEDS: POTASSIUM CHLORIDE 20 MEQ TABLET PO SCH (04:50)
[2023-03-08] MEDS: POTASSIUM CL 10MEQ/50ML IVPB 50 ML IV SCH (04:50)
[2023-03-08] MEDS: inSUlin ASPART 1 UNIT/0.01 ML (PER UNIT) SC SCH ×4 (04:51→19:44)
[2023-03-08] MEDS: MAGNESIUM 1 GM/100 ML IVPB 100 ML IV SCH ×4 (05:05→11:40)
[2023-03-08] MEDS: VANCOMYCIN 1250 MG/NS 250 ML PREMIX IV SCH ×2 (05:10→18:36)
[2023-03-08] MEDS: ACETAMINOPHEN 500 MG TABLET PO SCH ×3 (05:28→20:20)
[2023-03-08] MEDS: LEVOTHYROXINE 100 MCG TABLET PO SCH (06:08)
[2023-03-08 07:11] VITALS: BP 194/88
[2023-03-08] MEDS: FLUTICASONE/VILANTEROL 100/25 MCG (7 DOSES) IH SCH (07:29)
[2023-03-08] MEDS: TIOTROPIUM INH 4 GM (SPIRIVA Respimat) IH SCH (07:30)
[2023-03-08] MEDS: AMIODARONE 200 MG TABLET PO SCH ×2 (08:22→20:19)
[2023-03-08] MEDS: CARBIDOPA/LEVODOPA 25/100 TABLET PO SCH ×3 (08:23→20:19)
[2023-03-08] MEDS: ISOSORBIDE MONONITRATE 60 MG TABLET PO SCH (08:23)
[2023-03-08] MEDS: RIVAROXABAN 20 MG TABLET PO SCH (08:23)
[2023-03-08] MEDS: hydrALAZINE 25 MG TABLET PO PRN (08:23)
[2023-03-08] MEDS: DOCUSATE SODIUM 100 MG CAPSULE PO SCH ×2 (08:23→20:19)
[2023-03-08] MEDS: PANTOPRAZOLE 40 MG TABLET PO SCH (08:23)
[2023-03-08] MEDS: ARIPiprazole 10 MG TABLET PO SCH (08:24)
[2023-03-08] MEDS: dilTIAZem ER 240 MG CAPSULE PO SCH (08:24)
[2023-03-08] MEDS: ASPIRIN enteric coated 81MG TABLET PO SCH (08:24)
[2023-03-08] MEDS: CITALOPRAM 20 MG TABLET PO SCH (08:25)
[2023-03-08] MEDS: DIGOXIN 0.25 MG TABLET PO SCH (08:25)
[2023-03-08] MEDS: dexAMETHasone 4 MG TABLET PO SCH (08:26)
[2023-03-08] MEDS: EMPAGLIFLOZIN 10 MG TABLET PO SCH (08:26)
[2023-03-08] MEDS: HYDROcodone/ACETAMINOPHEN 5 MG/325 MG TABLET PO PRN ×2 (08:28→14:07)
[2023-03-08] MEDS: MICONAZOLE 2% POWDER 90 GM TOP SCH ×2 (08:29→20:20)
[2023-03-08] MEDS: metFORMIN 500 MG TABLET PO SCH ×2 (08:30→18:36)
[2023-03-08] MEDS ORDERED: amLODIPine 5 MG TABLET PO SCH (09:00)
[2023-03-08] MEDS ORDERED: NON-FORMULARY MEDICATION 1 EA EA (Fluticasone/Umeclidin/Vilanter (Trelegy Ellipta 100-62.5 IH SCH (09:00)
--- NOTE | 2023-03-08 10:18 | Progress Note - Hospitalist ---
HANNAH CARTER 03/08/23 1018: Subjective HPI/CC On Admission CC: Weakness HPI: Ms. Hollins is doing slightly better today. She reports less SOB than yest yola, denies any headache. She is still very fatigued and weak, with 8/10 generalized pain/aches. She is still coughing up blood, but thinks it is less than yesterday. She has a davis catheter in place, but had a bowel movement this morning. She denies any abdominal pain, or dizziness. Focused Exam Lactate Level Objective Exam Vital Signs Vital Signs Date Time Temp Pulse Resp B/P (MAP) Pulse Ox O2 Delivery O2 Flow Rate FiO2 03/08/23 11:22 35.8 73 18 154/81 (105) 97 Nasal Cannula 3.00 Capillary Refill : General Appearance: Chronically ill HEENT: PERRL/EOMI Neck: Full Range of Motion Respiratory: Chest Non Tender, Lungs Clear, No Accessory Muscle Use Cardiovascular: Regular Rate, Rhythm; No No Edema Gastrointestinal: Normal Bowel Sounds Extremity: No No Pedal Edema Results/Procedures Lab Laboratory Tests 03/08/23 04:10 Patient resulted labs reviewed. Imaging: Reviewed Imaging Films Assessment/Plan Assessment and Plan Assess & Plan/Chief Complaint Assessment: Ms. Hollins is a 67 y/o female w/ PMH stage 4 lung cancer presenting with weakness 2/2 pneumonia Plan: Pneumonia -continue vancomycin and cefepime Acute Hypoxic Resp Failure -continue tiotropium, fluticasone/vilanterol, and albuterol -Nasal canula prn Stage 4 Lung Cx -oncology consulted -palliative consulted HTN -continue hydralazine -increase amlodipine CALLIE RIOS DO 03/09/23 0450: Subjective HPI/CC On Admission Date Seen by Provider: Mar 08, 2023 Time Seen by Provider: 10:00 Subjective/Events-last exam Much improved Still very weak Needs NH? PT OT ordered Review of Systems General: Fatigue, Malaise Pulmonary: Dyspnea Objective Exam General Appearance: Chronically ill Respiratory: No Accessory Muscle Use, No Respiratory Distress, Decreased Breath Sounds Cardiovascular: Regular Rate, Rhythm Neurologic/Psychiatric: Alert, Oriented x3 Assessment/Plan Assessment and Plan Assess & Plan/Chief Complaint May need NH? Supervisory-Addendum Brief Verification & Attestation Participated in pt care: history, MDM, physical Personally performed: exam, history, MDM, supervision of care Care discussed with: Medical Student Procedures: n/a Results interpretation: Verified all documentation Verification and Attestation of Medical Student E/M Service A medical student performed and documented this service in my presence. I reviewed and verified all information documented by the medical student and made modifications to such information, when appropriate. I personally performed the physical exam and medical decision making. Callie Rios, Mar 09, 2023,04:49 HANNAH CARTER Mar 08, 2023 10:18 CALLIE RIOS DO Mar 09, 2023 04:50
[2023-03-08 11:22] VITALS: BP 154/81
--- NOTE | 2023-03-08 12:08 | Occupational Ther Daily Note ---
OT Current Status-Daily Note Subjective AGREEABLE TO THERAPY, RECLINED IN BED WATCHING TV Pain Numeric Pain Scale: 4 Mental Status/Objective Patient Orientation: Person, Place, Time, Situation Attachments: Cruz Catheter, IV ADL-Treatment DONNS SOCK IN FIGURE FOUR POSITION ON MEYSY1CQP. TRANSITIONS OT EOB SITTING W/ CGA. 5 REPS SIT/STAND W/ PROPER HAND PLACEMENT FROM SURFACE FOR MM MEMORY. SIDE STEPS TO RECLINER AND ACTIVATES LEVER INDEPENDENTLY Therapy Code Descriptions/Definitions Functional [place] Measure: 0=Not Assessed/NA 4=Minimal Assistance 1=Total Assistance 5=Supervision or Setup 2=Maximal Assistance 6=Modified [place] 3=Moderate Assistance 7=Complete IndependenceSCALE: Activities may be completed with or without assistive devices. 4-Zjxqamdxpv-onczdsa completes the activity by him/herself with no assistance from a helper. 5-Set-up or Clean-up Assistance-helper sets up or cleans up; patient completes activity. [place] assists only prior to or following the activity. 4-Supervision or Touching Assistance-helper provides verbal cues and/or touching/steadying and/or contact guard assistance as patient completes activity. Assistance may be provided throughout the activity or intermittently. 3-Partial/Moderate Assistance-helper does LESS THAN HALF the effort. [place] lifts, holds or supports trunk or limbs, but provides less than half the effort. 2-Substantial/Maximal Assistance-helper does MORE THAN HALF the effort. [place] lifts or holds trunk or limbs and provides more than half the effort. 8-Vxftltrns-yegacw does ALL the effort. Patient does none of the effort to complete the activity. Or, the assistance of 2 or more helpers is required for the patient to complete the activity. If activity was not attempted, code reason: 7-Patient Refused. 9-Not Applicable-not attempted and the patient did not perform the activity before the current illness, exacerbation or injury. 10-Not Attempted due to Environmental Limitations-(lack of equipment, weather restraints, etc.). 88-Not Attempted due to Medical Conditions or Safety Concerns. Eating (QC): 6 Oral Hygiene (QC): 5 (BED TRAY TABLE SET UP) Shower/Bathe Self (QC): 7 Upper Body Dressing (QC): 4 Lower Body Dressing (QC): 4 On/Off Footwear: 5 Toileting Hygiene (QC): 4 Toilet Transfer (QC): 4 Education OT Patient Education: Correct positioning, Exercise program, Modified ADL techniques, Progress toward Goal/Update tx plan, Purpose of tx/functional activities, Reviewed precautions, Rehab process, Safety issues, Transfer techniques, Use of adapted equipment Teaching Recipient: Patient Teaching Methods: Demonstration, Discussion Response to Teaching: Verbalize Understanding, Reinforcement Needed OT Superintendent [employer] Goals Half-Way Goals Eating (QC): 6 Oral Hygiene (QC): 6 Toileting Hygiene (QC): 6 Shower/Bathe Self (QC): 6 Upper Body Dressing (QC): 6 Lower Body Dressing (QC): 6 On/Off Footwear (QC): 6 1=Demonstrate adherence to instructed precautions during ADL tasks. 2=Patient will verbalize/demonstrate understanding of assistive devices/modifications for ADL. 3=Patient will improve strength/tolerance for activity to enable patient to perform ADL's. OT Education/Plan Problem List/Assessment Assessment: Decreased Activ Tolerance, Decreased Safety Aware, Decreased UE Strength, Impaired Coordination, Impaired Self-Care Skills Discharge Recommendations Plan/Recommendations: Continue POC Treatment Plan/Plan of Care Treatment,Training & Education: Yes Patient would benefit from OT for education, treatment and training to promote independence in ADL's, mobility, safety and/or upper extremity function for ADL's. Plan of Care: ADL Retraining, Functional Mobility, Group Exercise/Act as Ind, UE Funct Exercise/Act Treatment Duration: Mar 11, 2023 Frequency: 3 times per week (3-5 times per week) Estimated Hrs Per Day: .25 hour per day Agreement: Yes Rehab Potential: Guarded Time Start Time: 10:04 Stop Time: 10:18 DATE: Mar 08, 2023 Total Time Billed (hr/min): 14 Billed Treatment Time ADL 14 MIN KRYSTEN MORALES OT Mar 08, 2023 12:08
[2023-03-08] MEDS: ALPRAZolam 0.5 MG TABLET PO SCH (14:07)
--- NOTE | 2023-03-08 14:35 | Physical Therapy Daily Note ---
PT Daily Note-Current Subjective Pt found supine in bed upon entry. Agreed to PT. Reports that she had a pain pill recently so she is not having much pain. States that she has only ambulated to the bathroom and back the last couple of days. Pain Section J - Health Conditions 1. Rarely or not at all 2. Occasionally 3. Frequently 4. Almost constantly 8. Unable to answer Pain Effect on Sleep: 1 Pain Interference with Therapy: 1 Pain Interference w/Day-to-Day: 1 Mental Status Patient Orientation: Person, Place Attachments: Oxygen, Cruz Catheter 3L Transfers SCALE: Activities may be completed with or without assistive devices. 4-Xvtlxomjbc-rlmgctn completes the activity by him/herself with no assistance from a helper. 5-Set-up or Clean-up Assistance-helper sets up or cleans up; patient completes activity. [place] assists only prior to or following the activity. 4-Supervision or Touching Assistance-helper provides verbal cues and/or touching/steadying and/or contact guard assistance as patient completes activity. Assistance may be provided throughout the activity or intermittently. 3-Partial/Moderate Assistance-helper does LESS THAN HALF the effort. [place] lifts, holds or supports trunk or limbs, but provides less than half the effort. 2-Substantial/Maximal Assistance-helper does MORE THAN HALF the effort. [place] lifts or holds trunk or limbs and provides more than half the effort. 7-Sxocydpvn-hzqqic does ALL the effort. Patient does none of the effort to complete the activity. Or, the assistance of 2 or more helpers is required for the patient to complete the activity. If activity was not attempted, code reason: 7-Patient Refused. 9-Not Applicable-not attempted and the patient did not perform the activity before the current illness, exacerbation or injury. 10-Not Attempted due to Environmental Limitations-(lack of equipment, weather restraints, etc.). 88-Not Attempted due to Medical Conditions or Safety Concerns. Sit to Lying (QC): 4 Lying to Sitting/Side of Bed(Q: 4 Sit to Stand (QC): 4 Gait Training Does the Patient Walk?: Yes Distance: 30 Walk 10 feet (QC): 4 Gait Persons Needed: 1 Gait Assistive Device: FWW Assessment Current Status: Good Progress Pt performs all completed bed mobility slowly and required SBA for safety due to strength deficits. Completes sit to stand transfer /c CGA for safety due to strength deficits but does not require VCs for proper sequencing. She ambulates up to 30 feet before requesting to be seated due to reported shortness of breath and fatigue. Pt displays shortened step lengths, forward trunk posture, and shaky BUEs during ambulation. Required CGA for safety during ambulation due to balance deficits. Pt left supine in bed /c call light in place, all needs met, and staff present post-treatment. Continue to progress pt per POC. PT Roving Hand Goals Intermediate Goals PT Roving Hand Goals Time Frame: Mar 19, 2023 Roll Left & Right (QC): 4 Sit to Lying (QC): 4 Lying-Sitting on Side/Bed(QC): 4 Sit to Stand (QC): 4 Chair/Vje-ve-Mltbh Xfer(QC): 4 Toilet Transfer (QC): 4 Walk 10 feet (QC): 4 Walk 50ft with 2 Turns (QC): 4 Walk 150 ft (QC): 4 PT Plan Treatment/Plan Treatment Plan: Continue Plan of Care Treatment Plan: Bed Mobility, Education, Functional Activity Ruiz, Functional Strength, Gait, Safety, Therapeutic Exercise, Transfers Treatment Duration: Mar 19, 2023 Frequency: 5 times per week Estimated Hrs Per Day: .25 hour per day Patient and/or Family Agrees t: Yes Time Time In: 141 Time Out: 142 DATE: Mar 08, 2023 Total Billed Treatment Time: 17 Total Billed Treatment 1 visit GT x 1 MILES DOS SANTOS FULL ROLL INSPECTOR Mar 08, 2023 14:35
[2023-03-08 15:53] VITALS: BP 176/79
[2023-03-08 19:34] VITALS: BP 158/76
[2023-03-09] VITALS (7 sets, daily range): BP systolic 148–195; BP diastolic 66–84
[2023-03-09] MEDS: hydrALAZINE 25 MG TABLET PO PRN (00:51)
[2023-03-09] MEDS: oxyCODONE IMMEDIATE RELEASE 5 MG TABLET PO PRN ×2 (00:51→20:14)
[2023-03-09] MEDS: RT-ALBUTEROL HFA 8.5 GM INHALER IH SCH ×5 (02:49→19:07)
[2023-03-09] MEDS: CEFEPIME INJECTION 2,000 MG in NS (IVPB) 50 ML 50 ML IV SCH ×3 (04:08→20:13)
[2023-03-09 04:52] LABS: HEMATOCRIT 26 % (35-52); HEMOGLOBIN 8.3 g/dL (11.5-16.0); MEAN CORPUSCULAR HEMOGLOBIN 27 pg (25-34); MEAN CORPUSCULAR HGB CONC 32 g/dL (32-36); MEAN CORPUSCULAR VOLUME 84 fL (80-99); MEAN PLATELET VOLUME 10.6 fL (9.0-12.2); PLATELET COUNT 215 10^3/uL (130-400); WHITE BLOOD COUNT 20.8 10^3/uL (4.3-11.0)
[2023-03-09 05:14] LABS: BILIRUBIN,TOTAL 0.4 MG/DL (0.1-1.0); CALCIUM 8.8 MG/DL (8.5-10.1); CREATININE SERUM 0.6 MG/DL (0.60-1.30); MAGNESIUM 1.8 MG/DL (1.6-2.4); POTASSIUM 4.2 MMOL/L (3.6-5.0); TOTAL PROTEIN 5.1 GM/DL (6.4-8.2)
[2023-03-09] MEDS: inSUlin ASPART 1 UNIT/0.01 ML (PER UNIT) SC SCH ×4 (05:23→21:11)
[2023-03-09] MEDS: POTASSIUM CL 10MEQ/50ML IVPB 50 ML IV SCH (05:23)
[2023-03-09] MEDS: POTASSIUM CHLORIDE 20 MEQ TABLET PO SCH (05:23)
[2023-03-09] MEDS: MAGNESIUM 1 GM/100 ML IVPB 100 ML IV SCH ×3 (05:23→06:20)
[2023-03-09] MEDS: HYDROcodone/ACETAMINOPHEN 5 MG/325 MG TABLET PO PRN ×3 (06:19→18:36)
[2023-03-09] MEDS: LEVOTHYROXINE 100 MCG TABLET PO SCH (06:19)
[2023-03-09] MEDS: ACETAMINOPHEN 500 MG TABLET PO SCH ×3 (06:20→21:11)
[2023-03-09] MEDS: FLUTICASONE/VILANTEROL 100/25 MCG (7 DOSES) IH SCH (06:51)
[2023-03-09] MEDS: TIOTROPIUM INH 4 GM (SPIRIVA Respimat) IH SCH (06:51)
[2023-03-09] MEDS: dilTIAZem ER 240 MG CAPSULE PO SCH (08:29)
[2023-03-09] MEDS: dexAMETHasone 4 MG TABLET PO SCH (08:29)
[2023-03-09] MEDS: RIVAROXABAN 20 MG TABLET PO SCH (08:29)
[2023-03-09] MEDS: DIGOXIN 0.25 MG TABLET PO SCH (08:29)
[2023-03-09] MEDS: DOCUSATE SODIUM 100 MG CAPSULE PO SCH ×2 (08:29→20:14)
[2023-03-09] MEDS: ASPIRIN enteric coated 81MG TABLET PO SCH (08:29)
[2023-03-09] MEDS: CARBIDOPA/LEVODOPA 25/100 TABLET PO SCH ×3 (08:29→20:14)
[2023-03-09] MEDS: ARIPiprazole 10 MG TABLET PO SCH (08:29)
[2023-03-09] MEDS: PANTOPRAZOLE 40 MG TABLET PO SCH (08:29)
[2023-03-09] MEDS: EMPAGLIFLOZIN 10 MG TABLET PO SCH (08:29)
[2023-03-09] MEDS: amLODIPine 5 MG TABLET PO SCH (08:30)
[2023-03-09] MEDS: cloNIDine 0.1 MG TABLET PO SCH ×2 (08:30→20:13)
[2023-03-09] MEDS: ISOSORBIDE MONONITRATE 60 MG TABLET PO SCH (08:30)
[2023-03-09] MEDS: CITALOPRAM 20 MG TABLET PO SCH (08:30)
[2023-03-09] MEDS: metFORMIN 500 MG TABLET PO SCH ×2 (08:30→18:36)
[2023-03-09] MEDS: MICONAZOLE 2% POWDER 90 GM TOP SCH ×2 (08:31→20:15)
--- NOTE | 2023-03-09 10:22 | Cardiology Progress Note ---
Subjective Date Seen by Provider: Mar 09, 2023 Time Seen by Provider: 10:20 Subjective/Events-last exam Patient was seen at bedside, feeling better today. Noted to be hypertensive Objective-Cardiology Exam Last Set of Vital Signs Vital Signs 03/09/23 08:20 Temp 35.6 Pulse 69 Resp 16 B/P (MAP) 195/84 (121) Pulse Ox 96 O2 Delivery Room Air I&O Intake and Output 03/09/23 00:00 Intake Total 2610 ml Output Total 6575 ml Balance -3965 ml Intake Oral 2360 ml IV Total 250 ml Output Urine Total 6575 ml General: Alert, Oriented X3, Cooperative, No Acute Distress HEENT: Atraumatic Neck: Supple Lungs: Clear to Auscultation Heart: Regular Rate, Normal S1, Normal S2 Abdomen: Normal Bowel Sounds Extremities: No Clubbing, No Edema (1+ pitting edema bilateral mid leg) Skin: No Rashes (rash on dorsum of bilateral feet) Neuro: Normal Speech Psych/Mental Status: Mental Status NL, Mood NL Results Lab Laboratory Tests 03/09/23 04:40 A/P-Cardiology Admission Diagnosis Pneumonia Shortness of breath Lung cancer Paroxysmal atrial fibrillation Assessment/Plan Pneumonia, leukocytosis Managed by primary care physician Stage IV lung cancer, Managed by primary care physician Paroxysmal atrial fibrillation, currently in sinus rhythm Patient had ablation done with Dr. Rabago in November 2019. Amiodarone was discontinued, continue to monitor Hypertension, poor control. Maintained on Cardizem CD 240 mg daily, amlodipine 10 mg daily, isosorbide 60 mg daily, lisinopril 40 mg daily and hydralazine as needed. I will add clonidine 0.1 mg twice daily and evaluate tolerance and response Chronic oral anticoagulation, maintained on Xarelto Oxygen dependent COPD Cardiac catheterization carried out in November 2019 showing nonobstructive disease BMI 32 SHAJI WAN MD Mar 09, 2023 10:22
--- NOTE | 2023-03-09 11:52 | Progress Note - Hospitalist ---
HANNAH CARTER 03/09/23 1152: Subjective HPI/CC On Admission Date Seen by Provider: Mar 09, 2023 Time Seen by Provider: 08:05 CC: Weakness HPI: Ms. Hollins is slightly better today. She reports less SOB than yesterday, denies any headache. She has been able to get up and walk to the hallway and back. She is coughing less often and the sputum is no longer blood tinged. She has a davis catheter in place, but had a bowel movement this morning. Plans to remove davis tomorrow. She reports slight abdominal pain, but no dizziness. Objective Exam Vital Signs Vital Signs Date Time Temp Pulse Resp B/P (MAP) Pulse Ox O2 Delivery O2 Flow Rate FiO2 03/09/23 11:33 35.8 65 16 168/71 (103) 93 Room Air 03/09/23 10:56 0.00 Capillary Refill : General Appearance: No Apparent Distress HEENT: PERRL/EOMI Neck: Full Range of Motion Respiratory: Chest Non Tender, Normal Breath Sounds, No Accessory Muscle Use Cardiovascular: Regular Rate, Rhythm Gastrointestinal: Normal Bowel Sounds; No Non Tender (TTP LUQ and RUQ) Extremity: Non Tender; No No Pedal Edema Neurologic/Psychiatric: Alert, Oriented x3, Normal Mood/Affect Results/Procedures Lab Laboratory Tests 03/09/23 04:40 Patient resulted labs reviewed. Imaging: Reviewed Imaging Films Assessment/Plan Assessment and Plan Assess & Plan/Chief Complaint Assessment: Ms. Hollins is a 67 y/o female w/ PMH stage 4 lung cancer presenting with weakness 2/2 pneumonia Plan: Pneumonia -continue cefepime Acute Hypoxic Resp Failure -continue tiotropium, fluticasone/vilanterol, and albuterol -Nasal canula prn. Stage 4 Lung Cx -oncology consulted -palliative consulted HTN -Dr. Wynne to lead -continue hydralazine -increased amlodipine -add clonidine per Sherrell Waiting to discharge to [facility] CALLIE Newton DO 03/09/23 2003: Subjective Subjective/Events-last exam Patient doing well No pain is reported No falls Much improved Up in a chair We will hold off on discontinuation of the catheter until tomorrow per patient request Objective Exam General Appearance: No Apparent Distress, WD/WN, Chronically ill Respiratory: Lungs Clear, Normal Breath Sounds Cardiovascular: Regular Rate, Rhythm Neurologic/Psychiatric: Alert, Oriented x3 Assessment/Plan Assessment and Plan Assess & Plan/Chief Complaint Skilled care Supervisory-Addendum Brief Verification & Attestation Participated in pt care: history, MDM, physical Personally performed: exam, history, MDM, supervision of care Care discussed with: Medical Student Procedures: n/a Results interpretation: Verified all documentation Verification and Attestation of Medical Student E/M Service A medical student performed and documented this service in my presence. I reviewed and verified all information documented by the medical student and made modifications to such information, when appropriate. I personally performed the physical exam and medical decision making. Callie Rios, Mar 09, 2023,20:03 HANNAH CARTER Mar 09, 2023 11:52 CALLIE RIOS DO Mar 09, 2023 20:03
--- NOTE | 2023-03-09 12:17 | Occupational Ther Daily Note ---
OT Current Status-Daily Note ADL-Treatment Therapy Code Descriptions/Definitions Functional [place] Measure: 0=Not Assessed/NA 4=Minimal Assistance 1=Total Assistance 5=Supervision or Setup 2=Maximal Assistance 6=Modified [place] 3=Moderate Assistance 7=Complete IndependenceSCALE: Activities may be completed with or without assistive devices. 8-Suvbuqnwlp-komapzs completes the activity by him/herself with no assistance from a helper. 5-Set-up or Clean-up Assistance-helper sets up or cleans up; patient completes activity. [place] assists only prior to or following the activity. 4-Supervision or Touching Assistance-helper provides verbal cues and/or touching/steadying and/or contact guard assistance as patient completes activity. Assistance may be provided throughout the activity or intermittently. 3-Partial/Moderate Assistance-helper does LESS THAN HALF the effort. [place] lifts, holds or supports trunk or limbs, but provides less than half the effort. 2-Substantial/Maximal Assistance-helper does MORE THAN HALF the effort. [place] lifts or holds trunk or limbs and provides more than half the effort. 9-Qxrvhvzic-batkrn does ALL the effort. Patient does none of the effort to complete the activity. Or, the assistance of 2 or more helpers is required for the patient to complete the activity. If activity was not attempted, code reason: 7-Patient Refused. 9-Not Applicable-not attempted and the patient did not perform the activity before the current illness, exacerbation or injury. 10-Not Attempted due to Environmental Limitations-(lack of equipment, weather restraints, etc.). 88-Not Attempted due to Medical Conditions or Safety Concerns. OT Longterm Goals Electroneurodiagnostic Technician Goals Eating (QC): 6 Oral Hygiene (QC): 6 Toileting Hygiene (QC): 6 Shower/Bathe Self (QC): 6 Upper Body Dressing (QC): 6 Lower Body Dressing (QC): 6 On/Off Footwear (QC): 6 1=Demonstrate adherence to instructed precautions during ADL tasks. 2=Patient will verbalize/demonstrate understanding of assistive devices/modifications for ADL. 3=Patient will improve strength/tolerance for activity to enable patient to perf orm ADL's. OT Education/Plan Treatment Plan/Plan of Care Patient would benefit from OT for education, treatment and training to promote independence in ADL's, mobility, safety and/or upper extremity function for ADL's. Plan of Care: ADL Retraining, Functional Mobility, Group Exercise/Act as Ind, UE Funct Exercise/Act Treatment Duration: Mar 11, 2023 Frequency: 3 times per week (3-5 times per week) Estimated Hrs Per Day: .25 hour per day Agreement: Yes Rehab Potential: Guarded KRYSTEN MORALES OT Mar 09, 2023 12:17
--- NOTE | 2023-03-09 12:20 | Occupational Ther Daily Note ---
OT Current Status-Daily Note Subjective Agreeable to participate Pain Numeric Pain Scale: 0-No Pain Mental Status/Objective Patient Orientation: Person, Place, Time, Situation ADL-Treatment Therapy Code Descriptions/Definitions Functional [place] Measure: 0=Not Assessed/NA 4=Minimal Assistance 1=Total Assistance 5=Supervision or Setup 2=Maximal Assistance 6=Modified [place] 3=Moderate Assistance 7=Complete IndependenceSCALE: Activities may be completed with or without assistive devices. 9-Jvdwzgcorm-dfshtqk completes the activity by him/herself with no assistance from a helper. 5-Set-up or Clean-up Assistance-helper sets up or cleans up; patient completes activity. [place] assists only prior to or following the activity. 4-Supervision or Touching Assistance-helper provides verbal cues and/or touching/steadying and/or contact guard assistance as patient completes activity. Assistance may be provided throughout the activity or intermittently. 3-Partial/Moderate Assistance-helper does LESS THAN HALF the effort. [place] lifts, holds or supports trunk or limbs, but provides less than half the effort. 2-Substantial/Maximal Assistance-helper does MORE THAN HALF the effort. [place] lifts or holds trunk or limbs and provides more than half the effort. 9-Msuatfyhg-fsdmup does ALL the effort. Patient does none of the effort to complete the activity. Or, the assistance of 2 or more helpers is required for the patient to complete the activity. If activity was not attempted, code reason: 7-Patient Refused. 9-Not Applicable-not attempted and the patient did not perform the activity before the current illness, exacerbation or injury. 10-Not Attempted due to Environmental Limitations-(lack of equipment, weather restraints, etc.). 88-Not Attempted due to Medical Conditions or Safety Concerns. Other Treatment EOB sitting unsupported w/ VCs for breathing strategies, patient performed 10x3 UE isometric exercise of shoulder flexion, scapular retraction and horizontal abduction, completed 10 reps of sit/stand w/ VCs for nose over toes and hand placement on ADL surfaces. Education OT Patient Education: Correct positioning, Exercise program, Progress toward Goal/Update tx plan, Purpose of tx/functional activities, Reviewed precautions, Rehab process, Safety issues, Transfer techniques Teaching Recipient: Patient Teaching Methods: Demonstration, Discussion Response to Teaching: Return Demonstration, Reinforcement Needed OT Gear Repair Supervisor Goals Gear Repair Supervisor Goals Eating (QC): 6 Oral Hygiene (QC): 6 Toileting Hygiene (QC): 6 Shower/Bathe Self (QC): 6 Upper Body Dressing (QC): 6 Lower Body Dressing (QC): 6 On/Off Footwear (QC): 6 1=Demonstrate adherence to instructed precautions during ADL tasks. 2=Patient will verbalize/demonstrate understanding of assistive de vices/modifications for ADL. 3=Patient will improve strength/tolerance for activity to enable patient to perform ADL's. OT Education/Plan Problem List/Assessment Assessment: Decreased Activ Tolerance, Impaired Self-Care Skills Discharge Recommendations Plan/Recommendations: Continue POC Treatment Plan/Plan of Care Treatment,Training & Education: Yes Patient would benefit from OT for education, treatment and training to promote independence in ADL's, mobility, safety and/or upper extremity function for ADL's. Plan of Care: ADL Retraining, Functional Mobility, Group Exercise/Act as Ind, UE Funct Exercise/Act Treatment Duration: Mar 11, 2023 Frequency: 3 times per week (3-5 times per week) Estimated Hrs Per Day: .25 hour per day Agreement: Yes Rehab Potential: Guarded Time Start Time: 10:02 Stop Time: 10:25 DATE: Mar 09, 2023 Total Time Billed (hr/min): 23 Billed Treatment Time EX 23 min KRYSTEN MORALES OT Mar 09, 2023 12:19
--- NOTE | 2023-03-09 16:07 | Physical Therapy Daily Note ---
PT Daily Note-Current Subjective Pt found lying in bed upon entry. Agreed to PT. Reports that she has had a busy day to this point. No report of pain pre-treatment. Pain Section J - Health Conditions 1. Rarely or not at all 2. Occasionally 3. Frequently 4. Almost constantly 8. Unable to answer Pain Effect on Sleep: 1 Pain Interference with Therapy: 1 Pain Interference w/Day-to-Day: 1 Mental Status Patient Orientation: Person, Place Attachments: [place] Catheter Transfers SCALE: Activities may be completed with or without assistive devices. 0-Kmbreiobow-hwarqfc completes the activity by him/herself with no assistance from a helper. 5-Set-up or Clean-up Assistance-helper sets up or cleans up; patient completes activity. [place] assists only prior to or following the activity. 4-Supervision or Touching Assistance-helper provides verbal cues and/or touching/steadying and/or contact guard assistance as patient completes activity. Assistance may be provided throughout the activity or intermittently. 3-Partial/Moderate Assistance-helper does LESS THAN HALF the effort. [place] lifts, holds or supports trunk or limbs, but provides less than half the effort. 2-Substantial/Maximal Assistance-helper does MORE THAN HALF the effort. [place] lifts or holds trunk or limbs and provides more than half the effort. 4-Uuwdiritc-amymkz does ALL the effort. Patient does none of the effort to complete the activity. Or, the assistance of 2 or more helpers is required for the patient to complete the activity. If activity was not attempted, code reason: 7-Patient Refused. 9-Not Applicable-not attempted and the patient did not perform the activity before the current illness, exacerbation or injury. 10-Not Attempted due to Environmental Limitations-(lack of equipment, weather restraints, etc.). 88-Not Attempted due to Medical Conditions or Safety Concerns. Sit to Lying (QC): 6 Lying to Sitting/Side of Bed(Q: 6 Sit to Stand (QC): 4 Chair/Utb-an-Jeckh Xfer(QC): 4 Gait Training Does the Patient Walk?: Yes Distance: 50 Walk 10 feet (QC): 4 Walk 50 ft with 2 Turns(QC): 4 Gait Persons Needed: 1 Gait Assistive Device: FWW Assessment Current Status: Good Progress Pt performed all completed bed mobility independent /c use of R bed rail. Completes sit to stand and bed to chair transfer /c SBA for safety due to balance deficits and no use of an AD. Pt ambulated 50 feet /c use of FWW. CGA required due to balance deficits. Displays slow gait pattern /c good stride lengths. Pt left supine in bed post-treatment /c call light in place and all needs met. Continue to progress pt per POC. PT Solar Energy Sales Specialist Goals Solar Energy Sales Specialist Goals PT Senior Living Goals Time Frame: Mar 19, 2023 Roll Left & Right (QC): 4 Sit to Lying (QC): 4 Lying-Sitting on Side/Bed(QC): 4 Sit to Stand (QC): 4 Chair/Uoa-rf-Vscru Xfer(QC): 4 Toilet Transfer (QC): 4 Walk 10 feet (QC): 4 Walk 50ft with 2 Turns (QC): 4 Walk 150 ft (QC): 4 PT Plan Treatment/Plan Treatment Plan: Continue Plan of Care Treatment Plan: Bed Mobility, Education, Functional Activity Ruiz, Functional Strength, Gait, Safety, Therapeutic Exercise, Transfers Treatment Duration: Mar 19, 2023 Frequency: 5 times per week Estimated Hrs Per Day: .25 hour per day Patient and/or Family Agrees t: Yes Time Time In: 1535 Time Out: 1559 DATE: Mar 09, 2023 Total Billed Treatment Time: 24 Total Billed Treatment 1 visit GT x 1 FA x 1 MILES DOS SANTOS PTA Mar 09, 2023 16:07
[2023-03-09] MEDS: ALPRAZolam 0.5 MG TABLET PO SCH (20:14)
[2023-03-10] MEDS: HYDROcodone/ACETAMINOPHEN 5 MG/325 MG TABLET PO PRN ×2 (00:54→10:45)
[2023-03-10] MEDS: RT-ALBUTEROL HFA 8.5 GM INHALER IH SCH ×3 (03:01→10:35)
[2023-03-10 03:23] VITALS: BP 161/75
[2023-03-10] MEDS: hydrALAZINE 25 MG TABLET PO PRN (04:01)
[2023-03-10] MEDS: CEFEPIME INJECTION 2,000 MG in NS (IVPB) 50 ML 50 ML IV SCH ×2 (04:01→11:05)
[2023-03-10] MEDS: oxyCODONE IMMEDIATE RELEASE 5 MG TABLET PO PRN (04:03)
[2023-03-10 04:24] LABS: HEMATOCRIT 27 % (35-52); HEMOGLOBIN 8.6 g/dL (11.5-16.0); MEAN CORPUSCULAR HEMOGLOBIN 27 pg (25-34); MEAN CORPUSCULAR HGB CONC 32 g/dL (32-36); MEAN CORPUSCULAR VOLUME 85 fL (80-99); MEAN PLATELET VOLUME 10.1 fL (9.0-12.2); PLATELET COUNT 275 10^3/uL (130-400); WHITE BLOOD COUNT 24.8 10^3/uL (4.3-11.0)
[2023-03-10 05:02] LABS: ALBUMIN 3.2 GM/DL (3.2-4.5); BILIRUBIN,TOTAL 0.4 MG/DL (0.1-1.0); CALCIUM 9.1 MG/DL (8.5-10.1); CREATININE SERUM 0.67 MG/DL (0.60-1.30); POTASSIUM 4.3 MMOL/L (3.6-5.0); TOTAL PROTEIN 5.3 GM/DL (6.4-8.2)
[2023-03-10] MEDS: inSUlin ASPART 1 UNIT/0.01 ML (PER UNIT) SC SCH ×2 (05:04→11:32)
[2023-03-10] MEDS: POTASSIUM CHLORIDE 20 MEQ TABLET PO SCH (05:04)
[2023-03-10] MEDS: POTASSIUM CL 10MEQ/50ML IVPB 50 ML IV SCH (05:04)
[2023-03-10] MEDS: MAGNESIUM 1 GM/100 ML IVPB 100 ML IV SCH ×5 (05:07→07:39)
[2023-03-10] MEDS: ACETAMINOPHEN 500 MG TABLET PO SCH ×2 (05:45→12:10)
[2023-03-10] MEDS: LEVOTHYROXINE 100 MCG TABLET PO SCH (05:45)
[2023-03-10] MEDS: TIOTROPIUM INH 4 GM (SPIRIVA Respimat) IH SCH (06:59)
[2023-03-10] MEDS: FLUTICASONE/VILANTEROL 100/25 MCG (7 DOSES) IH SCH (06:59)
[2023-03-10 07:29] VITALS: BP 186/78
[2023-03-10] MEDS: amLODIPine 5 MG TABLET PO SCH (07:40)
[2023-03-10] MEDS: PANTOPRAZOLE 40 MG TABLET PO SCH (07:40)
[2023-03-10] MEDS: cloNIDine 0.1 MG TABLET PO SCH (07:40)
[2023-03-10] MEDS: metFORMIN 500 MG TABLET PO SCH (07:40)
[2023-03-10] MEDS: CITALOPRAM 20 MG TABLET PO SCH (07:40)
[2023-03-10] MEDS: ARIPiprazole 10 MG TABLET PO SCH (07:40)
[2023-03-10] MEDS: RIVAROXABAN 20 MG TABLET PO SCH (07:40)
[2023-03-10] MEDS: CARBIDOPA/LEVODOPA 25/100 TABLET PO SCH ×2 (07:41→12:10)
[2023-03-10] MEDS: DOCUSATE SODIUM 100 MG CAPSULE PO SCH (07:41)
[2023-03-10] MEDS: MICONAZOLE 2% POWDER 90 GM TOP SCH (07:41)
[2023-03-10] MEDS: ASPIRIN enteric coated 81MG TABLET PO SCH (07:41)
[2023-03-10] MEDS: ISOSORBIDE MONONITRATE 60 MG TABLET PO SCH (07:41)
[2023-03-10] MEDS: EMPAGLIFLOZIN 10 MG TABLET PO SCH (07:46)
[2023-03-10] MEDS: DIGOXIN 0.25 MG TABLET PO SCH (07:46)
[2023-03-10] MEDS: dexAMETHasone 4 MG TABLET PO SCH (07:46)
[2023-03-10] MEDS: dilTIAZem ER 240 MG CAPSULE PO SCH (07:46)
--- NOTE | 2023-03-10 07:49 | Cardiology Progress Note ---
Subjective Date Seen by Provider: Mar 10, 2023 Time Seen by Provider: 07:48 Subjective/Events-last exam Patient was seen at bedside sitting comfortably, eating breakfast. No new complaint Objective-Cardiology Exam Last Set of Vital Signs Vital Signs 03/10/23 03/10/23 03:23 07:29 Temp 35.5 Pulse 63 Resp 16 B/P (MAP) 186/78 (114) Pulse Ox 93 O2 Delivery Room Air O2 Flow Rate 0.00 0.00 I&O Intake and Output 03/10/23 00:00 Intake Total 3160 ml Output Total 5675 ml Balance -2515 ml Intake Oral 3110 ml IV Total 50 ml Output Urine Total 5675 ml General: Alert, Oriented X3, Cooperative, No Acute Distress HEENT: Atraumatic Neck: Supple Lungs: Clear to Auscultation Heart: Regular Rate, Normal S1, Normal S2 Abdomen: Normal Bowel Sounds Extremities: No Clubbing, No Edema (1+ pitting edema bilateral mid leg) Skin: No Rashes (rash on dorsum of bilateral feet) Neuro: Normal Speech Psych/Mental Status: Mental Status NL, Mood NL Results Lab Laboratory Tests 03/10/23 04:15 A/P-Cardiology Admission Diagnosis Pneumonia Shortness of breath Lung cancer Paroxysmal atrial fibrillation Assessment/Plan Pneumonia, leukocytosis Managed by primary care physician Stage IV lung cancer, Managed by primary care physician Paroxysmal atrial fibrillation, currently in sinus rhythm Patient had ablation done with Dr. Rabago in November 2019. Amiodarone was discontinued, continue to monitor Hypertension, poor control. Maintained on Cardizem CD 240 mg daily, amlodipine 10 mg daily, isosorbide 60 mg daily, lisinopril 40 mg daily and hydralazine as needed. Clonidine was added on March 09, 2023. Continue to monitor blood pressure Chronic oral anticoagulation, maintained on Xarelto Oxygen dependent COPD Cardiac catheterization carried out in November 2019 showing nonobstructive disease BMI 32 SHAJI WAN MD Mar 10, 2023 07:49
--- NOTE | 2023-03-10 09:44 | Progress Note ---
MIROSLAVA MOODY MD, RESIDENT 03/10/23 0944: Subjective HPI/CC On Admission Date Seen by Provider: Mar 10, 2023 Time Seen by Provider: 07:30 CC: Weakness HPI: Ms. Hollins is slightly better today. She reports less SOB than yesterday, denies any headache. She has been able to get up and walk to the hallway and back. She is coughing less often and the sputum is no longer blood tinged. She has a davis catheter in place, but had a bowel movement this morning. Plans to remove davis tomorrow. She reports slight abdominal pain, but no dizziness. Subjective/Events-last exam Patient is continuing to do well this morning. She states that she has been able to get up and walk to the washroom and was able to walk down the hallway yesterday. She notes that she does not want to go to a custodial facility anymore. Had been discussing with her family and has good support set up at home. She is hesitant to remove the [place] today but understands that this is a barrier to discharge at this time. Otherwise has no concerns today. Review of Systems General: No Fatigue; Appetite Pulmonary: No Dyspnea, No Cough Cardiovascular: No: Chest Pain, Palpitations, Edema Gastrointestinal: No: Nausea, Vomiting, Diarrhea, Constipation Genitourinary: No Dysuria Neurological: Weakness Objective Exam Vital Signs Vital Signs Date Time Temp Pulse Resp B/P (MAP) Pulse Ox O2 Delivery O2 Flow Rate FiO2 03/10/23 07:29 35.5 63 16 186/78 (114) 93 Room Air 03/10/23 03:23 0.00 0.00 Capillary Refill : General Appearance: No Apparent Distress HEENT: PERRL/EOMI Neck: Full Range of Motion, Normal Inspection Respiratory: Chest Non Tender, No Accessory Muscle Use, No Respiratory Distress, Other (Some crackling at the bases of the lungs bilaterally) Cardiovascular: Regular Rate, Rhythm, No Edema, No Murmur Gastrointestinal: Normal Bowel Sounds, Non Tender, Soft Back: Normal Inspection Extremity: No Pedal Edema Neurologic/Psychiatric: Alert, Oriented x3 Skin: Normal Color, Warm/Dry Results/Procedures Lab Laboratory Tests 03/10/23 04:15 Patient resulted labs reviewed. Imaging: Reviewed Imaging Films Assessment/Plan Assessment and Plan Assess & Plan/Chief Complaint Pneumonia Diagnosis/Problems Diagnosis/Problems (1) Pneumonia Status: Resolved Assessment & Plan: Patient presenting with left lower lobe pneumonia noted on chest xray. Leukocytosis is continuing to improve however did uptrend slightly today from 20.8-24.8 this morning. Plan: -Continue cefepime, today is day 6 of antibiotics -Urine culture growing usual bacterial [place] -trend daily CBC Qualifiers: Qualified Codes: J18.9 - Pneumonia, unspecified organism Resolution Date/Time: 03/10/23 @ 10:54 (2) Leukocytosis Status: Acute Assessment & Plan: See above (3) Stage 4 lung cancer Status: Chronic Assessment & Plan: Oncology consulted, Dr. Headley. Stated that we will hold off on continuing patient's chemotherapy regimen however will continue immunotherapy which occurs every 3 weeks. (4) Elevated LFTs Status: Acute Assessment & Plan: Continuing to downtrend. Plan: Continue monitoring with daily CMP (5) Chronic bronchitis with COPD (chronic obstructive pulmonary disease) Status: Chronic Assessment & Plan: Continue home medications (6) Dependence on supplemental oxygen Status: Chronic Assessment & Plan: Has had been able to stay off of oxygen yesterday and saturations have been holding steady. (7) Persistent atrial fibrillation Status: Chronic Assessment & Plan: Atrial fibrillation history, currently rate and rhythm controlled. Plan: -Consulting cardiology, continue home medications (8) Anemia Status: Chronic Assessment & Plan: Hgb 10.6, baseline 8-9 Plan: -Trend daily CBC Qualifiers: Qualified Codes: D64.9 - Anemia, unspecified (9) Hypertension Status: Chronic Assessment & Plan: Poorly controlled. Clonidine was added by cardiology yesterday. Pressures appear to be improved today. Qualifiers: Qualified Codes: I10 - Essential (primary) hypertension PRAKASH RIOS DO 03/10/232045: Subjective Subjective/Events-last exam I personally performed the man portions of the visit, discussed case with res ident and concur with resident documentation of history, physical exam, assessment and treatment plan unless otherwise noted. MIROSLAVA MOODY MD, RESIDENT Mar 10, 2023 09:44 PRAKASH RIOS DO Mar 10, 2023 20:46
[2023-03-10] MEDS ORDERED: ASPI-1238 PO (10:50)
[2023-03-10] MEDS ORDERED: METF-397 PO (10:50)
[2023-03-10] MEDS ORDERED: PANT40TA52 PO (10:50)
[2023-03-10] MEDS ORDERED: CARB1TAB32 PO (10:50)
[2023-03-10] MEDS ORDERED: MTP25TSR PO (10:50)
[2023-03-10] MEDS ORDERED: LEVO100T7 PO (10:50)
[2023-03-10] MEDS ORDERED: DEXA4TAB PO (10:50)
[2023-03-10] MEDS ORDERED: FLUT1BLS3 IH (10:50)
[2023-03-10] MEDS ORDERED: ISOS60TA63 PO (10:50)
[2023-03-10] MEDS ORDERED: AMLO-250 PO (10:50)
[2023-03-10] MEDS ORDERED: DIGO250T3 PO (10:50)
[2023-03-10] MEDS ORDERED: CLN.1T PO (10:50)
[2023-03-10] MEDS ORDERED: NYST1000 PO (10:50)
[2023-03-10] MEDS ORDERED: ATOR80TA76 PO (10:50)
[2023-03-10] MEDS ORDERED: DILT240C91 PO (10:50)
[2023-03-10] MEDS ORDERED: RIVA20TA PO (10:50)
[2023-03-10] MEDS ORDERED: LISI20TA26 PO (10:50)
[2023-03-10] MEDS ORDERED: RT-ALBUINH PO (10:50)
[2023-03-10] MEDS ORDERED: ARIP10TA55 PO (10:50)
[2023-03-10] MEDS ORDERED: ALPR0.5T7 PO ×4 (10:50→11:11)
[2023-03-10] MEDS ORDERED: ESCI20TA39 PO (10:50)
[2023-03-10] MEDS ORDERED: DAPA10TA PO (10:50)
--- NOTE | 2023-03-10 10:51 | Discharge Summary ---
Discharge Summary Hospital Course Problems/Dx: (1) Pneumonia Status: Resolved Assessment & Plan: Patient presenting with left lower lobe pneumonia noted on chest xray. Leukocytosis is continuing to improve however did uptrend slightly today from 20.8-24.8 this morning. Plan: -Completed a 5-day course of cefepime -Sputum culture growing usual bacterial [place] Qualifiers: Qualified Codes: J18.9 - Pneumonia, unspecified organism (2) Leukocytosis Status: Acute Assessment & Plan: See above likely increased due to chemotherapy treatment (3) Stage 4 lung cancer Status: Chronic Assessment & Plan: Oncology consulted, Dr. Headley. Stated that we will hold off on continuing patient's chemotherapy regimen however will continue immunotherapy which occurs every 3 weeks. (4) Elevated LFTs Status: Acute Assessment & Plan: Continuing to downtrend. Plan: Continue monitoring with daily CMP (5) Chronic bronchitis with COPD (chronic obstructive pulmonary disease) Status: Chronic Assessment & Plan: Continue home medications (6) Dependence on supplemental oxygen Status: Chronic Assessment & Plan: Has had been able to stay off of oxygen yesterday and saturations have been holding steady. (7) Persistent atrial fibrillation Status: Chronic Assessment & Plan: Atrial fibrillation history, currently rate and rhythm controlled. Amiodarone was held while inpatient, will continue to hold in the outpatient until follow-up. Plan: -Consulting cardiology, continue home medications (8) Anemia Status: Chronic Assessment & Plan: Hgb 10.6, baseline 8-9 Plan: -Trend daily CBC Qualifiers: Qualified Codes: D64.9 - Anemia, unspecified (9) Hypertension Status: Chronic Assessment & Plan: Poorly controlled. Clonidine was added by cardiology yesterday. Pressures appear to be improved today. Qualifiers: Qualified Codes: I10 - Essential (primary) hypertension Hospital Course Date of Admission: Mar 05, 2023 at 14:40 Admission Diagnosis : Family Physician/Provider: Cody Thomas MD Date of Discharge: 03/10/23 Discharge Diagnosis: [Pneumonia] Hospital Course: [Patient is a 67-year-old female with a past medical history of stage IV lung cancer, atrial fibrillation, type 2 diabetes who presented with fever, cough and increased weakness. She is currently on chemotherapy and was noted to have significant leukocytosis as well as creasing oxygen requirements at home requiring 3 L of nasal cannula versus her usual as needed use. She was also having diarrhea daily. She was noted to have consolidation in the left lower lobe on her chest x-ray and thus she was admitted for IV antibiotic need. We manage patient with IV cefepime and continue to manage her other chronic conditions. Oncology was consulted who recommended discontinuing her chemotherapy for now but continuing to use her immunotherapy. Due to her poorly controlled blood pressure, cardiology was also following who added on clonidine for blood pressure management. Patient continued to improve while inpatient and slowly began to gain strength however due to her progress, it was ultimately deemed that she would benefit from SNF. Patient was ultimately discharged to SNF for further assistance with strengthening.] Labs and Pending Lab Test: Laboratory Tests 03/09/23 11:31: Glucometer 148H 03/09/23 16:41: Glucometer 142H 03/09/23 20:10: Glucometer 161H 03/10/23 04:15: White Blood Count 24.8H, Red Blood Count 3.14L, Hemoglobin 8.6L, Hematocrit 27L, Mean Corpuscular Volume 85, Mean Corpuscular Hemoglobin 27, Mean Corpuscular Hemoglobin Concent 32, Red Cell Distribution Width 25.1H, Platelet Count 275, Mean Platelet Volume 10.1, Sodium Level 135, Potassium Level 4.3, Chloride Level 99, Carbon Dioxide Level 25, Anion Gap 11, Blood Urea Nitrogen 17, Creatinine 0.67, Estimat Glomerular Filtration Rate 96, BUN/Creatinine Ratio 25, Glucose Level 140H, Calcium Level 9.1, Corrected Calcium 9.7, Magnesium Level 1.7, Total Bilirubin 0.4, Aspartate Amino Transf (AST/SGOT) 24, Alanine Aminotransferase (ALT/SGPT) 119H, Alkaline Phosphatase 110, Total Protein 5.3L, Albumin 3.2 Microbiology 03/05/23 Gram Stain - Final, Complete 03/05/23 Sputum Culture - Final, Complete Usual upper respiratory parish 03/05/23 Blood Culture - Preliminary, Resulted Home Meds Active Amlodipine Besylate 5 Mg Tablet 10 Mg PO DAILY 30 Days Clonidine HCl 0.1 Mg Tablet 0.1 Mg PO BID 30 Days Lisinopril 20 Mg Tablet 40 Mg PO DAILY 30 Days TAKES 2 (20MG) TABLETS Digoxin 250 Mcg (0.25 Mg) Tablet 250 Mcg PO DAILY 30 Days Dexamethasone 4 Mg Tablet 4 Mg PO DAILY 30 Days Metoprolol Succinate 25 Mg Tab.er.24h 25 Mg PO DAILY 30 Days Xarelto (Rivaroxaban) 20 Mg Tablet 20 Mg PO DAILY 30 Days Diltiazem 24Hr ER (Diltiazem HCl) 240 Mg Cap.er.24h 240 Mg PO DAILY 30 Days Carbidopa-Levodopa 25-100 Tab (Carbidopa/Levodopa) 25 Mg-100 Mg Tablet 1 Ea PO TID 30 Days Atorvastatin Calcium 80 Mg Tablet 80 Mg PO HS 30 Days Nystatin 100,000 Unit/Ml Oral.susp 5 Ml PO QID PRN 30 Days SWISH AND SWALLOW Trelegy Ellipta 100-62.5-25 (Fluticasone/Umeclidin/Vilanter) 100-62.5 Blst.w.dev 1 Each IH DAILY 30 Days Pantoprazole Sodium 40 Mg Tablet.dr 40 Mg PO DAILY 30 Days Levothyroxine Sodium 100 Mcg Tablet 100 Mcg PO DAILY 30 Days Farxiga (Dapagliflozin Propanediol) 10 Mg Tablet 10 Mg PO DAILY 30 Days Aripiprazole 10 Mg Tablet 10 Mg PO DAILY 30 Days Aspirin EC (Aspirin) 81 Mg Tablet.dr 81 Mg PO DAILY 30 Days Ventolin Hfa (Albuterol Sulfate) 1 Puff Puff 2 Puff PO Q6H PRN 30 Days Escitalopram Oxalate 20 Mg Tablet 20 Mg PO DAILY 30 Days Isosorbide Mononitrate ER (Isosorbide Mononitrate) 60 Mg Tab 60 Mg PO DAILY 30 Days Metformin HCl 500 Mg Tablet 500 Mg PO BID 30 Days Reported Amlodipine Besylate 5 Mg Tablet 5 Mg PO DAILY Oxycodone HCl 5 Mg Tablet 5 Mg PO Q6H PRN Hydrocodone-Acetamin 5-325 mg (Hydrocodone/Acetaminophen) 5 Mg-325 Mg Tablet 1-2 Ea PO Q6H PRN Hydrochlorothiazide 12.5 Mg Tablet 12.5-25 Mg PO DAILY TAKES 1-2 (12.5MG) TABLETS Amiodarone HCl 200 Mg Tablet 200 Mg PO BID Assessment/Pt Instructions Please see electronic discharge instructions given to patient. Discharge Instructions Discharge Diet: No Restrictions Activity as Tolerated: Yes Discharge Physical Examination Vital Signs Vital Signs Date Time Temp Pulse Resp B/P (MAP) Pulse Ox O2 Delivery O2 Flow Rate FiO2 03/10/23 10:36 97 Room Air 03/10/23 07:29 35.5 63 16 186/78 (114) 03/10/23 03:23 0.00 0.00 General Appearance: No Apparent Distress HEENT: PERRL/EOMI, Normal ENT Inspection Respiratory: Chest Non Tender, No Accessory Muscle Use, No Respiratory Distress, Other (Bibasilar crackles noted) Cardiovascular: Regular Rate, Rhythm, No Edema, No Murmur Gastrointestinal: Normal Bowel Sounds, Non Tender, Soft Extremity: Normal Capillary Refill Skin: Normal Color, Warm/Dry Neurologic/Psychiatric: Alert, Oriented x3 Allergies: Coded Allergies: No Known Drug Allergies (Unverified , 03/06/20) Discharge Summary Date of Admission Mar 05, 2023 at 14:40 Date of Discharge Admission Diagnosis Assessment: Acute resp failure Sepsis PNA Stage IV lung cancer on chemotherapy Immunosuppressed Plan: IV abx ICU Cards consult I personally performed the man portions of the visit, discussed case with resident and concur with resident documentation of history, physical exam, assessment and treatment plan unless otherwise noted. Discharge Diagnosis Pneumonia (1) Pneumonia Status: Resolved Assessment & Plan: Patient presenting with left lower lobe pneumonia noted on chest xray. Leukocytosis is continuing to improve however did uptrend slightly today from 20.8-24.8 this morning. Plan: -Continue cefepime, today is day 6 of antibiotics -Urine culture growing usual bacterial [place] -trend daily CBC Qualifiers: Qualified Codes: J18.9 - Pneumonia, unspecified organism (2) Leukocytosis Status: Acute Assessment & Plan: See above (3) Stage 4 lung cancer Status: Chronic Assessment & Plan: Oncology consulted, Dr. Headley. Stated that we will hold off on continuing patient's chemotherapy regimen however will continue immunotherapy which occurs every 3 weeks. (4) Elevated LFTs Status: Acute Assessment & Plan: Continuing to downtrend. Plan: Continue monitoring with daily CMP (5) Chronic bronchitis with COPD (chronic obstructive pulmonary disease) Status: Chronic Assessment & Plan: Continue home medications (6) Dependence on supplemental oxygen Status: Chronic Assessment & Plan: Has had been able to stay off of oxygen yesterday and saturations have been holding steady. (7) Persistent atrial fibrillation Status: Chronic Assessment & Plan: Atrial fibrillation history, currently rate and rhythm controlled. Plan: -Consulting cardiology, continue home medications (8) Anemia Status: Chronic Assessment & Plan: Hgb 10.6, baseline 8-9 Plan: -Trend daily CBC Qualifiers: Qualified Codes: D64.9 - Anemia, unspecified (9) Hypertension Status: Chronic Assessment & Plan: Poorly controlled. Clonidine was added by cardiology yesterday. Pressures appear to be improved today. Qualifiers: Qualified Codes: I10 - Essential (primary) hypertension MIROSLAVA MOODY MD, RESIDENT Mar 10, 2023 10:51
--- NOTE | 2023-03-10 10:53 | Discharge Inst-Skilled Nursing ---
MIROSLAVA DAVEY MD, RESIDENT 03/10/23 1053: Discharge [facility]-Skilled NF Reconcile Patient Problems Problems Reviewed?: Yes Chief Complaint CC: Weakness HPI: 67-year-old female with a past medical history of stage IV lung cancer who presented with pneumonia. Has been receiving antibiotics and has been con tinuing to improve. She has continued to gain strength and has been able to walk around somewhat. She will be discharged to SNF to gain additional strength. Patient Instructions Patient Problems: Stage IV lung cancer, hypertension, atrial fibrillation, COPD Goal: Work on being able to walk around and perform ADLs Consult/Follow Up/Orders Follow Up Appt.: Patient is to follow-up with oncologist and PCP in the outpatient Skilled NF Admit to: [facility] Certification ([facility]) I certify that [facility] services are required to be given on an inpatient basis because of the above named patient's need for intermediate care on a continuing basis for the conditions(s) for which he/she was receiving inpatient hospital services prior to his/her transfer to the [facility]. Long Term Facility Order: Nursing Services, Payroll Master-Evaluate & Treat, Physical Therapy-Evaluate & Treat Oxygen Delivery Method: Room Air Discharge Diet: No Restrictions Daily Activity as Tolerated: Yes Resuscitation Status: Do Not Resuscitate New & Resume Previous Orders New Medications: Amlodipine Besylate (Amlodipine Besylate) 5 Mg Tablet 10 MG PO DAILY for 30 Days, #30 TAB Clonidine HCl (Clonidine HCl) 0.1 Mg Tablet 0.1 MG PO BID for 30 Days, #30 TAB Continued Medications: Albuterol Sulfate (Ventolin Hfa) 1 Puff Puff 2 PUFF PO Q6H PRN for SHORTNESS OF BREATH for 30 Days, #2 EACH (This prescription has been renewed) Alprazolam (Alprazolam) 0.5 Mg Tablet 0.5 MG PO TID PRN for ANXIETY for 30 Days, #90 TAB (This prescription has been renewed) Alprazolam (Alprazolam) 0.5 Mg Tablet 0.5 MG PO HS for 30 Days, #30 TAB (This prescription has been renewed) Aripiprazole (Aripiprazole) 10 Mg Tablet 10 MG PO DAILY for 30 Days, #30 TAB (This prescription has been renewed) Aspirin (Aspirin EC) 81 Mg Tablet.dr 81 MG PO DAILY for 30 Days, #30 TAB (This prescription has been renewed) Atorvastatin Calcium (Atorvastatin Calcium) 80 Mg Tablet 80 MG PO HS for 30 Days, #30 TAB (This prescription has been renewed) Carbidopa/Levodopa (Carbidopa-Levodopa 25-100 Tab) 25 Mg-100 Mg Tablet 1 EA PO TID for 30 Days, #90 TAB (This prescription has been renewed) Dapagliflozin Propanediol (Farxiga) 10 Mg Tablet 10 MG PO DAILY for 30 Days, #30 TAB (This prescription has been renewed) Dexamethasone (Dexamethasone) 4 Mg Tablet 4 MG PO DAILY for 30 Days, #30 TAB (This prescription has been renewed) Digoxin (Digoxin) 250 Mcg (0.25 Mg) Tablet 250 MCG PO DAILY for 30 Days, #30 TAB (This prescription has been renewed) Diltiazem HCl (Diltiazem 24Hr ER) 240 Mg Cap.er.24h 240 MG PO DAILY for 30 Days, #30 CAP (This prescription has been renewed) Escitalopram Oxalate (Escitalopram Oxalate) 20 Mg Tablet 20 MG PO DAILY for 30 Days, #30 TAB (This prescription has been renewed) Fluticasone/Umeclidin/Vilanter (Trelegy Ellipta 100-62.5-25) 100-62.5 Blst.w.dev 1 EACH IH DAILY for 30 Days, #1 UNIT (This prescription has been renewed) Hydrocodone/Acetaminophen (Hydrocodone-Acetamin 5-325 mg) 5 Mg-325 Mg Tablet 1-2 EA PO Q6H PRN for PAIN-MODERATE (5-7), TAB Isosorbide Mononitrate (Isosorbide Mononitrate ER) 60 Mg Tab 60 MG PO DAILY for 30 Days, #30 TAB (This prescription has been renewed) Levothyroxine Sodium (Levothyroxine Sodium) 100 Mcg Tablet 100 MCG PO DAILY for 30 Days, #30 TAB (This prescription has been renewed) Lisinopril (Lisinopril) 20 Mg Tablet 40 MG PO DAILY for 30 Days, #30 TAB (This prescription has been renewed) TAKES 2 (20MG) TABLETS Metformin HCl (Metformin HCl) 500 Mg Tablet 500 MG PO BID for 30 Days, #60 TAB (This prescription has been renewed) Metoprolol Succinate (Metoprolol Succinate) 25 Mg Tab.er.24h 25 MG PO DAILY for 30 Days, #30 TAB (This prescription has been renewed) Nystatin (Nystatin) 100,000 Unit/Ml Oral.susp 5 ML PO QID PRN for THRUSH for 30 Days, #50 ML (This prescription has been renewed) SWISH AND SWALLOW Oxycodone HCl (Oxycodone HCl) 5 Mg Tablet 5 MG PO Q6H PRN for PAIN-SEVERE (8-10), TAB Pantoprazole Sodium (Pantoprazole Sodium) 40 Mg Tablet.dr 40 MG PO DAILY for 30 Days, #30 TAB (This prescription has been renewed) Rivaroxaban (Xarelto) 20 Mg Tablet 20 MG PO DAILY for 30 Days, #30 TAB (This prescription has been renewed) Discontinued Medications: Amiodarone HCl (Amiodarone HCl) 200 Mg Tablet 200 MG PO BID, TAB Amlodipine Besylate (Amlodipine Besylate) 5 Mg Tablet 5 MG PO DAILY, TAB Hydrochlorothiazide (Hydrochlorothiazide) 12.5 Mg Tablet 12.5-25 MG PO DAILY, TAB TAKES 1-2 (12.5MG) TABLETS Miroslava Davey Mar 10, 2023 10:51 PRAKASH RIOS DO 03/10/232042: Discharge Inst-Skilled NF Reconcile Patient Problems Problems Reviewed?: Yes Consult/Follow Up/Orders Skilled NF Admit to: MIROSLAVA DAVEY MD, RESIDENT Mar 10, 2023 10:53 PRAKASH RIOS DO Mar 10, 2023 20:43
--- NOTE | 2023-03-10 10:55 | Occupational Ther Daily Note ---
OT Current Status-Daily Note Subjective Resting in bed, request oral care w/ OT. Patient reports desire to go home and not SNF Mental Status/Objective Patient Orientation: Person, Place, Time, Situation Attachments: Cruz Catheter, IV 2 skin tears on MCP one each hand ADL-Treatment standing at sink for oral care. Skin tear to left hand noted, RN addressed, Patent reports tired when completed tasks. OT provided clean 3xL socks, new COKE an dice cup, straw and wash cloth Therapy Code Descriptions/Definitions Functional Floyd Measure: 0=Not Assessed/NA 4=Minimal Assistance 1=Total Assistance 5=Supervision or Setup 2=Maximal Assistance 6=Modified Floyd 3=Moderate Assistance 7=Complete IndependenceSCALE: Activities may be completed with or without assistive devices. 7-Iexsqqfzmn-kunjhnr completes the activity by him/herself with no assistance from a helper. 5-Set-up or Clean-up Assistance-helper sets up or cleans up; patient completes activity. [place] assists only prior to or following the activity. 4-Supervision or Touching Assistance-helper provides verbal cues and/or touching/steadying and/or contact guard assistance as patient completes activity. Assistance may be provided throughout the activity or intermittently. 3-Partial/Moderate Assistance-helper does LESS THAN HALF the effort. [place] lifts, holds or supports trunk or limbs, but provides less than half the effort. 2-Substantial/Maximal Assistance-helper does MORE THAN HALF the effort. [place] lifts or holds trunk or limbs and provides more than half the effort. 1-Xfzegvxks-rmuplb does ALL the effort. Patient does none of the effort to complete the activity. Or, the assistance of 2 or more helpers is required for the patient to complete the activity. If activity was not attempted, code reason: 7-Patient Refused. 9-Not Applicable-not attempted and the patient did not perform the activity before the current illness, exacerbation or injury. 10-Not Attempted due to Environmental Limitations-(lack of equipment, weather restraints, etc.). 88-Not Attempted due to Medical Conditions or Safety Concerns. Eating (QC): 6 Oral Hygiene (QC): 5 Upper Body Dressing (QC): 5 Lower Body Dressing (QC): 5 On/Off Footwear: 5 Toileting Hygiene (QC): 5 Toilet Transfer (QC): 5 Education OT Patient Education: Correct positioning, Energy conservation, Modified ADL techniques, Progress toward Goal/Update tx plan, Purpose of tx/functional activities, Reviewed precautions, Rehab process, Safety issues, Transfer techniques, Use of adapted equipment Teaching Recipient: Patient Teaching Methods: Demonstration Response to Teaching: Return Demonstration, Reinforcement Needed OT Fishery Biologist Goals Usp Goals Eating (QC): 6 Oral Hygiene (QC): 6 Toileting Hygiene (QC): 6 Shower/Bathe Self (QC): 6 Upper Body Dressing (QC): 6 Lower Body Dressing (QC): 6 On/Off Footwear (QC): 6 1=Demonstrate adherence to instructed precautions during ADL tasks. 2=Patient will verbalize/demonstrate understanding of assistive devices/modifications for ADL. 3=Patient will improve strength/tolerance for activity to enable patient to perform ADL's. OT Education/Plan Problem List/Assessment Assessment: Decreased Activ Tolerance, Impaired Funct Balance, Impaired Self- Care Skills Discharge Recommendations Plan/Recommendations: Continue POC Treatment Plan/Plan of Care Treatment,Training & Education: Yes Patient would benefit from OT for education, treatment and training to promote independence in ADL's, mobility, safety and/or upper extremity function for ADL's. Plan of Care: ADL Retraining, Functional Mobility, Group Exercise/Act as Ind, UE Funct Exercise/Act Treatment Duration: Mar 11, 2023 Frequency: 3 times per week (3-5 times per week) Estimated Hrs Per Day: .25 hour per day Agreement: Yes Rehab Potential: Guarded Remains in recliner w/ RN addressing skin tears, yara light in reach, all needs met Time Start Time: 09:10 Stop Time: 09:40 DATE: Mar 10, 2023 Total Time Billed (hr/min): 30 Billed Treatment Time ADL 30 min KRYSTEN MORALES OT Mar 10, 2023 10:55
[2023-03-10] MEDS ORDERED: OXYC5TAB PO (11:11)
[2023-03-10] MEDS ORDERED: ACHD5005 PO (11:11)
[2023-03-10 11:39] VITALS: BP 152/72
[2023-03-10 14:13] VITALS: BP 152/72
== END 2023-03-10 14:16 | DRG 871 ==
LOC: EDUNIT# 11:50 → ER FS 11:52 → ICU 14:40 → 4TH 03-06 13:15
PROVIDERS: ADMIT Internal Medicine; ATTEND Internal Medicine
DX: A41.9 Sepsis, unspecified organism (principal); J18.9 Pneumonia, unspecified organism; J96.01 Acute respiratory failure with hypoxia; E87.1 Hypo-osmolality and hyponatremia; C34.90 Malignant neoplasm of unspecified part of unspecified bronchus or lung; I48.19 Other persistent atrial fibrillation; J44.0 Chronic obstructive pulmonary disease with (acute) lower respiratory infection; Z92.21 Personal history of antineoplastic chemotherapy; E87.6 Hypokalemia; D63.0 Anemia in neoplastic disease; Z99.81 Dependence on supplemental oxygen; T54.91XA Toxic effect of unspecified corrosive substance, accidental (unintentional), initial encounter; F41.9 Anxiety disorder, unspecified; F32.A Depression, unspecified; Z66 Do not resuscitate; E11.9 Type 2 diabetes mellitus without complications; M19.90 Unspecified osteoarthritis, unspecified site; G89.29 Other chronic pain; M54.9 Dorsalgia, unspecified; E78.00 Pure hypercholesterolemia, unspecified; I10 Essential (primary) hypertension; G20.A1 Parkinson's disease without dyskinesia, without mention of fluctuations; Z95.5 Presence of coronary angioplasty implant and graft; Z87.891 Personal history of nicotine dependence; T24.402A Corrosion of unspecified degree of unspecified site of left lower limb, except ankle and foot, initial encounter; T24.401A Corrosion of unspecified degree of unspecified site of right lower limb, except ankle and foot, initial encounter; Z79.01 Long term (current) use of anticoagulants; Z11.52 Encounter for screening for COVID-19; Z79.899 Other long term (current) drug therapy
CPT/HCPCS: 36415; 51702; 71045; 80053; 81000; 82533; 82947; 83036; 83605; 83735; 84443; 85007; 85027; 87040; 87070; 87205; 87636; 94640; 94760; 96361; 96365

== ENCOUNTER → 2023-03-30 | Outpatient (CLI) | payer MEDICARE ==
[~2023-03-30] MED LIST changes: +CLN.1T PO; +GADOTERATE 0.5 MMOL/ML (CLARISCAN) 20 ML VIAL IV ONE; +OXYC5TAB PO
--- NOTE | 2023-03-30 12:29 | Diagnostic Imaging Report ---
Clinical Indication: Patient with history of lung cancer with metastases. Recheck brain. Exam: MRI of the brain performed without and with 20 cc of Clariscan IV contrast. Sequences include axial DWI, ADC map, coronal gradient echo, axial T2, axial FLAIR, axial T1, axial T1 post IV contrast, coronal T1 fat-sat post IV contrast, and sagittal T1 post IV contrast. Comparison: MRI of the brain with and without contrast dated 02/07/2023. Findings: There are now roughly 13 intra-axial brain parenchymal masses involving both cerebellar hemispheres and bilateral cerebellar hemispheres. Previously there were roughly 9 brain parenchymal lesions. There is interval development of a 7 mm x 10 mm enhancing mass involving the midline cerebellar vermis region. There is no significant increased T2 signal in the region. There is interval development of a 12 mm x 8 mm ring-enhancing mass involving the inferior anterior aspect of left temporal lobe. There is localized increased T2 signal in the region. There is interval development of a 6 mm ring-enhancing mass involving the left parietal lobe posteriorly. There is interval development of an 8 mm x 4 mm area of enhancement involving the right parietal lobe. The remainder of the previously seen 9 enhancing masses involving both cerebral hemispheres and both cerebellar hemispheres have increased in size in the interim. The largest marker lesion is seen in the medial posterior left temporal lobe region and currently measures 1.9 cm x 1.8 cm compared to prior study measured at 1.2 cm x 1.2 cm. There is a small amount of increased T2 signal in the region and has increased in interim. The next larger lesion is in the inferior left cerebellar region which currently measures 1.8 cm in greatest axial dimension compared to the prior study measured at 1.0 cm in greatest axial dimension. There is a small amount of increased T2 signal in the region which has increased. The next largest lesion is in the inferior right cerebellar hemisphere which currently measures 1.3 cm x 1.7 cm in greatest axial dimensions compared to prior study measured at 1.2 cm x 1.0 cm. There is a small amount of adjacent increased T2 signal which is slightly increased in interim. Besides the small amount of increased T2 signal involving the other lesions, there is no significant change to multiple focal, patchy, confluent areas of high T2 signal white matter changes involving both cerebral hemispheres and noemi. There is no brain herniation or midline shift. There is no lobar intracranial hemorrhage or acute cerebral infarct. There is no hydrocephalus. Basal cisterns are unremarkable. The visualized sam[place] of [place] vasculature structures are unremarkable. Extracranial soft tissues, skull, and orbits are unremarkable. Paranasal sinuses and mastoid air cells are clear. IMPRESSION: 1: There is overall progression of intracranial brain metastatic lesions. There are now roughly 13 intra-axial brain parenchymal masses involving both cerebral hemispheres and both cerebellar hemispheres compared to 9 seen on the prior study. All of the previously seen intracranial metastatic lesions have increased in size. 2: There is no brain herniation or midline shift. There is no acute intraparenchymal hemorrhage. Dictated by: Dictated on workstation # [id number]
== END ==
LOC: RAD 10:15
PROVIDERS: ATTEND Internal Medicine Hematology & Oncology
DX: C34.90 Malignant neoplasm of unspecified part of unspecified bronchus or lung (principal); C79.31 Secondary malignant neoplasm of brain
CPT/HCPCS: 70553

== ENCOUNTER 2023-04-06 07:57 | Outpatient (RCR) | payer MEDICARE ==
[2023-03-16 14:16] LABS: BASOPHILS # (AUTO) 0.1 10^3/uL (0.0-0.1); BASOPHILS % (AUTO) 0 % (0-10); EOSINOPHILS % (AUTO) 0 % (0-10); HEMATOCRIT 33 % (35-52); HEMOGLOBIN 10.1 g/dL (11.5-16.0); LYMPHOCYTES # (AUTO) 0.9 10^3/uL (1.0-4.0); LYMPHOCYTES % (AUTO) 3 % (12-44); MEAN CORPUSCULAR HEMOGLOBIN 28 pg (25-34); MEAN CORPUSCULAR HGB CONC 31 g/dL (32-36); MEAN CORPUSCULAR VOLUME 90 fL (80-99); MEAN PLATELET VOLUME 9.7 fL (9.0-12.2); MONOCYTES # (AUTO) 0.6 10^3/uL (0.0-1.0); MONOCYTES % (AUTO) 2 % (0-12); NEUTROPHILS # (AUTO) 24.4 10^3/uL (1.8-7.8); NEUTROPHILS % (AUTO) 89 % (42-75); PLATELET COUNT 438 10^3/uL (130-400); WHITE BLOOD COUNT 27.3 10^3/uL (4.3-11.0)
[2023-03-16 14:31] VITALS: BP 107/54
[2023-03-16] MEDS: ATEZOLIZUMAB IV SCH (14:31)
[2023-03-16] MEDS: NS IV SCH (14:31)
[2023-03-16] MEDS: NS IV 1000 ML (CANCER CTR) IV SCH (14:31)
[2023-03-16 14:32] LABS: ALBUMIN 3.6 GM/DL (3.2-4.5); BILIRUBIN,TOTAL 0.3 MG/DL (0.1-1.0); CALCIUM 8.4 MG/DL (8.5-10.1); CREATININE SERUM 0.72 MG/DL (0.60-1.30); POTASSIUM 4.7 MMOL/L (3.6-5.0); TOTAL PROTEIN 5.8 GM/DL (6.4-8.2)
[~2023-04-06] VITALS: Ht 180.3 cm; Wt 92.1 kg
[~2023-04-06 07:57] MED LIST changes: -GADOTERATE 0.5 MMOL/ML (CLARISCAN) 20 ML VIAL IV ONE; +HEParin (CENTRAL IV FLUSH) 500 UNIT/5 ML SYR IV PRN
[2023-04-06 09:34] LABS: BASOPHILS % (AUTO) 0 % (0-10); EOSINOPHILS # (AUTO) 0.2 10^3/uL (0.0-0.3); EOSINOPHILS % (AUTO) 2 % (0-10); HEMATOCRIT 33 % (35-52); HEMOGLOBIN 10.2 g/dL (11.5-16.0); LYMPHOCYTES # (AUTO) 1.3 10^3/uL (1.0-4.0); LYMPHOCYTES % (AUTO) 14 % (12-44); MEAN CORPUSCULAR HEMOGLOBIN 28 pg (25-34); MEAN CORPUSCULAR HGB CONC 31 g/dL (32-36); MEAN CORPUSCULAR VOLUME 92 fL (80-99); MEAN PLATELET VOLUME 9.5 fL (9.0-12.2); MONOCYTES % (AUTO) 10 % (0-12); NEUTROPHILS # (AUTO) 6.6 10^3/uL (1.8-7.8); NEUTROPHILS % (AUTO) 72 % (42-75); PLATELET COUNT 275 10^3/uL (130-400); WHITE BLOOD COUNT 9.2 10^3/uL (4.3-11.0)
[2023-04-06 09:55] LABS: ALBUMIN 3.4 GM/DL (3.2-4.5); BILIRUBIN,TOTAL 0.4 MG/DL (0.1-1.0); CALCIUM 8.8 MG/DL (8.5-10.1); CREATININE SERUM 0.62 MG/DL (0.60-1.30); POTASSIUM 3.2 MMOL/L (3.6-5.0); TOTAL PROTEIN 6.2 GM/DL (6.4-8.2)
[2023-04-06 10:00] VITALS: BP 163/78
[2023-04-06] MEDS: NS IV 1000 ML (CANCER CTR) IV SCH (10:09)
[2023-04-06] MEDS: NS IV SCH (10:09)
[2023-04-06] MEDS: ATEZOLIZUMAB IV SCH (10:09)
== END 2023-04-07 | disposition home or self-care (01) ==
LOC: ONC 07:57
PROVIDERS: ATTEND Internal Medicine Hematology & Oncology
DX: Z51.11 Encounter for antineoplastic chemotherapy (principal); Z45.2 Encounter for adjustment and management of vascular access device; C34.90 Malignant neoplasm of unspecified part of unspecified bronchus or lung; E11.9 Type 2 diabetes mellitus without complications; E66.9 Obesity, unspecified; I50.32 Chronic diastolic (congestive) heart failure; J44.9 Chronic obstructive pulmonary disease, unspecified; I25.10 Atherosclerotic heart disease of native coronary artery without angina pectoris; Z72.0 Tobacco use
CPT/HCPCS: 80053; 85025; 96413; G0463; 36591; 99214

== ENCOUNTER 2023-04-14 23:29 | Inpatient (IN) | payer MEDICARE ==
[~2023-04-14] VITALS: Ht 180.3 cm; Wt 100.9 kg
[~2023-04-14 23:29] MED LIST changes: -HEParin (CENTRAL IV FLUSH) 500 UNIT/5 ML SYR IV PRN
[2023-04-14] MEDS ORDERED: NS IV 500 ML 500 ML IV ONE (23:45)
[2023-04-14 23:51] LABS: BASOPHILS # (AUTO) 0.1 10^3/uL (0.0-0.1); BASOPHILS % (AUTO) 1 % (0-10); EOSINOPHILS # (AUTO) 0.2 10^3/uL (0.0-0.3); EOSINOPHILS % (AUTO) 2 % (0-10); HEMATOCRIT 35 % (35-52); LYMPHOCYTES # (AUTO) 1.3 10^3/uL (1.0-4.0); LYMPHOCYTES % (AUTO) 12 % (12-44); MEAN CORPUSCULAR HEMOGLOBIN 28 pg (25-34); MEAN CORPUSCULAR HGB CONC 31 g/dL (32-36); MEAN CORPUSCULAR VOLUME 90 fL (80-99); MEAN PLATELET VOLUME 8.9 fL (9.0-12.2); MONOCYTES # (AUTO) 0.9 10^3/uL (0.0-1.0); MONOCYTES % (AUTO) 9 % (0-12); NEUTROPHILS # (AUTO) 8.1 10^3/uL (1.8-7.8); NEUTROPHILS % (AUTO) 76 % (42-75); PLATELET COUNT 416 10^3/uL (130-400); WHITE BLOOD COUNT 10.8 10^3/uL (4.3-11.0)
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
[2023-04-15] VITALS (10 sets, daily range): BP systolic 141–175; BP diastolic 69–89
[2023-04-15 00:09] LABS: PROTHROMBIN TIME PATIENT 13.9 SEC (12.2-14.7)
[2023-04-15 00:13] LABS: FIBRIN DEGRADATION PRODUCTS 0.74 UG/ML (0.00-0.49)
[2023-04-15 00:20] LABS: ALANINE AMINOTRANSFERASE 19 U/L (0-55); ALBUMIN 3.5 GM/DL (3.2-4.5); ALKALINE PHOSPHATASE 83 U/L (40-136); BILIRUBIN,TOTAL 0.2 MG/DL (0.1-1.0); BUN/CREATININE RATIO 11; CARBON DIOXIDE 23 MMOL/L (21-32); CHLORIDE 101 MMOL/L (98-107); CREATININE SERUM 0.91 MG/DL (0.60-1.30); GFR ESTIMATED 70; GLUCOSE 153 MG/DL (70-105); POTASSIUM 4.6 MMOL/L (3.6-5.0); SODIUM 135 MMOL/L (135-145); TOTAL PROTEIN 6.2 GM/DL (6.4-8.2)
[2023-04-15 01:07] LABS: CLARITY,URINE CLEAR; COLOR,URINE YELLOW; PH,URINE 5.5 (5-9); PROTEIN,URINE 1+ (NEGATIVE)
[2023-04-15 01:08] LABS: BACTERIA,URINE TRACE /HPF; BILIRUBIN,URINE NEGATIVE (NEGATIVE); GLUCOSE, URINE (UA) NEGATIVE (NEGATIVE); HYALINE CASTS, URINE RARE /LPF; KETONES,URINE NEGATIVE (NEGATIVE); LEUKOCYTE ESTERASE ,URINE NEGATIVE (NEGATIVE); NITRITE,URINE NEGATIVE (NEGATIVE)
[2023-04-15] MEDS ORDERED: dexAMETHasone INJ 10 MG/ML 1 ML VIAL IV ONE (01:15)
[2023-04-15] MEDS: NS IV 1000 ML 1,000 ML IV SCH ×2 (02:51→15:49)
[2023-04-15] MEDS: ONDANSETRON INJECTION 4 MG/2 ML (SDV) IV PRN (02:51)
--- NOTE | 2023-04-15 05:24 | Diagnostic Imaging Report ---
INDICATION: Right-sided weakness. History of intracranial metastases. COMPARISON: 03/05/2023 FINDINGS: Single frontal radiographic view of the chest was obtained and demonstrates normal cardiac silhouette and pulmonary vasculature. Masslike opacity again projects over the right lung base and measures 3.6 x 3.1 cm. There is no loculated fluid collection, free fluid or free air. Left subclavian Port-A-Cath is noted with tip in the high SVC. Osseous structures show no acute abnormalities. IMPRESSION: 1. Redemonstration masslike opacity projecting over the right lung base. 2. No new acute cardiopulmonary process. Dictated by: Dictated on workstation # [id number]
[2023-04-15 05:26] LABS: BASOPHILS # (AUTO) 0.1 10^3/uL (0.0-0.1); BASOPHILS % (AUTO) 1 % (0-10); EOSINOPHILS % (AUTO) 0 % (0-10); HEMATOCRIT 34 % (35-52); HEMOGLOBIN 10.8 g/dL (11.5-16.0); LYMPHOCYTES # (AUTO) 0.9 10^3/uL (1.0-4.0); LYMPHOCYTES % (AUTO) 9 % (12-44); MEAN CORPUSCULAR HEMOGLOBIN 28 pg (25-34); MEAN CORPUSCULAR HGB CONC 32 g/dL (32-36); MEAN CORPUSCULAR VOLUME 90 fL (80-99); MEAN PLATELET VOLUME 8.9 fL (9.0-12.2); MONOCYTES # (AUTO) 0.2 10^3/uL (0.0-1.0); MONOCYTES % (AUTO) 2 % (0-12); NEUTROPHILS # (AUTO) 9.1 10^3/uL (1.8-7.8); NEUTROPHILS % (AUTO) 88 % (42-75); PLATELET COUNT 436 10^3/uL (130-400); WHITE BLOOD COUNT 10.3 10^3/uL (4.3-11.0)
[2023-04-15 05:46] LABS: CREATININE SERUM 0.77 MG/DL (0.60-1.30); POTASSIUM 4.9 MMOL/L (3.6-5.0)
[2023-04-15 06:01] LABS: LYMPHOCYTES % (MANUAL) 9 %; MONOCYTES % (MANUAL) 1 %; NEUTROPHILS % (MANUAL) 90 %
[2023-04-15 06:02] LABS: ELLIPT/OVALOCYTES SLIGHT
--- NOTE | 2023-04-15 08:05 | Diagnostic Imaging Report ---
PROCEDURE: CT head wo r/o stroke. TECHNIQUE: Multiple contiguous axial images were obtained through the brain without the use of intravenous contrast. Auto Exposure Controls were utilized during the CT exam to meet ALARA standards for radiation dose reduction. INDICATION: Right-sided weakness. History of metastatic disease of the brain. COMPARISON: MR dated 03/30/2023 FINDINGS: Multiple hyperdense intraparenchymal bilateral cerebral and cerebellar mass-type lesions are again identified. The largest of these is partially calcified and is located near the junction of the posterior left temporal and frontal lobes. It measures 2.3 x 1.9 cm. There is a mild amount of surrounding vasogenic edema. There is no new loss of olea-white matter junction differentiation to suggest new evolving acute territorial infarct. There is no midline shift. Ventricles and cortical sulci are otherwise age-appropriate. Note is also again made of background chronic small vessel ischemic changes. No new intra or extra-axial intracranial hemorrhage is seen. Bony calvarium is intact. Visualized portions of the paranasal sinuses and mastoid air cells are clear. IMPRESSION: 1. Redemonstration of multiple metastatic bilateral intraparenchymal cerebral and cerebellar metastatic lesions. 2. No new acute infarct, intracranial hemorrhage, or new midline shift. 3. Background age related parenchymal volume loss and chronic small vessel ischemic changes in the deep white matter. 4. I agree with the [place] report. Dictated by: Dictated on workstation # [id number]
[2023-04-15] MEDS: amLODIPine 10 MG TABLET PO SCH (08:41)
[2023-04-15] MEDS: CARBIDOPA/LEVODOPA 25/100 TABLET PO SCH ×3 (08:42→17:34)
[2023-04-15] MEDS: dexAMETHasone 4 MG TABLET PO SCH (08:42)
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
--- NOTE | 2023-04-15 14:34 | Occupational Therapy Eval ---
OT Evaluation-General/PLF Medical Diagnosis Admission Date Apr 15, 2023 at 01:36 Medical Diagnosis: metastatic brain cancer Onset Date: Apr 15, 2023 Therapy Diagnosis Therapy Diagnosis: weakness Precautions Precautions/Isolations: Seizure, Fall Prevention, Standard Precautions, Pressure Ulcer Weight Bear Status Weight Bearing Restriction: Full Weight Bearing Referral Physician: Dylan Referral Reason: Evaluation/Treatment Medical History Pertinent Medical History: Atrial Fib, COPD, Heart Failure, Parkinson's Reviewed History: Yes Social History Home: Single Level Current Living Status: Spouse ADL-Prior Level of Function SCALE: Activities may be completed with or without assistive devices. 2-Roxvwnuwvo-yebgdoy completes the activity by him/herself with no assistance from a helper. 5-Set-up or Clean-up Assistance-helper sets up or cleans up; patient completes activity. [place] assists only prior to or following the activity. 4-Supervision or Touching Assistance-helper provides verbal cues and/or touch ing/steadying and/or contact guard assistance as patient completes activity. Assistance may be provided throughout the activity or intermittently. 3-Partial/Moderate Assistance-helper does LESS THAN HALF the effort. [place] lifts, holds or supports trunk or limbs, but provides less than half the effort. 2-Substantial/Maximal Assistance-helper does MORE THAN HALF the effort. [place] lifts or holds trunk or limbs and provides more than half the effort. 2-Cecinapmp-egqkbe does ALL the effort. Patient does none of the effort to complete the activity. Or, the assistance of 2 or more helpers is required for the patient to complete the activity. If activity was not attempted, code reason: 7-Patient Refused. 9-Not Applicable-not attempted and the patient did not perform the activity before the current illness, exacerbation or injury. 10-Not Attempted due to Environmental Limitations-(lack of equipment, weather restraints, etc.). 88-Not Attempted due to Medical Conditions or Safety Concerns. Self Care: Independent Functional Cognition: Independent Drive Self: No OT Current Status Subjective Agreeable to OT, dizziness and anxiety w/ ambulation Mental Status/Objective Patient Orientation: Person, Place, Time, Situation Attachments: Cruz Catheter, IV, Oxygen, Telemetry Current Glasses/Contacts: Yes Hand Dominance: Right Upper Extremity ROM BUE ROM WFLs Upper Extremity Coordination INTACT with simple task, increased anxiety and coordination decreases Upper Extremity Strength +3/5 ADL-Treatment Eating (QC): 7 Oral Hygiene (QC): 5 Shower/Bathe Self (QC): 4 Upper Body Dressing (QC): 4 Lower Body Dressing (QC): 3 On/Off Footwear (QC): 7 (already on) Toileting Hygiene (QC): 3 Education OT Patient Education: Correct positioning, Energy conservation, Modified ADL techniques, Progress toward Goal/Update tx plan, Purpose of tx/functional activities, Reviewed precautions, Rehab process, Safety issues, Transfer techniques Teaching Recipient: Patient, Family (spouse) Teaching Methods: Demonstration, Discussion Response to Teaching: Verbalize Understanding, Reinforcement Needed OT Senior Care Goals Dredge Operator Goals 1=Demonstrate adherence to instructed precautions during ADL tasks. 2=Patient will verbalize/demonstrate understanding of assistive devices/modifications for ADL. 3=Patient will improve strength/tolerance for activity to enable patient to perform ADL's. OT Education/Plan Problem List/Assessment Assessment: Decreased Activ Tolerance Discharge Recommendations Plan/Recommendations: Continue POC Therapy Discharge Recommendati: Post Acute OT Treatment Plan/Plan of Care Treatment,Training & Education: Yes Patient would benefit from OT for education, treatment and training to promote independence in ADL's, mobility, safety and/or upper extremity function for ADL's. Plan of Care: ADL Retraining, Functional Mobility, Group Exercise/Act as Ind, UE Funct Exercise/Act Treatment Duration: Apr 22, 2023 Frequency: 3 times per week Estimated Hrs Per Day: .25 hour per day Agreement: Yes Rehab Potential: Guarded Time Start Time: 13:30 Stop Time: 13:42 DATE: Apr 15, 2023 Total Time Billed (hr/min): 12 Billed Treatment Time EV 12 min KRYSTEN MORALES OT Apr 15, 2023 14:34
--- NOTE | 2023-04-15 16:10 | Diagnostic Imaging Report ---
PROCEDURE: MR imaging of the brain without contrast. TECHNIQUE: Multiplanar, multisequence MR imaging of the brain was performed without contrast. INDICATION: Trauma. Fall last night. Possible stroke. Intracranial metastases. COMPARISON: CT head without contrast of 04/14/2023. MRI brain without and with IV contrast of 03/30/2023. FINDINGS: Evaluation is limited by lack of IV contrast. There are multiple intracranial masses which have progressed since the prior exam. These are incompletely characterized given the lack of IV contrast. However, masses in the left cerebellum have increased in size. For example, the more medial mass now measures up to 2.0 cm in diameter, previously 1.4 cm. A mass in the periphery of the left parietal lobe now measures up to 1.9 cm, previously 0.5 cm. A mass in the anterior left temporal lobe now measures 1.2 cm, previously 0.9 cm. A mass in the more central left temporal lobe measures up to 2.2 cm, previously 1.9 cm. A mass in the left frontal lobe laterally now measures 1.3 cm, previously 1.2 cm. There is a new focus of restricted water diffusion in the right parietal lobe measuring up to 0.9 cm. Although no definitive mass is identified on today's exam in this location, this does correspond to a previously seen enhancing mass on the prior MRI. No restricted water diffusion to suggest a territorial infarction. No hydrocephalus or extra-axial fluid collections. Normal intracranial flow voids. The orbits are unremarkable. Paranasal sinuses and mastoids are clear. IMPRESSION: 1. Numerous intracranial masses are incompletely characterized due to lack of IV contrast. These have however definitively progressed since 03/30/2023. 2. Focus of restricted water diffusion in the right parietal lobe is new since the prior MRI exam. However, this does correspond to enhancement seen on that exam and is likely related to an additional mass. There is no restricted water diffusion to suggest a territorial infarction. Dictated by: Dictated on workstation # [id number]
[2023-04-15] MEDS ORDERED: RT-ALBUTEROL SULF 2.5 MG/3 ML PRE-MIX VIAL INH PRN ×2 (16:30→16:45)
[2023-04-15] MEDS ORDERED: NYSTATIN ORAL SUSP 5 ML UDC PO PRN (16:30)
[2023-04-15] MEDS: inSUlin ASPART 1 UNIT/0.01 ML (PER UNIT) SC SCH ×2 (16:38→21:12)
[2023-04-15] MEDS ORDERED: RIVAROXABAN 20 MG TABLET PO SCH (17:00)
[2023-04-15] MEDS: metFORMIN 500 MG TABLET PO SCH (17:34)
[2023-04-15] MEDS ORDERED: hydrALAZINE INJECTION 20 MG/ML VIAL IV PRN (21:00)
[2023-04-15] MEDS ORDERED: oxyCODONE IMMEDIATE RELEASE 5 MG TABLET PO PRN (21:00)
[2023-04-15] MEDS ORDERED: CARBIDOPA/LEVODOPA 25/100 TABLET PO SCH (21:00)
[2023-04-15] MEDS ORDERED: HYDROcodone/ACETAMINOPHEN 5 MG/325 MG TABLET PO PRN (21:00)
[2023-04-15] MEDS ORDERED: ALPRAZolam 0.5 MG TABLET PO PRN (21:00)
[2023-04-15] MEDS: cloNIDine 0.1 MG TABLET PO SCH (21:12)
[2023-04-16] VITALS (7 sets, daily range): BP systolic 105–175; BP diastolic 58–83
[2023-04-16 04:09] LABS: BASOPHILS % (AUTO) 0 % (0-10); EOSINOPHILS % (AUTO) 0 % (0-10); HEMATOCRIT 31 % (35-52); HEMOGLOBIN 9.8 g/dL (11.5-16.0); LYMPHOCYTES # (AUTO) 1.7 10^3/uL (1.0-4.0); LYMPHOCYTES % (AUTO) 14 % (12-44); MEAN CORPUSCULAR HEMOGLOBIN 28 pg (25-34); MEAN CORPUSCULAR HGB CONC 31 g/dL (32-36); MEAN CORPUSCULAR VOLUME 90 fL (80-99); MONOCYTES # (AUTO) 1.1 10^3/uL (0.0-1.0); MONOCYTES % (AUTO) 9 % (0-12); NEUTROPHILS # (AUTO) 9.7 10^3/uL (1.8-7.8); NEUTROPHILS % (AUTO) 76 % (42-75); PLATELET COUNT 435 10^3/uL (130-400); WHITE BLOOD COUNT 12.7 10^3/uL (4.3-11.0)
[2023-04-16 04:24] LABS: ALBUMIN 3.2 GM/DL (3.2-4.5); BILIRUBIN,TOTAL 0.2 MG/DL (0.1-1.0); CREATININE SERUM 0.64 MG/DL (0.60-1.30); POTASSIUM 4.2 MMOL/L (3.6-5.0); TOTAL PROTEIN 5.7 GM/DL (6.4-8.2)
[2023-04-16] MEDS: inSUlin ASPART 1 UNIT/0.01 ML (PER UNIT) SC SCH ×2 (05:17→11:11)
[2023-04-16] MEDS ORDERED: LEVOTHYROXINE 100 MCG TABLET PO SCH (06:30)
[2023-04-16] MEDS: NS IV 1000 ML 1,000 ML IV SCH ×2 (06:38→11:23)
[2023-04-16] MEDS ORDERED: FLUTICASONE/VILANTEROL 100/25 MCG (14 DOSES) IH SCH (08:00)
[2023-04-16] MEDS ORDERED: TIOTROPIUM INH 4 GM (SPIRIVA Respimat) IH SCH (08:00)
[2023-04-16] MEDS: cloNIDine 0.1 MG TABLET PO SCH (08:03)
[2023-04-16] MEDS: amLODIPine 10 MG TABLET PO SCH (08:03)
[2023-04-16] MEDS: dexAMETHasone 4 MG TABLET PO SCH (08:05)
[2023-04-16] MEDS: ONDANSETRON INJECTION 4 MG/2 ML (SDV) IV PRN (08:05)
[2023-04-16] MEDS: CARBIDOPA/LEVODOPA 25/100 TABLET PO SCH ×2 (08:05→12:51)
[2023-04-16] MEDS ORDERED: EMPAGLIFLOZIN 10 MG TABLET PO SCH (09:00)
[2023-04-16] MEDS ORDERED: NON-FORMULARY MEDICATION 1 EA EA (Dapagliflozin Propanediol (Farxiga) 10 MG) PO SCH (09:00)
[2023-04-16] MEDS ORDERED: ARIPiprazole 10 MG TABLET PO SCH (09:00)
[2023-04-16] MEDS ORDERED: dilTIAZem ER 240 MG CAPSULE PO SCH (09:00)
[2023-04-16] MEDS ORDERED: PANTOPRAZOLE 40 MG TABLET PO SCH (09:00)
[2023-04-16] MEDS ORDERED: NON-FORMULARY MEDICATION 1 EA EA (Fluticasone/Umeclidin/Vilanter (Trelegy Ellipta 100-62.5 IH SCH (09:00)
[2023-04-16] MEDS ORDERED: ASPIRIN enteric coated 81MG TABLET PO SCH (09:00)
[2023-04-16] MEDS ORDERED: amLODIPine 5 MG TABLET PO SCH (09:00)
[2023-04-16] MEDS ORDERED: DIGOXIN 0.25 MG TABLET PO SCH (09:00)
[2023-04-16] MEDS ORDERED: RIVAROXABAN 20 MG TABLET PO SCH (09:00)
[2023-04-16] MEDS ORDERED: ISOSORBIDE MONONITRATE 60 MG TABLET PO SCH (09:00)
[2023-04-16] MEDS ORDERED: NON-FORMULARY MEDICATION 1 EA EA (Escitalopram Oxalate 20 MG) PO SCH (09:00)
[2023-04-16] MEDS ORDERED: CITALOPRAM 20 MG TABLET PO SCH (09:00)
[2023-04-16] MEDS: metFORMIN 500 MG TABLET PO SCH (09:05)
--- NOTE | 2023-04-16 12:25 | Physical Therapy Daily Note ---
PT Daily Note-Current Subjective Patient lying supine in bed upon PT arrival, agreeable to treatment but reports she doesn't feel like she can ambulate, wants to get to the chair. Pain Section J - Health Conditions 1. Rarely or not at all 2. Occasionally 3. Frequently 4. Almost constantly 8. Unable to answer Pain Effect on Sleep: 2 Pain Interference with Therapy: 2 Pain Interference w/Day-to-Day: 2 Transfers SCALE: Activities may be completed with or without assistive devices. 1-Rnkxfwkybn-wjxyssj completes the activity by him/herself with no assistance from a helper. 5-Set-up or Clean-up Assistance-helper sets up or cleans up; patient completes activity. [place] assists only prior to or following the activity. 4-Supervision or Touching Assistance-helper provides verbal cues and/or touching/steadying and/or contact guard assistance as patient completes activity. Assistance may be provided throughout the activity or intermittently. 3-Partial/Moderate Assistance-helper does LESS THAN HALF the effort. [place] lifts, holds or supports trunk or limbs, but provides less than half the effort. 2-Substantial/Maximal Assistance-helper does MORE THAN HALF the effort. [place] lifts or holds trunk or limbs and provides more than half the effort. 3-Rrjxliftc-lkcuxt does ALL the effort. Patient does none of the effort to complete the activity. Or, the assistance of 2 or more helpers is required for the patient to complete the activity. If activity was not attempted, code reason: 7-Patient Refused. 9-Not Applicable-not attempted and the patient did not perform the activity before the current illness, exacerbation or injury. 10-Not Attempted due to Environmental Limitations-(lack of equipment, weather restraints, etc.). 88-Not Attempted due to Medical Conditions or Safety Concerns. Roll Left & Right (QC): 4 Sit to Lying (QC): 3 Lying to Sitting/Side of Bed(Q: 3 Sit to Stand (QC): 3 Chair/Otj-gm-Qcxqh Xfer(QC): 3 Gait Training Does the Patient Walk?: Yes Distance: 3' Gait Assistive Device: FWW Assessment Current Status: Poor Progress Patient performs all bed mobility and transfers with min/mod A. Patient ambulates 3 feet to the chair with FWW, with mod A and verbal cues for safety. Patient in the chair post treatment with all needs met, nursing notified, call light in hand. PT Half-Way Goals Half-Way Goals PT Half-Way Goals Time Frame: Apr 30, 2023 Roll Left & Right (QC): 4 Sit to Lying (QC): 4 Lying-Sitting on Side/Bed(QC): 4 Sit to Stand (QC): 4 Chair/Pbh-ff-Gdymu Xfer(QC): 4 Toilet Transfer (QC): 4 Walk 10 feet (QC): 4 Walk 50ft with 2 Turns (QC): 4 PT Plan Treatment/Plan Treatment Plan: Continue Plan of Care Treatment Plan: Bed Mobility, Functional Strength, Gait, Safety, Therapeutic Exercise, Transfers Treatment Duration: Apr 30, 2023 Frequency: 6 times per week Estimated Hrs Per Day: .25 hour per day Patient and/or Family Agrees t: Yes Safety Risks/Education Patient Education: Gait Training, Transfer Techniques Teaching Recipient: Patient, Family Teaching Methods: Demonstration, Discussion Response to Teaching: Reinforcement Needed Time Time In: 954 Time Out: 1005 DATE: Apr 16, 2023 Total Billed Treatment Time: 11 Total Billed Treatment Visit, RICH PAREDES PT Apr 16, 2023 12:25
--- NOTE | 2023-04-16 12:45 | Discharge Summary ---
Discharge Summary Hospital Course Hospital Course Date of Admission: Apr 15, 2023 at 01:36 Admission Diagnosis : Family Physician/Provider: Cody Thomas MD Date of Discharge: 04/16/23 Discharge Diagnosis: Altered mental status likely 2/2 to brain metastases Hospital Course: Pt was admitted for AMS after an episode of altered status at home. MRI brain demonstrated possible new mass, and progression of previous mets. Urine analysis, chemistry analysis negative for infection. Imaging negative for infection, or stroke. On examination 04/16, Pt is lucid with no further episodes of altered mental status throughout her stay. Stable for discharge on 04/16 with oncology appt 04/18 and close follow-up with PCP within 7-14 days. Labs and Pending Lab Test: Laboratory Tests 04/15/23 16:37: Glucometer 138H 04/15/23 20:40: Glucometer 160H 04/16/23 03:51: White Blood Count 12.7H, Red Blood Count 3.48L, Hemoglobin 9.8L, Hematocrit 31L, Mean Corpuscular Volume 90, Mean Corpuscular Hemoglobin 28, Mean Corpuscular Hemoglobin Concent 31L, Red Cell Distribution Width 20.4H, Platelet Count 435H, Mean Platelet Volume 9.0, Immature Granulocyte % (Auto) 1, Neutrophils (%) (Auto) 76H, Lymphocytes (%) (Auto) 14, Monocytes (%) (Auto) 9, Eosinophils (%) (Auto) 0, Basophils (%) (Auto) 0, Neutrophils # (Auto) 9.7H, Lymphocytes # (Auto) 1.7, Monocytes # (Auto) 1.1H, Eosinophils # (Auto) 0.0, Basophils # (Auto) 0.0, Immature Granulocyte # (Auto) 0.2H, Sodium Level 135, Potassium Level 4.2, Chloride Level 101, Carbon Dioxide Level 23, Anion Gap 11, Blood Urea Nitrogen 10, Creatinine 0.64, Estimat Glomerular Filtration Rate 97, BUN/Creatinine Ratio 16, Glucose Level 131H, Calcium Level 9.0, Corrected Calcium 9.6, Total Bilirubin 0.2, Aspartate Amino Transf (AST/SGOT) 13, Alanine Aminotransferase (ALT/SGPT) 7, Alkaline Phosphatase 71, Total Protein 5.7L, Albumin 3.2 04/16/23 10:41: Glucometer 146H Home Meds Active Alprazolam 0.5 Mg Tablet 0.5 Mg PO TID PRN Oxycodone HCl 5 Mg Tablet 5 Mg PO Q6H PRN Hydrocodone-Acetamin 5-325 mg (Hydrocodone/Acetaminophen) 5 Mg-325 Mg Tablet 1-2 Ea PO Q6H PRN Amlodipine Besylate 5 Mg Tablet 10 Mg PO DAILY 30 Days Clonidine HCl 0.1 Mg Tablet 0.1 Mg PO BID 30 Days Lisinopril 20 Mg Tablet 40 Mg PO DAILY 30 Days TAKES 2 (20MG) TABLETS Digoxin 250 Mcg (0.25 Mg) Tablet 250 Mcg PO DAILY 30 Days Dexamethasone 4 Mg Tablet 4 Mg PO DAILY 30 Days Metoprolol Succinate 25 Mg Tab.er.24h 25 Mg PO DAILY 30 Days Xarelto (Rivaroxaban) 20 Mg Tablet 20 Mg PO DAILY 30 Days Diltiazem 24Hr ER (Diltiazem HCl) 240 Mg Cap.er.24h 240 Mg PO DAILY 30 Days Carbidopa-Levodopa 25-100 Tab (Carbidopa/Levodopa) 25 Mg-100 Mg Tablet 1 Ea PO TID 30 Days Atorvastatin Calcium 80 Mg Tablet 80 Mg PO HS 30 Days Nystatin 100,000 Unit/Ml Oral.susp 5 Ml PO QID PRN 30 Days SWISH AND SWALLOW Trelegy Ellipta 100-62.5-25 (Fluticasone/Umeclidin/Vilanter) 100-62.5 Blst.w.dev 1 Each IH DAILY 30 Days Pantoprazole Sodium 40 Mg Tablet.dr 40 Mg PO DAILY 30 Days Levothyroxine Sodium 100 Mcg Tablet 100 Mcg PO DAILY 30 Days Farxiga (Dapagliflozin Propanediol) 10 Mg Tablet 10 Mg PO DAILY 30 Days Aripiprazole 10 Mg Tablet 10 Mg PO DAILY 30 Days Aspirin EC (Aspirin) 81 Mg Tablet.dr 81 Mg PO DAILY 30 Days Ventolin Hfa (Albuterol Sulfate) 1 Puff Puff 2 Puff PO Q6H PRN 30 Days Escitalopram Oxalate 20 Mg Tablet 20 Mg PO DAILY 30 Days Isosorbide Mononitrate ER (Isosorbide Mononitrate) 60 Mg Tab 60 Mg PO DAILY 30 Days Metformin HCl 500 Mg Tablet 500 Mg PO BID 30 Days Assessment/Pt Instructions 1) Altered mental status Status: Acute Assessment & Plan: No further episodes of shaking/syncope. Continues to be altered, unsure of baseline. Continues to have weakness. Ddx includes TIA, stroke, seizure, sequela of brain mets. CT in the ED negative for concern for stroke. MRI to be obtained to further evaluate for possible stroke. Continue neuro checks and telemetry Discussed with oncology, Dr. Birch - continue patient's dexamethasone, nothing further from their standpoint at this time. Qualifiers: Qualified Codes: R41.82 - Altered mental status, unspecified (2) Generalized weakness Status: Acute Assessment & Plan: Patient with significant diffuse weakness, PT & OT consulted. (3) Stage 4 lung cancer Status: Chronic (4) Lung cancer metastatic to brain Status: Chronic Assessment & Plan: Continue daily dexamethasone. Patient reports is supposed to start radiation treatment Tuesday. (5) Chronic bronchitis with COPD (chronic obstructive pulmonary disease) Status: Chronic Assessment & Plan: At baseline, uses O2 at night. Currently requiring 3L O2 via NC to maintain oxygen saturations. Continue Trellegy Elipta Albuterol nebs PRN shortness of breath (6) Persistent atrial fibrillation Status: Chronic Assessment & Plan: Is s/p ablation. Sinus rhythm on tele since admission. On chronic anticoagulation with rivaroxaban. Continue home digoxin and diltiazem (7) Hypertension Status: Chronic Assessment & Plan: Has had blood pressures on the higher side since admission, but hasn't had all her home medications as med rec hadn't been completed. Continue home amlodipine, lisinopril, metoprolol, clonidine, isosorbide mononitrate. Monitor for significantly elevated blood pressures. (8) Type 2 diabetes mellitus Status: Chronic Assessment & Plan: Continue home metformin and Farxiga ACHS glucose checks with sliding scale insulin for out of range values. Qualifiers: Qualified Codes: E11.9 - Type 2 diabetes mellitus without complications (9) Hypothyroidism Status: Chronic Assessment & Plan: Continue home levothyroxine Qualifiers: Qualified Codes: E03.9 - Hypothyroidism, unspecified (10) Parkinson disease Status: Chronic Assessment & Plan: Continue home Sinemet. Discharge Instructions Discharge Diet: No Restrictions Activity as Tolerated: Yes Discharge Physical Examination Vital Signs Vital Signs Date Time Temp Pulse Resp B/P (MAP) Pulse Ox O2 Delivery O2 Flow Rate FiO2 04/16/23 12:19 63 04/16/23 11:52 36.0 16 105/58 (74) 95 Room Air 04/16/23 08:00 3.00 General Appearance: No Apparent Distress Respiratory: Lungs Clear, Normal Breath Sounds, No Accessory Muscle Use, No Respiratory Distress Cardiovascular: Regular Rate, Rhythm Neurologic/Psychiatric: Alert, Oriented x3, No Motor/Sensory Deficits Allergies: Coded Allergies: No Known Drug Allergies (Unverified , 03/06/20) Discharge Summary Date of Admission Apr 15, 2023 at 01:36 Date of Discharge JEB WATERS MD,RESIDENT Apr 16, 2023 12:44
== END 2023-04-16 14:53 | disposition home or self-care (01) | DRG 55 ==
LOC: ER 23:29 → CSD 04-15 01:36
PROVIDERS: ADMIT Family Medicine; ATTEND Internal Medicine
DX: C79.31 Secondary malignant neoplasm of brain (principal); C34.90 Malignant neoplasm of unspecified part of unspecified bronchus or lung; I48.19 Other persistent atrial fibrillation; J44.9 Chronic obstructive pulmonary disease, unspecified; I10 Essential (primary) hypertension; E11.9 Type 2 diabetes mellitus without complications; E03.9 Hypothyroidism, unspecified; G20.A1 Parkinson's disease without dyskinesia, without mention of fluctuations; Z99.81 Dependence on supplemental oxygen; Z79.82 Long term (current) use of aspirin; Z79.84 Long term (current) use of oral hypoglycemic drugs; Z79.01 Long term (current) use of anticoagulants; Z79.899 Other long term (current) drug therapy; Z79.890 Hormone replacement therapy; E78.00 Pure hypercholesterolemia, unspecified; M19.90 Unspecified osteoarthritis, unspecified site; G89.29 Other chronic pain; M54.9 Dorsalgia, unspecified; F41.9 Anxiety disorder, unspecified; F32.A Depression, unspecified
CPT/HCPCS: 36415; 51702; 70450; 70551; 71045; 80048; 80053; 80061; 81000; 82947; 84484; 85007; 85025; 85027; 85379; 85610; 85730; 93005; 93041; 94640; 94760; 96374